=== PATIENT | female | born 1955 | race Caucasian/White ===

== ENCOUNTER 2017-06-08 09:21 | Inpatient (IN) | payer MEDICARE, MEDICAID, SELFPAY ==
[2017-06-08] VITALS (11 sets, daily range): BP systolic 95–138; BP diastolic 49–78; PULSE 60–83; RESP 16–18; TEMP 36.2–37; O2SAT 97–100; BMI 29.3
--- NOTE | 2017-06-08 08:18 | EKG12_ITS ---
Test Reason : PRE-OP Blood Pressure : / mmHG Vent. Rate : 080 BPM Atrial Rate : 080 BPM P-R Int : 154 ms QRS Dur : 076 ms QT Int : 398 ms P-R-T Axes : 066 052 046 degrees QTc Int : 459 ms Normal sinus rhythm Normal ECG Confirmed by AFTAB SIMPSON, OCTAVIANO ([id number]), avid editor MICA ST ([id number] on 06/11/2017 2:02:37 PM Referred By: Gala Aguilar Confirmed By:OCTAVIANO UGALDE MD
[2017-06-08 08:49] LABS: Anion Gap 6 (5-15); BUN 21 mg/dL (7-18); Calcium,Total 8.8 mg/dL (8.5-10.1); Chloride 106 mmol/L (98-107); Creatinine, Serum 0.66 mg/dL (0.55-1.02); EST Glomerular Filtration Rate 97 mL/min (>60); Est Glom Filt Rate - Afr Amer 117 mL/min (>60); Estimated Creatinine Clearance 65.84 ml/min; Glucose 105 mg/dL (74-106); Potassium 3.6 mmol/L (3.5-5.1); Sodium Level 140 mmol/L (136-145)
[2017-06-08 09:01] LABS: Bedside Glucose 118 mg/dL (70-110)
[2017-06-08 09:03] LABS: Hemoglobin A1c 5.4 % (4.2-6.3)
[2017-06-08] MEDS: Clindamycin 900 MG/50 ML BAG 75 MG IV (09:35)
[2017-06-08] MEDS: Bupiv/Epi 0.5% Mpf 30 ML Vial (11:42)
--- NOTE | 2017-06-08 11:43 | PCM.IMDPSTOP ---
Immediate Post-Op Note Date of Procedure: 06/08/17 Primary Surgeon/Physician: Gala Aguilar multisensor intelligence officer: Adelita Morel Pre-Operative Diagnosis: incisional ventral hernia with herniation of colon Post-Operative Diagnosis: multiple incisional ventral hernias (uzbek cheese-like) with herniation of bowel Surgery/Procedure Performed:: laparoscopic ventral hernia repair with mesh Description of Surgical Findings:: multiple incisional ventral hernias with incarceration of bowel and fatty tissues in and around the umbilical area, dense adhesion of small bowel and colon to the hernia sites requiring time to take down these adhesions to clear the abdominal wall fascia Estimated Blood Loss: 30 ml Specimen's removed: none Drains: none Type of Anesthesia:: General ASA Class: ASA2 Mod Systematic Disease - Admit VTE Documentation VTE Present on Admission: Yes VTE Mechan Device Prophylaxis: SCD's
--- NOTE | 2017-06-08 11:47 | OP.PN_ITS ---
Immediate Post-Op Note Date of Procedure: 06/08/17 Primary Surgeon/Physician: Gala Aguilar candy waffle assembler: Adelita Morel Pre-Operative Diagnosis: incisional ventral hernia with herniation of colon Post-Operative Diagnosis: multiple incisional ventral hernias (macanese cheese-like ) with herniation of bowel Surgery/Procedure Performed:: laparoscopic ventral hernia repair with mesh Description of Surgical Findings:: multiple incisional ventral hernias with incarceration of bowel and fatty tissues in and around the umbilical area, dense adhesion of small bowel and colon to the hernia sites requiring time to take down these adhesions to clear the abdominal wall fascia Estimated Blood Loss: 30 ml Specimen's removed: none Drains: none Type of Anesthesia:: General ASA Class: ASA2 Mod Systematic Disease - Admit VTE Documentation VTE Present on Admission: Yes VTE Mechan Device Prophylaxis: SCD's
--- NOTE | 2017-06-08 11:49 | OP.PCM_ITS ---
Report of Operation Date of Procedure: 06/08/17 Pre-Operative Diagnosis: incisional ventral hernia with herniation of colon Post-Operative Diagnosis: multiple incisional ventral hernias with herniation of bowel Surgery/Procedure Performed:: laparoscopic ventral hernia repair with mesh Description of Surgical Findings:: multiple incisional ventral hernias (citizen [place] cheese - like) with incarceration of bowel and fatty tissues in and around the umbilical area, dense adhesion of small bowel and colon to the hernia sites requiring time to take down these adhesions to clear the abdominal wall fascia and expose all the fascia defects - > 3 taxicab driver: Adelita Morel Type of Anesthesia:: General Anesthesiologist: Tiara Abreu Specimen's removed: none Drains: none Estimated Blood Loss (mL): 30 ml Fluids Replaced: 1200 ml RL Description of Procedure: After informed consent was given, the patient was brought to the Operating Room and placed in the supine position. Appropriate time out protocol was followed. The patient was then placed under general endotracheal anesthesia. The abdomen was then prepped with a sterile surgical skin preparation and sterile surgical drapes were placed. The left upper abdominal wall was grasped with penetrating clamps and the skin and subcutaneous tissues were infiltrated with 0.5% marcaine with epinephrine. A skin incision was then made with a 15 blade scalpel. The anterior abdominal wall was elevated and the intraabdominal cavity was entered. A CO2 pneumoperitoneum was then created. A 5mm trocar was placed using the camera inserted into the trocar as it penetrated the fascia and then a 5mm laparoscope was then inserted into the trocar and careful attention was directed to the intraabdominal contents. There was no evidence of injury to any intraabdominal contents from the insertion of the trocar or camera. There were a large amount of omental adhesions and bowel adhesions to the anterior abdominal wall. This was primarily in the periumbilical site but also extended to the right upper quadrant and bilateral lower quadrant. Under direct visualization, two 5mm trocars were placed - one in the lateral left side (inferior to the initial trocar) and another in the left lower quadrant). The skin and subcutaneous tissues of these trocars were infiltrated with local anesthetic. Later in the course of the surgery, to facilitate use of better visualization with a 10 mm camera and also to place the mesh in the intraabdominal cavity, the left lower quadrant trocar was changed to a 12 mm trocar. Dissection then began to take down the adhesions to clear the anterior abdominal wall. This was done by use of blunt dissection and transection of the tissues with the Harmonic scalpel. There was transverse colon that was noted to be incarcerated in the periumbilical area hernia site. Numerous smaller fascial defects were noted with fatty incarceration with omentum. Also small bowel was noted to be adherent at one of the fascial defect sites. These adhesions were dense in nature and because of this and the presence of bowel, dissection of these adhesions and them from the anterior wall took some time. Once this was done, the fascial defects were noted. There were many small fascial defects surrounding the larger 3-4 cm fascial defect in the perumbilical area. These fascial defects were marked out on the patient's skin , to determine the size of mesh required to cover all the defects. To cover all the fascial defects, a Ventrolight 15cm round (large) mesh was chosen. It was prepared according to agronomy advisor's guidelines. It was then rolled up and placed into the intraabdominal cavity via the 12 mm trocar. A site at the central location of the fascial defects had been chosen prior to placement of the mesh and a small skin incision was made at this site - it was just right superior to the umbilicus. The central balloon port of the mesh was then brought out via this skin incision. The balloon of the mesh was then inflated. The mesh was then positioned and flanged up against the anterior abdominal wall. A SecureStrap tacking devices was then used to secure the mesh on the anterior abdominal wall. The balloon of the mesh was then removed via the 12 mm trocar. Hemostasis was carefully checked, no active bleeding was noted. The bowel was carefully examined, no injury or bile leakage was noted. The CO2 was released and all trocars removed intact. The fascia at the left lower quadrant site was then reapproximated transversely with [id number] 0 vicryl suture. All skin incisions were closed with 4-0 monocryl in a subdermal fashion. Cavilol and Steristrips were used to reinforce the skin closure. Sterile dressings were applied to all wounds. The patient was extubated and brought to the Recovery Room in stable condition. Grafts/Implants Used: Bard Ventralight ST mesh with ECHO postioning system LOT# [id number] - Complications none noted - Admit VTE Documentation VTE Present on Admission: Yes VTE Mechan Device Prophylaxis: SCD's
[2017-06-08 12:45] LABS: Bedside Glucose 142 mg/dL (70-110)
[2017-06-08] MEDS: Morphine 2 MG/ML Syringe IV ×2 (13:38→17:24)
[2017-06-08] MEDS: 0.9% NaCl Peripheral Flush Adult/Peds IV ×2 (13:39→17:24)
--- NOTE | 2017-06-08 16:47 | CHAPLAIN ---
Type of Pastoral Visit _x__ Initial Visit ___ Follow-up Visit ___ On-call Visit ___ General Patient Visit ___ Spiritual Assessment ___ Family Conference ___ Bereavement ___ Rapid Response ___ Code Blue ___ Other (describe below) Pastoral Care Referral From _x__ Patient ___ Family ___ Nurse ___ Physician ___ Maintenance Supervisor Electrical ___ Foreign Diplomat ___ Other (describe below) Sacrament/Intervention ___ Active listening ___ Anointing ___ Church ___ Bereavement ___ Communion ___ Clarissa exploration ___ ___ Life review ___ Prayer ___ Reconciliation ___ Sacrament of Sick _x__ Supportive presence ___ Wedding ___ Other (describe below) Pastoral Comments
[2017-06-08] MEDS: Lactated Ringers 1,000 ML 75 ML IV (18:59)
[2017-06-09] MEDS: Morphine 2 MG/ML Syringe IV ×2 (01:47→21:26)
[2017-06-09 02:30] VITALS: BP 136/72; PULSE 96; RESP 18; TEMP 37.2; O2SAT 96
--- NOTE | 2017-06-09 07:11 | PCM.PN.SRG ---
Subjective: patient feels distended with abdominal pain, has not ambulated (states that she can't with IV and SCDs in place) - Physical Exam General: Alert, Oriented x3, - - difficult to understands - doesn't enunciate clearly Oral: Moist Mucosa Abdomen: Soft - distended, slightly tympanitic, hypoactive bowel sounds, dresssing intact - not saturated, - - rectal - air in vault - no stool Vital Signs Temp Pulse Resp BP Pulse Ox 98.9 F 96 18 136/72 H 96 06/09/17 02:30 06/09/17 02:30 06/09/17 02:30 06/09/17 02:30 06/09/17 02:30 Oxygen Delivery Method Room Air Weight: 70.5 kg Body Mass Index (BMI) 29.3 Finger Stick Blood Glucose 142 Intake and Output for Last 24 Hours 06/07/17 06/08/17 06/09/17 23:59 23:59 23:59 Intake Total 2275 / 2275 1600 / 1600 Output Total 350 / 350 850 / 850 Balance 1925 / 1925 750 / 750 Laboratory Tests Past 24 Hrs 06/08/17 06/08/17 08:28 08:28 Sodium 140 Potassium 3.6 Chloride 106 Carbon Dioxide 28.0 Anion Gap 6 BUN 21 H Creatinine 0.66 Estim Creat Clear Calc 65.84 Est GFR (MDRD) Af Amer 117 Est GFR (MDRD) Non-Af 97 BUN/Creatinine Ratio 32.0 H Glucose 105 Hemoglobin A1c 5.4 Calcium 8.8 POC Glucose 06/08/17 06/08/17 12:38 08:41 POC Glucose 142 H 118 H Medical Necessity - Tobacco Use Smoking Status: Never smoker Assessment/Plan Impression: POD#1 s/p laparoscopic ventral hernia repair with mesh and extensive adhesiolysis postoperative ileus Plan: Patient has not passed flatus and has abdominal distention, suspect postop ileus Ambulation is strongly encouraged- patient has not ambulated yet, she points to her IV and her SCDs as to the reasons why Digital examination done to stimulate peristaltic reflex
[2017-06-09] MEDS: Lactated Ringers 1,000 ML 75 ML IV ×2 (07:49→20:11)
[2017-06-09 10:30] VITALS: BP 121/67; PULSE 94; RESP 16; TEMP 36.7; O2SAT 95
[2017-06-09 13:49] VITALS: BP 126/69; PULSE 87; RESP 16; TEMP 36.8; O2SAT 94
[2017-06-09 20:05] VITALS: BP 106/68; PULSE 93; RESP 16; TEMP 37.2; O2SAT 97
[2017-06-09] MEDS: 0.9% NaCl Peripheral Flush Adult/Peds IV (21:26)
[2017-06-10 02:05] VITALS: BP 121/68; PULSE 87; RESP 16; TEMP 37; O2SAT 98
[2017-06-10 08:02] VITALS: BP 126/72; PULSE 95; RESP 18; TEMP 37; O2SAT 98
[2017-06-10] MEDS: Lactated Ringers 1,000 ML 75 ML IV (09:14)
--- NOTE | 2017-06-10 10:30 | CASEMGMT ---
RN BROOKE Face to Face with patient for initial transition planning/care coordination assessment. RN CM introduced self and role at [facility]. Patient sitting in chair, alert and oriented. Patient willing to participate in assessment and is able to answer all questions appropriately. Care providers, pharmacy, and demographics verified. See link attached. Pt wishes to discharge home, denies need for home health at this time. Pt states she has no further needs or concerns at this time. CM to follow for discharge planning needs that may arise. Disposition Plan: Patient to discharge home with follow-up plans in place.
--- NOTE | 2017-06-10 11:05 | PCM.PN.SRG ---
Subjective: patient had post op ileus - presently resolved, passing flatus, less distended minimal abdominal pain - Physical Exam General: Alert, Oriented x3 Neck: Supple Abdomen: Bowel Sounds Present, Soft, - - dressings intact Vital Signs Temp Pulse Resp BP Pulse Ox 98.6 F 95 18 126/72 H 98 06/10/17 08:02 06/10/17 08:02 06/10/17 08:02 06/10/17 08:02 06/10/17 08:02 Oxygen Delivery Method Room Air Weight: 70.5 kg Body Mass Index (BMI) 29.3 Finger Stick Blood Glucose 142 Intake and Output for Last 24 Hours 06/08/17 06/09/17 06/10/17 23:59 23:59 23:59 Intake Total 2275 / 2275 2362 / 2362 1046 / 1046 Output Total 350 / 350 850 / 850 450 / 450 Balance 1925 / 1925 1512 / 1512 596 / 596 Medical Necessity - Tobacco Use Smoking Status: Never smoker Assessment/Plan Impression: POD#2 s/p laparoscopic ventral hernia repair with mesh and extensive adhesiolysis postoperative ileus - resolved Plan: discharge to home
--- NOTE | 2017-06-10 11:08 | PCM.DC.HER ---
Discharge Diet: No Restrictions Discharge Activity: Return to Normal Activity, May not drive while taking narcotic pain medications. Lifting Restrictions: no lifting greater than 50 pounds for one month Call your doctor if your incision/area has: Continuous Slow Oozing, Foul Smelling Discharge Call your doctor if you observe: Fever of 101 or Higher Additional Dressing/Incision Instructions:: Leave dressings intact. may get wet in shower. Do not soak - no tub baths/swimming Allergies/Adverse Reactions: Allergies cefdinir [From Omnicef] Allergy (Severe, Verified 04/22/17 09:46) Unknown Penicillins Allergy (Severe, Verified 06/04/17 09:36) STOP BREATHING codeine Allergy (Verified 04/22/17 09:46) Other hydrocodone bitartrate [From Vicodin] Allergy (Verified 04/22/17 09:46) Other latex Allergy (Verified 04/22/17 09:46) Rash aspirin Adverse Reaction (Verified 04/22/17 09:46) Other Medications to take at Discharge Simvastatin [Zocor] 20 mg PO QHS 12/23/12 Omeprazole [Prilosec] 20 mg PO DAILY 01/01/15 Ranitidine [Zantac] 150 mg PO DAILY 01/01/15 Fluticasone/Salmeterol [Advair Hfa 115-21 Mcg Inhaler] 2 puff INHALATION BID PRN 05/15/16 blood sugar diagnostic strips See Dose Instructions .ROUTE .MEDSUPPLY #20 ea 04/08/17 Metformin HCl 500 mg PO DAILY 06/04/17 traMADol [Ultram] 50 mg PO Q4H PRN PRN #20 tab 06/10/17 The following prescriptions were given: traMADol [Ultram] 50 mg PO Q4H PRN PRN #20 tab PRN Reason: Mod-Severe Pain (-11/25) Please Follow Up With: Gala Aguilar MD - call When: please call to make an appointment next week, thank you
--- NOTE | 2017-06-10 11:10 | PCM.DC.BLA ---
Discharge Summary Date of Admission: 06/08/17 Date of Discharge: 06/10/17 Summary: 62 y/o WF with known chronic constipation presents for admission after laparoscopic ventral hernia repair with mesh with extensive adhesiolysis. developed postoperative ileus. This resolved without two days. Tolerating diet and passing flatus by time of discharge with no signs of infection. To be followed as outpatient.
[2017-06-10 13:54] VITALS: BP 139/83; PULSE 84; RESP 18; TEMP 37.3; O2SAT 98
== END 2017-06-10 14:15 | disposition home or self-care (01) | DRG 336 ==
LOC: SDC 09:55 → MS3 09:55
PROVIDERS: Anesthesiology; Admitting Provider Surgery; Family Provider Internal Medicine; PCP Internal Medicine; Visit Provider Surgery
PROC: 0WQF4ZZ Repair Abdominal Wall, Percutaneous Endoscopic Approach (ICD-10-PCS; principal; 2017-06-08 09:15)
DX: K43.2 Incisional hernia without obstruction or gangrene (principal); K56.7 Ileus, unspecified; K59.00 Constipation, unspecified; J45.909 Unspecified asthma, uncomplicated; M79.7 Fibromyalgia; I10 Essential (primary) hypertension; E78.2 Mixed hyperlipidemia; K66.0 Peritoneal adhesions (postprocedural) (postinfection)
CPT/HCPCS: 80048; 82962; 83036; 93005; 97802; J7120; A4216

== ENCOUNTER 2017-06-30 11:14 | Emergency (ER) | payer MEDICARE, MEDICAID, SELFPAY ==
[2017-06-30 11:16] VITALS: BP 113/71; PULSE 77; RESP 14; TEMP 36.4; O2SAT 97; BMI 29.2
--- NOTE | 2017-06-30 12:03 | ED.DCSUM_ITS ---
- ER Visit Summary Date of Service: 06/30/17 Chief Complaint: Wound check History of Present Illness: The patient is a 62 F who had a hernia repair on June [address] Aguilar. Patient states that one incision is slightly open today and she went to have it checked. She is not having pain. She has had no bleeding or drainage from the wound. Physical Examination: Vital signs are unremarkable. Patient is in no acute distress and is nontoxic appearing. Heart is regular rate and rhythm. Lung sounds are clear. Abdomen is soft with no focal tenderness. She has active bowel sounds throughout. She has healing incisions noted on the abdomen. The left mid abdomen wound has a 1 mm opening in the scab. The deep layers are well-healed. There is no sign of infection. Test Results: [] Emergency Department Course and Treatment: Patient reassured that there is no sign of infection and wounds are healing well. Treatment Plan: Follow-up with Dr. Aguilar as needed Disposition: Discharge Impression: Postop wound check without infection This note was generated with SmashChart dictation software. It may contain incorrect words, spelling, and punctuation that were not noted in review of the chart prior to signing ED Disposition - Plan for ED Patient: Chief Complaint: Wound Check Referrals: Courtney Valenzuela MD [Primary Care Provider] -
--- NOTE | 2017-06-30 12:03 | ED.DEP ---
ED Disposition - Plan for ED Patient: Disposition: Home or Assisted Living Chief Complaint: Wound Check Instructions: ED Wound Check Post Op No Infec Referrals: Courtney Valenzuela MD [Primary Care Provider] - Gala Aguilar MD [STAFF PHYSICIAN] - As Needed
== END 2017-06-30 13:13 | disposition home or self-care (01) ==
PROVIDERS: Emergency Provider Emergency Medicine; Family Provider Internal Medicine; PCP Internal Medicine
DX: Z48.00 Encounter for change or removal of nonsurgical wound dressing (principal); E78.00 Pure hypercholesterolemia, unspecified; J45.909 Unspecified asthma, uncomplicated; K21.9 Gastro-esophageal reflux disease without esophagitis
CPT/HCPCS: 99281

== ENCOUNTER → 2018-02-22 09:11 | Outpatient (CLI) | payer MEDICARE, SELFPAY ==
[2017-10-21 12:20] VITALS: BMI 30.1
[2018-02-22 10:11] LABS: Microalbumin,Random Urine 7.5 mg/L (NO RANGE EST.)
[2018-02-22 10:41] LABS: ALB/GLOB Ratio 1.1 RATIO (0.9-2.4); AST(SGOT) 26 U/L (15-37); Alanine Aminotransfer ALT/SGPT 32 U/L (13-56); Albumin, Serum 3.7 g/dL (3.2-5.0); Alkaline Phosphatase 97 U/L (45-117); Anion Gap 7 (5-15); BUN 23 mg/dL (7-18); Calcium,Total 8.9 mg/dL (8.5-10.1); Chloride 110 mmol/L (98-107); Cholesterol 179 mg/dL (200); Creatinine, Serum 0.61 mg/dL (0.55-1.02); EST Glomerular Filtration Rate 106 mL/min (>60); Est Glom Filt Rate - Afr Amer 128 mL/min (>60); Globulin 3.5 g/dL (2.2-4.2); Glucose 96 mg/dL (74-106); High Density Lipoprotein 85 mg/dL; Potassium 4.5 mmol/L (3.5-5.1); Protein, Total 7.2 g/dL (6.4-8.2); Sodium Level 145 mmol/L (136-145); Triglycerides 67 mg/dL; Very Low Density Lipoprotein 13 mg/dL (5-40)
[2018-02-22 10:43] LABS: Hemoglobin A1c 5.5 % (4.2-6.3)
== END ==
PROVIDERS: Family Provider Internal Medicine; PCP Internal Medicine; Referring Provider Nurse Practitioner; Visit Provider Nurse Practitioner
DX: R73.03 Prediabetes (principal); E78.5 Hyperlipidemia, unspecified
CPT/HCPCS: 36415; 80053; 80061; 82043; 82570; 83036

== ENCOUNTER 2019-08-26 23:34 | Observation (INO) | payer MEDICARE, MEDICAID, SELFPAY ==
[2018-02-24 10:15] VITALS: BMI 30.8
[2019-08-26 23:36] VITALS: BP 131/59; PULSE 83; RESP 15; TEMP 36.7; O2SAT 99; BMI 30.7
--- NOTE | 2019-08-26 23:37 | EKG12_ITS ---
Test Reason : CP Blood Pressure : / mmHG Vent. Rate : 090 BPM Atrial Rate : 090 BPM P-R Int : 180 ms QRS Dur : 076 ms QT Int : 392 ms P-R-T Axes : 075 076 063 degrees QTc Int : 479 ms Normal sinus rhythm Nonspecific ST abnormality Abnormal ECG Confirmed by BEATRIZ SIMPSON, GREG ([id number]), digital editor SUKHWINDER MIR ([id number]) on 08/29/2019 1:03:39 PM Referred By: AKASH Confirmed By:GREG HENDERSON MD
--- NOTE | 2019-08-26 23:38 | ED.VIS.GEN ---
History of Present Illness Chief Complaint: Chest Pain Onset: Today Narrative: 64-year-old female with past medical history of GERD, asthma, hyperlipidemia, diabetes presents with concern for chest pain. States it began approximately 45 minutes ago. Began while she was walking around at home. Describes it as retrosternal nonradiating. Sharp in nature. Admits to some mild shortness of breath. Admits to nausea without vomiting. Denies any diaphoresis. Patient states that she also had 2 episodes of diarrhea today. Denies any melena or hematochezia. Denies any history of DVT or pulmonary embolism. Denies any recent long trips, surgeries, hospitalizations. Patient is not a current smoker. Past Medical History - Allergies and Home Meds Allergies/Adverse Reactions: Allergies cefdinir [From Omnicef] Allergy (Severe, Verified 08/26/19 23:36) Unknown Penicillins Allergy (Severe, Verified 08/26/19 23:36) STOP BREATHING codeine Allergy (Verified 08/26/19 23:36) Other hydrocodone bitartrate [From Vicodin] Allergy (Verified 08/26/19 23:36) Other latex Allergy (Verified 08/26/19 23:36) Rash aspirin Adverse Reaction (Verified 08/26/19 23:36) Other tramadol [From Ultram] Adverse Reaction (Verified 08/26/19 23:36) Rash Primary Care Physician: Courtney Valenzuela MD [Primary Care Provider] - Prior records reviewed: Yes Past Medical History: - - Pretension, diabetes, asthma, GERD Lives: Alone Smoking Status: Never smoker Alcohol: None Drugs: None Review of Systems General: Denies: Chills, Fever, Sweats Eyes: Denies: Visual changes - bilaterally, Diplopia ENT: Denies: Rhinorrhea, Sore throat Cardiovascular: Reports: Chest pain. Denies: Palpitations Respiratory: Reports: Dyspnea. Denies: Cough, Dyspnea on exertion Gastrointestinal: Reports: Diarrhea. Denies: Abdominal pain, Nausea, Vomiting, Melena, Hematochezia Genitourinary: Denies: Dysuria, Hematuria, Frequency Musculoskeletal: Denies: Back pain, Extremity Pain Skin: Denies: Rash, Wounds Neurological: Denies: Headache, Weakness, Numbness Physical Exam Inital Vital Signs reviewed: Yes General: Well nourished, Well developed, No Acute Distress Head: Normocephalic, Atraumatic Eyes: Perrl, EOMI ENT: Moist mucous membranes, No rhinorrhea Neck: Supple, Nontender Cardiovascular: Regular rate, Regular rhythm, No murmurs Respiratory: No distress, CTA bilaterally, Chest nontender Abdomen: Soft, Nontender, Nondistended, Normal bowel sounds Back: Nontender, Normal Inspection Extremities: Nontender, No edema Skin: Normal color, No rash Neurological: Alert, Oriented x3, Cranial nerves II-XII grossly intact, Normal Strength, Normal Sensation Psychological: Normal affect, Normal Mood Diagnostic/Tx/Re-eval Chest X-Ray - ED: 1 View, Read by ED Physician, No Acute Disease Clinical Impression(s) from Imaging Studies Chest X-Ray 08/26/19 23:52 IMPRESSION: Hyperexpansion of lungs, which may represent COPD. No evidence for acute cardiopulmonary pathology. Electronically Signed: Darrell Robertson MD at 0:51 EDT , Service support , Chest CTA 08/27/19 00:43 IMPRESSION: Normal CTA chest examination, without a demonstrated pulmonary embolism, aortic aneurysm, or aortic dissection. . No evidence for acute cardiopulmonary pathology. Electronically Signed: Darrell Robertson MD at 2:13 EDT , Service support , Laboratory Data 08/26/19 08/26/19 08/26/19 23:47 23:47 23:47 WBC 5.8 RBC 4.37 Hgb 12.5 Hct 40.0 MCV 91.5 MCH 28.6 MCHC 31.3 L RDW Std Deviation 48.3 H RDW Coeff of Emily 14.3 Plt Count 336 MPV 8.6 Immature Gran % (Auto) 1.600 H Neut % (Auto) 59.3 Lymph % (Auto) 28.0 [place] % (Auto) 7.3 Eos % (Auto) 3.5 Baso % (Auto) 0.3 Absolute Neuts (auto) 3.4 Absolute Lymphs (auto) 1.61 Nucleated RBC % 0 D-Dimer Quant (PE/DVT) 0.64 H* Sodium 143 Potassium 3.5 Chloride 110 H Carbon Dioxide 27.0 Anion Gap 6 BUN 19 H Creatinine 0.73 Estim Creat Clear Calc 57.98 Est GFR (MDRD) Af Amer 103 Est GFR (MDRD) Non-Af 85 BUN/Creatinine Ratio 26.1 H Glucose 107 H Calcium 8.8 Troponin I < 0.015 - Rhythm Strip Rhythm Strip: Sinus Rhythm Rate: 90 Ectopy: None - EKG Initial EKG Interpretation: Sinus Rhythm - Normal sinus rhythm at 90 bpm. KS interval 180 ms. QTC of [address] changes. No evidence of ST elevation or depression at this time. - Medical Decision Making Patient appears well nontoxic. Vital signs within normal limits. EKG shows nonspecific ST changes without acute ischemia. Troponin negative. Chest x-ray normal. D-dimer elevated so CTA was done which shows no evidence of aortic aneurysm or pulmonary embolus. Patient allergic to aspirin. Was given 3 doses of nitroglycerin which did help her pain somewhat. Patient will be admitted in the hospital for further serial troponins as well as stress testing. Patient stable at time of admission. ED Disposition - Plan for ED Patient: Disposition: Acute Care Hospital [facility] Diagnosis: Chest pain, Dyspnea Referrals: Courtney Valenzuela MD [Primary Care Provider] -
[2019-08-26 23:52] LABS: Absolute Lymphocyte Count 1.61 X10^3/uL (0.83-4.51); Absolute Neutrophil Count 3.4 X10^3/uL (2.0-7.7); Basophil# 0.02 X10^3/uL; Basophil% 0.3 % (0-1); Eosinophils% 3.5 % (0-5); Hemoglobin 12.5 g/dL (12.0-15.0); Lymphocyte # 1.61 X10^3/ul (4.0); Mean Corp Hgb Conc 31.3 g/dL (32-36); Mean Corpuscular Hgb 28.6 pg (27.0-32.0); Mean Corpuscular Volume 91.5 fL (81-99); Mean Platelet Vol. 8.6 fl (6.2-12.0); Monocyte# 0.42 X10^3/uL; Monocyte% 7.3 % (0-10); NRBC Flagged by Analyzer 0 % (0-5); Neutrophil # 3.42 X10^3/uL (2.7-7.7); Neutrophil % 59.3 % (47-70); Platelet Count 336 K/mm3 (150-450); RBC Distribution Width CV 14.3 % (11.6-14.6); RBC Distribution Width SD 48.3 fl (35.1-43.9); Red Blood Count 4.37 M/mm3 (4.2-5.4); White Blood Count 5.8 K/mm3 (4.4-11.0)
--- NOTE | 2019-08-26 23:52 | RAD_ITS ---
STUDY: X-RAY CHEST REASON FOR EXAM: Female, 64 years old. CHEST PAIN TECHNIQUE: Single AP portable view of the chest. COMPARISON: 06/14/2014. FINDINGS: There are prominent epicardial fat pads bilaterally, similar to previous study. Lungs are hyperexpanded. There are no demonstrated pulmonary infiltrates. There is no demonstrated pleural abnormality. Normal size heart. Normal mediastinum and jared. Normal visualized pulmonary arteries. Normal visualized aortic arch and descending thoracic aorta. There are multilevel degenerative changes of the visualized thoracic spine. Normal visualized ribs, clavicles, and shoulders. There is no demonstrated abnormality of the visualized soft tissue structures of the upper abdomen. RAD/Chest 1 View (Portable) IMPRESSION: Hyperexpansion of lungs, which may represent COPD. No evidence for acute cardiopulmonary pathology. Electronically Signed: Darrell Robertson MD at 0:51 EDT , Service support ,
[2019-08-27] VITALS (12 sets, daily range): BP systolic 92–137; BP diastolic 62–85; PULSE 67–86; RESP 16–21; TEMP 36.5–37.1; O2SAT 94–99; BMI 30.1; BMI 30.2
[2019-08-27] MEDS: Nitroglycerin SL (ED/IMG/CATH) 0.4 MG TABLET SUBLINGUAL ×2 (00:07→00:13)
[2019-08-27 00:22] LABS: Anion Gap 6 (5-15); BUN 19 mg/dL (7-18); BUN/Creat Ratio 26.1 RATIO (10-20); Calcium,Total 8.8 mg/dL (8.5-10.1); Chloride 110 mmol/L (98-107); Creatinine, Serum 0.73 mg/dL (0.55-1.02); EST Glomerular Filtration Rate 85 mL/min (>60); Est Glom Filt Rate - Afr Amer 103 mL/min (>60); Estimated Creatinine Clearance 57.98 ml/min; Glucose 107 mg/dL (74-106); Potassium 3.5 mmol/L (3.5-5.1); Sodium Level 143 mmol/L (136-145)
[2019-08-27 00:35] LABS: D-Dimer Quantitative (DVT/PE) 0.64 FEU/ug/m (0.27-0.49)
--- NOTE | 2019-08-27 00:43 | CT_ITS ---
STUDY: CTA CHEST REASON FOR EXAM: Female, 64 years old. RETROSTERNAL CP, DIZZINESS, NAUSEA, DIARRHEA, D-DIMER RADIATION DOSAGE (If Supplied By Facility): CTDIvol = ( 12.385 ) mGy, DLP = ( 198.62 ) mGycm TECHNIQUE: The examination was performed with the intravenous administration of IV 100mL [id number]-370. Post-processing of the angiographic images was performed, with multiplanar reformation, but without w3D reconstruction. Individualized dose optimization techniques were used for this CT. COMPARISON: Chest x-ray 08/26/2019. FINDINGS: Normal enhancement of the main pulmonary artery and right and left pulmonary arteries. Normal enhancement of the bilateral peripheral pulmonary arteries. There is no demonstrated pulmonary embolism. Normal thoracic aorta and visualized great vessels. There is no demonstrated aortic dissection. Normal heart and pericardium. There are visualized mediastinal lymph nodes, which are within normal size limits, and with normal morphology. Normal hilar regions. Normal visualized trachea and bronchi. The lungs are well expanded. Normal pulmonary parenchyma. There is a calcified pulmonary granuloma in the right upper lobe. Normal pleura. Normal chest wall structures. Normal osseous structures. Normal visualized upper abdomen. CT/CTA Chest W/WO Contrast IMPRESSION: Normal CTA chest examination, without a demonstrated pulmonary embolism, aortic aneurysm, or aortic dissection. . No evidence for acute cardiopulmonary pathology. Electronically Signed: Darrell Robertson MD at 2:13 EDT , Service support ,
--- NOTE | 2019-08-27 02:32 | PCM.HP.STD ---
Problem List (1) Chest pain Status: Acute Qualifiers: Chest pain type: unspecified Qualified Code(s): R07.9 - Chest pain, unspecified (2) Diabetes mellitus Status: Chronic Qualifiers: Diabetes mellitus type: type 2 Diabetes mellitus nursing home insulin use: without long chain beamer use Diabetes mellitus complication status: without complication Qualified Code(s): E11.9 - Type 2 diabetes mellitus without complications (3) Hyperlipidemia Status: Chronic Qualifiers: Hyperlipidemia type: unspecified Qualified Code(s): E78.5 - Hyperlipidemia, unspecified History of Present Illness Date of Admission: 08/27/19 Chief Complaint: Chest pain - 1 day. Diarrhea - 2 days The patient is a 64 year old F with past medical history of hypertension, hyperlipidemia, type II DM, who comes in with complaints of chest pain started on the day of admission. Patient has had diarrhea for 2 days. She had 1 episode the day before admission and 2 episodes on the day of admission. She subsequently got chest pain that was substernal, worse with ambulation and movement of her body, radiates to her back. This was associated with some diaphoresis but no dizziness or palpitations. Denied any fever or chills but admits to some nausea but no vomiting. She denies lifting heavy objects. She denied any history of heart disease, no bilateral leg swelling, no orthopnea. Vital signs include temperature of 98.1F, heart rate 83, blood pressure 131/59, respiratory rate 15, SPO2 99% on room air. WBC count is 5.8, hemoglobin 12.5, platelet count 326, d-dimer 0.64, sodium 145 potassium 2.5, chloride 110, bicarb 27, BUN 19, creatinine 0.873, troponin x1 is negative. Chest x-ray shows no acute cardiopulmonary process. CT of the chest was negative for acute PE. Past Medical History Past Medical History (Chronic Problems): Chronic Problems (Last Reviewed 02/24/18 @ 10:13 by Melva Taylor) Diabetes mellitus (Chronic) Hyperlipidemia (Chronic) Pre-diabetes (Chronic) Patient continues on metformin 500mg daily. Tolerating well. Labs reviewed and in range. no change in condition. Enc to monitor diet which was reviewed. Enc daily exercise which she is doing. Has occ BG of 16-180. Enc to eview her diet on day such as this and toe valuate was occurred. Medical History: Medical History (Last Reviewed 02/24/18 @ 10:13 by Melva Taylor) Arthritis M19.90 Asthma J45.909 Chronic bronchitis J42 GERD (gastroesophageal reflux disease) K21.9 Gallstones K80.20 High cholesterol E78.00 Pre-diabetes R73.03 Seasonal allergies J30.2 Allergies cefdinir [From Omnicef] Allergy (Severe, Verified 08/26/19 23:36) Unknown Penicillins Allergy (Severe, Verified 08/26/19 23:36) STOP BREATHING codeine Allergy (Verified 08/26/19 23:36) Other hydrocodone bitartrate [From Vicodin] Allergy (Verified 08/26/19 23:36) Other latex Allergy (Verified 08/26/19 23:36) Rash aspirin Adverse Reaction (Verified 08/26/19 23:36) Other tramadol [From Ultram] Adverse Reaction (Verified 08/26/19 23:36) Rash Home Medications: Ambulatory Orders Medication Instructions Recorded Simvastatin [Zocor] 20 mg PO QHS 12/23/12 Omeprazole [Prilosec] 20 mg PO BID 01/01/15 Calcium Carbonate/Vitamin D3 1 tab PO DAILY 06/30/17 [Calcium 600 with Vit D Chew Tb] Fluticasone/Salmeterol [Advair Hfa 2 puff INHALATION BID 06/30/17 115-21 Mcg Inhaler] metformin 500 mg tablet 500 mg PO DAILY #30 tab 10/21/17 sodium chloride 0.65 % nasal spray 1 spray INTRANASAL Q1-4H PRN 10/21/17 aerosol Albuterol Sulfate [Proventil Hfa] 2 puff IH PRN PRN 08/26/19 Surgical History: Surgical History (Last Reviewed 02/24/18 @ 10:13 by Melva Taylor) H/O hernia repair Z98.890, Z87.19 Hx of cholecystectomy Z98.890, Z90.49 Surgical History: cholecystectomy, herniorrhaphy - with mesh Psychiatric History: No pertinent psych 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 Lives: Alone Smoking Status: Never smoker Alcohol: None Drugs: None - *Family History Paternal Family History: Family History (Last Reviewed 02/24/18 @ 10:13 by Melva Taylor) Mother Cancer Father Heart disease Hypertension High cholesterol Kidney disease Cancer CVA (cerebral vascular accident) History Items: Cancer, High Cholesterol, Heart Disease, Hypertension, Renal Disease, Stroke Maternal Family History: Family History (Last Reviewed 02/24/18 @ 10:13 by Melva Taylor) Mother Cancer Father Heart disease Hypertension High cholesterol Kidney disease Cancer CVA (cerebral vascular accident) History Items: Cancer Review of Systems Constitutional: Denies: Anorexia, Chills, Fever, Malaise, Weakness, Weight Change Eyes: Denies: Blurred vision, Cataracts, Conjunctivae Inflammation, Pain, Redness, Vision Change HEENT: Denies: Difficulty Hearing, Difficulty Swallowing, Head Aches, Hearing Changes, Sinus Congestion, Sinus Drainage Cardiovascular: Reports: Chest Pain, Chest Pressure. Denies: Light Headedness, Orthopnea, Palpitations, Paroxysmal Noc. Dyspnea Respiratory: Denies: Cough, Shortness of Breath, Shortness of breath at rest, Shortness of breath upon exertion, Sputum production, Wheezing Gastrointestinal: Denies: Abdominal Pain, Constipation, Hematemesis, Hematochezia, Nausea, Vomiting Genitourinary: Denies: Dysuria Musculoskeletal: Denies: Joint Pain, Joint stiffness, Joint swelling, Joint Tenderness Skin: Denies: Dryness, Pruritis, Rash, Wounds Neurological: Denies: Numbness, Tingling, Focal weakness Psychiatric: Denies: Anxiety, Depression, Homicidal Ideations, Suicidal Ideations Hematologic/ Lymphatic: Denies: Easy Bruising, Easy Bleeding VTE Information - Inpt Only VTE Present on Admission: No VTE Pharm Prophylaxis ordered?: Yes Patient Problems: Active and Suspected Problems (Last Reviewed 02/24/18 @ 10:13 by Melva Taylor) Chest pain (Acute) Dyspnea (Acute) - Physical Exam Vitals/I&O's: Vital Signs Temp Pulse Resp BP Pulse Ox 98.1 F 74 20 H 110/65 99 08/26/19 23:36 08/27/19 02:22 08/27/19 02:22 08/27/19 02:22 08/27/19 02:22 Oxygen Delivery Method Room Air Weight: 73.6 kg Body Mass Index (BMI) 30.7 Finger Stick Blood Glucose 142 General: Alert, Oriented x3, Cooperative, No apparent distress HEENT: Atraumatic, PERRLA, EOMI, Normocephalic Oral: Moist Mucosa Neck: Supple Lungs: Clear to auscultation, Normal air movement Cardiovascular: Regular rate, Regular Rhythm, Normal S1, Normal S2, No murmurs, - - reproducible anterior chest wall pain Abdomen: Bowel Sounds Present, Soft, Non Tender Extremities: No edema, Capillary Refill Less than 3 Seconds Skin: No rashes, No breakdown Musculoskeletal: No Tenderness to Palpation of Joints or Extremities Neurological: Cranial nerves II-XII grossly intact Psych/Mental Status: Normal Affect, Appropriate Laboratory Results 08/26/19 23:47: WBC 5.8, RBC 4.37, Hgb 12.5, Hct 40.0, MCV 91.5, MCH 28.6, MCHC 31.3 L, RDW Std Deviation 48.3 H, RDW Coeff of Emily 14.3, Plt Count 336, MPV 8.6, Immature Gran % (Auto) 1.600 H, Neut % (Auto) 59.3, Lymph % (Auto) 28.0, [place] % (Auto) 7.3, Eos % (Auto) 3.5, Baso % (Auto) 0.3, Absolute Neuts (auto) 3.4, Absolute Lymphs (auto) 1.61, Nucleated RBC % 0 08/26/19 23:47: D-Dimer Quant (PE/DVT) 0.64 H* 08/26/19 23:47: Sodium 143, Potassium 3.5, Chloride 110 H, Carbon Dioxide 27.0, Anion Gap 6, BUN 19 H, Creatinine 0.73, Estim Creat Clear Calc 57.98, Est GFR (MDRD) Af Amer 103, Est GFR (MDRD) Non-Af 85, BUN/Creatinine Ratio 26.1 H, Glucose 107 H, Calcium 8.8, Troponin I < 0.015 Current Medications Nitroglycerin (Nitrostat) 0.4 mg SUBLINGUAL Q5M PRN PRN Reason: Chest pain Last Admin: 08/27/19 00:13 Dose: 0.4 mg Documented by: Assessment/Plan All Active Problems (Last Reviewed 02/24/18 @ 10:13 by Melva Taylor) Chest pain (Acute) Dyspnea (Acute) Back pain, acute (Acute) 64 year old F with past medical history of hypertension, hyperlipidemia, type II DM, COPD who comes in with complaints of chest pain started on the day of admission. 1. Chest pain, atypical, chest wall is reproducible but from history, patient however states that chest pain is worse with ambulation. She has risk factors for cardiovascular disease EKG shows normal sinus rhythm, no acute ST-T changes. Troponins x1 is negative. Trend troponins, nuclear stress test in a.m. 2. Acute diarrhea, likely viral, If diarrhea persists will recommend testing for enteric pathogens 3. Hypertension, controlled, not on medications, continue to monitor 4. Type II DM, on metformin, would add insulin sliding scale with blood glucose checks 5. Hyperlipidemia, continue on statins 6. COPD, not in acute exacerbation, continue budesonide, breathing treatments PRN 7. DVT prophylaxis - Lovenox SC OBSV E&M: [id number] Initial observation care L3
--- NOTE | 2019-08-27 03:34 | EKG12_ITS ---
Test Reason : CP ADMISSION Blood Pressure : / mmHG Vent. Rate : 070 BPM Atrial Rate : 070 BPM P-R Int : 178 ms QRS Dur : 082 ms QT Int : 432 ms P-R-T Axes : 073 059 058 degrees QTc Int : 466 ms Normal sinus rhythm Normal ECG When compared with ECG of 08-JUN-2017 08:36, No significant change was found Confirmed by BEATRIZ SIMPSON, GREG ([id number]), senior technical editor [address]ICA ST ([id number] on 09/01/2019 9:45:39 AM Referred By: MYLES Confirmed By:GREG HENDERSON MD
[2019-08-27 04:44] LABS: AST(SGOT) 25 U/L (15-37); Alanine Aminotransfer ALT/SGPT 24 U/L (13-56); Albumin, Serum 3.7 g/dL (3.2-5.0); Alkaline Phosphatase 97 U/L (45-117); Bilirubin, Direct 0.32 mg/dL (0.00-0.30); Globulin 3.9 g/dL (2.2-4.2); Protein, Total 7.6 g/dL (6.4-8.2); Thyroid Stim Hormone (TSH) 4.31 uIU/mL (0.358-3.74)
[2019-08-27 06:41] LABS: Bedside Glucose 96 mg/dL (70-110)
[2019-08-27] MEDS: Albuterol 2.5 MG/3 ML VIAL.NEB. INHALATION (07:03)
[2019-08-27] MEDS: Budesonide Respules 0.5 MG/2 ML AMPUL.NEB. INHALATION (07:03)
[2019-08-27 07:11] LABS: Absolute Lymphocyte Count 1.59 X10^3/uL (0.83-4.51); Absolute Neutrophil Count 3.2 X10^3/uL (2.0-7.7); Basophil# 0.02 X10^3/uL; Basophil% 0.4 % (0-1); Eosinophil# 0.14 X10^3/uL; Eosinophils% 2.6 % (0-5); Hematocrit 38.8 % (37-47); Hemoglobin 12.3 g/dL (12.0-15.0); Lymphocyte # 1.59 X10^3/ul (4.0); Lymphocyte % 29.8 % (19-41); Mean Corp Hgb Conc 31.7 g/dL (32-36); Mean Corpuscular Hgb 29.2 pg (27.0-32.0); Mean Corpuscular Volume 92.2 fL (81-99); Mean Platelet Vol. 8.8 fl (6.2-12.0); Monocyte# 0.42 X10^3/uL; Monocyte% 7.9 % (0-10); NRBC Flagged by Analyzer 0 % (0-5); Neutrophil # 3.15 X10^3/uL (2.7-7.7); Neutrophil % 58.9 % (47-70); Platelet Count 312 K/mm3 (150-450); RBC Distribution Width CV 14.3 % (11.6-14.6); RBC Distribution Width SD 48.3 fl (35.1-43.9); Red Blood Count 4.21 M/mm3 (4.2-5.4); White Blood Count 5.3 K/mm3 (4.4-11.0)
[2019-08-27] MEDS: Acetaminophen 325 MG Tablet 650 MG PO (07:47)
[2019-08-27 08:43] LABS: AST(SGOT) 36 U/L (15-37); Alanine Aminotransfer ALT/SGPT 32 U/L (13-56); Albumin, Serum 3.5 g/dL (3.2-5.0); Alkaline Phosphatase 105 U/L (45-117); Anion Gap 8 (5-15); BUN 17 mg/dL (7-18); Calcium,Total 8.7 mg/dL (8.5-10.1); Chloride 108 mmol/L (98-107); Creatinine, Serum 0.63 mg/dL (0.55-1.02); EST Glomerular Filtration Rate 101 mL/min (>60); Est Glom Filt Rate - Afr Amer 122 mL/min (>60); Estimated Creatinine Clearance 67.18 ml/min; Globulin 3.6 g/dL (2.2-4.2); Glucose 95 mg/dL (74-106); Potassium 3.5 mmol/L (3.5-5.1); Protein, Total 7.1 g/dL (6.4-8.2); Sodium Level 142 mmol/L (136-145)
[2019-08-27 09:13] LABS: Cholesterol 162 mg/dL (200); High Density Lipoprotein 77 mg/dL; Triglycerides 52 mg/dL; Very Low Density Lipoprotein 10 mg/dL (5-40)
[2019-08-27 09:16] LABS: Hemoglobin A1c 5.6 % (3.8-5.6)
[2019-08-27] MEDS: metFORMIN HCl 500 MG Tablet PO (10:49)
[2019-08-27] MEDS: Pantoprazole Sodium 20 MG Tablet PO (10:49)
[2019-08-27] MEDS: Calcium Carb/Vitamin D 1 TABLET Tablet PO (10:49)
--- NOTE | 2019-08-27 10:49 | STRESSREP ---
Stress Test Report Exercise myocardial perfusion stress test. 64-year-old lady with a history of chest pain. Stress protocol: Resting EKG demonstrates normal sinus rhythm with a rate of 70 bpm normal intervals are noted resting blood pressure is 112/62 mmHg. The patient exercised according to regular Georges protocol for total duration of 4 minutes and 10 seconds. The maximum heart rate attained was 153 bpm which was 98% of maximum predicted heart rate the maximum workload was 6 metabolic equivalents. At rest there were no ST or T wave changes noted to suggest ischemia at peak exercise upsloping ST changes only were noted with no meet the criteria for ischemia. The patient did experience bilateral shoulder pain and some chest discomfort. Myocardial perfusion protocol. 12.0 mCi of technetium 99m sestamibi was injected at rest. Patient exercised according to regular Georges protocol for 4 minutes and 10 seconds at peak exercise 35.7 mCi of technetium 99m sestamibi was injected stress images were obtained stress and rest images were reconstructed and compared in the short axis vertical long horizontal long axis. Gated images were also obtained per Perfusion SPECT analysis: Review of the stress images demonstrate normal uptake of tracer noted in all areas of the myocardium the resting images similar demonstrate normal uptake of tracer noted in all areas of the myocardium. No reversibility is noted to suggest ischemia no previous infarct is noted. Gated SPECT analysis: The gated ejection fraction is 83%. Conclusion: Normal exercise myocardial perfusion stress test at a moderate workload. Preserved ejection fraction.
--- NOTE | 2019-08-27 11:38 | DCINST_ITS ---
- Discharge Diagnoses Current Active Problems: Current Active and Chronic Problems (Last Reviewed 02/24/18 @ 10:13 by Melva Taylor) Chest pain (Acute) Dyspnea (Acute) You will use the following diet at home:: Calorie/Carbohydrate Controlled (specify 1200, 1400, etc), Cardiac Your food should be the consistency of: Regular Your liquids should be the consistency of: Regular/Thin Discharge Activity: Return to Normal Activity, No Restrictions May resume sexual activity in: No Restrictions Call your doctor if you observe: Fever of 101 or Higher, Shortness of breath, Dizziness, Fainting spells, Swelling in the ankles, Chest pain Allergies/Adverse Reactions: Allergies cefdinir [From Omnicef] Allergy (Severe, Verified 08/26/19 23:36) Unknown Penicillins Allergy (Severe, Verified 08/26/19 23:36) STOP BREATHING codeine Allergy (Verified 08/26/19 23:36) Other hydrocodone bitartrate [From Vicodin] Allergy (Verified 08/26/19 23:36) Other latex Allergy (Verified 08/26/19 23:36) Rash aspirin Adverse Reaction (Verified 08/26/19 23:36) Other tramadol [From Ultram] Adverse Reaction (Verified 08/26/19 23:36) Rash Medications to take at Discharge Simvastatin [Zocor] 20 mg PO QHS 12/23/12 Omeprazole [Prilosec] 20 mg PO BID 01/01/15 Calcium Carbonate/Vitamin D3 [Calcium 600 with Vit D Chew Tb] 1 tab PO DAILY 06/30/17 Fluticasone/Salmeterol [Advair Hfa 115-21 Mcg Inhaler] 2 puff INHALATION BID 06/30/17 metformin 500 mg tablet 500 mg PO DAILY #30 tab 10/21/17 sodium chloride 0.65 % nasal spray aerosol 1 spray INTRANASAL Q1-4H PRN 10/21/17 Albuterol Sulfate [Proventil Hfa] 2 puff IH PRN PRN 08/26/19 Primary Care Physician: Courtney Valenzuela MD [Primary Care Provider] - Please follow up with your Primary Care Physician in: 1-2 weeks for hospital f/u Test Results: Test results from this visit will be discussed in further detail at your follow- up appointment, if applicable.
--- NOTE | 2019-08-27 11:40 | DS.PCM_ITS ---
Discharge Date and Diagnosis - Problem List Patient Problems: Active and Suspected Problems (Last Reviewed 02/24/18 @ 10:13 by Melva Taylor) Chest pain (Acute) Dyspnea (Acute) Date of Admission: 08/27/19 Date of Discharge: 08/27/19 - Primary Discharge Diagnosis Acute Problems: Active Problems (Last Reviewed 02/24/18 @ 10:13 by Melva Taylor) Chest pain (Acute) Dyspnea (Acute) - Secondary Discharge Diagnosis Chronic Problems: Chronic Problems (Last Reviewed 02/24/18 @ 10:13 by Melva Taylor) Diabetes mellitus (Chronic) Hyperlipidemia (Chronic) Pre-diabetes (Chronic) Patient continues on metformin 500mg daily. Tolerating well. Labs reviewed and in range. no change in condition. Enc to monitor diet which was reviewed. Enc daily exercise which she is doing. Has occ BG of 16-180. Enc to eview her diet on day such as this and toe valuate was occurred. Hospital Course and Treatment Imaging Results: Stress Test Report Exercise myocardial perfusion stress test. 64-year-old lady with a history of chest pain. Stress protocol: Resting EKG demonstrates normal sinus rhythm with a rate of 70 bpm normal intervals are noted resting blood pressure is 112/62 mmHg. The patient exercised according to regular Georges protocol for total duration of 4 minutes and 10 seconds. The maximum heart rate attained was 153 bpm which was 98% of maximum predicted heart rate the maximum workload was 6 metabolic equivalents. At rest there were no ST or T wave changes noted to suggest ischemia at peak exercise upsloping ST changes only were noted with no meet the criteria for ischemia. The patient did experience bilateral shoulder pain and some chest discomfort. Myocardial perfusion protocol. 12.0 mCi of technetium 99m sestamibi was injected at rest. Patient exercised according to regular Georges protocol for 4 minutes and 10 seconds at peak exercise 35.7 mCi of technetium 99m sestamibi was injected stress images were obtained stress and rest images were reconstructed and compared in the short axis vertical long horizontal long axis. Gated images were also obtained per Perfusion SPECT analysis: Review of the stress images demonstrate normal uptake of tracer noted in all areas of the myocardium the resting images similar demonstrate normal uptake of tracer noted in all areas of the myocardium. No reversibility is noted to suggest ischemia no previous infarct is noted. Gated SPECT analysis: The gated ejection fraction is 83%. Conclusion: Normal exercise myocardial perfusion stress test at a moderate workload. Preserved ejection fraction. 08/27/19 1058 <Electronically signed by Gordon Ceja D> Date _ Gordon Rodriguez MD STUDY: CTA CHEST REASON FOR EXAM: Female, 64 years old. RETROSTERNAL CP, DIZZINESS, NAUSEA, DIARRHEA, D-DIMER RADIATION DOSAGE (If Supplied By Facility): CTDIvol = ( 12.385 ) mGy, DLP = ( 198.62 ) mGycm TECHNIQUE: The examination was performed with the intravenous administration of IV 100mL [id number]-370. Post-processing of the angiographic images was performed, with multiplanar reformation, but without w3D reconstruction. Individualized dose optimization techniques were used for this CT. COMPARISON: Chest x-ray 08/26/2019. FINDINGS: Normal enhancement of the main pulmonary artery and right and left pulmonary arteries. Normal enhancement of the bilateral peripheral pulmonary arteries. There is no demonstrated pulmonary embolism. Normal thoracic aorta and visualized great vessels. There is no demonstrated aortic dissection. Normal heart and pericardium. There are visualized mediastinal lymph nodes, which are within normal size limits, and with normal morphology. Normal hilar regions. Normal visualized trachea and bronchi. The lungs are well expanded. Normal pulmonary parenchyma. There is a calcified pulmonary granuloma in the right upper lobe. Normal pleura. Normal chest wall structures. Normal osseous structures. Normal visualized upper abdomen. CT/CTA Chest W/WO Contrast IMPRESSION: Normal CTA chest examination, without a demonstrated pulmonary embolism, aortic aneurysm, or aortic dissection. . No evidence for acute cardiopulmonary pathology. Electronically Signed: Darrell Robertson MD at 2:13 EDT , Service support , Operations: None Procedures: Stress test Summary of Care Provided: The patient is a 64 year old F with PMH of HTN, HPL, and DM-2 who presented to the ED on 08/26 complaints of chest pain started on the day of admission. Gordo carrillo had diarrhea for 2 days prior to presentation. She subsequently got chest pain that was substernal, worse with ambulation and movement of her body, radiates to her back. This was associated with some diaphoresis but no dizziness or palpitations. She denied any fever or chills but admitted to some nausea but no vomiting. She denied lifting heavy objects. She denied any history of heart disease, bilateral leg swelling or orthopnea. Her vital signs included a temperature of 98.1 F, a heart rate 83, a blood pressure 131/59, a respiratory rate 15, and a SPO2 99% on room air. WBC count is 5.8, hemoglobin 12.5, platelet count 326, d-dimer 0.64, sodium 145 potassium 2.5, chloride 110, bicarb 27, BUN 19 and her creatinine was 0.873. A Chest x-ray shows no acute cardiopulmonary process. Her d-dimer was mildly elevated at 0.65 and a CTA chest was done and was negative for any acute processes including PE. She was admitted to PCU and her troponin were cycled. All were negative. A stress test was done and was negative for any inducible ischemia. Upon exam, she had pain that was similar to her pain on admission with palpation to her inferior costochondral junction. She was d/c home in stable condition with no medication changes and instructed to f/u with her PCP in 1 week for hospital f/u. Patient Problems: Active and Suspected Problems (Last Reviewed 01/09/19 @ 10:13 by Melva Taylor) Chest pain (Acute) Dyspnea (Acute) Subjective: Pt states that she is still having some pain. Reproduced with palpation of the costochondral junction. - Physical Exam Vitals/I&O's: Vital Signs Temp Pulse Resp BP Pulse Ox 97.7 F L 70 16 92/64 99 08/27/19 10:56 08/27/19 10:56 08/27/19 10:56 08/27/19 10:56 08/27/19 10:56 Oxygen Delivery Method Room Air Weight: 72.5 kg Body Mass Index (BMI) 30.1 Finger Stick Blood Glucose 142 Intake and Output for Last 24 Hours 08/25/19 08/26/19 08/27/19 23:59 23:59 23:59 Intake Total 0 / 0 Balance 0 / 0 General: Alert, Oriented x3, Cooperative, No apparent distress, Well developed, Well nourished Lungs: Clear to auscultation, Normal air movement, No rhonchi, No wheeze, No rales, - - pain with palpation to the inferior B costochondral junction Cardiovascular: Regular rate, Regular Rhythm, Normal S1, Normal S2, No murmurs, No Ectopic Activity, No rub noted, No Gallop Abdomen: Bowel Sounds Present, Soft, Non Tender, Non-Distended, No Hepato- splenomegaly, No hernias noted Extremities: No clubbing, No cyanosis, No edema, Capillary Refill Less than 3 Seconds, Peripheral Pulses Normal Skin: No rashes, No breakdown Musculoskeletal: Tenderness Lymphatic: No Cervical, Supraclavicular, or Inguinal Adenopathy Neurological: Cranial nerves II-XII grossly intact, Neuro grossly intact Psych/Mental Status: Normal Affect, Appropriate, Alert and oriented to time, place, person, mood and affect Laboratory Results 08/26/19 23:47: WBC 5.8, RBC 4.37, Hgb 12.5, Hct 40.0, MCV 91.5, MCH 28.6, MCHC 31.3 L, RDW Std Deviation 48.3 H, RDW Coeff of Emily 14.3, Plt Count 336, MPV 8.6, Immature Gran % (Auto) 1.600 H, Neut % (Auto) 59.3, Lymph % (Auto) 28.0, Louisa % (Auto) 7.3, Eos % (Auto) 3.5, Baso % (Auto) 0.3, Absolute Neuts (auto) 3.4, Absolute Lymphs (auto) 1.61, Nucleated RBC % 0 08/26/19 23:47: D-Dimer Quant (PE/DVT) 0.64 H* 08/26/19 23:47: Sodium 143, Potassium 3.5, Chloride 110 H, Carbon Dioxide 27.0, Anion Gap 6, BUN 19 H, Creatinine 0.73, Estim Creat Clear Calc 57.98, Est GFR (MDRD) Af Amer 103, Est GFR (MDRD) Non-Af 85, BUN/Creatinine Ratio 26.1 H, Glucose 107 H, Calcium 8.8, Total Bilirubin 1.30 H, Direct Bilirubin 0.32 H, AST 25, ALT 24, Alkaline Phosphatase 97, Troponin I < 0.015, Total Protein 7.6, Albumin 3.7, Globulin 3.9, TSH 4.31 H 08/27/19 03:24: Troponin I < 0.015 08/27/19 06:25: POC Glucose 96 08/27/19 06:35: WBC 5.3, RBC 4.21, Hgb 12.3, Hct 38.8, MCV 92.2, MCH 29.2, MCHC 31.7 L, RDW Std Deviation 48.3 H, RDW Coeff of Emily 14.3, Plt Count 312, MPV 8.8, Immature Gran % (Auto) 0.400, Neut % (Auto) 58.9, Lymph % (Auto) 29.8, Louisa % (Auto) 7.9, Eos % (Auto) 2.6, Baso % (Auto) 0.4, Absolute Neuts (auto) 3.2, Absolute Lymphs (auto) 1.59, Nucleated RBC % 0 08/27/19 06:35: Sodium 142, Potassium 3.5, Chloride 108 H, Carbon Dioxide 26.0, Anion Gap 8, BUN 17, Creatinine 0.63, Estim Creat Clear Calc 67.18, Est GFR (MDRD) Af Amer 122, Est GFR (MDRD) Non-Af 101, BUN/Creatinine Ratio 27.0 H, Glucose 95, Calcium 8.7, Total Bilirubin 1.20 H, AST 36, ALT 32, Alkaline Phosphatase 105, Total Protein 7.1, Albumin 3.5, Globulin 3.6, Albumin/Globulin Ratio 1.0 08/27/19 06:35: Troponin I < 0.015, Triglycerides 52, Cholesterol 162, LDL Cholesterol 75, VLDL Cholesterol 10, HDL Cholesterol 77 08/27/19 06:35: Hemoglobin A1c 5.6 Current Medications Acetaminophen (Tylenol) 650 mg PO Q6H PRN PRN PRN Reason: Pain Score 1-10/Temp > 100.7 F Last Admin: 08/27/19 07:47 Dose: 650 mg Documented by: Al Hydroxide/Mg Hydroxide (Mylanta Ii) 30 ml PO Q6H PRN PRN PRN Reason: Gastric Burning Albuterol Sulfate (Ventolin Aerosols) 2.5 mg INHALATION Q4H PRN PRN PRN Reason: SOB &/OR WHEEZING Albuterol Sulfate (Ventolin Aerosols) 2.5 mg INHALATION Q6HWA.RT [facility] Last Admin: 08/27/19 07:03 Dose: 2.5 mg Documented by: Atorvastatin Calcium (Lipitor) 10 mg PO QHS ANGELIKA Budesonide (Pulmicort Aerosol) 0.5 mg INHALATION Q12H.RT [facility] Last Admin: 08/27/19 07:03 Dose: 0.5 mg Documented by: Calcium/Vitamin D (Os-Luis 500mg + D) 1 tablet PO DAILY [facility] Last Admin: 08/27/19 10:49 Dose: 1 tablet Documented by: Dextrose (D50w Syringe) 0 gm IV X1 PRN; Protocol PRN Reason: Hypoglycemia Enoxaparin Sodium (Lovenox) 40 mg SC DAILY [facility] Last Admin: 08/27/19 10:41 Dose: Not Given Documented by: Glucagon () 1 mg IM .X1 PRN PRN Reason: Hypoglycemia Insulin Human Lispro (Humalog Kwikpen (Bkc)) 0 unit SC ACHS [facility]; Protocol Last Admin: 08/27/19 10:49 Dose: Not Given Documented by: [facility] Last Admin: 08/27/19 10:49 Dose: 500 mg Documented by: Ondansetron HCl (Zofran) 4 mg IV Q8H PRN PRN PRN Reason: NAUSEA/VOMITING Pantoprazole Sodium (Protonix) 20 mg PO BID [facility] Last Admin: 08/27/19 10:49 Dose: 20 mg Documented by: Sodium Chloride ([place] Nasal [place]) 1 spray NASAL Q1H PRN PRN PRN Reason: ALLERGIES Sodium Chloride () 10 - 40 ml IV UD PRN PRN Reason: SALINE FLUSH Discharge Activity: Return to Normal Activity, No Restrictions May resume sexual activity in: No Restrictions Call your doctor if you observe: Fever of 101 or Higher, Shortness of breath, Dizziness, Fainting spells, Swelling in the ankles, Chest pain Home Medications: Medications to take at Discharge Simvastatin [Zocor] 20 mg PO QHS 12/23/12 Omeprazole [Prilosec] 20 mg PO BID 01/01/15 Calcium Carbonate/Vitamin D3 [Calcium 600 with Vit D Chew Tb] 1 tab PO DAILY 06/30/17 Fluticasone/Salmeterol [Advair Hfa 115-21 Mcg Inhaler] 2 puff INHALATION BID 06/30/17 metformin 500 mg tablet 500 mg PO DAILY #30 tab 10/21/17 sodium chloride 0.65 % nasal spray aerosol 1 spray INTRANASAL Q1-4H PRN 10/21/17 Albuterol Sulfate [Proventil Hfa] 2 puff IH PRN PRN 08/26/19 Primary Care Physician: Courtney Valenzuela MD [Primary Care Provider] - Please follow up with your Primary Care Physician in: 1-2 weeks for hospital f/u Medical Necessity - Tobacco Use Smoking Status: Never smoker Meaningful Use Info Meaningful Use Diagnoses (Choose all that apply): None applicable Inpatient E&M: [id number] [facility]
[2019-08-27 11:46] LABS: Bedside Glucose 91 mg/dL (70-110)
== END 2019-08-27 11:39 | disposition home or self-care (01) ==
LOC: ED 08-27 02:34 → PCU 08-27 02:45
PROVIDERS: Admitting Provider Internal Medicine; Emergency Provider Emergency Medicine; PCP Internal Medicine; Visit Provider Internal Medicine
DX: R07.89 Other chest pain (principal); K21.9 Gastro-esophageal reflux disease without esophagitis; E78.5 Hyperlipidemia, unspecified; E11.9 Type 2 diabetes mellitus without complications; R19.7 Diarrhea, unspecified; Z79.899 Other long term (current) drug therapy; R06.09 Other forms of dyspnea; J44.9 Chronic obstructive pulmonary disease, unspecified; Z79.84 Long term (current) use of oral hypoglycemic drugs
CPT/HCPCS: 36415; 71045; 71275; 78452; 80048; 80053; 80061; 80076; 82962; 83036; 84443; 84484; 85025; 85379; 93005; 93017; 94640; 99218; 99285; A9500; J7030; Q9967; A4216; G0378

== ENCOUNTER 2019-11-01 19:36 | Emergency (ER) | payer MEDICARE, MEDICAID, SELFPAY ==
[2019-08-27 02:58] VITALS: BMI 30.1
[2019-11-01 19:36] VITALS: BP 139/75; PULSE 83; RESP 18; TEMP 36.3; O2SAT 100; BMI 28.3
--- NOTE | 2019-11-01 19:53 | ED.VIS.GEN ---
History of Present Illness Chief Complaint: Laceration Informant: Patient Onset: Today Context: Sudden Onset Timing: Continuous Current Severity: Mild Maximum Severity: Mild Narrative: The patient is a [id number] female who presents to the emergency department with laceration to her left index finger. Patient was cutting with a steak knife. The blade slipped and incised her finger. She states that she had immediate pain and bleeding. She denies any numbness or tingling in the finger. She is still able to flex and extend. Tetanus was within the past 5 years. Prior similar symptoms: No Recent Illness/Hospitalization: No Past Medical History - Allergies and Home Meds Allergies/Adverse Reactions: Allergies cefdinir [From Omnicef] Allergy (Severe, Verified 08/26/19 23:36) Unknown Penicillins Allergy (Severe, Verified 08/26/19 23:36) STOP BREATHING codeine Allergy (Verified 08/26/19 23:36) Other hydrocodone bitartrate [From Vicodin] Allergy (Verified 08/26/19 23:36) Other latex Allergy (Verified 08/26/19 23:36) Rash aspirin Adverse Reaction (Verified 08/26/19 23:36) Other tramadol [From Ultram] Adverse Reaction (Verified 08/26/19 23:36) Rash Primary Care Physician: Courtney Valenzuela MD [Primary Care Provider] - 7 Days for suture removal Prior records reviewed: Yes Past Medical History: - - Hypertension, hyperlipidemia Surgical History: cholecystectomy, herniorrhaphy - with mesh Smoking Status: Never smoker - Family History Paternal Family History: Family History (Last Reviewed 02/24/18 @ 10:13 by Melva Taylor) Mother Cancer Father Heart disease Hypertension High cholesterol Kidney disease Cancer CVA (cerebral vascular accident) Family History: Reports: Cancer, High Cholesterol, Heart Disease, Hypertension, Renal Disease, Stroke Maternal Family History: Family History (Last Reviewed 02/24/18 @ 10:13 by Melva Taylor) Mother Cancer Father Heart disease Hypertension High cholesterol Kidney disease Cancer CVA (cerebral vascular accident) Family History: Reports: Cancer Review of Systems General: Denies: Chills, Fever, Sweats Eyes: Denies: Visual changes - bilaterally, Diplopia ENT: Denies: Rhinorrhea, Sore throat Cardiovascular: Denies: Chest pain, Palpitations Respiratory: Denies: Dyspnea, Cough, Dyspnea on exertion Gastrointestinal: Denies: Abdominal pain, Nausea, Vomiting, Diarrhea, Melena, Hematochezia Genitourinary: Denies: Dysuria, Hematuria, Frequency Musculoskeletal: Denies: Back pain, Extremity Pain Skin: Denies: Rash, Wounds Neurological: Denies: Headache, Weakness, Numbness Physical Exam Vital Signs/Narrative: Vital Signs Temp Pulse Resp BP Pulse Ox 11/01/19 19:36 97.4 F L 83 18 139/75 H 100 Inital Vital Signs reviewed: Yes General: Well nourished, Well developed, No Acute Distress Head: Normocephalic, Atraumatic Eyes: Perrl, EOMI ENT: Moist mucous membranes, No rhinorrhea Neck: Supple, Nontender Cardiovascular: Regular rate, Regular rhythm, No murmurs Respiratory: No distress, CTA bilaterally, Chest nontender Abdomen: Soft, Nontender, Nondistended, Normal bowel sounds Back: Nontender, Normal Inspection Extremities: No edema, Tenderness - Patient has a 1 cm laceration at the lateral border of the DIP joint. Flexion extension are preserved. Two-point discrimination preserved. Cap refill less than 2 seconds. Skin: Normal color, No rash Neurological: Alert, Oriented x3, Cranial nerves II-XII grossly intact, Normal Strength, Normal Sensation Psychological: Normal affect, Normal Mood Diagnostic/Tx/Re-eval - Medical Decision Making The patient's tetanus is already up-to-date. She has a 1 cm laceration of the left index finger. It does not appear to be full-thickness but there was still bleeding. I did discuss options with the patient. She was amenable to suture closure. The wound was anesthetized with 2 cc of 1% lidocaine without epinephrine. It was copiously irrigated and cleansed. The wound was closed with 2 simple 5-0 interrupted suture with good hemostasis. The patient was counseled on local wound care and having sutures removed within 7 days. She is comfortable with this plan of care. Impression 1. 1 cm left index finger laceration with repair ED Disposition - Plan for ED Patient: Disposition: Home or Assisted Living Instructions: ED Laceration Ext Sutr Stap Tape Referrals: Courtney Valenzuela MD [Primary Care Provider] - 7 Days for suture removal
== END 2019-11-01 20:38 | disposition home or self-care (01) ==
LOC: ED 20:35
PROVIDERS: Emergency Provider Emergency Medicine; PCP Internal Medicine
DX: S61.211A Laceration without foreign body of left index finger without damage to nail, initial encounter (principal); E78.5 Hyperlipidemia, unspecified; I10 Essential (primary) hypertension; W26.0XXA Contact with knife, initial encounter; Y93.89 Activity, other specified; Y92.89 Other specified places as the place of occurrence of the external cause; Y99.8 Other external cause status
CPT/HCPCS: 12001; 99283

== ENCOUNTER 2021-08-22 19:51 | Emergency (ER) | payer MEDICARE, MEDICAID, SELFPAY ==
[2021-08-22 19:52] VITALS: BP 169/77; PULSE 81; RESP 24; TEMP 36.3; O2SAT 96; BMI 34.0
--- NOTE | 2021-08-22 20:06 | EKG12_ITS ---
Test Reason : CP Blood Pressure : / mmHG Vent. Rate : 079 BPM Atrial Rate : 079 BPM P-R Int : 176 ms QRS Dur : 080 ms QT Int : 400 ms P-R-T Axes : 065 045 050 degrees QTc Int : 458 ms Normal sinus rhythm with sinus arrhythmia Nonspecific ST abnormality Abnormal ECG Confirmed by AFTAB SIMPSON, OCTAVIANO ([id number]), social media editor SUKHWINDER MIR ([id number]) on 08/24/2021 9:26:27 AM Referred By: Confirmed By:OCTAVIANO UGALDE MD
--- NOTE | 2021-08-22 20:14 | EDS_ITS ---
HPI History of Present Illness Chief Complaint: Chest Pain Detail of Chief Complaint: Midsternal chest pain Informant: patient Onset/Context/Timing Onset: Hours (1 hour prior to presentation) Activity at onset: sudden and rest Timing: Continuous Quality: Positive for Sharp Location: Substernal Current Severity: Mild Maximum Severity: Moderate Worsened By: Nothing Relieved By: Nothing Associated Symptoms: Negative for Nausea, Vomiting, Diaphoresis, Dyspnea, Cough, Fever, Lightheadedness, Acid Reflux or Palpitations Narrative Narrative: Patient is a six 6-year-old woman with history of type 2 diabetes, hyperlipidemia who presents with chest pain that started at rest 1 hour prior to presentation. Described as sharp. There is no radiation or associated symptoms. She denies history of hiatal hernia, but she does endorse history of GERD and is on omeprazole. States he is compliant with her medication. She denies prior symptoms. She denies history of coronary disease, has not had a stress or cardiac cath in the past. She denies history of VTE. She denies leg pain, swelling discoloration. She has no risk factors for PE or DVT. She has had chronic diarrhea that is intermittent. She denies black or maroon- colored stool/diarrhea. She denies mucus in the diarrhea. She denies history of inflammatory bowel disorder. While I was performing my physical exam she complained of anterior left neck pain. Upon further questioning was determined this occurred a week ago. It was not related to activity or exertion. There were no other symptoms at that time. Prior Similar Symptoms: No CVD Risk Factors: Positive for Diabetes and Hypercholesterolemia; Negative for Hypertension, Family History 1' </=55 or Smoking PE Risk Factors: Negative for Recent Travel/Surgery, Recent Immobilization, Prior DVT or PE, Cancer or OCP + Smoking + >/=35 TAD Risk Factors: Negative for Marfan's Syndrome, Hypertension or Family History [facility] Medical History (Updated 08/22/21 @ 23:[address] Ran Bauer MD) Arthritis Asthma Chronic bronchitis Gallstones GERD (gastroesophageal reflux disease) High cholesterol Pre-diabetes Seasonal allergies Home Medications simvastatin 20 mg tablet 20 mg PO QHS 12/23/12 [History Last Taken 03/04/16] omeprazole 20 mg capsule,delayed release 20 mg PO BID 01/01/15 [History Last Taken 06/08/17 06:00] calcium carbonate 600 mg-vitamin D3 10 mcg (400 unit) chewable tablet 1 tab PO DAILY 06/30/17 [History Last Taken Unknown] fluticasone propionate 115 mcg-salmeterol 21 mcg/actuation HFA inhaler 2 puff inhalation BID 06/30/17 [History Last Taken Unknown] metformin 500 mg tablet 500 mg PO DAILY #30 tabs 10/21/17 [Rx Last Taken Unknown] sodium chloride 0.65 % nasal spray aerosol (Saline Nasal) 1 spray intranasal Q1- 4H PRN Allergies 10/21/17 [History Last Taken Unknown] albuterol sulfate 90 mcg/actuation aerosol inhaler 2 puff IH PRN PRN Sob &/Or Wheezing 08/26/19 [History Last Taken Unknown] Allergy/AdvReac Type Severity Reaction Status Date / Time cefdinir [From Omnicef] Allergy Severe Unknown Verified 08/22/21 19:55 Penicillins Allergy Severe STOP Verified 08/22/21 19:55 BREATHING codeine Allergy Other Verified 08/22/21 19:55 hydrocodone bitartrate Allergy Other Verified 08/22/21 19:55 [From Vicodin] latex Allergy Rash Verified 08/22/21 19:55 aspirin AdvReac Other Verified 08/22/21 19:55 tramadol [From Ultram] AdvReac Rash Verified 08/22/21 19:55 Family History Mother Cancer Father Heart disease Hypertension High cholesterol Kidney disease Cancer CVA (cerebral vascular accident) Surgical History (Updated 08/22/21 @ 20:[address] Ran Bauer MD) H/O hernia repair Hx of cholecystectomy Social History (Updated 08/22/21 @ 20:[address] Ran Bauer MD) household members: none Smoking Status: Never smoker second hand exposure: No alcohol intake: never substance use type: does not use ROS ROS ED Constitutional Constitutional ED: Denies chills, fever(s), subjective, sweats or weight loss Eyes Eyes: Reports none ENT ENT ED: Denies ear pain, rhinorrhea or sore throat Cardiovascular Cardiovascular: Reports as per HPI; Denies orthopnea or paroxysmal nocturnal dyspnea Respiratory/Chest Respiratory/Chest: Denies cough, dyspnea, dyspnea on exertion, orthopnea or paroxysmal nocturnal dyspnea Gastrointestinal Gastrointestinal: Reports diarrhea; Denies abdominal pain, constipation, melena, nausea or vomiting Genitourinary Genitourinary ED: Denies dysuria, hematuria or urinary frequency Musculoskeletal Musculoskeletal: Reports neck pain; Denies arthralgias, back pain or myalgias Integumentary Denies abscess, Abrasions or rash Neurologic Neurologic: Denies headache(s), paresthesias or weakness Psychiatric Psychiatric: Denies anxiety or depression Hematologic/Lymphatic Hematologic/Lymphatic: Denies easy bleeding, easy bruising or lymphadenopathy EXAM Physical Exam Const Vital Signs: 08/22/21 19:52 08/22/21 19:55 Temperature 97.4 F L Temperature Source Oral Pulse Rate 81 Respiratory Rate 24 H Respiratory Effort Normal Non-Labored Blood Pressure 169/77 H Blood Pressure Mean 107 Pulse Ox 96 Oxygen Delivery Method Room Air Positive well nourished, well developed and obese; Negative for cachectic, contractures or unkempt General Appearance ED: well developed and NAD; Negative for unkempt, cachectic, contractures or pallor Nutritional Appearance: obese; Negative for cachectic HEENT Reports TM's clear and moist mucous membranes HEENT Narrative: Ears normal. Nares patent. Uvula midline. There is no erythema or exudate. There is no angioedema. normocephalic and atraumatic Tympanic Membrane ED: Yes TM's clear Eyes PERRL and EOMs intact bilaterally General Eye ED: Negative for pale conjunctiva or scleral icterus Neck no lymphadenopathy, supple and no JVD Chest Wall inspection of chest normal and palpation of chest normal Resp normal respiratory effort and clear to auscultation bilaterally Cardio regular rate, regular rhythm, S1 normal heart sound, S2 normal heart sound and no murmurs GI normal to inspection, nondistended, normoactive bowel sounds, soft to palpation, non-tender, non-distended and no masses; Negative for hepatosplenomegaly Back/Spine no CVA tenderness Cervical Spine: Negative for cervical spine tenderness Extremity Negative for normal to inspection Extremity Narrative: Minimal pitting edema of the lower extremities General Extremety ED: Yes edema; Negative for pulses abnormal or tenderness General Extremity: edema; Negative for pulses abnormal Neuro oriented x3, CN's II-XII intact bilaterally and no sensory deficits noted Sensorium / Orientation: awake and alert Motor Exam: strength 5/5 throughout Psych mental status grossly normal Appearance: Negative for unkempt Skin no rashes or lesions noted and no wounds General Skin Exam: Negative for jaundice or pallor Heart Score History: Slightly/Non-Suspicious ECG: Normal Age: >/= 65 years Risk Factors: 1 or 2 Risk Factors Score: 3 MDM MDM MDM Narrative Medical decision making narrative: Patient presents with chest pain need to evaluate for cardiac versus noncardiac etiology. EKG, chest x-ray and appropriate blood work was ordered. Lab Data Labs: Laboratory Results - last 24 hr 08/22/21 08/22/21 20:24 22:27 Troponin I High Sens 5 6 EKG Initial EKG: Attestation: I personally reviewed and interpreted this EKG as follows: Interpretation: Sinus Rhythm (Rate is 79. NH interval is 176 ms. QS duration 80 ms. QT duration 400 ms. Tribune is normal. Computer is reading nonspecific ST abnormality. In my opinion the EKG is normal.) Treatment and Re-Evaluation Narrative: Patient was informed of her test results. She then raise concern for appendicitis. I informed her with diarrhea for 1 to 2 months the concern is not appendicitis. There are other causes and she will need a colonoscopy. She was referred to Dr. Lopez. Discharge Plan Triage Chief Complaint: Chest Pain ED Provider: Ran Bauer Dx/Rx/DC Orders Clinical Impression: Chest pain, Hyperlipidemia, Diabetes mellitus, Chronic diarrhea Instructions: ED Chest Pain, Noncardiac, ED Diarrhea, Unknown Cause Prescriptions: No Action sodium chloride [Saline Nasal] 0.65 % aerosol,spray 1 spray INTRANASAL Q1-4H PRN (Reason: Allergies) metformin 500 mg tablet 500 mg PO DAILY Qty: 30 11RF Rx Instructions: taken in morning simvastatin 20 MG tablet 20 mg PO QHS omeprazole 20 MG capsule 20 mg PO BID fluticasone propion-salmeterol 1 PUFF inhaler 2 puff INHALATION BID calcium carbonate-vitamin D3 1 EACH tablet,chewable 1 tab PO DAILY Rx Instructions: taken in afternoon albuterol sulfate 1 PUFF inhaler 2 puff IH PRN PRN (Reason: Sob &/Or Wheezing) Primary Care Provider: Courtney Valenzuela Referrals: Courtney Valenzuela MD [Primary Care Provider] - As Needed Reji Lopez DO [STAFF PHYSICIAN] - 1-2 Weeks Activity Restrictions/Additional Instructions: Call Dr. Lopez's office in the morning for follow-up Disposition Disposition: Home, Self Care
[2021-08-22 20:49] LABS: Troponin-I HS (w/2H Reflex) 5 pg/mL (3.0-54.0)
[2021-08-22 22:24] LABS: Reflex Troponin-HS? (from REC) Y
[2021-08-22 22:54] LABS: Troponin-I HS 6 pg/mL (3.0-54.0)
[2021-08-22 23:40] VITALS: BP 131/69; PULSE 73; RESP 23; O2SAT 100
== END 2021-08-23 00:06 | disposition home or self-care (01) ==
PROVIDERS: Emergency Provider Emergency Medicine; PCP Internal Medicine; Visit Provider Emergency Medicine
DX: R07.9 Chest pain, unspecified (principal); E11.9 Type 2 diabetes mellitus without complications; E78.5 Hyperlipidemia, unspecified; R19.7 Diarrhea, unspecified; E66.9 Obesity, unspecified
CPT/HCPCS: 84484; 93005; 99285

== ENCOUNTER 2021-12-30 08:41 | Day surgery (SDC) | payer MEDICARE, MEDICAID, SELFPAY ==
[2021-12-30] VITALS (7 sets, daily range): BP systolic 99–143; BP diastolic 59–81; PULSE 72–83; RESP 16–18; TEMP 36.4–36.7; O2SAT 96–100; BMI 31.2
--- NOTE | 2021-12-30 09:01 | PCM.HP.STD ---
HPI - General General Date of Admission: 12/30/21 Date of Service: 12/30/21 Chief Complaint: Screening colonoscopy HPI Narrative CORNELL MORRISON, is a 66 F who presents today for screening colonoscopy. She denies any abdominal pain. She denies any chest pain or shortness of breath. She does not have any problems with her bowel such as constipation or diarrhea. She has no family history of malignancy. She denies any weakness, dysphagia, bloating or lower GI bleeding. All other 16 review of systems are negative except as pertinent positive mentioned HPI. [facility]LY [facility], [facility] Medical History (Updated 12/26/21 @ 09:37 by Shazia Woo) Arthritis Asthma Chronic bronchitis Fatty liver Gallstones GERD (gastroesophageal reflux disease) High cholesterol History of edema History of IBS History of stress test Leg cramps Low iron Non-smoker Post-menopausal Pre-diabetes Restless legs Scoliosis Seasonal allergies Wears dentures Wears glasses Home Medications simvastatin 20 mg tablet 20 mg PO QHS 12/23/12 [History Last Taken 03/04/16] calcium carbonate 600 mg-vitamin D3 10 mcg (400 unit) chewable tablet 1 tab PO DAILY 06/30/17 [History Last Taken Unknown] fluticasone propionate 115 mcg-salmeterol 21 mcg/actuation HFA inhaler 2 puff inhalation BID 06/30/17 [History Last Taken Unknown] sodium chloride 0.65 % nasal spray aerosol (Saline Nasal) 1 spray intranasal Q1-4H PRN Allergies 10/21/17 [History Last Taken Unknown] albuterol sulfate 90 mcg/actuation aerosol inhaler 2 puff IH PRN PRN Sob &/Or Wheezing 08/26/19 [History Last Taken Unknown] ferrous sulfate 325 mg (65 mg iron) tablet 325 mg PO DAILY 10/22/21 [History Last Taken Unknown] alendronate 35 mg tablet 35 mg PO DAILY 12/26/21 [History Last Taken Unknown] pantoprazole 40 mg tablet,delayed release 40 mg PO DAILY 12/26/21 [History Last Taken Unknown] Allergy/AdvReac Type Severity Reaction Status Date / Time cefdinir [From Omnicef] Allergy Severe Unknown Verified 12/26/21 09:24 Penicillins Allergy Severe STOP Verified 12/26/21 09:24 BREATHING codeine Allergy Other Verified 12/26/21 09:24 hydrocodone bitartrate Allergy Other Verified 12/26/21 09:24 [From Vicodin] latex Allergy Rash Verified 12/26/21 09:24 aspirin AdvReac Other Verified 12/26/21 09:24 tramadol [From Ultram] AdvReac Rash Verified 12/26/21 09:24 Family History (Updated 10/22/21 @ 15:48 by Birdie Brewster) Mother Cancer Father Heart disease Hypertension High cholesterol Kidney disease CVA (cerebral vascular accident) Colon cancer Surgical History H/O hernia repair History of colonoscopy Hx of cholecystectomy Social History household members: none Smoking Status: Never smoker second hand exposure: No alcohol intake: never substance use type: does not use ROS Review of Systems ROS Unobtainable: other Constitutional Constitutional: Denies fatigue, fever(s), poor appetite, weight gain or weight loss ENT HEENT: Denies mouth lesions Cardiovascular Cardiovascular: Denies abdominal bloating, abdominal edema or abdominal pain Respiratory/Chest Respiratory/Chest: Denies change in mental status, change in phlegm color, chest congestion or chest tightness Gastrointestinal Gastrointestinal: Denies belching, bloating, change in bowel habits, change in stool character, chewing difficulty, coffee ground emesis, constipation, cramping, diarrhea, dyspepsia, dysphagia, early satiety, excessive flatus, fecal incontinence, heartburn, hematemesis, hematochezia, hemorrhoids, loose stools, melena, nausea, odynophagia, rectal bleeding, tenesmus, vomiting or weight changes Genitourinary Genitourinary: Denies abdominal discomfort, burning urination or itching Musculoskeletal Musculoskeletal: Reports as per HPI; Denies muscle weakness or myalgias Integumentary Integumentary: Denies jaundice Neurologic Neurologic: Denies lack of coordination or weakness Psychiatric Psychiatric: Denies confusion, depression, memory loss, mood swings, paranoia or suicidal ideation Endocrine Endocrinology: Denies systems reviewed and no addt'l complaints, except as documented Hematologic/Lymphatic Hematologic/Lymphatic: Denies anemia, easy bleeding, easy bruising or lymphadenopathy Allergic/Immunologic Allergic/Immunologic: Denies systems reviewed and no addt'l complaints, except as documented Physical Exam Const alert General Appearance: cooperative Orientation / Consciousness: oriented to person HEENT hearing grossly normal bilaterally Head and Scalp: normal to inspection Face and Sinus: face symmetric Nose: external nose normal Mouth: oral and palatal mucosa normal Eyes conjunctivae normal General Eye: normal appearance of both eyes Neck full ROM General: normal visual inspection Lymph Lymphatic: no lymphadenopathy noted Chest inspection of chest normal and palpation of chest normal Chest: symmetrical chest wall rise Resp normal respiratory effort Effort and Inspection: able to speak in complete sentences Cardio regular rate GI non-distended Percussion: normal to percussion Rectal Exam: deferred Neuro Speech: speech normal Gait (Neuro): normal gait Assessment & Plan Assessment/Plan (1) Encounter for screening for malignant neoplasm of colon: PLAN: She will undergo a screening colonoscopy. She was explained alternatives, risk, benefits include not withstanding bleeding, infection, sepsis, perforation, need for emergent . She will have an ASA of 1.
[2021-12-30] MEDS: Lactated Ringers 1,000 ML 15 ML IV (09:22)
--- NOTE | 2021-12-30 10:15 | OP.COLON_ITS ---
Patient Name: Sally Moeller Procedure Date: 12/30/2021 9:49 AM Date of : 1955 Age: 66 Procedure: Colonoscopy Indications: Screening for colorectal malignant neoplasm Providers: Reji Lopez DO Medicines: Monitored Anesthesia Care Patient Profile: This is a 66 year old female. Refer to note in patient chart for documentation of history and physical. Last Colonoscopy: date unknown. Unable to locate last colonoscopy report. Complications: No immediate complications. Procedure: Pre-Anesthesia Assessment: - Prior to the procedure, a History and Physical was performed, and patient medications and allergies were reviewed. The risks and benefits of the procedure and the sedation options and risks were discussed with the patient. All questions were answered and informed consent was obtained. Patient identification and proposed procedure were verified by the physician in the pre-procedure area. Mental Status Examination: alert and oriented. Airway Examination: normal oropharyngeal airway and neck mobility. Respiratory Examination: clear to auscultation. CV Examination: normal. Prophylactic Antibiotics: The patient does not require prophylactic antibiotics. Prior Anticoagulants: The patient has taken no previous anticoagulant or antiplatelet agents. After reviewing the risks and benefits, the patient was deemed in satisfactory condition to undergo the procedure. The anesthesia plan was to use monitored anesthesia care (MAC). Immediately prior to administration of medications, the patient was re-assessed for adequacy to receive sedatives. The heart rate, respiratory rate, oxygen saturations, blood pressure, adequacy of pulmonary ventilation, and response to care were monitored throughout the procedure. The physical status of the patient was re-assessed after the procedure. After I obtained informed consent, the scope was passed under direct vision. Throughout the procedure, the patient's blood pressure, pulse, and oxygen saturations were monitored continuously. The Colonoscope was introduced through the anus and advanced to the cecum, identified by appendiceal orifice and ileocecal valve. The colonoscopy was performed without difficulty. The patient tolerated the procedure well. The quality of the bowel preparation was poor. Scope In: 10:01:32 AM Scope Withdrawal Time 0 hours 5 minutes 24 seconds Scope Out: 10:10:20 AM Total Procedure Duration Time 0 hours 8 minutes 48 seconds Findings: The perianal and digital rectal examinations were normal. A few small-mouthed diverticula were found in the recto-sigmoid colon and sigmoid colon. Extensive amounts of stool was found in the transverse colon, at the hepatic flexure, in the ascending colon and in the cecum, precluding visualization. Impression: - Preparation of the colon was poor. - Diverticulosis in the recto-sigmoid colon and in the sigmoid colon. - Stool in the transverse colon, at the hepatic flexure, in the ascending colon and in the cecum. - No specimens collected. Recommendation: - Discharge patient to home. - Resume previous diet. - Continue present medications. - Repeat colonoscopy in 1 year for surveillance. Procedure Code(s): --- Professional --- G0121, Colorectal cancer screening; colonoscopy on individual not meeting criteria for high risk CPT copyright 2017 [employer]. All rights reserved. The codes documented in this report are preliminary and upon case resource manager review may be revised to meet current compliance requirements. Reji Lopez DO 12/30/2021 10:14:57 AM This report has been signed electronically. Number of Addenda: 0 Note Initiated On: 12/30/2021 9:49 AM
--- NOTE | 2021-12-30 10:16 | OP.CCLET_ITS ---
12/30/2021 Courtney Valenzuela [address] [id number] Re : Colonoscopy procedure for Sally Moeller Dear Dr. Valenzuela This procedure was performed on Thursday, December 30, 2021. My impressions and recommendations are as follows: Impressions : - Preparation of the colon was poor. - Diverticulosis in the recto-sigmoid colon and in the sigmoid colon. - Stool in the transverse colon, at the hepatic flexure, in the ascending colon and in the cecum. - No specimens collected. Recommendations : - Discharge patient to home. - Resume previous diet. - Continue present medications. - Repeat colonoscopy in 1 year for surveillance. My findings are described in the full procedure note, which is enclosed. If I can be of further assistance, please feel free to contact me at . Sincerely, Reji Lopez, 12/30/2021 10:14:57 AM This report has been signed electronically.
== END 2021-12-30 11:05 | disposition home or self-care (01) ==
LOC: EN 08:43 → AC 08:44
PROVIDERS: PCP Internal Medicine; Referring Provider Internal Medicine; Visit Provider Internal Medicine Gastroenterology
PROC: 0DJD8ZZ Inspection of Lower Intestinal Tract, Via Natural or Artificial Opening Endoscopic (ICD-10-PCS; CPT 45378; principal; 2021-12-30 09:55)
DX: Z12.11 Encounter for screening for malignant neoplasm of colon (principal); K57.30 Diverticulosis of large intestine without perforation or abscess without bleeding; E78.00 Pure hypercholesterolemia, unspecified; J45.909 Unspecified asthma, uncomplicated; K76.0 Fatty (change of) liver, not elsewhere classified; Z80.0 Family history of malignant neoplasm of digestive organs; Z79.899 Other long term (current) drug therapy
CPT/HCPCS: G0121; J7120; J2405

== ENCOUNTER 2022-07-16 18:36 | Emergency (ER) | payer MEDICARE, MEDICAID, SELFPAY ==
[2022-07-16 18:37] VITALS: BP 143/91; PULSE 87; RESP 16; TEMP 36.8; O2SAT 97; BMI 32.6
--- NOTE | 2022-07-16 19:00 | RAD_ITS ---
STUDY: X-RAY - RIGHT HAND, ATTENTION FINGER REASON FOR EXAM: Female, 67 years old. pain TECHNIQUE: 3 view(s) of the finger were obtained. COMPARISON: None. FINDINGS: Normal metacarpal head. Normal metacarpophalangeal joint. Normal proximal phalanx. Normal middle phalanx. Normal distal phalanx. Normal proximal interphalangeal joint. Normal distal interphalangeal joint. There is no demonstrated fracture. RAD/Finger(s) Min 2 Views IMPRESSION: Normal x-ray examination of the finger. Electronically Signed: Gasper Chaudhary MD at 19:21 EDT ,
--- NOTE | 2022-07-16 20:27 | EX.ED.UPPERE ---
HPI History of Present Illness Chief Complaint: Upper Extremity Injury [facility] Medical History (Updated 07/16/22 @ 20:[address] Antelmo Chakraborty MD) Arthritis Asthma Chronic bronchitis Fatty liver Gallstones GERD (gastroesophageal reflux disease) High cholesterol History of edema History of IBS History of stress test Leg cramps Low iron Non-smoker Post-menopausal Pre-diabetes Restless legs Scoliosis Seasonal allergies Wears dentures Wears glasses Home Medications simvastatin 20 mg tablet 20 mg PO QHS 12/23/12 [History Last Taken 03/04/16] calcium carbonate 600 mg-vitamin D3 10 mcg (400 unit) chewable tablet 1 tab PO DAILY 06/30/17 [History Last Taken Unknown] fluticasone propionate 115 mcg-salmeterol 21 mcg/actuation HFA inhaler 2 puff inhalation BID 06/30/17 [History Last Taken Unknown] sodium chloride 0.65 % nasal spray aerosol (Saline Nasal) 1 spray intranasal Q1-4H PRN Allergies 10/21/17 [History Last Taken Unknown] albuterol sulfate 90 mcg/actuation aerosol inhaler 2 puff IH PRN PRN Sob &/Or Wheezing 08/26/19 [History Last Taken 12/30/21] ferrous sulfate 325 mg (65 mg iron) tablet 325 mg PO DAILY 10/22/21 [History Last Taken Unknown] alendronate 35 mg tablet 35 mg PO DAILY 12/26/21 [History Last Taken 12/30/21] pantoprazole 40 mg tablet,delayed release 40 mg PO DAILY 12/26/21 [History Last Taken 12/30/21] Allergy/AdvReac Type Severity Reaction Status Date / Time cefdinir [From Omnicef] Allergy Severe Unknown Verified 07/16/22 18:38 Penicillins Allergy Severe STOP Verified 07/16/22 18:38 BREATHING codeine Allergy Other Verified 07/16/22 18:38 hydrocodone bitartrate Allergy Other Verified 07/16/22 18:38 [From Vicodin] latex Allergy Rash Verified 07/16/22 18:38 aspirin AdvReac Other Verified 07/16/22 18:38 tramadol [From Ultram] AdvReac Rash Verified 07/16/22 18:38 Family History (Updated 10/22/21 @ 15:48 by Birdie Brewster) Mother Cancer Father Heart disease Hypertension High cholesterol Kidney disease CVA (cerebral vascular accident) Colon cancer Surgical History H/O hernia repair History of colonoscopy Hx of cholecystectomy Social History household members: none Smoking Status: Never smoker second hand exposure: No alcohol intake: never substance use type: does not use EXAM Physical Exam Const Vital Signs: 07/16/22 18:37 Temperature 98.2 F Temperature Source Temporal Pulse Rate 87 Respiratory Rate 16 Blood Pressure 143/91 H Blood Pressure Mean 108 Pulse Ox 97 Oxygen Delivery Method Room Air MDM MDM MDM Narrative Medical decision making narrative: Finger x-ray read by me as normal Patient has a normal x-ray of the finger. She does not need an x-ray of the hand since the pain is in the finger. She likely has a sprain. She appears well no further work-up is needed I will discharge her in stable condition Discharge Plan Triage Chief Complaint: Upper Extremity Injury ED Provider: Antelmo Chakraborty Dx/Rx/DC Orders Clinical Impression: Finger sprain, Contusion of finger Instructions: ED Finger Sprain Prescriptions: No Action sodium chloride [Saline Nasal] 0.65 % aerosol,spray 1 spray INTRANASAL Q1-4H PRN (Reason: Allergies) ferrous sulfate 325 mg (65 mg iron) tablet 325 mg PO DAILY simvastatin 20 MG tablet 20 mg PO QHS fluticasone propion-salmeterol 1 PUFF inhaler 2 puff INHALATION BID calcium carbonate-vitamin D3 1 EACH tablet,chewable 1 tab PO DAILY Rx Instructions: taken in afternoon albuterol sulfate 1 PUFF inhaler 2 puff IH PRN PRN (Reason: Sob &/Or Wheezing) alendronate 35 mg tablet 35 mg PO DAILY pantoprazole 40 mg tablet,delayed release (DR/EC) 40 mg PO DAILY Primary Care Provider: Courtney Valenzuela Referrals: Courtney Valenzuela MD [Primary Care Provider] - 3-5 Days Disposition Disposition: Home, Self Care
[2022-07-16 20:38] VITALS: RESP 18
== END 2022-07-16 20:39 | disposition home or self-care (01) ==
PROVIDERS: Emergency Provider Emergency Medicine; PCP Internal Medicine; Visit Provider Emergency Medicine
DX: S63.619A Unspecified sprain of unspecified finger, initial encounter (principal); E78.00 Pure hypercholesterolemia, unspecified; J45.909 Unspecified asthma, uncomplicated; X58.XXXA Exposure to other specified factors, initial encounter
CPT/HCPCS: 73140; 99282

== ENCOUNTER 2022-08-01 16:44 | Emergency (ER) | payer MEDICARE, MEDICAID, SELFPAY ==
[2022-08-01 16:45] VITALS: BP 137/8; PULSE 95; RESP 19; TEMP 36.7; O2SAT 100; BMI 32.8
--- NOTE | 2022-08-01 17:13 | EKG12_ITS ---
Test Reason : CP Blood Pressure : / mmHG Vent. Rate : 095 BPM Atrial Rate : 095 BPM P-R Int : 178 ms QRS Dur : 072 ms QT Int : 370 ms P-R-T Axes : 060 057 052 degrees QTc Int : 464 ms Normal sinus rhythm Normal ECG Confirmed by RODRIGO SIMPSON, SUMAN ([id number]), editor sound SUKHWINDER MIR ([id number]) on 08/04/2022 10:54:40 A M Referred By: Confirmed By:NANETTE WALLACE MD
--- NOTE | 2022-08-01 17:16 | ED.VIS.CHEST ---
HPI History of Present Illness Chief Complaint: Chest Pain Informant: patient Narrative Narrative: Patient complains of pain above her left shoulder and slightly in the left upper chest. Patient's been having the above symptoms for about 3 weeks or so. She states it is worse if she moves her shoulder or neck. She does not know anything she did cause this. She has not seen anyone for this. She does not have coughing, dyspnea, nausea, vomiting, diaphoresis or any exertional symptoms. Does not hurt to breathe. No hemoptysis. No history of DVT or PE. She does have a history of borderline diabetes and some high cholesterol. Denies any prior heart disease. [facility] Medical History Arthritis Asthma Chronic bronchitis Fatty liver Gallstones GERD (gastroesophageal reflux disease) High cholesterol History of edema History of IBS History of stress test Leg cramps Low iron Non-smoker Post-menopausal Pre-diabetes Restless legs Scoliosis Seasonal allergies Wears dentures Wears glasses Home Medications simvastatin 20 mg tablet 20 mg PO QHS 12/23/12 [History Last Taken 03/04/16] calcium carbonate 600 mg-vitamin D3 10 mcg (400 unit) chewable tablet 1 tab PO DAILY 06/30/17 [History Last Taken Unknown] fluticasone propionate 115 mcg-salmeterol 21 mcg/actuation HFA inhaler 2 puff inhalation BID 06/30/17 [History Last Taken Unknown] sodium chloride 0.65 % nasal spray aerosol (Saline Nasal) 1 spray intranasal Q1-4H PRN Allergies 10/21/17 [History Last Taken Unknown] albuterol sulfate 90 mcg/actuation aerosol inhaler 2 puff IH PRN PRN Sob &/Or Wheezing 08/26/19 [History Last Taken 12/30/21] ferrous sulfate 325 mg (65 mg iron) tablet 325 mg PO DAILY 10/22/21 [History Last Taken Unknown] alendronate 35 mg tablet 35 mg PO DAILY 12/26/21 [History Last Taken 12/30/21] pantoprazole 40 mg tablet,delayed release 40 mg PO DAILY 12/26/21 [History Last Taken 12/30/21] Allergy/AdvReac Type Severity Reaction Status Date / Time cefdinir [From Omnicef] Allergy Severe Unknown Verified 08/01/22 16:54 Penicillins Allergy Severe STOP Verified 08/01/22 16:54 BREATHING codeine Allergy Other Verified 08/01/22 16:54 hydrocodone bitartrate Allergy Other Verified 08/01/22 16:54 [From Vicodin] latex Allergy Rash Verified 08/01/22 16:54 aspirin AdvReac Other Verified 08/01/22 16:54 tramadol [From Ultram] AdvReac Rash Verified 08/01/22 16:54 Family History Mother Cancer Father Heart disease Hypertension High cholesterol Kidney disease CVA (cerebral vascular accident) Colon cancer Surgical History H/O hernia repair History of colonoscopy Hx of cholecystectomy Social History household members: none Smoking Status: Never smoker second hand exposure: No alcohol intake: never substance use type: does not use ROS ROS ED ROS Narrative A complete review of systems was performed and is negative except as documented in the history of present illness. Some specific details below. Constitutional: No recent fevers or chills. No malaise. No exertional component. EYE: No discharge, visual complaints, or pain. ENT: No difficulty swallowing. No swelling. No pain. No reflux symptoms. CV: See history of present illness. Respiratory: See history of present illness. No pulmonary symptoms at all. GI: No abdominal pain. No nausea vomiting diarrhea. No blood in stool. : No frequency dysuria or hematuria. Musculoskeletal: No recent trauma. No pains. No swelling. Skin: No rash. Nondiaphoretic. Neuro: No weakness or numbness. No radicular symptoms. Endocrine: No polyuria or polydipsia. EXAM Physical Exam Narrative Exam Narrative: CONSTITUTIONAL: Patient is nontoxic in appearance. The patient looks comfortable. Work of breathing looks normal. HEENT: No notable trauma. Mucous membranes moist. No sinus tenderness. No indication of pain with swallowing. EYES: No conjunctival injection. No proptosis. NECK:No JVD. No stridor. Mild left trapezius tenderness. CARDIOVASCULAR: Regular rate. Regular rhythm. No notable murmur. No JVD. RESPIRATORY: No respiratory distress. Breathing is unlabored. No wheezes. No rhonchi. No rales. No pain with a deep breath. She does have some mild tenderness in the left upper lateral chest wall. She also has some tenderness in the supraspinatus area and a little bit in the trapezius. GASTROINTESTINAL: Not distended. Bowel sounds are normal. No tenderness. No guarding. No rebound. No palpable mass. No bruit is heard. GENITOURINARY: No tenderness over the bladder. No CVA tenderness. MUSCULOSKELETAL: Atraumatic. Her legs are not thin but they really have no pitting or peripheral edema. No cord. No tenderness along the deep venous system. No asymmetry. No distended veins. NEUROLOGICAL: Patient is alert and appropriate. No focal deficit noted. SKIN: No noted rashes. No diaphoresis. PSYCHIATRIC: Patient is calm. Mood is appropriate. Const Vital Signs: 08/01/22 16:45 08/01/22 16:54 08/01/22 17:28 Temperature 98.1 F Temperature Source Temporal Pulse Rate 95 Respiratory Rate 19 H Respiratory Effort Normal Non-Labored Blood Pressure 137/8 H Blood Pressure Mean 51 Pulse Ox 100 99 Oxygen Delivery Method Room Air Room Air MDM MDM MDM Narrative Medical decision making narrative: Patient CBC is normal. Patient's electrolytes are normal. Minimal elevation of glucose which is not a cause of her symptoms. Patient's troponin is negative despite weeks of symptoms. My independent interpretation of single view chest x-ray shows no acute process. Final reading is no role for chest. Her exam and history is more consistent with musculoskeletal pain. No risk factor for DVT or PE. She is not tachypneic tachycardic or hypoxic. She has no pleuritic pain or hemoptysis. She is not short of breath. I do not think she needs CT scan of the chest. I think she is appropriate for discharge with [id number] medicines she can also try some muscle liniments that may calm this down. Lab Data Attestation: I reviewed the patient's lab results. Labs: Laboratory Results - last 24 hr 08/01/22 08/01/22 17:17 17:17 WBC 5.0 RBC 4.25 Hgb 13.0 Hct 40.0 MCV 94.1 MCH 30.6 MCHC 32.5 RDW Std Deviation 44.9 H RDW Coeff of Emily 13.2 Plt Count 282 MPV 8.6 Immature Gran % (Auto) 0.400 Neut % (Auto) 58.2 Lymph % (Auto) 29.8 [place] % (Auto) 6.6 Eos % (Auto) 4.4 Baso % (Auto) 0.6 Absolute Neuts (auto) 2.9 Absolute Lymphs (auto) 1.49 Nucleated RBC % 0 Sodium 142 Potassium 3.6 Chloride 107 Carbon Dioxide 28.0 Anion Gap 7 BUN 10 Creatinine 0.72 Estim Creat Clear Calc 40.63 Est GFR (MDRD) Af Amer 104 Est GFR (MDRD) Non-Af 86 BUN/Creatinine Ratio 13.9 Glucose 117 H Calcium 9.2 Troponin I High Sens 9 Radiography Diagnostic Testing: Clinical Impression(s) from Imaging Studies Chest X-Ray 08/01/22 17:30 IMPRESSION: Normal x-ray examination of the chest. Electronically Signed: Gapser Chaudhary MD at 17:45 EDT Reading Location ID and State: [id number] , Service support , Discharge Plan Triage Chief Complaint: Chest Pain ED Provider: Ulices Menon Dx/Rx/DC Orders Clinical Impression: Strain of left trapezius muscle, Left-sided chest wall pain Instructions: ED Chest Pain, Uncertain Cause, ED Strain Chest Wall Prescriptions: No Action sodium chloride [Saline Nasal] 0.65 % aerosol,spray 1 spray INTRANASAL Q1-4H PRN (Reason: Allergies) ferrous sulfate 325 mg (65 mg iron) tablet 325 mg PO DAILY simvastatin 20 MG tablet 20 mg PO QHS fluticasone propion-salmeterol 1 PUFF inhaler 2 puff INHALATION BID calcium carbonate-vitamin D3 1 EACH tablet,chewable 1 tab PO DAILY Rx Instructions: taken in afternoon albuterol sulfate 1 PUFF inhaler 2 puff IH PRN PRN (Reason: Sob &/Or Wheezing) alendronate 35 mg tablet 35 mg PO DAILY pantoprazole 40 mg tablet,delayed release (DR/EC) 40 mg PO DAILY Primary Care Provider: Courtney Valenzuela Referrals: Courtney Valenzuela MD [Primary Care Provider] - 3-5 Days if not improving Disposition Disposition: Home, Self Care
[2022-08-01 17:24] LABS: Absolute Lymphocyte Count 1.49 X10^3/uL (0.83-4.51); Absolute Neutrophil Count 2.9 X10^3/uL (2.0-7.7); Basophil# 0.03 X10^3/uL; Basophil% 0.6 % (0-1); Eosinophil# 0.22 X10^3/uL; Eosinophils% 4.4 % (0-5); Lymphocyte # 1.49 X10^3/ul (0.83-4.51); Lymphocyte % 29.8 % (19-41); Mean Corp Hgb Conc 32.5 g/dL (32-36); Mean Corpuscular Hgb 30.6 pg (27.0-32.0); Mean Corpuscular Volume 94.1 fL (81-99); Mean Platelet Vol. 8.6 fl (6.2-12.0); Monocyte# 0.33 X10^3/uL; Monocyte% 6.6 % (0-10); NRBC Flagged by Analyzer 0 % (0-5); Neutrophil # 2.91 X10^3/uL (2.7-7.7); Neutrophil % 58.2 % (47-70); Platelet Count 282 K/mm3 (150-450); RBC Distribution Width CV 13.2 % (11.6-14.6); RBC Distribution Width SD 44.9 fl (35.1-43.9); Red Blood Count 4.25 M/mm3 (4.2-5.4)
[2022-08-01 17:28] VITALS: O2SAT 99
--- NOTE | 2022-08-01 17:30 | RAD_ITS ---
STUDY: X-RAY CHEST REASON FOR EXAM: Female, 67 years old. chest pain TECHNIQUE: Single AP portable view of the chest. COMPARISON: 08/26/2019. FINDINGS: The lungs are clear and expanded. There is no demonstrated pleural abnormality. Normal size heart. Normal mediastinum and jared. Normal visualized pulmonary arteries. Normal visualized aortic arch and descending thoracic aorta. Normal visualized thoracic spine. Normal visualized ribs, clavicles, and shoulders. There is no demonstrated abnormality of the visualized soft tissue structures of the upper abdomen. RAD/Chest 1 View (Portable) IMPRESSION: Normal x-ray examination of the chest. Electronically Signed: Gasper Chaudhary MD at 17:45 EDT ,
[2022-08-01 18:03] LABS: Anion Gap 7 (5-15); BUN 10 mg/dL (7-18); BUN/Creat Ratio 13.9 RATIO (10-20); Calcium,Total 9.2 mg/dL (8.5-10.1); Chloride 107 mmol/L (98-107); Creatinine, Serum 0.72 mg/dL (0.55-1.02); EST Glomerular Filtration Rate 86 mL/min (>60); Est Glom Filt Rate - Afr Amer 104 mL/min (>60); Estimated Creatinine Clearance 40.63 ml/min; Glucose 117 mg/dL (74-106); Potassium 3.6 mmol/L (3.5-5.1); Sodium Level 142 mmol/L (136-145); Troponin-I HS 9 pg/mL (3.0-54.0)
[2022-08-01 18:34] VITALS: BP 124/71; PULSE 81; RESP 21
== END 2022-08-01 18:37 | disposition home or self-care (01) ==
PROVIDERS: Emergency Provider Emergency Medicine; PCP Internal Medicine; Visit Provider Emergency Medicine
DX: S29.011A Strain of muscle and tendon of front wall of thorax, initial encounter (principal); E78.00 Pure hypercholesterolemia, unspecified; X58.XXXA Exposure to other specified factors, initial encounter
CPT/HCPCS: 71045; 80048; 84484; 85025; 93005; 99284; A4216

== ENCOUNTER 2022-09-04 13:18 | Emergency (ER) | payer MEDICARE, MEDICAID, SELFPAY ==
[2022-09-04 13:19] VITALS: BP 113/44; PULSE 87; RESP 16; TEMP 36.3; O2SAT 98; BMI 31.9
--- NOTE | 2022-09-04 13:32 | EX.ED.DYSGE1 ---
HPI History of Present Illness Chief Complaint: Bite Detail of Chief Complaint: Red dot right shoulder region Informant: patient Onset/Context/Timing Onset: Yesterday Context: Sudden Onset Timing: Continuous Quality: Area of erythema anterior proximal right shoulder Location: See under quality Current Severity: Mild Maximum Severity: Mild Worsened by: Nothing Relieved by: Nothing Associated Symptoms Associated Symptoms: None Narrative Narrative: Patient is a 67-year-old woman with history of, diabetes who presents because she believes she may have been bit by something. He states there is been bees around the house. She noted the red dot yesterday. She does not remember being stung by a bee or bit by an insect. She denies fever or chills. She denies drainage. She denies change in the area of redness since yesterday. She denies symptoms of hyperglycemia. Prior similar symptoms: No Recent Illness/Hospitalization: No PFSH PFSH Medical History Arthritis Asthma Chronic bronchitis Fatty liver Gallstones GERD (gastroesophageal reflux disease) High cholesterol History of edema History of IBS History of stress test Leg cramps Low iron Non-smoker Post-menopausal Pre-diabetes Restless legs Scoliosis Seasonal allergies Wears dentures Wears glasses Home Medications simvastatin 20 mg tablet 20 mg PO QHS 12/23/12 [History Last Taken 03/04/16] calcium carbonate 600 mg-vitamin D3 10 mcg (400 unit) chewable tablet 1 tab PO DAILY 06/30/17 [History Last Taken Unknown] fluticasone propionate 115 mcg-salmeterol 21 mcg/actuation HFA inhaler 2 puff inhalation BID 06/30/17 [History Last Taken Unknown] sodium chloride 0.65 % nasal spray aerosol (Saline Nasal) 1 spray intranasal Q1-4H PRN Allergies 10/21/17 [History Last Taken Unknown] albuterol sulfate 90 mcg/actuation aerosol inhaler 2 puff IH PRN PRN Sob &/Or Wheezing 08/26/19 [History Last Taken 12/30/21] ferrous sulfate 325 mg (65 mg iron) tablet 325 mg PO DAILY 10/22/21 [History Last Taken Unknown] alendronate 35 mg tablet 35 mg PO DAILY 12/26/21 [History Last Taken 12/30/21] pantoprazole 40 mg tablet,delayed release 40 mg PO DAILY 12/26/21 [History Last Taken 12/30/21] Allergy/AdvReac Type Severity Reaction Status Date / Time cefdinir [From Omnicef] Allergy Severe Unknown Verified 09/04/22 13:19 Penicillins Allergy Severe STOP Verified 09/04/22 13:19 BREATHING codeine Allergy Other Verified 09/04/22 13:19 hydrocodone bitartrate Allergy Other Verified 09/04/22 13:19 [From Vicodin] latex Allergy Rash Verified 09/04/22 13:19 aspirin AdvReac Other Verified 09/04/22 13:19 tramadol [From Ultram] AdvReac Rash Verified 09/04/22 13:19 Family History Mother Cancer Father Heart disease Hypertension High cholesterol Kidney disease CVA (cerebral vascular accident) Colon cancer Surgical History H/O hernia repair History of colonoscopy Hx of cholecystectomy Social History household members: none Smoking Status: Never smoker second hand exposure: No alcohol intake: never substance use type: does not use ROS ROS ED Constitutional Constitutional ED: Denies chills, fever(s), subjective, sweats or weight loss Cardiovascular Cardiovascular: Denies chest pain or palpitations Respiratory/Chest Respiratory/Chest: Denies dyspnea Gastrointestinal Gastrointestinal: Denies nausea or vomiting Integumentary Reports rash Hematologic/Lymphatic Hematologic/Lymphatic: Reports systems reviewed and no addt'l complaints, except as documented EXAM Physical Exam Const Vital Signs: 09/04/22 13:19 Temperature 97.3 F L Temperature Source Temporal Pulse Rate 87 Respiratory Rate 16 Blood Pressure 113/44 L Blood Pressure Mean 67 Pulse Ox 98 Oxygen Delivery Method Room Air Positive well nourished, well developed and obese General Appearance ED: well developed and NAD Nutritional Appearance: obese HEENT Reports moist mucous membranes HEENT Narrative: Head is atraumatic normocephalic. Patient's speech is slurred, which is her norm. Eyes PERRL and EOMs intact bilaterally General Eye ED: Negative for pale conjunctiva or scleral icterus Neck no lymphadenopathy, supple and no JVD Chest Wall inspection of chest normal and palpation of chest normal Resp normal respiratory effort and clear to auscultation bilaterally Cardio regular rate, regular rhythm, S1 normal heart sound, S2 normal heart sound and no murmurs Extremity Extremity Narrative: There is an area of erythema that is 1 to 2 mm in diameter anterior proximal right shoulder region. There is a fine pinkish color noted that extends beyond the central area of redness by 3 to 4 mm. There are no other lesions noted on the extremity or torso. There is no axillary or epitrochlear lymphadenopathy. There is no warmth, induration, lymphangitis. There is no fluctuance. The central area of erythema is not raised. General Extremety ED: Negative for edema or tenderness General Extremity: Negative for edema Neuro oriented x3 and CN's II-XII intact bilaterally Psych mental status grossly normal Skin Skin Narrative: Described under the extremity portion of the medical record MDM MDM MDM Narrative Medical decision making narrative: Patient was informed that I cannot tell her with any degree of certainty whether this is or is not a bee sting or insect sting since she has no recall of being bit or stung by anything. I informed her if she develops a fever, red streak or the area becomes significantly larger to follow-up with her doctor or return to the emergency department. Discharge Plan Triage Chief Complaint: Bite ED Provider: Ran Bauer Dx/Rx/DC Orders Clinical Impression: Rash and nonspecific skin eruption Instructions: ED Erythema Prescriptions: No Action sodium chloride [Saline Nasal] 0.65 % aerosol,spray 1 spray INTRANASAL Q1-4H PRN (Reason: Allergies) ferrous sulfate 325 mg (65 mg iron) tablet 325 mg PO DAILY simvastatin 20 MG tablet 20 mg PO QHS fluticasone propion-salmeterol 1 PUFF inhaler 2 puff INHALATION BID calcium carbonate-vitamin D3 1 EACH tablet,chewable 1 tab PO DAILY Rx Instructions: taken in afternoon albuterol sulfate 1 PUFF inhaler 2 puff IH PRN PRN (Reason: Sob &/Or Wheezing) alendronate 35 mg tablet 35 mg PO DAILY pantoprazole 40 mg tablet,delayed release (DR/EC) 40 mg PO DAILY Primary Care Provider: DIANE COELHO Referrals: Courtney Valenzuela MD [Med Staff - [facility] [employer]ist] - 3-5 Days if not improving
[2022-09-04 13:57] VITALS: RESP 18
== END 2022-09-04 13:57 | disposition home or self-care (01) ==
PROVIDERS: Emergency Provider Emergency Medicine; PCP Nurse Practitioner; Visit Provider Emergency Medicine
DX: R21 Rash and other nonspecific skin eruption (principal); E11.9 Type 2 diabetes mellitus without complications; E78.00 Pure hypercholesterolemia, unspecified; J45.909 Unspecified asthma, uncomplicated; E66.9 Obesity, unspecified
CPT/HCPCS: 99282

== ENCOUNTER 2022-09-17 21:19 | Emergency (ER) | payer MEDICARE, MEDICAID, SELFPAY ==
[2022-09-17 21:34] VITALS: BP 125/64; PULSE 66; RESP 15; TEMP 36.3; O2SAT 100
--- NOTE | 2022-09-17 21:48 | RAD_ITS ---
INDICATION: INJURY EXAMINATION/TECHNIQUE: X-RAY - LEFT XR Knee 3 Views 3 VIEWS COMPARISON: Prior comparison exam dated September 10, 2016, left knee x-rays. FINDINGS: SOFT TISSUES: No soft tissue swelling or gas. No radiopaque foreign body. No joint effusion. BONES/JOINTS: No acute fracture or malalignment. Minimally decreased joint spaces with no degenerative bony proliferative changes of the medial femoral compartments. There is a tiny spur inferior pole the patella. No sclerotic or destructive changes observed. RAD/Knee 3 Views IMPRESSION: No acute traumatic osseous or soft tissue injury exemplified. Minimal degenerative changes as above. Electronically Signed: Max Villavicencio DO at 23:12 EDT ,
--- NOTE | 2022-09-17 23:54 | EDS_ITS ---
HPI History of Present Illness Chief Complaint: Lower Extremity Injury Informant: patient and EMS Narrative Narrative: Patient states she was walking in her bathroom tonight and her left knee seem to give out, she caught her self on the counter before she fell. No other pain or injury. She states her left knee has given out before, and it has done this off-and-on for years. She states that seem to have happened after she had a patella dislocation. Never followed up with orthopedics but she did have therapy on it. [facility] Medical History Arthritis Asthma Chronic bronchitis Fatty liver Gallstones GERD (gastroesophageal reflux disease) High cholesterol History of edema History of IBS History of stress test Leg cramps Low iron Non-smoker Post-menopausal Pre-diabetes Restless legs Scoliosis Seasonal allergies Wears dentures Wears glasses Home Medications simvastatin 20 mg tablet 20 mg PO QHS 12/23/12 [History Last Taken 03/04/16] calcium carbonate 600 mg-vitamin D3 10 mcg (400 unit) chewable tablet 1 tab PO DAILY 06/30/17 [History Last Taken Unknown] fluticasone propionate 115 mcg-salmeterol 21 mcg/actuation HFA inhaler 2 puff inhalation BID 06/30/17 [History Last Taken Unknown] sodium chloride 0.65 % nasal spray aerosol (Saline Nasal) 1 spray intranasal Q1- 4H PRN Allergies 10/21/17 [History Last Taken Unknown] albuterol sulfate 90 mcg/actuation aerosol inhaler 2 puff IH PRN PRN Sob &/Or Wheezing 08/26/19 [History Last Taken 12/30/21] ferrous sulfate 325 mg (65 mg iron) tablet 325 mg PO DAILY 10/22/21 [History Last Taken Unknown] alendronate 35 mg tablet 35 mg PO DAILY 12/26/21 [History Last Taken 12/30/21] pantoprazole 40 mg tablet,delayed release 40 mg PO DAILY 12/26/21 [History Last Taken 12/30/21] Allergy/AdvReac Type Severity Reaction Status Date / Time cefdinir [From Omnicef] Allergy Severe Unknown Verified 09/17/22 21:38 Penicillins Allergy Severe STOP Verified 09/17/22 21:38 BREATHING codeine Allergy Other Verified 09/17/22 21:38 hydrocodone bitartrate Allergy Other Verified 09/17/22 21:38 [From Vicodin] latex Allergy Rash Verified 09/17/22 21:38 aspirin AdvReac Other Verified 09/17/22 21:38 tramadol [From Ultram] AdvReac Rash Verified 09/17/22 21:38 Family History Mother Cancer Father Heart disease Hypertension High cholesterol Kidney disease CVA (cerebral vascular accident) Colon cancer Surgical History H/O hernia repair History of colonoscopy Hx of cholecystectomy Social History household members: none Smoking Status: Never smoker second hand exposure: No alcohol intake: never substance use type: does not use ROS ROS ED Constitutional Constitutional ED: Denies chills or fever(s) Musculoskeletal Musculoskeletal: Reports extremity pain; Denies neck pain Integumentary Denies Abrasions, rash or wounds Neurologic Neurologic: Denies paresthesias or weakness EXAM Physical Exam Const Vital Signs: 09/17/22 21:34 Temperature 97.3 F L Temperature Source Temporal Pulse Rate 66 Respiratory Rate 15 Blood Pressure 125/64 H Blood Pressure Mean 84 Pulse Ox 100 Oxygen Delivery Method Room Air Positive well nourished and well developed General Appearance ED: well developed and NAD Neck full ROM and supple Back/Spine normal ROM and normal to inspection Extremity Extremity Narrative: Full range of motion of the left knee, limited only at the extremes of flexion. Extensor mechanism intact. All ligaments stable with short endpoints and no significant discomfort with stressing. There is a mild effusion. She has some tenderness anteriorly. No deformities. Neurovascular intact distally. Neuro oriented x3, no focal motor deficits and no sensory deficits noted Sensorium / Orientation: alert Psych mental status grossly normal and thought process normal Skin no wounds Rashes: no rashes MDM MDM MDM Narrative Medical decision making narrative: 4 view x-ray series of the left knee on my interpretation is negative for any acute fracture or dislocation. She does appear to have medial compartment arthritis. Reviewed the radiology interpretation. I offered patient an [place] wrap but she already has a soft knee brace, she declines. I offered analgesics and an ice pack she declines all of that. I asked her if she wanted some crutches she states she has them at home. At this time she is okay going home and following up I recommend seeing orthopedics as an outpatient due to having chronic issues. Radiography Diagnostic Testing: Clinical Impression(s) from Imaging Studies Knee X-Ray 09/17/22 21:48 IMPRESSION: No acute traumatic osseous or soft tissue injury exemplified. Minimal degenerative changes as above. Electronically Signed: Max Villavicencio DO at 23:12 EDT , Discharge Plan Triage Chief Complaint: Lower Extremity Injury ED Provider: Wong Parra Dx/Rx/DC Orders Clinical Impression: Left knee sprain Instructions: ED Knee Sprain Prescriptions: No Action sodium chloride [Saline Nasal] 0.65 % aerosol,spray 1 spray INTRANASAL Q1-4H PRN (Reason: Allergies) ferrous sulfate 325 mg (65 mg iron) tablet 325 mg PO DAILY simvastatin 20 MG tablet 20 mg PO QHS fluticasone propion-salmeterol 1 PUFF inhaler 2 puff INHALATION BID calcium carbonate-vitamin D3 1 EACH tablet,chewable 1 tab PO DAILY Rx Instructions: taken in afternoon albuterol sulfate 1 PUFF inhaler 2 puff IH PRN PRN (Reason: Sob &/Or Wheezing) alendronate 35 mg tablet 35 mg PO DAILY pantoprazole 40 mg tablet,delayed release (DR/EC) 40 mg PO DAILY Primary Care Provider: DIANE COELHO Referrals: Max Self DO [Med Staff - Active Staff] - (call for appt) DIANE COELHO NP-C [Primary Care Provider] - Disposition Disposition: Home, Self Care
--- NOTE | 2022-09-18 00:22 | ED.RN ---
contacted taxi service to xport pt home. they will arrive within 8-10m to assist her.
== END 2022-09-18 00:23 | disposition home or self-care (01) ==
LOC: ED 09-18 00:06
PROVIDERS: Emergency Provider Emergency Medicine; PCP Nurse Practitioner; Visit Provider Emergency Medicine
DX: S83.92XA Sprain of unspecified site of left knee, initial encounter (principal); E78.00 Pure hypercholesterolemia, unspecified; J45.909 Unspecified asthma, uncomplicated; Z90.49 Acquired absence of other specified parts of digestive tract; X58.XXXA Exposure to other specified factors, initial encounter
CPT/HCPCS: 73562; 99284

== ENCOUNTER 2023-02-19 16:52 | Emergency (ER) | payer MEDICARE, MEDICAID, SELFPAY ==
[2023-02-19 16:55] VITALS: BP 143/63; PULSE 95; RESP 18; TEMP 35.9; O2SAT 98
--- NOTE | 2023-02-19 19:04 | RAD_ITS ---
STUDY: X-RAY - PELVIS AND RIGHT HIP REASON FOR EXAM: Female, 67 years old. pain TECHNIQUE: 3 views of the pelvis and hip. COMPARISON: None. FINDINGS: There is a non-specific bowel gas pattern. Normal visualized soft tissue structures. There is severe muscular atrophy. There is narrowing with cortical sclerosis and osteophyte formation of the sacroiliac joint consistent with degenerative osteoarthritic changes. Normal bilateral superior and inferior pubic rami. There are mild degenerative changes of the pubic symphysis with articular narrowing and sclerosis. Normal bilateral ischial tuberosities. Normal visualized femoral head. Normal acetabulum. There is mild articular joint space narrowing of the hip. RAD/HIP, UNI W/ Pelvis 2-3 Views IMPRESSION: Possible diffuse osteopenia with mild, multilevel degenerative disease. No acute fracture or subluxation of the right hip. Electronically Signed: Myra Bonner MD at 19:41 EST ,
--- NOTE | 2023-02-19 19:04 | RAD_ITS ---
STUDY: X-RAY - RIGHT ANKLE REASON FOR EXAM: Female, 67 years old. pain TECHNIQUE: 3 view(s) of the ankle. COMPARISON: None. FINDINGS: Normal visualized distal tibia and fibula. Normal medial and lateral malleoli. Normal tibiotalar articulation and ankle mortise. Minimal plantar calcaneal spur and mild enthesophyte at the Achilles tendon insertion site. Otherwise normal visualized talus and calcaneus. The visualized subtalar, talonavicular, calcaneocuboid and tarsal articulations are normal. There is no demonstrated fracture. Diffuse soft tissue swelling through the calf and ankle. RAD/Ankle min 3 Views IMPRESSION: Nonspecific soft tissue swelling as described. No acute fracture or subluxation. Minimal plantar calcaneal spur and enthesophyte at the calcaneus as described. Electronically Signed: Myra Bonner MD at 19:40 EST ,
--- NOTE | 2023-02-19 19:10 | ED.VIS.LOWEX ---
HPI History of Present Illness Chief Complaint: Fall Narrative Narrative: 67-year-old female presenting with right hip pain and right foot pain. Patient states she had a mechanical fall going to her doorway. States she lost her footing and fell. She states her grazed her head but did not get knocked out. She has no dizziness, nausea, lightheadedness, confusion. Patient states has been home and walks when she fell. She complains of pain in the right hip and the dorsal aspect of the right foot. She has pain with the right ankle when she moves it. Denies blood thinners. States she did not have any prodromal symptoms prior to falling. [facility] Medical History Arthritis Asthma Chronic bronchitis Fatty liver Gallstones GERD (gastroesophageal reflux disease) High cholesterol History of edema History of IBS History of stress test Leg cramps Low iron Non-smoker Post-menopausal Pre-diabetes Restless legs Scoliosis Seasonal allergies Wears dentures Wears glasses Home Medications simvastatin 20 mg tablet 20 mg PO QHS 12/23/12 [History Last Taken 03/04/16] calcium carbonate 600 mg-vitamin D3 10 mcg (400 unit) chewable tablet 1 tab PO DAILY 06/30/17 [History Last Taken Unknown] fluticasone propionate 115 mcg-salmeterol 21 mcg/actuation HFA inhaler 2 puff inhalation BID 06/30/17 [History Last Taken Unknown] sodium chloride 0.65 % nasal spray aerosol (Saline Nasal) 1 spray intranasal Q1-4H PRN Allergies 10/21/17 [History Last Taken Unknown] albuterol sulfate 90 mcg/actuation aerosol inhaler 2 puff IH PRN PRN Sob &/Or Wheezing 08/26/19 [History Last Taken 12/30/21] ferrous sulfate 325 mg (65 mg iron) tablet 325 mg PO DAILY 10/22/21 [History Last Taken Unknown] alendronate 35 mg tablet 35 mg PO DAILY 12/26/21 [History Last Taken 12/30/21] pantoprazole 40 mg tablet,delayed release 40 mg PO DAILY 12/26/21 [History Last Taken 12/30/21] Allergy/AdvReac Type Severity Reaction Status Date / Time cefdinir [From Omnicef] Allergy Severe Unknown Verified 02/19/23 16:55 Penicillins Allergy Severe STOP Verified 02/19/23 16:55 BREATHING codeine Allergy Other Verified 02/19/23 16:55 hydrocodone bitartrate Allergy Other Verified 02/19/23 16:55 [From Vicodin] latex Allergy Rash Verified 02/19/23 16:55 aspirin AdvReac Other Verified 02/19/23 16:55 tramadol [From Ultram] AdvReac Rash Verified 02/19/23 16:55 Family History Mother Cancer Father Heart disease Hypertension High cholesterol Kidney disease CVA (cerebral vascular accident) Colon cancer Surgical History H/O hernia repair History of colonoscopy Hx of cholecystectomy Social History household members: none Smoking Status: Never smoker second hand exposure: No alcohol intake: never substance use type: does not use ROS ROS ED Constitutional Constitutional ED: Denies chills, fever(s) or sweats Eyes Eyes: Denies blurry vision or change in vision ENT ENT ED: Denies ear pain or sore throat Cardiovascular Cardiovascular: Denies chest pain, palpitations or racing heartbeat Respiratory/Chest Respiratory/Chest: Denies cough, dyspnea or sputum Gastrointestinal Gastrointestinal: Denies abdominal pain, constipation, diarrhea, nausea or vomiting Genitourinary Genitourinary ED: Denies dysuria, hematuria or urinary frequency Musculoskeletal Musculoskeletal: Reports other Details: Right hip pain, right ankle pain, right foot pain ; Denies arthralgias, myalgias or neck pain Integumentary Denies abscess, Abrasions or rash Neurologic Neurologic: Denies headache(s), paresthesias or weakness Psychiatric Psychiatric: Denies anxiety, depression, suicidal ideation or suicidal thoughts Endocrine Endocrinology: Denies polydipsia or polyuria EXAM Physical Exam Const Vital Signs: 02/19/23 16:55 02/19/23 18:02 Temperature 96.7 F L Temperature Source Temporal Pulse Rate 95 Respiratory Rate 18 Respiratory Effort Normal Respiratory Depth Normal Respiratory Pattern Normal Blood Pressure 143/63 H Blood Pressure Mean 89 Pulse Ox 98 Oxygen Delivery Method Room Air Room Air Positive well nourished General Appearance ED: NAD HEENT Reports moist mucous membranes normocephalic and atraumatic Chest Wall inspection of chest normal Resp normal respiratory effort and no retractions Auscultation: Negative for rales, rhonchi or wheezes Cardio regular rate and regular rhythm GI non-tender Back/Spine Cervical Spine: Negative for cervical spine tenderness Thoracic Spine / Upper Back: Negative for thoracic spinal tenderness Lumbar Spine / Lower Back: Negative for lumbar spinal tenderness Extremity Extremity Narrative: To palpation over the right greater trochanter. No obvious deformity. Logroll negative. Patient able to the right hip up off the bed. Patient complains of tenderness to palpation of the right ankle on the lateral aspect as well as the dorsum of the right foot. No obvious deformities. Neurovascular intact throughout. No bruising, edema. Neuro oriented x3 Sensorium / Orientation: alert Motor Exam: strength 5/5 throughout Psych mental status grossly normal MDM MDM MDM Narrative Medical decision making narrative: Request Tylenol for pain. Differential includes foot contusion, ankle contusion, hip contusion, fracture of either. Will obtain x-rays of the right hip, right ankle, right foot. X-rays of the right ankle, right foot, right hip all of my interpretation show no acute fracture subluxation. Patient was able to ambulate with a walker. She will be given a walker for home. She felt comfortable and had a stable gait. Tylenol and ibuprofen for pain. Return precautions discussed. Impression: 1. Mechanical fall 2. Right hip contusion 3. Lower extremity diffuse Lab Data Attestation: I reviewed the patient's lab results. Radiography Diagnostic Testing: Clinical Impression(s) from Imaging Studies Ankle X-Ray 02/19/23 19:04 IMPRESSION: Nonspecific soft tissue swelling as described. No acute fracture or subluxation. Minimal plantar calcaneal spur and enthesophyte at the calcaneus as described. Electronically Signed: Myra Bonner MD at 19:40 EST , Hip/Pelvis X-Ray 02/19/23 19:04 IMPRESSION: Possible diffuse osteopenia with mild, multilevel degenerative disease. No acute fracture or subluxation of the right hip. Electronically Signed: Myra Bonner MD at 19:41 EST , Foot X-Ray 02/19/23 19:15 IMPRESSION: Minor degenerative disease with no acute fracture or subluxation. Electronically Signed: Myra Bonner MD at 19:39 EST , Discharge Plan Triage Chief Complaint: Fall ED Provider: Anshu Tobar Dx/Rx/DC Orders Instructions: ED Contusion, Lower Extremity, ED Hip Contusion, ED Fall Prevention Prescriptions: No Action sodium chloride [Saline Nasal] 0.65 % aerosol,spray 1 spray INTRANASAL Q1-4H PRN (Reason: Allergies) ferrous sulfate 325 mg (65 mg iron) tablet 325 mg PO DAILY simvastatin 20 MG tablet 20 mg PO QHS fluticasone propion-salmeterol 1 PUFF inhaler 2 puff INHALATION BID calcium carbonate-vitamin D3 1 EACH tablet,chewable 1 tab PO DAILY Rx Instructions: taken in afternoon albuterol sulfate 1 PUFF inhaler 2 puff IH PRN PRN (Reason: Sob &/Or Wheezing) alendronate 35 mg tablet 35 mg PO DAILY pantoprazole 40 mg tablet,delayed release (DR/EC) 40 mg PO DAILY Primary Care Provider: DIANE COELHO Referrals: DIANE COELHO, INSTRUMENT LENS GENERATOR-C [Primary Care Provider] - Disposition Disposition: Home, Self Care
--- NOTE | 2023-02-19 19:15 | RAD_ITS ---
STUDY: X-RAY - RIGHT FOOT CLINICAL: Female, 67 years old. pain TECHNIQUE: 3 view(s) of the foot. COMPARISON: None. FINDINGS: Minimal plantar calcaneal spur with mild enthesophytosis at the Achilles tendon insertion site. Otherwise normal talus, calcaneus, and tarsal bones. Normal visualized subtalar, talonavicular, calcaneocuboid and tarsal articulation. Mild degenerative disease of the tarsometatarsal articulations. Normal metatarsi. Normal metatarsophalangeal joint of the great toe. Normal tibial and fibular sesamoid bones. Normal interphalangeal joint of the great toe. Normal phalanges of the great toe. Normal second through fifth metatarsophalangeal joints. Normal interphalangeal joints and phalanges of the lesser toes. Mild soft tissue swelling at the ankle. There is no demonstrated fracture. RAD/Foot min 3 Views IMPRESSION: Minor degenerative disease with no acute fracture or subluxation. Electronically Signed: Myra Bonner MD at 19:39 EST ,
[2023-02-19] MEDS: Acetaminophen 500 MG Tablet 1000 MG PO (19:27)
== END 2023-02-19 20:45 | disposition home or self-care (01) ==
PROVIDERS: Emergency Provider Student in an Organized Health Care Education/Training Program; PCP Nurse Practitioner; Visit Provider Student in an Organized Health Care Education/Training Program
DX: S70.01XA Contusion of right hip, initial encounter (principal); J45.909 Unspecified asthma, uncomplicated; E78.00 Pure hypercholesterolemia, unspecified; W19.XXXA Unspecified fall, initial encounter
CPT/HCPCS: 73502; 73610; 73630; 99282

== ENCOUNTER 2023-10-30 09:36 | Emergency (ER) | payer MEDICARE, MEDICAID, SELFPAY ==
[2023-10-30 09:36] VITALS: BP 130/77; PULSE 88; RESP 16; TEMP 36.6; O2SAT 97; BMI 34.2
--- NOTE | 2023-10-30 09:52 | CT_ITS ---
STUDY: CT ABDOMEN AND PELVIS WITH CONTRAST REASON FOR EXAM: Female, 68 years old. Right lower quadrant abdominal pain RADIATION DOSAGE (If Supplied By Facility): CTDIvol = ( 15.83 ) mGy, DLP = ( 892.04 ) mGycm TECHNIQUE: Transaxial images were obtained from the dome of the diaphragm to the symphysis pubis without oral contrast. ml of 100mL Isovue-300 contrast was administered. Sagittal and coronal images were reconstructed. Individualized dose optimization techniques were used for this CT. COMPARISON: CT of abdomen and pelvis dated July 31, 2015 FINDINGS: There are chronic interstitial fibrotic changes of the lung bases. The visualized portions of the heart are within normal limits. Normal liver. Tiny cyst near the falciform ligament in the right lobe of the liver redemonstrated and does not require any follow-up. There are surgical clips in the gallbladder fossa consistent with a prior cholecystectomy. Normal spleen. Normal pancreas. Normal bilateral adrenal glands. Normal right kidney. Normal left kidney. No renal masses or hydronephrosis or hydroureter is present. No right lower quadrant lymphadenopathy or inflammation or fluid collections. Stool filled right and transverse colon. Normal visualized stomach. Normal small intestine. There are multiple colonic diverticula consistent with diverticulosis. The appendix is visualized and appears normal -see image 64/112 series 601. No free air or free fluid or bowel dilatation is present. No small bowel obstruction. Shallow incisional hernia at the umbilicus without bowel incarceration.. There is diffuse atherosclerotic calcification of the abdominal aorta, without a demonstrated aneurysm. Normal inferior vena cava. Normal retroperitoneum. Normal urinary bladder. There is absence of the uterus consistent with a prior hysterectomy. There are diffuse degenerative changes of the visualized lumbar spine. CT/Abdomen/Pelvis W IV Cont ONLY IMPRESSION: 1. There are multiple colonic diverticula consistent with diverticulosis. The appendix is visualized and appears normal -see image 64/112 series 601. No free air or free fluid or bowel dilatation is present. No small bowel obstruction. Shallow incisional hernia at the umbilicus without bowel incarceration. 2. No right lower quadrant lymphadenopathy or inflammation or fluid collections. Stool filled right and transverse colon. Electronically Signed: Dominguez Canales MD at 11:33 EDT ,
--- NOTE | 2023-10-30 10:01 | EX.ED.DYSGE1 ---
HPI History of Present Illness Chief Complaint: Wound Narrative Narrative: Patient is a 68-year-old female with past medical history of IBS, prediabetic, GERD, hypercholesteremia, asthma who presented to the emergency department with a chief complaint of a red max on her inner thigh. Patient notes that this has been there for a a while now and states that she has not follow-up with her primary care physician on this she states that things were not improving prompting her here today for further evaluation management patient denies any injuries. [facility] Medical History Wears glasses Wears dentures Post-menopausal Low iron Fatty liver Restless legs Scoliosis History of IBS Non-smoker Leg cramps History of edema History of stress test Pre-diabetes GERD (gastroesophageal reflux disease) High cholesterol Gallstones Chronic bronchitis Asthma Arthritis Seasonal allergies Home Medications ?Medication ?Instructions ?Recorded ?Last Taken ?Type simvastatin 20 mg tablet 20 mg PO QHS 12/23/12 03/04/16 History calcium carbonate 600 mg-vitamin 1 tab PO DAILY 06/30/17 Unknown History D3 10 mcg (400 unit) chewable tablet fluticasone propionate 115 2 puff inhalation BID 06/30/17 Unknown History mcg-salmeterol 21 mcg/actuation HFA inhaler sodium chloride 0.65 % nasal spray 1 spray intranasal Q1-4H PRN 10/21/17 Unknown History aerosol (Saline Nasal) Allergies albuterol sulfate 90 mcg/actuation 2 puff IH PRN PRN Sob &/Or Wheezing 08/26/19 12/30/21 History aerosol inhaler ferrous sulfate 325 mg (65 mg 325 mg PO DAILY 10/22/21 Unknown History iron) tablet alendronate 35 mg tablet 35 mg PO DAILY 12/26/21 12/30/21 History pantoprazole 40 mg tablet,delayed 40 mg PO DAILY 12/26/21 12/30/21 History release nystatin 100,000 unit/gram topical 1 applic topical DAILY #30 grams 10/30/23 Unknown Rx ointment Allergy/AdvReac Type Severity Reaction Status Date / Time cefdinir (From Omnicef) Allergy Severe Unknown Verified 10/30/23 09:36 Penicillins Allergy Severe STOP Verified 10/30/23 09:36 BREATHING codeine Allergy Other Verified 10/30/23 09:36 hydrocodone bitartrate (From Allergy Other Verified 10/30/23 09:36 Vicodin) latex Allergy Rash Verified 10/30/23 09:36 aspirin AdvReac Other Verified 10/30/23 09:36 tramadol (From Ultram) AdvReac Rash Verified 10/30/23 09:36 Family History Mother Cancer Father Heart disease Hypertension High cholesterol Kidney disease CVA (cerebral vascular accident) Colon cancer Surgical History History of colonoscopy H/O hernia repair Hx of cholecystectomy Social History household members: none Smoking Status: Never smoker second hand exposure: No alcohol intake: never substance use type: does not use ROS ROS ED ROS Narrative Constitutional: Denies fevers, chills, headaches, lightness, dizziness Cardiovascular: Denies chest pain or palpitations Respiratory: Denies coughing wheezing shortness of breath Abdomen: Denies abdominal pain nausea vomit diarrhea : Denies any pain phonation, hematuria, polyuria Neurological: Denies numbness, weakness, tingling Skin: Complains of red area on the inner thigh on the right side EXAM Physical Exam Narrative Exam Narrative: General: Patient lying in bed rest comfortably did not appear to be in acute distress Head: Atraumatic, normocephalic Eyes: PERRL bilaterally, EOMI by, no conjunctival injection noted Neck: Soft, supple, trachea midline Cardiovascular: Regular rate and rhythm no murmurs gallops rubs noted Respiratory: Clear to auscultation bilaterally no rales rhonchi wheeze noted Abdomen: Soft, nondistended, patient does have tenderness to palpation lower portion of abdomen no rebound or guarding on exam Genitourinary: No rashes or lesions no concern for Lucio's gangrene Extremities: +5/5 strength noted in the bilateral lower extremities no pedal edema noted on exam Neurological: Patient follow commands knew that she was at [facility] year is 2023 Skin: Patient has a blanching small area of redness in her inner thigh which appears to be irritated from it rubbing against her skin. Blanching no petechia no purpura no sloughing of the skin noted Const Vital Signs: 10/30/23 09:36 10/30/23 09:54 10/30/23 13:53 Temperature 97.8 F 98.4 F Temperature Source Temporal Oral Pulse Rate 88 65 Respiratory Rate 16 Respiratory Effort Normal Non-Labored Respiratory Pattern Normal Blood Pressure 130/77 H 128/63 H Blood Pressure Mean 94 84 Pulse Ox 97 98 Oxygen Delivery Method Room Air Room Air MDM MDM MDM Narrative Medical decision making narrative: Patient is a 68-year-old female who presented to the emergency department with chief complaint of rash on her thigh however on exam she had significant tenderness palpation her abdomen therefore she over workup performed here on the differential diagnose includes but not limited to appendicitis, UTI, small bowel obstruction. Once workup is obtained reviewed she will be reevaluated. Patient CBC reviewed showed white blood count of 4.1, hemoglobin 12.8, platelet count normal at 274. Patient sodium was noted 143, potassium normal 3.6, creatinine normal at 0.72. Patient's AST and ALT were 26 and 36 respectively, lipase normal 35, urinalysis showed 25 leukocyte esterase, negative nitrates, 0-5 white cells seen with rare bacteria she does not have any urinary symptoms at this point time. Patient's CT abdomen pelvis with IV contrast showed multiple colonic diverticula consistent diverticulosis. The appendix is visualized and appears normal no free air or fluid or bowel dilation present. No small bowel obstruction. Shallow incisional hernia at the umbilicus without bowel incarceration. No right lower quadrant lymphadenopathy or inflammation or fluid collections noted. Stool-filled right and transverse colon. Results were discussed with the patient and she would like to go home at this point time. Patient was encouraged to follow-up with her primary care physician in the outpatient setting. She will be given a prescription for topical antifungal of her right inner thigh region. Patient was encouraged return with worsening symptoms or any concerns. All question concerns answered she is discharged home in stable condition. Lab Data Labs: Laboratory Results - last 24 hr 10/30/23 10/30/23 10:05 10:12 WBC 4.1 L RBC 4.17 L Hgb 12.8 Hct 39.2 MCV 94.0 MCH 30.7 MCHC 32.7 RDW Std Deviation 44.7 H RDW Coeff of Emily 13.1 Plt Count 274 MPV 8.6 Immature Gran % (Auto) 0.200 Neut % (Auto) 47.6 Lymph % (Auto) 36.9 Sullivan % (Auto) 7.9 Eos % (Auto) 6.9 H Baso % (Auto) 0.5 Absolute Neuts (auto) 1.9 L Absolute Lymphs (auto) 1.50 Nucleated RBC % 0 Sodium 143 Potassium 3.6 Chloride 110 H Carbon Dioxide 27.0 Anion Gap 6 BUN 12 Creatinine 0.72 Estim Creat Clear Calc 64.44 Est GFR (MDRD) Af Amer 103 Est GFR (MDRD) Non-Af 85 BUN/Creatinine Ratio 16.6 Glucose 108 H Calcium 9.4 Total Bilirubin 1.30 H AST 26 ALT 36 Alkaline Phosphatase 137 H Total Protein 6.9 Albumin 3.5 Globulin 3.4 Albumin/Globulin Ratio 1.0 Lipase 35 Urine Color Yellow Urine Clarity Sl. Cloudy Urine pH 7.0 Ur Specific [place] 1.015 Urine Protein Negative Urine Glucose (UA) Normal Urine Ketones Negative Urine Occult Blood 10 H Urine Nitrite Negative Urine Bilirubin Negative Urine Urobilinogen Normal Ur Leukocyte Esterase 25 H Urine RBC 0-5 SEEN Urine WBC 0-5 SEEN Ur Squamous Epith Cells 5-10 SEEN Urine Bacteria RARE Urine Mucus 0 SEEN Radiography Diagnostic Testing: Clinical Impression(s) from Imaging Studies Abdomen/Pelvis CT 10/30/23 09:52 IMPRESSION: 1. There are multiple colonic diverticula consistent with diverticulosis. The appendix is visualized and appears normal -see image 64/112 series 601. No free air or free fluid or bowel dilatation is present. No small bowel obstruction. Shallow incisional hernia at the umbilicus without bowel incarceration. 2. No right lower quadrant lymphadenopathy or inflammation or fluid collections. Stool filled right and transverse colon. Electronically Signed: Dominguez Canales MD at 11:33 EDT Reading Location ID and State: [facility] / [place] , Service support , Discharge Plan Triage Chief Complaint: Wound ED Provider: Ren William Dx/Rx/DC Orders Clinical Impression: Rash Prescriptions: New nystatin 100,000 unit/gram ointment 1 applic topical DAILY Qty: 30 0RF No Action sodium chloride [Saline Nasal] 0.65 % aerosol,spray 1 spray INTRANASAL Q1-4H PRN (Reason: Allergies) ferrous sulfate 325 mg (65 mg iron) tablet 325 mg PO DAILY simvastatin 20 MG tablet 20 mg PO QHS fluticasone propion-salmeterol 1 PUFF inhaler 2 puff INHALATION BID calcium carbonate-vitamin D3 1 EACH tablet,chewable 1 tab PO DAILY Rx Instructions: taken in afternoon albuterol sulfate 1 PUFF inhaler 2 puff IH PRN PRN (Reason: Sob &/Or Wheezing) alendronate 35 mg tablet 35 mg PO DAILY pantoprazole 40 mg tablet,delayed release (DR/EC) 40 mg PO DAILY Primary Care Provider: DIANE COELHO Referrals: DIANE COELHO NP-C [Primary Care Provider] - Activity Restrictions/Additional Instructions: Follow with your primary care physician outpatient setting. Placed a topical antifungal as prescribed on your inner thigh. Return with worsening symptoms or other concerns. Print Language: Georgian Disposition Disposition: Home, Self Care
[2023-10-30 10:20] LABS: Mucous, Urine 0 SEEN /hpf (<or=2+)
[2023-10-30 10:23] LABS: Absolute Neutrophil Count 1.9 X10^3/uL (2.0-7.7); Basophil# 0.02 X10^3/uL; Basophil% 0.5 % (0-1); Eosinophil# 0.28 X10^3/uL; Eosinophils% 6.9 % (0-5); Hematocrit 39.2 % (37-47); Hemoglobin 12.8 g/dL (12.0-15.0); Lymphocyte % 36.9 % (19-41); Mean Corp Hgb Conc 32.7 g/dL (32-36); Mean Corpuscular Hgb 30.7 pg (27.0-32.0); Mean Platelet Vol. 8.6 fl (6.2-12.0); Monocyte# 0.32 X10^3/uL; Monocyte% 7.9 % (0-10); NRBC Flagged by Analyzer 0 % (0-5); Neutrophil # 1.94 X10^3/uL (2.7-7.7); Neutrophil % 47.6 % (47-70); Platelet Count 274 K/mm3 (150-450); RBC Distribution Width CV 13.1 % (11.6-14.6); RBC Distribution Width SD 44.7 fl (35.1-43.9); Red Blood Count 4.17 M/mm3 (4.2-5.4); White Blood Count 4.1 K/mm3 (4.4-11.0)
[2023-10-30 10:29] LABS: Color, Urine Yellow (Yellow); Glucose, Dipstick Normal (Normal); Ketone-Dipstick Negative (Negative); Leukocyte Esterase-Dipstick 25 /ul (Negative); Nitrite-Dipstick Negative (Negative); Occult Blood-Urine 10 /ul (Negative); Protein-Dipstick Negative (Negative); Specific Gravity, Urine 1.015 (1.002-1.030); Urine Bilirubin Dipstick Negative (Negative); Urine Clarity Sl. Cloudy (Clear); Urine Urobilinogen Normal (Normal)
[2023-10-30 10:40] LABS: Bacteria RARE /hpf (None Seen); Red Blood Cells-Urine 0-5 SEEN /hpf (0-5); White Blood Cells 0-5 SEEN /hpf (0-5)
[2023-10-30 10:40] LABS: AST(SGOT) 26 U/L (15-37); Alanine Aminotransfer ALT/SGPT 36 U/L (13-56); Albumin, Serum 3.5 g/dL (3.2-5.0); Alkaline Phosphatase 137 U/L (45-117); Anion Gap 6 (5-15); BUN 12 mg/dL (7-18); BUN/Creat Ratio 16.6 RATIO (10-20); Calcium,Total 9.4 mg/dL (8.5-10.1); Chloride 110 mmol/L (98-107); Creatinine, Serum 0.72 mg/dL (0.55-1.02); EST Glomerular Filtration Rate 85 mL/min (>60); Est Glom Filt Rate - Afr Amer 103 mL/min (>60); Estimated Creatinine Clearance 64.44 ml/min; Globulin 3.4 g/dL (2.2-4.2); Glucose 108 mg/dL (74-106); Lipase 35 U/L (13-75); Potassium 3.6 mmol/L (3.5-5.1); Protein, Total 6.9 g/dL (6.4-8.2); Sodium Level 143 mmol/L (136-145)
[2023-10-30 10:41] LABS: Squamous Epithelial Cells - UA 5-10 SEEN /hpf (5-10)
[2023-10-30] MEDS: 0.9% Normal Saline (1000mL) 1,000 ML 999 ML IV (10:58)
[2023-10-30 13:53] VITALS: BP 128/63; PULSE 65; TEMP 36.9; O2SAT 98
== END 2023-10-30 14:21 | disposition home or self-care (01) ==
PROVIDERS: Emergency Provider Emergency Medicine; PCP Nurse Practitioner; Visit Provider Emergency Medicine
DX: R21 Rash and other nonspecific skin eruption (principal); K43.2 Incisional hernia without obstruction or gangrene; E78.00 Pure hypercholesterolemia, unspecified; K21.9 Gastro-esophageal reflux disease without esophagitis; J45.909 Unspecified asthma, uncomplicated; R60.0 Localized edema; K57.30 Diverticulosis of large intestine without perforation or abscess without bleeding; R73.03 Prediabetes; K58.9 Irritable bowel syndrome, unspecified
CPT/HCPCS: 74177; 80053; 81001; 83690; 85025; 87086; 87088; 96360; 96361; 99285; J7030; Q9967; A4216

== ENCOUNTER 2024-04-26 12:13 | Emergency (ER) | payer MEDICARE, MEDICAID, SELFPAY ==
[2024-04-26 12:14] VITALS: BP 126/77; PULSE 105; RESP 20; TEMP 36; O2SAT 98
[2024-04-26 12:16] VITALS: BMI 28.2
[2024-04-26 13:55] VITALS: BP 120/78; PULSE 110; RESP 20; TEMP 36.6; O2SAT 97
[2024-04-26] MEDS: Acetaminophen 500 MG Tablet 1000 MG PO (13:57)
--- NOTE | 2024-04-26 14:00 | RAD_ITS ---
PROCEDURE: FOOT MIN 3 VIEWS left foot three-view REASON FOR EXAM: PAIN TECHNIQUE: 3 view(s) of each foot COMPARISON: None. FINDINGS: RIGHT FOOT: Demineralization of the bones. Degenerative change seen at the base of the 1st metatarsal. Scattered degenerative changes. No acute fracture. There is Achilles and plantar spurring. LEFT FOOT: Demineralization limits sensitivity. Achilles and plantar spurring. No acute fracture. Apparent healed left 3rd metatarsal shaft fracture RAD/Foot min 3 Views IMPRESSION: Demineralization. No definite acute fracture. Please note stress fractures ca n be radiographically occult. If clinical symptoms do not improve, consider MRI Reading Location: [id number]
--- NOTE | 2024-04-26 14:00 | RAD_ITS ---
PROCEDURE: FOOT MIN 3 VIEWS left foot three-view REASON FOR EXAM: PAIN TECHNIQUE: 3 view(s) of each foot COMPARISON: None. FINDINGS: RIGHT FOOT: Demineralization of the bones. Degenerative change seen at the base of the 1st metatarsal. Scattered degenerative changes. No acute fracture. There is Achilles and plantar spurring. LEFT FOOT: Demineralization limits sensitivity. Achilles and plantar spurring. No acute fracture. Apparent healed left 3rd metatarsal shaft fracture RAD/Foot min 3 Views IMPRESSION: Demineralization. No definite acute fracture. Please note stress fractures ca n be radiographically occult. If clinical symptoms do not improve, consider MRI Reading Location: [id number]
[2024-04-26 14:09] LABS: Bedside Glucose 73 mg/dL (74-106)
[2024-04-26 14:10] LABS: Mucous, Urine 0 SEEN /hpf (<or=2+)
[2024-04-26 14:13] LABS: Color, Urine Yellow (Yellow); Glucose, Dipstick Normal (Normal); Ketone-Dipstick Negative (Negative); Leukocyte Esterase-Dipstick 25 /ul (Negative); Nitrite-Dipstick Negative (Negative); Occult Blood-Urine Negative /ul (Negative); Protein-Dipstick Negative (Negative); Specific Gravity, Urine 1.015 (1.002-1.030); Urine Bilirubin Dipstick Negative (Negative); Urine Clarity Sl. Cloudy (Clear); Urine Urobilinogen Normal (Normal)
[2024-04-26 14:14] VITALS: BP 114/69; PULSE 80; O2SAT 99
--- NOTE | 2024-04-26 14:15 | EX.ED.DYSGE1 ---
HPI History of Present Illness Chief Complaint: Lower Extremity Injury Narrative Narrative: Patient is a 69-year-old female with a past medical history of asthma, hypercholesteremia, GERD, prediabetes, IBS, scoliosis who presented to the emergency with a chief complaint of bilateral foot pain. Patient states that she has had foot pain for significant time however things are getting better therefore she came here for the valuation management. Patient denies any trauma or injuries to her feet. Otherwise she has no complaints at this point time. [facility] Medical History Wears glasses Wears dentures Post-menopausal Low iron Fatty liver Restless legs Scoliosis History of IBS Non-smoker Leg cramps History of edema History of stress test Pre-diabetes GERD (gastroesophageal reflux disease) High cholesterol Gallstones Chronic bronchitis Asthma Arthritis Seasonal allergies Home Medications ?Medication ?Instructions ?Recorded ?Last Taken ?Type simvastatin 20 mg tablet 20 mg PO QHS 12/23/12 03/04/16 History calcium 600 mg (as carbonate)-vit 1 tab PO DAILY 06/30/17 Unknown History D3 10 mcg (400 unit) chewable tablet fluticasone propionate 115 2 puff inhalation BID 06/30/17 Unknown History mcg-salmeterol 21 mcg/actuation HFA inhaler sodium chloride 0.65 % nasal spray 1 spray intranasal Q1-4H PRN 10/21/17 Unknown History aerosol (Saline Nasal) Allergies albuterol sulfate 90 mcg/actuation 2 puff IH PRN PRN Sob &/Or Wheezing 08/26/19 12/30/21 History aerosol inhaler ferrous sulfate 325 mg (65 mg 325 mg PO DAILY 10/22/21 Unknown History iron) tablet alendronate 35 mg tablet 35 mg PO DAILY 12/26/21 12/30/21 History pantoprazole 40 mg tablet,delayed 40 mg PO DAILY 12/26/21 12/30/21 History release nystatin 100,000 unit/gram topical 1 applic topical DAILY #30 grams 10/30/23 Unknown Rx ointment Allergy/AdvReac Type Severity Reaction Status Date / Time cefdinir (From Omnicef) Allergy Severe Unknown Verified 10/30/23 09:36 Penicillins Allergy Severe STOP Verified 10/30/23 09:36 BREATHING codeine Allergy Other Verified 10/30/23 09:36 hydrocodone bitartrate (From Allergy Other Verified 10/30/23 09:36 Vicodin) latex Allergy Rash Verified 10/30/23 09:36 aspirin AdvReac Other Verified 10/30/23 09:36 tramadol (From Ultram) AdvReac Rash Verified 10/30/23 09:36 Family History Mother Cancer Father Heart disease Hypertension High cholesterol Kidney disease CVA (cerebral vascular accident) Colon cancer Surgical History History of colonoscopy H/O hernia repair Hx of cholecystectomy Social History household members: none Smoking Status: Never smoker second hand exposure: No alcohol intake: never substance use type: does not use ROS ROS ED ROS Narrative Constitutional: Denies fevers, chills, headaches, lightness, dizziness Eyes: Denies change in vision double vision blurry vision Cardiovascular: Denies chest pain or palpitation Respiratory: Denies coughing wheezing shortness of breath Abdomen: Denies abdominal pain nausea vomit diarrhea : Denies painful urination, hematuria, polyuria Neurological: Denies numbness, weakness, Musculoskeletal: Denies back Skin: Denies rashes or lesions EXAM Physical Exam Narrative Exam Narrative: General: Patient lying in bed rest comfortably did not appear to be in acute distress Head: Atraumatic, normocephalic Eyes: PERRL bilaterally, EOMI bilaterally, no conjunctival injection noted Neck: Soft, supple, trachea midline Cardiovascular: Regular rate and rhythm no murmurs gallops rubs noted Respiratory: Clear to auscultation bilaterally no rales rhonchi or wheezes noted Abdomen: Soft, nondistended, no distention Musculoskeletal: Patient has mild tenderness palpation over the lateral aspect of her left foot and on the medial aspect of her right foot Extremities: DP pulses +2/4 in the bilateral lower extremities, +5/5 strength noted in the bilateral upper and lower extremities Neurological: Patient follow commands knew that she was at [facility] year is 2024 Skin: Warm, dry, intact no rashes or lesions noted Const Vital Signs: 04/26/24 12:14 04/26/24 13:55 04/26/24 14:14 Temperature 96.8 F L 97.8 F Temperature Source Temporal Oral Pulse Rate 105 H 110 H 80 Respiratory Rate 20 H 20 H Blood Pressure 126/77 H 120/78 114/69 Blood Pressure Mean 93 92 84 Pulse Ox 98 97 99 Oxygen Delivery Method Room Air Room Air Room Air 04/26/24 14:51 Temperature 97.8 F Temperature Source Oral Pulse Rate 72 Respiratory Rate 19 H Blood Pressure 111/67 Blood Pressure Mean 81 Pulse Ox 100 Oxygen Delivery Method Room Air MDM MDM MDM Narrative Medical decision making narrative: Patient is a 69-year-old female who presents to the emergency department chief complaint of bilateral foot pain. On the differential diagnose includes but not limited to fracture, musculoskeletal strain. Once workup is obtained reviewed she will be reevaluated. Patient given Tylenol. [id number] glucose obtained and is normal. Patient urinalysis reviewed and showed no evidence of infection. [id number] glucose was noted be 73. Patient's x-ray of her bilateral feet were reviewed by myself and by radiology which showed no acute fractures or dislocations. On the left foot there appears to be healed left third metatarsal shaft fracture. Did discuss results with the patient and she would like to go home at this point time she is feeling better after Tylenol. Vital signs had normalized. She has been up several times here in the emergency department ambulated without any difficulty. She was advised follow-up with primary care physician and return with worsening symptoms or any other concerns. All question concerns answered she is discharged home in stable condition. Lab Data Labs: Laboratory Results - last 24 hr 04/26/24 04/26/24 13:51 14:00 Urine Color Yellow Urine Clarity Sl. Cloudy Urine pH 8.0 Ur Specific Carlotta 1.015 Urine Protein Negative Urine Glucose (UA) Normal Urine Ketones Negative Urine Occult Blood Negative Urine Nitrite Negative Urine Bilirubin Negative Urine Urobilinogen Normal Ur Leukocyte Esterase 25 H Urine RBC 0 SEEN Urine WBC 0-5 SEEN Ur Squamous Epith Cells 0-5 SEEN Urine Bacteria RARE Urine Mucus 0 SEEN POC Glucose 73 L Radiography Diagnostic Testing: Clinical Impression(s) from Imaging Studies Foot X-Ray 04/26/24 14:00 IMPRESSION: Demineralization. No definite acute fracture. Please note stress fractures can be radiographically occult. If clinical symptoms do not improve, consider MRI Reading Location: [id number] Foot X-Ray 04/26/24 14:00 IMPRESSION: Demineralization. No definite acute fracture. Please note stress fractures can be radiographically occult. If clinical symptoms do not improve, consider MRI Reading Location: [facility] Discharge Plan Triage Chief Complaint: Lower Extremity Injury ED Provider: Ren William Dx/Rx/DC Orders Clinical Impression: Bilateral foot pain Prescriptions: No Action sodium chloride [Saline Nasal] 0.65 % aerosol,spray 1 spray INTRANASAL Q1-4H PRN (Reason: Allergies) ferrous sulfate 325 mg (65 mg iron) tablet 325 mg PO DAILY simvastatin 20 MG tablet 20 mg PO QHS fluticasone propion-salmeterol 1 PUFF inhaler 2 puff INHALATION BID calcium carbonate-vitamin D3 1 EACH tablet,chewable 1 tab PO DAILY Rx Instructions: taken in afternoon albuterol sulfate 1 PUFF inhaler 2 puff IH PRN PRN (Reason: Sob &/Or Wheezing) alendronate 35 mg tablet 35 mg PO DAILY pantoprazole 40 mg tablet,delayed release (DR/EC) 40 mg PO DAILY nystatin 100,000 unit/gram ointment 1 applic topical DAILY Qty: 30 0RF Primary Care Provider: DIANE COELHO Referrals: DIANE COELHO NP-C [Primary Care Provider] - Activity Restrictions/Additional Instructions: Follow-up with your primary care physician outpatient setting. Return with worsening symptoms or concerns. Ensure you are using something for pain such as Tylenol at home. Your x-rays here today of your feet on both sides did not show any broken bones. Print Language: Omani Disposition Disposition: Home, Self Care
[2024-04-26 14:24] LABS: Bacteria RARE /hpf (None Seen); Red Blood Cells-Urine 0 SEEN /hpf (0-5); Squamous Epithelial Cells - UA 0-5 SEEN /hpf (5-10); White Blood Cells 0-5 SEEN /hpf (0-5)
[2024-04-26 14:51] VITALS: BP 111/67; PULSE 72; RESP 19; TEMP 36.6; O2SAT 100
[2024-04-26 15:05] VITALS: BP 111/67; PULSE 72; RESP 19; TEMP 36.6; O2SAT 100
== END 2024-04-26 15:09 | disposition home or self-care (01) ==
PROVIDERS: Emergency Provider Emergency Medicine; PCP Nurse Practitioner; Visit Provider Emergency Medicine
DX: M79.671 Pain in right foot (principal); M79.672 Pain in left foot; E78.00 Pure hypercholesterolemia, unspecified; J45.909 Unspecified asthma, uncomplicated; K21.9 Gastro-esophageal reflux disease without esophagitis
CPT/HCPCS: 73630; 81001; 82962; 99282

== ENCOUNTER 2024-06-20 14:24 | Emergency (ER) | payer MEDICARE, MEDICAID, SELFPAY ==
[2024-06-20 14:25] VITALS: BP 154/72; PULSE 100; RESP 18; TEMP 36.1; O2SAT 96; BMI 29.1
--- NOTE | 2024-06-20 14:43 | RAD_ITS ---
PROCEDURE: HIP, UNI W/ PELVIS 2-3 VIEWS 06/20/2024 REASON FOR EXAM: ATRAUMATIC PAIN TECHNIQUE: AP view of the pelvis was obtained as well as two views of the left hip. COMPARISON: Pelvic study dated 02/19/2023 FINDINGS: AP pelvic view was obtained as well as two views of the left hip. Diffuse osteopenia of the osseous structures is noted. Again noted is cortical sclerosis and osteophyte formation of the sacroiliac joints consistent with degenerative osteoarthritic changes. There are mild degenerative changes of the pubic symphysis There is mild arthritic changes of both hips. There are no fractures or dislocations. A stable 5 mm calcific density is identified in the left pubic bone and is most compatible with a bony island. RAD/HIP, UNI W/ Pelvis 2-3 Views IMPRESSION: Diffuse osteopenia bony pelvis and hips. Very mild arthritic changes involving both hips. Osteoarthritic changes seen involving the SI joints. Degenerative changes of the pubic symphysis. Benign-appearing bony island left pubic bone. Reading Location: [id number]
--- NOTE | 2024-06-20 14:43 | RAD_ITS ---
PROCEDURE: KNEE 4 OR MORE VIEWS, 06/20/2024 REASON FOR EXAM: ATRAUMATIC LEFT KNEE PAIN TECHNIQUE: AP, lateral, AP tunnel, and sunrise views of the LEFT knee were obtained. COMPARISON: 09/17/2022 FINDINGS: Note that sunrise view is limited due to oblique positioning, unable to evaluate the joint space on this view. Lateral view is also limited due to oblique positioning to a lesser degree. Fracture/dislocation: None visible. Joint space(s): Mild medial compartment joint space loss again without bony hypertrophic changes. Soft tissues: Unremarkable. Foreign bodies: None visible. Bone mineralization: Demineralization. Other: None. RAD/Knee 4 or More Views IMPRESSION: 1. Demineralization without visible acute displaced fracture.. 2. Minimal degenerative changes and additional description as above. Reading Location: [id number]
--- NOTE | 2024-06-20 14:44 | ED.VIS.LOWEX ---
HPI History of Present Illness HPI Narrative: 69-year-old female complaining of atraumatic left hip and knee pain for months. Progressively getting worse. Worse to walk on. When she bends down she says sometimes the left hip locks up. She denies any recent injury. She denies any fever or chills. From time to time she does get swelling in her left knee. No redness or fever. She has never had surgery on the left hip or knee. She says years ago she did have a knee injection. Chief Complaint: Lower Extremity Injury Informant: patient Occured/Mechanism Mechanism/Context: No injury Onset/Context/Timing Onset: Month(s) Timing: Continuous Quality of Pain: Dull and Aching Maximum Severity: Moderate Associated Symptoms Associated Symptoms: Negative for Parasthesia, Weakness or Loss of Funtion Narrative Narrative: 69-year-old female atraumatic left hip and knee pain for months. Progressively getting worse. No fall injury or trauma. Occasionally she gets swelling in the left knee but no redness or fever. No prior hip or knee surgery or prior left knee injection. Prior similar symptoms: Yes Recent Illness/Hospitalization: No PFSH PFSH Medical History Wears glasses Wears dentures Post-menopausal Low iron Fatty liver Restless legs Scoliosis History of IBS Non-smoker Leg cramps History of edema History of stress test Pre-diabetes GERD (gastroesophageal reflux disease) High cholesterol Gallstones Chronic bronchitis Asthma Arthritis Seasonal allergies Home Medications ?Medication ?Instructions ?Recorded ?Last Taken ?Type simvastatin 20 mg tablet 20 mg PO QHS 12/23/12 03/04/16 History calcium 600 mg (as carbonate)-vit 1 tab PO DAILY 06/30/17 Unknown History D3 10 mcg (400 unit) chewable tablet fluticasone propionate 115 2 puff inhalation BID 06/30/17 Unknown History mcg-salmeterol 21 mcg/actuation HFA inhaler sodium chloride 0.65 % nasal spray 1 spray intranasal Q1-4H PRN 10/21/17 Unknown History aerosol (Saline Nasal) Allergies albuterol sulfate 90 mcg/actuation 2 puff IH PRN PRN Sob &/Or Wheezing 08/26/19 12/30/21 History aerosol inhaler ferrous sulfate 325 mg (65 mg 325 mg PO DAILY 10/22/21 Unknown History iron) tablet alendronate 35 mg tablet 35 mg PO DAILY 12/26/21 12/30/21 History pantoprazole 40 mg tablet,delayed 40 mg PO DAILY 12/26/21 12/30/21 History release nystatin 100,000 unit/gram topical 1 applic topical DAILY #30 grams 10/30/23 Unknown Rx ointment Allergy/AdvReac Type Severity Reaction Status Date / Time cefdinir (From Omnicef) Allergy Severe Unknown Verified 06/20/24 14:24 Penicillins Allergy Severe STOP Verified 06/20/24 14:24 BREATHING codeine Allergy Other Verified 06/20/24 14:24 hydrocodone bitartrate (From Allergy Other Verified 06/20/24 14:24 Vicodin) latex Allergy Rash Verified 06/20/24 14:24 aspirin AdvReac Other Verified 06/20/24 14:24 tramadol (From Ultram) AdvReac Rash Verified 06/20/24 14:24 Family History Mother Cancer Father Heart disease Hypertension High cholesterol Kidney disease CVA (cerebral vascular accident) Colon cancer Surgical History History of colonoscopy H/O hernia repair Hx of cholecystectomy Social History household members: none Smoking Status: Never smoker second hand exposure: No alcohol intake: never substance use type: does not use ROS ROS ED ROS Narrative Denies recent illness. Constitutional Constitutional ED: Denies chills or fever(s) Eyes Eyes: Denies blurry vision ENT ENT ED: Denies ear pain Cardiovascular Cardiovascular: Denies chest pain Respiratory/Chest Respiratory/Chest: Denies cough or dyspnea Gastrointestinal Gastrointestinal: Denies abdominal pain Musculoskeletal Musculoskeletal: Denies arthralgias Integumentary Denies abscess Neurologic Neurologic: Denies headache(s) Psychiatric Psychiatric: Denies anxiety Endocrine Endocrinology: Denies polydipsia Hematologic/Lymphatic Hematologic/Lymphatic: Denies easy bleeding, easy bruising or lymphadenopathy Allergic/Immunologic Allergic/Immunologic ED: Denies mouth swelling, tongue swelling or urticaria EXAM Physical Exam Narrative Exam Narrative: 69-year-old female sitting upright in a chair. Vital signs are stable afebrile. Currently there is no family with her. H EENT exam pupils round reactive light. Mytrex members. Neck nontender. Lungs clear equal symmetrical bilaterally. Heart regular rhythm no murmur. Abdomen soft nontender normal bowel sounds without peritoneal signs. Moving all 4 extremities. She has flexion extension of the left hip and knee. There is mild swelling of the left knee it is not hot or red. Neither appear to be a septic joint. Normal in color. She has discomfort with flexion extension of both the hip and knee. Calf is nontender. Normal dorsi plantarflexion of the left foot. Normal strength and sensation. Right lower extremity is nontender. 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 She is able to stand and bear weight on her left leg without any significant difficulty. She is awake and alert. Answer questions following commands. Const Vital Signs: 06/20/24 14:25 Temperature 97 F L Temperature Source Temporal Pulse Rate 100 Respiratory Rate 18 Blood Pressure 154/72 H Blood Pressure Mean 99 Pulse Ox 96 Oxygen Delivery Method Room Air Positive well nourished and well developed; Negative for obese, cachectic, contractures or unkempt General Appearance ED: well developed and NAD; Negative for unkempt, cachectic or contractures Nutritional Appearance: Negative for cachectic or obese HEENT Reports moist mucous membranes normocephalic and atraumatic Eyes PERRL General Eye ED: Negative for other Neck full ROM and supple Thyroid: Negative for tender Lymph Lymphatic: Negative for other Chest Wall inspection of chest normal and palpation of chest normal Resp normal respiratory effort, no retractions and clear to auscultation bilaterally Effort and Inspection: Negative for pain with movement Auscultation: Negative for rales, rhonchi, wheezes or diminished lung sounds Cardio regular rate, regular rhythm, S1 normal heart sound, S2 normal heart sound and no murmurs Rate: Negative for bradycardia or tachycardic Rhythm: Negative for abnormal rhythm Bruits: Negative for other GI non-tender, non-distended and no masses Inspection: Negative for abdominal distention Auscultation: normoactive bowel sounds Palpation: soft; Negative for tender, guarding or rebound tenderness present Back/Spine no CVA tenderness General Back: Negative for CVA tenderness Cervical Spine: Negative for cervical spine tenderness Thoracic Spine / Upper Back: Negative for thoracic spinal tenderness Lumbar Spine / Lower Back: Negative for lumbar spinal tenderness Extremity normal to inspection and full ROM Extremity Narrative: Except normal range of motion left hip and knee. Mild discomfort. Mild effusion left knee. No redness. No septic joint. She is able to flex and extend it. There is crepitance. Calf is nontender. Normal dorsi plantarflexion left foot. Normal touch sensation. She is able to bear weight. General Extremety ED: Negative for cyanosis, edema or weight-bearing difficulty General Extremity: Negative for cyanosis, edema or weight-bearing difficulty Neuro oriented x3, CN's II-XII intact bilaterally and moves all extremities Sensorium / Orientation: alert, oriented to person, oriented to place and oriented to time Motor Exam: strength 5/5 throughout Psych mental status grossly normal Appearance: Negative for unkempt Speech: No other Mood & Affect: Negative for anxious Skin no wounds Rashes: no rashes Trauma: Negative for abrasion or laceration MDM MDM MDM Narrative Medical decision making narrative: 69-year-old female months of left hip and knee pain. Worse with walking. No fever or redness. Clinically and historically this seems like degenerative arthritis. X-rays will be obtained. I do not think she needs any blood work. Discussed with the patient her x-ray results. It is consistent my clinical suspicion is being arthritis. She requested a knee joint injection. I prepped her left knee with alcohol swabs. Using a lateral approach, the knee joint injected a total of 10 cc of lidocaine and 40 mg of Kenalog. Patient tolerated procedure well. I then cleaned off the puncture site and placed a Band-Aid. She was getting relief quickly. She will be discharged home follow-up with her orthopedic physician. She was unsure of the name but thought it was through [facility]. Ice. Tylenol. Return if fever or redness. Radiography Diagnostic Testing: Clinical Impression(s) from Imaging Studies Hip/Pelvis X-Ray 06/20/24 14:43 IMPRESSION: Diffuse osteopenia bony pelvis and hips. Very mild arthritic changes involving both hips. Osteoarthritic changes seen involving the SI joints. Degenerative changes of the pubic symphysis. Benign-appearing bony island left pubic bone. Reading Location: [id number] Knee X-Ray 06/20/24 14:43 IMPRESSION: 1. Demineralization without visible acute displaced fracture.. 2. Minimal degenerative changes and additional description as above. Reading Location: [id number] Left hip x-ray, 3 views, interpreted both by myself and radiologist. Shows osteopenia and arthritis but no acute fracture or dislocation. Left knee x-ray 4 views again shows joint space narrowing and osteoarthritis but no acute fracture or dislocation. Interpreted both by myself and radiologist Procedures Other Procedures Procedure(s): Left knee joint injection with lidocaine and Kenalog. Prepped with alcohol swab. Inferomedial approach in the joint. Patient tolerated well. Was cleaned and bandaged. She was warned of any signs of infection to return. Patient tolerated well. Was getting relief. Discharge Plan Triage Chief Complaint: Lower Extremity Injury ED Provider: Garrett Escalante Dx/Rx/DC Orders Clinical Impression: Arthritis of knee Instructions: Osteoarthritis Knee Prescriptions: No Action sodium chloride [Saline Nasal] 0.65 % aerosol,spray 1 spray INTRANASAL Q1-4H PRN (Reason: Allergies) ferrous sulfate 325 mg (65 mg iron) tablet 325 mg PO DAILY simvastatin 20 MG tablet 20 mg PO QHS fluticasone propion-salmeterol 1 PUFF inhaler 2 puff INHALATION BID calcium carbonate-vitamin D3 1 EACH tablet,chewable 1 tab PO DAILY Rx Instructions: taken in afternoon albuterol sulfate 1 PUFF inhaler 2 puff IH PRN PRN (Reason: Sob &/Or Wheezing) alendronate 35 mg tablet 35 mg PO DAILY pantoprazole 40 mg tablet,delayed release (DR/EC) 40 mg PO DAILY nystatin 100,000 unit/gram ointment 1 applic topical DAILY Qty: 30 0RF Primary Care Provider: DIANE COELHO Referrals: Jason Brooke MD [Med Staff - Active Staff] - As soon as possible DIANE COELHO NP-C [Primary Care Provider] - Activity Restrictions/Additional Instructions: You have arthritis in your left hip and your left knee. We injected the left knee with steroids and numbing medication. This should help with the pain and swelling. Also ice your knee 30 minutes at a time 4 times a day. Tylenol for pain. Follow-up with the orthopedic doctor that you are seen in the past for further evaluation to discuss further treatments for your knee or knee or hip replacement. Return if any fever or redness to your knee. Print Language: Mosotho Disposition Disposition: Home, Self Care
[2024-06-20] MEDS: Lidocaine 1% (20 ml mdv) 20 ML Vial 10 ML INFILT (16:05)
[2024-06-20] MEDS: Triamcinolone Acetonide 40 MG/ML Vial INTRAARTIC (16:06)
[2024-06-20 16:48] VITALS: BP 144/65; PULSE 95; RESP 18; TEMP 36.2; O2SAT 96
== END 2024-06-20 16:51 | disposition home or self-care (01) ==
PROVIDERS: Emergency Provider Emergency Medicine; PCP Nurse Practitioner; Visit Provider Emergency Medicine
DX: M17.12 Unilateral primary osteoarthritis, left knee (principal); E78.00 Pure hypercholesterolemia, unspecified; J45.909 Unspecified asthma, uncomplicated; M16.0 Bilateral primary osteoarthritis of hip
CPT/HCPCS: 73502; 73564; 99282

== ENCOUNTER 2024-08-03 07:47 | Emergency (ER) | payer MEDICARE, MEDICAID, SELFPAY ==
[2024-08-03] VITALS (7 sets, daily range): BP systolic 121–147; BP diastolic 64–79; PULSE 64–70; RESP 15–21; TEMP 36.6–36.8; O2SAT 98–100; BMI 29.2
--- NOTE | 2024-08-03 08:25 | EKG12_ITS ---
Test Reason : CP Blood Pressure : */* mmHG Vent. Rate : 67 BPM Atrial Rate : 67 BPM P-R Int : 186 ms QRS Dur : 116 ms QT Int : 442 ms P-R-T Axes : 68 83 29 degrees QTcB Int : 467 ms Normal sinus rhythm Low voltage QRS Right bundle branch block Abnormal ECG Confirmed by RODRIGO SIMPSON, SUMAN ([id number]), newspaper editor managing ESTELA REVELES ([id number]) on 08/05/2024 12:45:51 PM Referred By: ELIZABETH Confirmed By: SUMAN WALLACE MD
--- NOTE | 2024-08-03 08:26 | ED.VIS.CHEST ---
HPI History of Present Illness Chief Complaint: Chest Pain Detail of Chief Complaint: Chest pain Informant: patient Narrative Narrative: Patient presents to the emergency department via EMS from home with complaint of chest pain that started this morning around 6:30 AM. Patient complains of discomfort in the left chest that radiates to the back of her neck and right arm. She denies nausea or vomiting. She describes some mild shortness of breath. Currently rates her pain a 3 out of 10. Patient states she has had similar pain in the past which is not as bad. She has no heart history. Denies recent travel or surgery. Denies recent illness. She denies abdominal pain. [facility] Medical History Wears glasses Wears dentures Post-menopausal Low iron Fatty liver Restless legs Scoliosis History of IBS Non-smoker Leg cramps History of edema History of stress test Pre-diabetes GERD (gastroesophageal reflux disease) High cholesterol Gallstones Chronic bronchitis Asthma Arthritis Seasonal allergies Home Medications ?Medication ?Instructions ?Recorded ?Last Taken ?Type simvastatin 20 mg tablet 20 mg PO QHS 12/23/12 03/04/16 History sodium chloride 0.65 % nasal spray 1 spray intranasal Q1-4H PRN 10/21/17 Unknown History aerosol (Saline Nasal) Allergies albuterol sulfate 90 mcg/actuation 2 puff IH PRN PRN Sob &/Or Wheezing 08/26/19 12/30/21 History aerosol inhaler ferrous sulfate 325 mg (65 mg 650 mg PO DAILY 10/22/21 Unknown History iron) tablet pantoprazole 40 mg tablet,delayed 40 mg PO DAILY 12/26/21 12/30/21 History release loratadine 10 mg tablet 10 mg PO DAILY 08/03/24 Unknown History Allergy/AdvReac Type Severity Reaction Status Date / Time cefdinir (From Omnicef) Allergy Severe Unknown Verified 06/29/24 10:34 Penicillins Allergy Severe STOP Verified 06/29/24 10:34 BREATHING codeine Allergy Other Verified 06/29/24 10:34 hydrocodone bitartrate (From Allergy Other Verified 06/29/24 10:34 Vicodin) latex Allergy Rash Verified 06/29/24 10:34 aspirin AdvReac Other Verified 06/29/24 10:34 tramadol (From Ultram) AdvReac Rash Verified 06/29/24 10:34 Family History Mother Cancer Father Heart disease Hypertension High cholesterol Kidney disease CVA (cerebral vascular accident) Colon cancer Surgical History History of colonoscopy H/O hernia repair Hx of cholecystectomy Social History household members: none Smoking Status: Never smoker second hand exposure: No alcohol intake: never substance use type: does not use ROS ROS ED Review of Systems ROS Unobtainable: other Constitutional Constitutional ED: Reports lethargy; Denies chills, fever(s), sweats or weight loss Eyes Eyes: Denies blurry vision, change in vision or diplopia ENT ENT ED: Denies rhinorrhea or sore throat Cardiovascular Cardiovascular: Reports chest pain; Denies orthopnea or racing heartbeat Respiratory/Chest Respiratory/Chest: Denies cough, dyspnea, dyspnea on exertion, orthopnea or sputum Gastrointestinal Gastrointestinal: Denies abdominal pain, diarrhea, nausea or vomiting Genitourinary Genitourinary ED: Denies dysuria, hematuria or urinary frequency Musculoskeletal Musculoskeletal: Denies arthralgias, back pain, myalgias or neck pain Integumentary Denies abscess, Abrasions or rash Neurologic Neurologic: Denies headache(s) or weakness Psychiatric Psychiatric: Denies anxiety, depression or suicidal thoughts Endocrine Endocrinology: Denies polydipsia, polyphagia or polyuria Hematologic/Lymphatic Hematologic/Lymphatic: Denies easy bleeding, easy bruising or lymphadenopathy Allergic/Immunologic Allergic/Immunologic ED: Denies mouth swelling, tongue swelling or urticaria EXAM Physical Exam Const Vital Signs: 08/03/24 07:48 08/03/24 08:25 08/03/24 08:48 Temperature 98.3 F Temperature Source Oral Pulse Rate 69 70 Respiratory Rate 21 H 19 H Blood Pressure 147/68 H 121/79 H Blood Pressure Mean 94 93 Pulse Ox 100 100 Oxygen Delivery Method Room Air Room Air 08/03/24 09:00 08/03/24 10:00 08/03/24 11:12 Temperature Temperature Source Pulse Rate 66 68 64 Respiratory Rate 20 H 20 H 21 H Blood Pressure 131/66 H 132/64 H Blood Pressure Mean 87 86 Pulse Ox 98 100 Oxygen Delivery Method Room Air Positive well nourished and well developed General Appearance ED: well developed and NAD HEENT Reports TM's clear and moist mucous membranes normocephalic and atraumatic; Negative for trauma or tenderness Tympanic Membrane ED: Yes TM's clear Eyes PERRL and EOMs intact bilaterally General Eye ED: Negative for pale conjunctiva or scleral icterus Neck no lymphadenopathy, supple and no JVD General: Negative for tenderness Chest Wall inspection of chest normal and palpation of chest normal Chest: Negative for tenderness Resp normal respiratory effort and clear to auscultation bilaterally Effort and Inspection: Negative for respiratory distress or pain with movement Auscultation: Negative for rhonchi, wheezes or diminished lung sounds Cardio regular rate, regular rhythm, S1 normal heart sound, S2 normal heart sound and no murmurs Peripheral Pulses: pulses 2+ throughout GI normal to inspection, nondistended, normoactive bowel sounds, soft to palpation, non-tender, non-distended and no masses Back/Spine no CVA tenderness and no thoracic nor lumbar tenderness Extremity normal to inspection General Extremety ED: Negative for edema General Extremity: Negative for edema Neuro oriented x3, CN's II-XII intact bilaterally, no sensory deficits noted and gait normal Sensorium / Orientation: awake, alert, oriented to person, oriented to place and oriented to time Motor Exam: strength 5/5 throughout and strength abnormal Psych mental status grossly normal Skin no rashes or lesions noted and no wounds Heart Score History: Slightly/Non-Suspicious ECG: Nonspecific Repolarization Age: >/= 65 years Risk Factors: 1 or 2 Risk Factors Troponin: </= Normal Limit Score: 4 MDM MDM MDM Narrative Medical decision making narrative: Patient presents with chest pain that started this morning ongoing for approximately 2 hours prior to my evaluation of her in the ER. Clinically looks well. EKG obtained showed sinus rhythm with rate of 67 bpm with right bundle branch block. CBC with a white count 3.0 with hemoglobin 14 and platelet count of 295. Chemistries unremarkable. Troponin was normal at 7. 2-hour delta troponin also normal at less than 6. D-dimer obtained and was negative at 0.46. Chest x-ray unremarkable. On initial arrival in the emergency department she was given Plavix as she because she states she cannot tolerate aspirin. She was given 1 sublingual nitro and had no significant change in her pain. Currently states that the discomfort is just mild and rates it a 3 out of 10. Heart score is 4. I have low suspicion for acute coronary syndrome. Will discharge to home and advised to follow-up with primary care physician within next 3 to 5 days. Advised return if worsening pain, increasing shortness of breath, or condition worsen anyway Lab Data Attestation: I reviewed the patient's lab results. Labs: Laboratory Results - last 24 hr 08/03/24 08/03/24 08/03/24 08:45 09:47 11:05 WBC 3.9 L RBC 4.46 Hgb 14.1 Hct 41.9 MCV 93.9 MCH 31.6 MCHC 33.7 RDW Std Deviation 44.6 H RDW Coeff of Emily 13.0 Plt Count 295 MPV 9.0 Immature Gran % (Auto) 0.300 Neut % (Auto) 55.8 Lymph % (Auto) 29.4 [place] % (Auto) 7.5 Eos % (Auto) 6.5 H Baso % (Auto) 0.5 Absolute Neuts (auto) 2.2 Absolute Lymphs (auto) 1.13 Nucleated RBC % 0 D-Dimer Quant (PE/DVT) Cancelled 0.46 Sodium Cancelled 140 Potassium Cancelled 3.9 Chloride Cancelled 106 Carbon Dioxide Cancelled 25.1 Anion Gap Cancelled 9 BUN Cancelled 12 Creatinine Cancelled 0.66 L Estim Creat Clear Calc Cancelled 58.59 Est GFR (MDRD) Non-Af Cancelled 94 BUN/Creatinine Ratio Cancelled 18.2 Glucose Cancelled 102 H Calcium Cancelled 8.9 Troponin T High Sens Cancelled 7 Troponin T Hi Sens 2 Hr < 6 Radiography Diagnostic Testing: Clinical Impression(s) from Imaging Studies Chest X-Ray 08/03/24 09:00 IMPRESSION: No acute process. Reading [facility] 1 view chest x-ray obtained interpreted by myself as no evidence of infiltrate or pneumothorax or acute disease process. Radiology in agreement. EKG Initial EKG: Attestation: I personally reviewed and interpreted this EKG as follows: Comments: Sinus rhythm with ventricular rate of 67 bpm with right bundle branch block Prior EKG tracings: available for review Prior: Changed (Patient had right bundle morphology in 2022 at time of old EKG however more pronounced with current EKG.) Discharge Plan Triage Chief Complaint: Chest Pain ED Provider: Wilder Ring Dx/Rx/DC Orders Clinical Impression: Chest pain Instructions: ED Chest Pain, Uncertain Cause Prescriptions: No Action sodium chloride [Saline Nasal] 0.65 % aerosol,spray 1 spray INTRANASAL Q1-4H PRN (Reason: Allergies) ferrous sulfate 325 mg (65 mg iron) tablet 650 mg PO DAILY simvastatin 20 MG tablet 20 mg PO QHS albuterol sulfate 1 PUFF inhaler 2 puff IH PRN PRN (Reason: Sob &/Or Wheezing) pantoprazole 40 mg tablet,delayed release (DR/EC) 40 mg PO DAILY loratadine 10 mg tablet 10 mg PO DAILY Primary Care Provider: DIANE COELHO Referrals: DIANE COELHO, [employer] [Primary Care Provider] - 3-5 Days Print Language: Mohawk Disposition Disposition: Home, Self Care
--- NOTE | 2024-08-03 09:00 | RAD_ITS ---
PROCEDURE: CHEST 1 VIEW (PORTABLE) 08/03/2024 REASON FOR EXAM: CHEST PAIN TECHNIQUE: Frontal view of the chest. COMPARISON: August 01, 2022 FINDINGS: Hardware: EKG lead wires Heart: Mildly enlarged, but stable Lungs: Clear no pleural effusions. Bones: No aggressive bony lesions. Other: RAD/Chest 1 View (Portable) IMPRESSION: No acute process. Reading Location: [facility]
[2024-08-03 09:05] LABS: Absolute Lymphocyte Count 1.13 X10^3/uL (0.83-4.51); Absolute Neutrophil Count 2.2 X10^3/uL (2.0-7.7); Basophil# 0.02 X10^3/uL; Basophil% 0.5 % (0-1); Eosinophil# 0.25 X10^3/uL; Eosinophils% 6.5 % (0-5); Hematocrit 41.9 % (37-47); Hemoglobin 14.1 g/dL (12.0-15.0); Lymphocyte # 1.13 X10^3/ul (0.83-4.51); Lymphocyte % 29.4 % (19-41); Mean Corp Hgb Conc 33.7 g/dL (32-36); Mean Corpuscular Hgb 31.6 pg (27.0-32.0); Mean Corpuscular Volume 93.9 fL (81-99); Monocyte# 0.29 X10^3/uL; Monocyte% 7.5 % (0-10); NRBC Flagged by Analyzer 0 % (0-5); Neutrophil # 2.15 X10^3/uL (2.7-7.7); Neutrophil % 55.8 % (47-70); Platelet Count 295 K/mm3 (150-450); RBC Distribution Width SD 44.6 fl (35.1-43.9); Red Blood Count 4.46 M/mm3 (4.2-5.4); White Blood Count 3.9 K/mm3 (4.4-11.0)
[2024-08-03 10:08] LABS: D-Dimer Quantitative (DVT/PE) 0.46 FEU/ug/m (0.27-0.49)
[2024-08-03 10:42] LABS: Anion Gap 9 (5-15); BUN 12 mg/dL (4-19); BUN/Creat Ratio 18.2 RATIO (10-20); Calcium,Total 8.9 mg/dL (7.6-11.0); Carbon Dioxide 25.1 mmol/L (21.0-32.0); Chloride 106 mmol/L (98-108); Creatinine, Serum 0.66 mg/dL (0.70-1.20); EST Glomerular Filtration Rate 94 (>60); Estimated Creatinine Clearance 58.59 ml/min (50-250); Glucose 102 mg/dL (70-99); Potassium 3.9 mmol/L (3.3-5.1); Sodium Level 140 mmol/L (133-145); Troponin T High Sensitivity 7 ng/L (<=14)
[2024-08-03 11:49] LABS: Troponin T High Sens 2 HR < 6 ng/L (<=14)
== END 2024-08-03 12:38 | disposition home or self-care (01) ==
PROVIDERS: Emergency Provider Emergency Medicine; PCP Nurse Practitioner; Visit Provider Emergency Medicine
DX: R07.9 Chest pain, unspecified (principal); I45.10 Unspecified right bundle-branch block; E78.00 Pure hypercholesterolemia, unspecified; K21.9 Gastro-esophageal reflux disease without esophagitis; J45.909 Unspecified asthma, uncomplicated; Z79.899 Other long term (current) drug therapy
CPT/HCPCS: 36415; 71045; 80048; 84484; 85025; 85379; 93005; 99285; A4216

== ENCOUNTER 2024-08-26 19:46 | Emergency (ER) | payer MEDICARE, MEDICAID, SELFPAY ==
[2024-08-26 19:47] VITALS: BP 133/66; PULSE 78; RESP 16; TEMP 36.8; O2SAT 98
--- NOTE | 2024-08-26 20:05 | EX.ED.DYSGE1 ---
HPI <REINALDO Saleh - Last Filed: 08/26/24 21:16> History of Present Illness Chief Complaint: Lower Extremity Injury Narrative Narrative: 69-year-old female states her right lower shelley hurts x 1 day. She denies injury. She states it feels like when she had shinsplints before. She has no fever chills, redness or swelling or skin changes. The lower shelley hurts but not her knee or ankle joints. No weakness or numbness or tingling. She has not taken any medications for it. She has a history of surgery on her right foot for a bone spur. [facility] <REINALDO Saleh - Last Filed: 08/26/24 21:16> [facility] Medical History Wears glasses Wears dentures Post-menopausal Low iron Fatty liver Restless legs Scoliosis History of IBS Non-smoker Leg cramps History of edema History of stress test Pre-diabetes GERD (gastroesophageal reflux disease) High cholesterol Gallstones Chronic bronchitis Asthma Arthritis Seasonal allergies Home Medications ?Medication ?Instructions ?Recorded ?Last Taken ?Type simvastatin 20 mg tablet 20 mg PO QHS 12/23/12 03/04/16 History sodium chloride 0.65 % nasal spray 1 spray intranasal Q1-4H PRN 10/21/17 Unknown History aerosol (Saline Nasal) Allergies albuterol sulfate 90 mcg/actuation 2 puff IH PRN PRN Sob &/Or Wheezing 08/26/19 12/30/21 History aerosol inhaler ferrous sulfate 325 mg (65 mg 650 mg PO DAILY 10/22/21 Unknown History iron) tablet pantoprazole 40 mg tablet,delayed 40 mg PO DAILY 12/26/21 12/30/21 History release loratadine 10 mg tablet 10 mg PO DAILY 08/03/24 Unknown History Allergy/AdvReac Type Severity Reaction Status Date / Time cefdinir (From Omnicef) Allergy Severe Unknown Verified 08/26/24 19:49 Penicillins Allergy Severe STOP Verified 08/26/24 19:49 BREATHING codeine Allergy Other Verified 08/26/24 19:49 hydrocodone bitartrate (From Allergy Other Verified 08/26/24 19:49 Vicodin) latex Allergy Rash Verified 08/26/24 19:49 aspirin AdvReac Other Verified 08/26/24 19:49 tramadol (From Ultram) AdvReac Rash Verified 08/26/24 19:49 Family History Mother Cancer Father Heart disease Hypertension High cholesterol Kidney disease CVA (cerebral vascular accident) Colon cancer Surgical History History of colonoscopy H/O hernia repair Hx of cholecystectomy Social History household members: none Smoking Status: Never smoker second hand exposure: No alcohol intake: never substance use type: does not use ROS <REINALDO Saleh - Last Filed: 08/26/24 21:16> ROS ED ROS Narrative Constitutional: Negative for fever, chills, malaise. Neuro: Negative for motor/sensory dysfunction. Skin: Negative for rash, abscess, or wound. Musc: Negative for joint pain, trauma. EXAM <REINALDO Saleh - Last Filed: 08/26/24 21:16> Physical Exam Narrative Exam Narrative: CONST: Patient sitting in no acute distress. EYES: Normal inspection. NECK: Normal inspection. RESP: No respiratory distress, CTAB. CVS: Regular rate and rhythm, no murmur, no gallop. SKIN: Color normal, no rash, warm, dry, intact. EXTREMITIES: Normal appearance of both lower extremities. Superficial veins visible under the skin in both shins. She is tender over the right lower tibia without deformity or crepitus. No tenderness of the knee ankle or foot. No edema, calf tenderness, or palpable cords. No palpable pulses but capillary refill is normal. With Doppler bilateral biphasic PT pulses are intact. NEURO: Alert and answering questions appropriately. PSYCH: Normal affect. Const Vital Signs: 08/26/24 19:47 08/26/24 21:00 Temperature 98.3 F 98.3 F Temperature Source Oral Pulse Rate 78 78 Respiratory Rate 16 16 Blood Pressure 133/66 H 130/78 H Blood Pressure Mean 88 95 Pulse Ox 98 98 Oxygen Delivery Method Room Air <Dr. Ran Bauer MD - Last Filed: 08/26/24 22:24> Physical Exam Const Vital Signs: 08/26/24 19:47 08/26/24 21:00 Temperature 98.3 F 98.3 F Temperature Source Oral Pulse Rate 78 78 Respiratory Rate 16 16 Blood Pressure 133/66 H 130/78 H Blood Pressure Mean 88 95 Pulse Ox 98 98 Oxygen Delivery Method Room Air [facility] <REINALDO Saleh - Last Filed: 08/26/24 21:16> [facility] Narrative Medical decision making narrative: Differential: Musculoskeletal pain, fracture, infection. Pain is on the anterior shelley so I am not concerned for DVT. 69-year-old female has right anterior distal tibia pain over the last day without trauma. She is awake alert no distress. Vitals are stable. Her lower extremities appear symmetric with trace ankle edema. There is no external signs of trauma or infection. She is mildly tender over the distal tibia without deformity or crepitus. No tenderness of the ankle or foot. She has full range of motion and is neurovascularly intact. X-ray of the right tibia and fibula shows no acute findings. She was given Tylenol and advised to use ice and [id number] pain relievers as needed. She was discharged in stable condition. I have personally performed a face to face assessment of the patient and have reviewed the TYE Note. I performed a substantive portion of the visit including all aspects of the following. My lee findings include: History is remarkable for pain anterior distal right leg. There is no history of trauma. Denies history of gout or pseudogout. Denies fever, chills night sweats. Exam is marked for slight swelling. There is no bruising noted. There is no pain palpation joint line of the knee. Patellas are blottable. There is no effusion. She has full active range of motion. She does have pain outpatient distal right leg anteriorly. There is no pain over the calf. There is no leg vein distention, palpable cords or tenderness on the distribution deep in the system. There is no asymmetry. There is no discoloration. Distal pulses are palpable. She then complained of pain in her hip. This been going on for months. She has pain actually all over the anterior inferior iliac spine. There is no pain the patient over the rectus for Tanvir muscle. She has full active range of motion of the hip. Medical Decision Making because pain send has pain over the distal tibia and fibula x-ray was obtained. X-ray of the tibia and fibula was independent reviewed by me. Other additions or changes: [None] Radiography Diagnostic Testing: Clinical Impression(s) from Imaging Studies Tibia/Fibula X-Ray 08/26/24 20:12 IMPRESSION: No displaced fracture. Consider nonemergent bone scan or MRI if there is persistent concern for stress injury. Reading Location: [facility] <Dr. Ran Bauer MD - Last Filed: 08/26/24 22:24> [facility] Narrative Medical decision making narrative: I have personally performed a face to face assessment of the patient and have reviewed the TYE Note. I performed a substantive portion of the visit including all aspects of the following. My lee findings include: History is remarkable for pain anterior distal right leg. There is no history of trauma. Denies history of gout or pseudogout. Denies fever, chills night sweats. Exam is marked for slight swelling. There is no bruising noted. There is no pain palpation joint line of the knee. Patellas are blottable. There is no effusion. She has full active range of motion. She does have pain outpatient distal right leg anteriorly. There is no pain over the calf. There is no leg vein distention, palpable cords or tenderness on the distribution deep in the system. There is no asymmetry. There is no discoloration. Distal pulses are palpable. She then complained of pain in her hip. This been going on for months. She has pain actually all over the anterior inferior iliac spine. There is no pain the patient over the rectus for Tanvir muscle. She has full active range of motion of the hip. Medical Decision Making because pain send has pain over the distal tibia and fibula x-ray was obtained. X-ray of the tibia and fibula was independent reviewed by me. Other additions or changes: [None] Radiography Chest X-Ray - ED: 2 View and Read by ED Physician (There is no acute process noted. There is no fracture, foreign body etc.) Diagnostic Testing: Clinical Impression(s) from Imaging Studies Tibia/Fibula X-Ray 08/26/24 20:12 IMPRESSION: No displaced fracture. Consider nonemergent bone scan or MRI if there is persistent concern for stress injury. Reading Location: [id number] Discharge Plan Triage Chief Complaint: Lower Extremity Injury ED Midlevel Provider: Marianne Solano ED Provider: Ran Bauer Dx/Rx/DC Orders Clinical Impression: Right leg pain Instructions: Self-Care for Strains and Sprains Prescriptions: No Action sodium chloride [Saline Nasal] 0.65 % aerosol,spray 1 spray INTRANASAL Q1-4H PRN (Reason: Allergies) ferrous sulfate 325 mg (65 mg iron) tablet 650 mg PO DAILY simvastatin 20 MG tablet 20 mg PO QHS albuterol sulfate 1 PUFF inhaler 2 puff IH PRN PRN (Reason: Sob &/Or Wheezing) pantoprazole 40 mg tablet,delayed release (DR/EC) 40 mg PO DAILY loratadine 10 mg tablet 10 mg PO DAILY Primary Care Provider: DIANE COELHO Referrals: DIANE COELHO NP-C [Primary Care Provider] - Activity Restrictions/Additional Instructions: Ice and take Tylenol every 6 hours as needed. Follow-up with your primary care doctor if not improving. Print Language: Frisian Disposition Disposition: Home, Self Care Discharge Date/Time: 08/26/24 21:00
--- NOTE | 2024-08-26 20:12 | RAD_ITS ---
EXAM: TIBIA FIBULA 2 VIEWS CLINICAL HISTORY: 69 y/o F; PAIN COMPARISON: None. TECHNIQUE: 2 views of the right TIB/FIB DX FINDINGS: No displaced fracture or traumatic malalignment. No periosteal reaction. Bone mineral density is subjectively normal. The soft tissues are unremarkable. There is an Achilles heel spur. RAD/Tibia & Fibula 2 Views IMPRESSION: No displaced fracture. Consider nonemergent bone scan or MRI if there is persistent concern for stress injury. Reading Location: [id number]
--- OUTSIDE RECORDS SUMMARY | 2024-08-26 20:43 | XMS RPT_ITS | CCD ---
Author Organization [facility] Care Team Providers Care Raisin Separator Operator Name Role Phone Hi Hammer MD Primary Care Provider Dr. Hi Hammer Primary Care Provider Birdie Brewster Attending Provider Unavailable Dr. Hi Hammer Referring Provider Dr. Reji Lopez Attending Provider Friend, Dr. Mendoza Other Provider Hi Hammer MD Primary Care Provider Hi Hammer MD Primary Care Provider Denbow PA-C, Marlene L Unavailable Older TECHNICAL ACCOUNT MANAGER.COMMUNICATIONS EDITOR, Caron Unavailable Bogner PA-C, Giorgio Unavailable Denbow PA-C, Marlene L Unavailable Bogner PA-C, Giorgio Unavailable OLDER GAS TORCH SOLDERER-C, CARON Primary Care Provider Dr. Ren William DO Emergency Provider Dr. Ren William DO Attending Provider Dr. Garrett Escalante MD Attending Provider Dr. Garrett Escalante MD Emergency Provider OLDER GAS TORCH SOLDERER-C, CARON Referring Provider Juan GAS TORCH SOLDERER-C, Demi Attending Provider GIORGIO PRINCE Referring Unavailable HI HAMMER Primary Care Unavailable GIORGIO PRINCE Attending Unavailable HI HAMMER Primary Care Unavailable Dr. Wilder Ring DO Emergency Provider OLDER, CARON Referring Unavailable Demi Martinez Attending Unavailable OLDER, CARON Primary Care Unavailable Wilder Ring Attending Unavailable OLDER, CARON Primary Care Unavailable OLDER, CARON Primary Care Unavailable Ren William Attending Unavailable OLDER, CARON Primary Care Unavailable Ren William Attending Unavailable OLDER, CARON Primary Care Unavailable Garrett Escalante Attending Unavailable Demi Martinez Attending Unavailable Demi Martinez Referring Unavailable OLDER, CARON Primary Care Unavailable Allergies Allergy Classification Reported Allergen(s) Allergy Type Date of Onset Reaction(s) Facility (20 sources) Codeine; Translations: [CODEINE] Drug Allergy 2 Intolerance [facility] Work Phone: (20 sources) Latex; Translations: [LATEX] Drug Allergy 2 Itching [facility] Work Phone: (12 sources) Penicillins; Translations: [PENICILLINS] Drug Intolerance 2 Shortness of Breath [facility] Work Phone: (20 sources) traMADol; Translations: [TRAMADOL HCL] Drug Allergy 2 Rash [facility] Work Phone: (20 sources) Penicillins Drug Intolerance 2 Shortness of Breath [facility] Work Phone: (9 sources) Aspirin Drug Allergy 2 Other [facility] (9 sources) cefdinir Drug Allergy 2 Unknown [facility] (10 sources) HYDROcodone; Translations: [hydrocodone bitartrate] Drug Allergy 2 Other [facility] (9 sources) traMADol Drug Allergy 2 Rash [facility] (8 sources) Penicillins Allergy to substance 2 STOP BREATHING [facility] (4 sources) Penicillins Drug Intolerance 2 Shortness of Breath [facility] (1 source) Aspirin Drug Allergy 5 [facility] (1 source) cefdinir Drug Allergy 5 [facility] (1 source) Codeine Drug Allergy 5 [facility] (1 source) Latex Drug allergy (disorder) 5 [facility] (1 source) Penicillins Drug allergy (disorder) 5 [facility] (1 source) traMADol Drug Allergy 5 [facility] Medications Current Medications Medication Drug Class(es) Dates Sig (Normalized) Sig (Original) [id number] actuat albuterol 0.09 mg/actuat metered dose inhaler (20 sources) beta2-Adrenergic Agonist Start: 07-06-2024 take 2 puff(s) by inhalation every four hours as needed for cough albuterol HFA (PROVENTIL HFA, VENTOLIN HFA) 90 mcg/actuation inhaler Inhale 2 puffs as instructed every 4 hours as needed (for cough, wheezing, chest tightness or shortness of breath. Use with spacer. ). 18 g 2 07/06/2024 Active Start: 02-19-2022 End: 12-26-2022 take 2 puff(s) by inhalation every four hours as needed for cough albuterol HFA (PROVENTIL HFA, VENTOLIN HFA) 90 mcg/actuation inhaler Inhale 2 Puffs as instructed every 4 hours as needed (for cough, wheezing, chest tightness or shortness of breath. Use with spacer. ). 18 g 2 12/26/2022 Active Start: 01-31-2020 End: 07-11-2021 take 2 puff(s) by inhalation every four hours as needed for cough albuterol HFA (PROVENTIL HFA, VENTOLIN HFA) 90 mcg/actuation inhaler Inhale 2 Puffs as instructed every 4 hours as needed (for cough, wheezing, chest tightness or shortness of breath. Use with spacer. ). 18 g 2 07/11/2021 Active Start: 08-26-2019 Albuterol Sulf ate 1 PUFF inhaler Active 2 NMA IH NEEDED as needed for Sob &/Or Wheezing August 26, 2019 12:00am Start: 08-26-2019 Albuterol Sulf ate Active 2 PUFF IH NEEDED August 25, 2019 11:00pm Start: 04-19-2016 End: 04-08-2017 take 2.5 mg by inhalation every four hours Albuterol Sulfate 2.5 MG/3 ML solution for nebulization Discontinued 2.5 mg INHALATION EVERY 4 HOURS WHILE AWAKE April 19, 2016 1:00am April 08, 2017 4:17pm Start: 04-19-2016 End: 04-08-2017 Albuterol Sulfate 1 INHALER inhaler Discontinued 2 NMA INHALATION EVERY 4 HOURS NEEDED as needed for Wheezing April 19, 2016 1:00am April 08, 2017 4:17pm Start: 04-19-2016 End: 04-08-2017 take 1 puff(s) by inhalation every four hours as needed Albuterol Sulfate Discontinued 2 PUFF INHALATION EVERY 4 HOURS NEEDED April 19, 2016 12:00am April 08, 2017 3:17pm Comment on above: Inhale 2 Puffs as in structed every 4 hours as needed (for cough, wheezing, chest tightness or shortness of breath. Use with spacer. ). Blood-Glucose Meter (ACCU-CHEK GUIDE GLUCOSE METER) (20 sources) Start: 11-25-2021 Blood-Glucose Meter (ACCU-CHEK GUIDE GLUCOSE METER) 1 m once daily. testing once daily DX R73.03 Insulin No 1 Each 11/25/2021 Active Start: 11-25-2021 Blood-Glucose Meter (ACCU-CHEK GUIDE GLUCOSE METER) 1 m once daily. testing once daily DX R73.03 Insulin No 1 Each 0 11/25/2021 Active Comment on above: 1 m once daily. test ing once daily DX R73.03 Insulin No COMPOUNDED PRESCRIPTION (20 sources) Start: 08-26-2017 COMPOUNDED PRESCRIPTION Powerstep full length original (M76.821) Posterior tibial tendonitis, right (primary encounter diagnosis) (M89.8X9) Exostosis 1 Device 08/26/2017 Active Start: 08-26-2017 COMPOUNDED PRE SCRIPTION Powerstep full length original (M76.821) Posterior tibial tendonitis, right (primary encounter diagnosis) (M89.8X9) Exostosis 1 Device 0 08/26/2017 Active Comment on above: Powerstep full lengt h original (M76.821) Posterior tibial tendonitis, right (primary encounter diagnosis) (M89.8X9) Exostosis ferrous sulfate 325 mg oral tablet (20 sources) Start: 10-22-2021 take 1 tablet by mouth once daily Ferrous Sulfate 325 mg (65 mg iron) tablet Active 650 mg PO DAILY October 22, 2021 12:00am Start: 10-22-2021 take 1 tablet by mouth once da eleonora Ferrous Sulfate 325 mg (65 mg iron) tablet Active 325 mg PO DAILY October 22, 2021 12:00am Start: 10-15-2020 End: 05-10-2024 take 1 tablet by mouth twice daily at mealtime ferrous sulfate 325 mg (65 mg iron) tablet Take 1 tablet by mouth two times a day with meals. 180 tablet 2 05/10/2024 Active Comment on above: Take 1 tablet by shaan th twice daily with meals. loratadine 10 mg oral tablet (20 sources) Start: 07-06-2024 take 1 tablet by mouth once daily loratadine (CLARITIN) 10 mg tablet Indications: Seasonal allergies Take 1 tablet by mouth once daily. 90 tablet 3 07/06/2024 Active Start: 05-14-2020 End: 07-01-2023 take 1 tablet by mouth once daily loratadine (CLARITIN) 10 mg tablet Indications: Seasonal allergies Take 1 tablet by mouth once daily. 90 tablet 3 07/01/2023 Active Comment on above: Take 1 tablet by shaan th once daily. Magnesium (20 sources) Start: 02-25-2017 take 1 tablet by mouth once daily Magnesium 250 mg tab Take 1 tablet by mouth once daily. 02/25/2017 Active Start: 02-25-2017 take 1 tablet by shaan th once daily Magnesium 250 mg tab Take 1 tablet by mouth once daily. 0 02/25/2017 Active Comment on above: Take 1 tablet by shaan th once daily. omeprazole 20 mg delayed release oral capsule (1 source) Proton Pump Inhibitor Start: 5 take 20 mg by mouth twice daily Omeprazole Active 20 MG PO TWICE A DAY January 01, 2015 1:00am pantoprazole 40 mg delayed release oral tablet (20 sources) Proton Pump Inhibitor Start: 4 take 1 tablet by mouth once daily before mealtime pantoprazole DR (PROTONIX) 40 mg tablet Take 1 tablet by mouth once daily. Take on empty stomach, 1/2 hr before meal. 90 tablet 3 01/25/2024 Active Start: 04-15-2021 End: 01-22-2024 take 1 tablet by mouth once daily before mealtime pantoprazole DR (PROTONIX) 40 mg tablet Take 1 tablet by mouth once daily. Take on empty stomach, 1/2 hr before meal. 90 tablet 3 01/25/2024 Active Comment on above: Take 1 tablet by shaan th once daily. Take on empty stomach, 1/2 hr before meal. predniSONE 20 mg oral tablet (3 sources) Start: 07-12-2022 End: 07-17-2022 take 1 tablet by mouth once daily predniSONE (DELTASONE) 20 mg tablet Take 1 tablet by mouth once daily for 5 days. 5 tablet 0 07/12/2022 07/17/2022 Active Start: 06-02-2022 End: 06-07-2022 take 1 tablet by mouth once daily predniSONE (DELTASONE) 20 mg tablet Indications: Rash Take 1 tablet by mouth once daily for 5 days. 5 tablet 0 06/02/2022 06/07/2022 Active Comment on above: Take 1 tablet by shaan th once daily for 5 days. simvastatin 20 mg oral tablet (20 sources) HMG-CoA Reductase Inhibitor Start: take 1 tablet by mouth once daily at bedtime simvastatin (ZOCOR) 20 mg tablet Take 1 tablet by mouth daily at bedtime. 90 tablet 3 01/25/2024 Active Start: 12-23-2012 End: 01-22-2024 take 1 tablet by mouth at bedtime Simvastatin 20 MG tablet Discontinued 20 mg PO AT BEDTIME September 16, 2016 12:00am April 08, 2017 4:19pm Comment on above: TAKE 1 TABLET EVERY DAY AT BEDTIME Take 1 tablet by shaan th daily at bedtime. sodium chloride 0.111 meq/ml nasal spray (20 sources) Start: 10-21-2017 Sodium Chloride (Saline Nasal) 0.65 % aerosol,spray Active 1 NMA INTRANASAL every 1 to 4 hours as needed for Allergies October 21, 2017 12:00am Start: 10-21-2017 Sodium Chlorid e (Saline Nasal) 0.65 % aerosol,spray Active 1 SPRAY INTRANASAL every 1 to 4 hours October 20, 2017 11:00pm Start: 06-03-2015 End: 04-08-2017 Sodium Chloride 126 ML mist Discontinued 126 mL NS DAILY as needed for DRYNESS June 03, 2015 12:00am April 08, 2017 4:19pm Start: 04-07-2014 sodium chlorid e 0.65 % nasal spray Indications: Eustachian tube dysfunction Use 1 [place] in the nose as needed for Cold/Allergy Symptoms. 0 04/07/2014 Active Comment on above: Use 1 [place] in the n ose as needed for Cold/Allergy Symptoms. Completed/Discontinued Medications Medication Drug Class(es) Dates Sig (Normalized) Sig (Original) alendronic acid 35 mg oral tablet (20 sources) Bisphosphonate Start: 12-26-2021 End: 08-03-2024 take 1 tablet by mouth once daily Alendronate 35 mg tablet Discontinued 35 mg PO DAILY December 26, 2021 1:00am August 03, 2024 11:35am Start: 11-27-2021 End: 04-01-2023 take 1 tablet by mouth every week alendronate (FOSAMAX) 35 mg tablet Indications: post-menopausal osteoporosis prevention Take 1 tablet by mouth one time a week. 12 tablet 3 12/25/2021 04/01/2023 Discontinued Comment on above: Take 1 tablet by shaan th one time a week. Blood-Glucose Meter (Onetouch Verio Flex Meter) misc (20 sources) Start: 04-30-2017 End: 04-30-2017 Blood-Glucose Meter (Onetouch Verio Flex Meter) misc Discontinued 0 .ROUTE .MEDSUPPLY April 30, 2017 3:01pm April 30, 2017 3:06pm As directed Start: 04-30-2017 End: 04-30-2017 Blood-Glucose Meter (Onetouc h Verio Flex Meter) misc Discontinued 0 .ROUTE .MEDSUPPLY April 30, 2017 4:01pm April 30, 2017 4:06pm As directed Start: 04-29-2017 End: 04-30-2017 Blood-Glucose Meter (Onetouc h Verio Flex Meter) misc Discontinued 0 .ROUTE .MEDSUPPLY April 29, 2017 3:29pm April 30, 2017 3:02pm As directed Start: 04-29-2017 End: 04-30-2017 Blood-Glucose Meter (Onetouc h Verio Flex Meter) misc Discontinued 0 .ROUTE .MEDSUPPLY April 29, 2017 4:29pm April 30, 2017 4:02pm As directed Start: 04-29-2017 End: 04-29-2017 Blood-Glucose Meter (Onetouc h Verio Flex Meter) [facility] [place] Discontinued 0 .ROUTE .MEDSUPPLY 1 April 28, 2017 11:00pm April 29, 2017 3:30pm As directed Start: 04-29-2017 End: 04-29-2017 Blood-Glucose Meter (Onetouc h Verio Flex Meter) [facility] [place] Discontinued 0 .ROUTE .MEDSUPPLY 1 April 29, 2017 12:00am April 29, 2017 4:30pm As directed calcium carbonate 1500 mg / cholecalciferol 800 unt chewable tablet (20 sources) Vitamin D Start: 06-30-2017 End: 08-03-2024 Calcium Carbonate-Vitamin D3 600 mg-10 mcg (400 unit) tablet,chewable Discontinued 1 {tbl} PO DAILY June 29, 2024 10:34am August 03, 2024 11:35am taken in afternoon Start: 06-30-2017 take 1 tablet by shaan once daily Calcium Carbonate-Vitamin D3 Active 1 TABLET PO DAILY June 29, 2017 11:00pm taken in afternoon Start: 05-15-2016 End: 04-08-2017 Calcium Carbonate-Vitamin D3 1 EACH tablet Discontinued 1 NMA PO DAILY May 15, 2016 12:00am April 08, 2017 4:17pm Start: 05-15-2016 End: 04-08-2017 Calcium Carbonate-Vitamin D3 Discontinued 1 EACH PO DAILY May 14, 2016 11:00pm April 08, 2017 3:17pm Comment on above: Take 1 tablet by shaan once daily. cholecalciferol 0.025 mg oral capsule (20 sources) Vitamin D Start: 02-25-19 End: 07-22-19 take 1 capsule by mouth once daily Cholecalciferol, Vitamin D3, 25 mcg (1,000 unit) cap Indications: Bronchitis Take 1 capsule by mouth once daily. 02/25/2017 07/21/2022 Discontinued (Discontinued by Patient) Comment on above: Take 1 capsule by mo [facility] once daily. diclofenac sodium 0.01 mg/mg topical gel (2 sources) Nonsteroidal Anti-inflammatory Drug Start: 12-13-19 End: 04-01-19 24 diclofenac (VOLTAREN ARTHRITIS PAIN) 1 % topical gel Apply 2 g to affected area four times daily. 50 g 1 12/12/2022 04/01/2023 Discontinued Comment on above: Apply 2 g to affecte d area four times daily. flash glucose sensor (FREESTYLE CATHERINE 14 DAY SENSOR) kit (3 sources) Start: 07-03-19 End: 07-12-19 flash glucose sensor (FREESTYLE CATHERINE 14 DAY SENSOR) kit Indications: Insulin resistance 1 Each every 2 weeks. 2 Each 07/02/2020 07/11/2021 Discontinued (Discontinued by Patient) Start: 07-02-2020 flash glucose sensor (FREESTYLE CATHERINE 14 DAY SENSOR) kit Indications: Insulin resistance 1 Each every 2 weeks. 2 Each 07/02/2020 Active Comment on above: 1 Each every 2 weeks . 120 actuat fluticasone propionate 0.115 mg/actuat / salmeterol 0.021 mg/actuat metered dose inhaler (20 sources) Corticosteroid, beta2-Adrenergic Agonist Start: 3 End: 4 take 2 puff(s) by inhalation twice daily fluticasone-salmetero l HFA (ADVAIR HFA) 115-21 mcg/actuation inhaler Indications: Mild intermittent asthma without complication Inhale 2 Puffs as instructed twice daily. 3 Each 3 02/19/2022 04/01/2023 Discontinued Start: 02-19-2022 take 2 puff(s) by in halation twice daily fluticasone-salmeterol HFA (ADVAIR HFA) 115-21 mcg/actuation inhaler Indications: Mild intermittent asthma without complication Inhale 2 Puffs as instructed twice daily. 3 Each 3 02/19/2022 Active Start: 01-31-2020 take 2 puff(s) by in halation twice daily fluticasone-salmeterol HFA (ADVAIR HFA) 115-21 mcg/actuation inhaler Indications: Mild intermittent asthma without complication Inhale 2 Puffs as instructed twice daily. 3 Inhaler 4 01/31/2020 Active Start: 06-30-2017 End: 08-03-2024 take 1 puff(s) by inhalation twice daily Fluticasone Propion-Salmeterol 1 PUFF inhaler Discontinued 2 NMA INHALATION TWICE A DAY June 30, 2017 12:00am August 03, 2024 11:35am Start: 06-30-2017 take 1 puff(s) by in halation twice daily Fluticasone Propion-Salmeterol 1 PUFF inhaler Active 2 NMA INHALATION TWICE A DAY June 30, 2017 12:00am Start: 06-30-2017 take 1 puff(s) by in halation twice daily Fluticasone Propion-Salmeterol Active 2 PUFF INHALATION TWICE A DAY June 29, 2017 11:00pm Start: 06-30-2017 take 1 puff(s) by in halation twice daily Fluticasone Propion-Salmeterol Active 2 PUFF INHALATION TWICE A DAY June 30, 2017 12:00am Comment on above: Inhale 2 Puffs as in structed twice daily. metFORMIN hydrochloride 500 mg oral tablet (20 sources) Biguanide Start: 05-18-19 End: 11-13-19 take 1 tablet by mouth once daily at breakfast metFORMIN (GLUCOPHAGE) 500 mg tablet Take 1 tablet by mouth daily with breakfast. 90 tablet 1 05/17/2021 11/12/2021 Discontinued Start: 05-10-2021 take 1 tablet by shaan th once daily at breakfast metFORMIN (GLUCOPHAGE) 500 mg tablet Take 1 tablet by mouth daily with breakfast. 90 tablet 1 05/10/2021 Active Start: 06-04-2017 End: 10-21-2017 take 1 tablet by mouth once daily Metformin 500 mg tablet Discontinued 500 mg PO DAILY June 30, 2017 1:11pm October 21, 2017 1:36pm Start: 09-16-2016 End: 04-08-2017 take 1 tablet by mouth once daily Metformin 500 MG tablet Discontinued 500 mg PO DAILY September 16, 2016 12:00am April 08, 2017 4:18pm Comment on above: Take 1 tablet by shaan th daily with breakfast. naproxen 500 mg oral tablet (17 sources) Nonsteroidal Anti-inflammatory Drug Start: 3 End: 3 take 1 tablet by mouth twice daily as needed for pain naproxen (NAPROSYN) 500 mg tablet Indications: Left sided sciatica , Chronic left hip pain Take 1 tablet by mouth twice daily as needed for pain (for pain/inflammation). Take with food. 15 tablet 02/19/2022 07/21/2022 Discontinued (Course of therapy completed) Start: 05-15-2016 End: 04-08-2017 take 1 tablet by mouth twice daily as needed Naproxen 500 MG tablet Discontinued 500 mg PO TWICE DAILY NEEDED May 15, 2016 12:00am April 08, 2017 4:18pm Comment on above: Take 1 tablet by shaan th twice daily as needed for pain (for pain/inflammation). Take with food. nystatin 100 unt/mg topical ointment (3 sources) Polyene Antifungal Start: 024 End: Nystatin 100,000 unit/gram ointment Discontinued 1 NMA TOPICAL DAILY October 30, 2023 12:00am August 03, 2024 11:35am traMADol hydrochloride 50 mg oral tablet (9 sources) Opioid Agonist Start: End: take 1 tablet by mouth every four hours as needed for pain Tramadol 50 MG tablet Discontinued 50 mg PO EVERY 4 HOURS NEEDED as needed for Mod-Severe Pain (4-10/10) June 10, 2017 12:00am October 21, 2017 12:31pm Problems Active Problems Problem Classification Problem Date Documented Da te Episodic/Chronic Abdominal pain (3 sources) Tenderness of right upper quadrant of abdomen; Translations: [Right upper quadrant rebound abdominal tenderness] Episodic Asthma (20 sources) Asthma; Translations: [Unspecified asthma, uncomplicated] 04-07-2014 Chronic Blindness and vision defects (2 sources) Bilateral myopia of eyes; Translations: [Myopia, bilateral] 05-10-2024 Episodic Deficiency and other anemia (1 source) Iron deficiency anemia; Translations: [Iron deficiency anemia, unspecified] 05-10-2024 Episodic Deficiency and other anemia (1 source) Iron deficiency anemia, unspecified; Translations: [Iron deficiency anemia, unspecified iron deficiency anemia type] Onset: 5 Episodic Developmental disorders (20 sources) Learning difficulties; Translations: [Developmental disorder of scholastic skills, unspecified] Onset: 3 02-11-2021 Chronic Diabetes mellitus without complication (9 sources) Diabetes mellitus; Translations: [Type 2 diabetes mellitus without complications] 08-22-2021 Chronic Diabetes mellitus without complication (20 sources) Prediabetes; Translations: [Prediabetes] Onset: 2 Resolved: 5 04-15-2021 Episodic Comment on above: Patient continues on metformin 500mg daily. Tolerating well. Labs reviewed and in range. no change in condition. Enc to monitor diet which was reviewed. Enc daily exercise which she is doing. Has occ BG of 16-180. Enc to eview her diet on day such as this and toe valuate was occurred. Disorders of lipid metabolism (20 sources) Mixed hyperlipidemia; Translations: [Mixed hyperlipidemia] Onset: 1 02-11-2021 Chronic Esophageal disorders (20 sources) Gastroesophageal reflux disease; Translations: [Gastro-esophageal reflux disease without esophagitis] Onset: 2 04-07-2014 Chronic Essential hypertension (20 sources) Hypertensive disorder; Translations: [Essential (primary) hypertension] Onset: 5 06-05-2014 Chronic Nausea and vomiting (1 source) Nausea; Translations: [Nausea] Episodic Noninfectious gastroenteritis (9 sources) Chronic diarrhea; Translations: [Noninfective gastroenteritis and colitis, unspecified] 08-31-2021 Episodic Nonspecific chest pain (20 sources) Chest pain; Translations: [Chest pain, unspecified] Onset: 5 08-27-2019 Episodic Open wounds of extremities (9 sources) Laceration of left index finger; Translations: [Laceration without foreign body of left index finger without damage to nail, subsequent encounter] 11-08-2019 Episodic Osteoarthritis (12 sources) Osteoarthritis of left knee joint; Translations: [Unilateral primary osteoarthritis, left knee] Onset: 5 06-29-2024 Chronic Osteoporosis (4 sources) Osteoporosis; Translations: [Age-related osteoporosis without current pathological fracture] Chronic Other bone disease and musculoskeletal deformities (3 sources) Senile osteopenia; Translations: [Other specified disorders of bone density and structure, unspecified site] Episodic Other circulatory disease (1 source) Orthostatic hypotension; Translations: [Orthostatic hypotension] Episodic Other connective tissue disease (9 sources) Pain in calf; Translations: [Pain in left lower leg] 08-26-2019 Episodic Other connective tissue disease (1 source) Pain of toe of left foot; Translations: [Pain in left toe(s)] 07-01-2023 Episodic Other connective tissue disease (3 sources) Foot pain; Translations: [Pain in right foot] 04-26-2024 Episodic Other connective tissue disease (2 sources) Pain in left foot; Translations: [Pain in left foot] 08-25-2024 Episodic Other diseases of bladder and urethra (20 sources) Overactive bladder; Translations: [Overactive bladder] Onset: 3 04-07-2014 Chronic Other gastrointestinal disorders (20 sources) Irritable bowel syndrome; Translations: [Irritable bowel syndrome without diarrhea] Onset: 3 10-25-2012 Chronic Other gastrointestinal disorders (3 sources) Diarrhea; Translations: [Diarrhea, unspecified] Episodic Other gastrointestinal disorders (9 sources) Constipation; Translations: [Constipation, unspecified] 06-11-2017 Episodic Other injuries and conditions due to external causes (1 source) Other injury of other muscle(s) and tendon(s) at lower leg level, unspecified leg, initial encounter; Translations: [Sprains and strains of unspecified site of knee and leg] 08-25-2024 Episodic Other lower respiratory disease (9 sources) Dyspnea; Translations: [Dyspnea, unspecified] 08-27-2019 Episodic Other nervous system disorders (20 sources) Chronic pain; Translations: [Other chronic pain] Onset: 5 06-12-2014 Chronic Other nervous system disorders (1 source) Other chronic pain; Translations: [Other chronic pain] Onset: Chronic Other non-traumatic joint disorders (3 sources) Shoulder pain; Translations: [Pain in right shoulder] 06-11-2017 Episodic Other non-traumatic joint disorders (6 sources) Pain in right shoulder; Translations: [Right shoulder pain] 06-11-2017 Episodic Other nutritional; endocrine; and metabolic disorders (1 source) Insulin resistance; Translations: [Metabolic syndrome] Chronic Other screening for suspected conditions (not mental disorders or infectious disease) (15 sources) Patient encounter status; Translations: [Encounter for screening mammogram for malignant neoplasm of breast] Episodic Other skin disorders (9 sources) Eruption; Translations: [Rash and other nonspecific skin eruption] Episodic Other skin disorders (1 source) Callosity; Translations: [Corns and callosities] 07-01-2023 Episodic Other skin disorders (1 source) Bell of toe; Translations: [Corns and callosities] 07-01-2023 Episodic Other skin disorders (4 sources) Onychogryposis; Translations: [Onychogryphosis] 06-29-2024 Episodic Other skin disorders (6 sources) Bell - lesion ; Translations: [Corns and callosities] 06-29-2024 Episodic Other skin disorders (4 sources) Foot callus; Translations: [Corns and callosities] 06-29-2024 Episodic Other skin disorders (1 source) Corns and callosities; Translations: [Corns and callosities] Onset: Episodic Other skin disorders (1 source) Onychogryphosis; Translations: [Onychogryphosis] Onset: 5 Episodic Other upper respiratory disease (2 sources) Seasonal allergy; Translations: [Other seasonal allergic rhinitis] Chronic Residual codes; unclassified (2 sources) Dependent edema; Translations: [Edema, unspecified] Episodic Spondylosis; intervertebral disc disorders; other back problems (14 sources) Backache; Translations: [Dorsalgia, unspecified] 06-11-2017 Episodic Sprains and strains (17 sources) Sprain of ligament of finger; Translations: [Unspecified sprain of unspecified finger, initial encounter] 07-16-2022 Episodic Superficial injury; contusion (7 sources) Contusion of finger; Translations: [Contusion of unspecified finger without damage to nail, initial encounter] 07-16-2022 Episodic Unclassified (4 sources) Primary localized osteoarthritis of left hip; Translations: [M16.12 - Unilateral primary osteoarthritis, left hip] Unclassified (4 sources) Bell of foot; Translations: [L84 - Corns and callosities,L60.2 - Onychogryphosis] Unclassified (2 sources) Callus of foot Unclassified (2 sources) Onychogryposis of toenail Unclassified (2 sources) M17.12 - Unilateral primary osteoarthritis, left knee,M16.12 - Unilateral primary osteoarthritis, left hip,M54.50 - Low back pain, unspecified,G89.29 - Other chronic pain Unclassified (1 source) Low back pain, unspecified; Translations: [Low back pain, unspecified] Onset: 5 Urinary tract infections (9 sources) Urinary tract infectious disease; Translations: [Urinary tract infection, site not specified] 06-11-2017 Episodic Past or Other Problems Problem Classification Problem Date Documented Da te Episodic/Chronic Other connective tissue disease (1 source) Pain in right foot; Translations: [Pain in right foot] Onset: 05-05-2024 Episodic Other nervous system disorders (20 sources) Speech problem; Translations: [Unspecified speech disturbances] Onset: 05-21-2012 02-11-2021 Episodic Other non-traumatic joint disorders (20 sources) Hip pain; Translations: [Pain in right hip] Onset: 04-24-2013 04-24-2013 Episodic Other non-traumatic joint disorders (20 sources) Pain in left knee; Translations: [Pain in joint, lower leg] Onset: 09-22-2017 09-22-2017 Episodic Other non-traumatic joint disorders (16 sources) Chronic pain of right upper limb; Translations: [Pain in right shoulder] Onset: 12-30-2011 Resolved: 10-25-2014 10-25-2014 Episodic Other skin disorders (1 source) Rash and other nonspecific skin eruption; Translations: [Rash and other nonspecific skin eruption] Onset: 11-23-2023 Episodic Residual codes; unclassified (20 sources) Edema; Translations: [Edema, unspecified] Onset: 01-04-2014 04-07-2014 Episodic Unclassified (1 source) Patient encounter status 05-10-2024 Results Test Name Value Interpretation Reference Range Facility HEMOGLOBIN A1C (POC)on 08-24 HbA1c (Bld) [Mass fraction] 5.5 % 4.3 - 5.6 % [facility] Comment on above: Location:[address], [address] Point of care (POC) Hemoglobin A1c (HGBA1C) testing is intended to assess glucose control and provide a management tool for patients known to have diabetes and their healthcare providers. Target HGBA1C levels may depend on specific clinical circumstances. POC HGBA1C is not intended for use as a diagnostic or screening test; laboratory-based testing should be used for diagnostic purposes. The following information is supplemental and may not be applicable to specific diabetes management situations: The POC device embroidery machine operator provides a normal range of 4.2% to 6.5% for the HGBA1C POC test. However, the [place] [employer] guidelines indicate that patients with HGBA1C in the range of 5.7% to 6.4% are at increased risk for development of diabetes and that intervention by lifestyle modification may be beneficial. A HGBA1C level greater than or equal to 6.5% is considered diagnostic of diabetes, pending confirmatory testing. Use of HGBA1C testing to evaluate glucose control may not be appropriate for patients with hemoglobin variants or other conditions (e.g. anemia) that alter red blood cell lifespan. [facility] 12 Lead EKGon 08-03-2024 12 Lead EKG [facility] [address] [place] [address] 12 Lead EKG 08/03/24 0802 MR#: [id number] Acct: [id number] Name: SALLY MORRISON Rep #: [id number] : 1955 69 From: Dillon Obregon MD Attending Dr: Status: DEP ER Ordering Dr: Wilder Ring DO Date: 08/03/24 Location: ED Sex: F C Admitted: Test Reason : CP Blood Pressure : */* mmHG Vent. Rate : 67 BPM Atrial Rate : 67 BPM P-R Int : 186 ms QRS Dur : 116 ms QT Int : 442 ms P-R-T Axes : 68 83 29 degrees QTcB Int : 467 ms Normal sinus rhythm Low voltage QRS Right bundle branch block Abnormal ECG Confirmed by RODRIGO SIMPSON, SUMAN ([id number]), editor house organ ESTELA REVELES ([id number]) on 08/05/2024 12:45:51 PM Referred By: ELIZABETH Confirmed By: SUMAN OBREGON MD 08/05/24 1245 Date Dillon Obregon MD CC: GAS TORCH SOLDERER-Bailey ROBLES; Dr. Wilder Ring DO Signed Normal [facility] Absolute lymphocyte countOrd ered By: Wilder Ring on 08-03-2024 Lymphocytes Auto (Unsp spec) [#/Vol] 1.13 10*3/uL 0.83-4.51 [facility] Absolute neutrophil countOrd ered By: Wilder Ring on 08-03-2024 Neutrophils (Bld) [#/Vol] 2.2 10*3/uL 2.0-7.7 [facility] Anion gap in Serum or Plasma Ordered By: Wilder Vaughanur on 08-03-2024 Anion gap [Moles/Vol] 9 mmol/L 5-15 [facility] Automated lymphocyte count a s percentage of total leukocytesOrdered By: Remus Ungvelma on 08-03-2024 Lymphocytes/100 WBC Auto (Unsp spec) 29.4 % -41 [facility] BUN/creatinine ratioOrdered By: Remus Ungvelma on 08-03-2024 Urea nitrogen/Creatinine [Mass ratio] 18.2 mg/mg 10- [facility] Basic Metabolic Profile (BMP )on 08-03-2024 BUN/CRE 18.2 RATIO Normal - [facility] Comment on above: Order Comment: REDRA W. PREVIOUS SPECIMEN REJECTED DUE TO HEMOLYSIS. 08/03/24 0908 Sandy Vazquez. Performed By: #### L 300.8000, L500.2500, L501.4021 #### [facility] [address] [place], [address] Calcium [Mass/Vol] 8.9 mg/dL Normal 7.6-11.0 [facility] Comment on above: Order Comment: REDRA W. PREVIOUS SPECIMEN REJECTED DUE TO HEMOLYSIS. 08/03/24 0908 Sandy Vazquez. Performed By: #### L 300.8000, L500.2500, L501.4021 #### [facility] [address] [place], [address] Chloride [Moles/Vol] 106 mmol/L Normal 98-108 [facility] Comment on above: Order Comment: REDRA W. PREVIOUS SPECIMEN REJECTED DUE TO HEMOLYSIS. 08/03/24 0908 Sandy Vazquez. Performed By: #### L 300.8000, L500.2500, L501.4021 #### [facility] [address] [place], [address] CO2 [Moles/Vol] 25.1 mmol/L Normal 21.0-32.0 [facility] Comment on above: Order Comment: REDRA W. PREVIOUS SPECIMEN REJECTED DUE TO HEMOLYSIS. 08/03/24 0908 Sandy Vazquez. Performed By: #### L 300.8000, L500.2500, L501.4021 #### [facility] [address] [place], [address] Creatinine [Mass/Vol] 0.66 mg/dL Low 0.70-1.20 [facility] Comment on above: Order Comment: REDRA W. PREVIOUS SPECIMEN REJECTED DUE TO HEMOLYSIS. 08/03/24 0908 Sandy Vazquez. Performed By: #### L 300.8000, L500.2500, L501.4021 #### [facility] [address] [place], [address] ECRCL 58.59 ml/min Normal 50-250 [facility] Comment on above: Order Comment: REDRA W. PREVIOUS SPECIMEN REJECTED DUE TO HEMOLYSIS. 08/03/24 0908 Sandy Vazquez. Performed By: #### L 300.8000, L500.2500, L501.4021 #### [facility] [address] [place], [address] GAP 9 Normal 5-15 [facility] Comment on above: Order Comment: REDRA W. PREVIOUS SPECIMEN REJECTED DUE TO HEMOLYSIS. 08/03/24 0908 Sandy Vazquez. Performed By: #### L 300.8000, L500.2500, L501.4021 #### [facility] [address] [place], [address] GFR/1.73 sq M.predicted among non-blacks MDRD (S/P/Bld) [Vol rate/Area] 94 mL/min/{1.73_m2} Normal >60 [facility] Comment on above: Order Comment: REDRA W. PREVIOUS SPECIMEN REJECTED DUE TO HEMOLYSIS. 08/03/24 0908 Sandy Vazquez. Result Comment: mL/m in/1.73m2 CKD-EPI Creatinine Equation (2020) Performed By: #### L 300.8000, L500.2500, L501.4021 #### [facility] [address] [place], [address] Glucose [Mass/Vol] 102 mg/dL High 70-99 [facility] Comment on above: Order Comment: REDRA W. PREVIOUS SPECIMEN REJECTED DUE TO HEMOLYSIS. 08/03/24 0908 Sandy Vazquez. Performed By: #### L 300.8000, L500.2500, L501.4021 #### [facility] [address] [place], [address] Potassium [Moles/Vol] 3.9 mmol/L Normal 3.3-5.1 [facility] Comment on above: Order Comment: REDRA W. PREVIOUS SPECIMEN REJECTED DUE TO HEMOLYSIS. 08/03/24 0908 Sandy Vazquez. Performed By: #### L 300.8000, L500.2500, L501.4021 #### [facility] [address] [place], [address] Sodium [Moles/Vol] 140 mmol/L Normal 133-145 [facility] Comment on above: Order Comment: REDRA W. PREVIOUS SPECIMEN REJECTED DUE TO HEMOLYSIS. 08/03/2408 Sandy Vazquez. Performed By: #### L 300.8000, L500.2500, L501.4021 #### [facility] [address] [place], [address] Urea nitrogen [Mass/Vol] 12 mg/dL Normal - [facility] Comment on above: Order Comment: REDRA W. PREVIOUS SPECIMEN REJECTED DUE TO HEMOLYSIS. 08/03/2408 Sandy Vazquez. Performed By: #### L 300.8000, L500.2500, L501.4021 #### [facility] [address] [place], [address] BUN Normal - [facility] Comment on above: Result Comment: This specimen has been REJECTED due to Laboratory criteria: Hemolyzed. DHAVAL has been notified of need of recollection. 08/03/24 0908 Sandy Vazquez Performed By: #### L 100.0100, L500.2500 #### [facility] [address] [place], [address] BUN/CRE Normal 10-20 [facility] Comment on above: Result Comment: This specimen has been REJECTED due to Laboratory criteria: Hemolyzed. DHAVAL has been notified of need of recollection. 08/03/24 0908 Sandy Vazquez Performed By: #### L 100.0100, L500.2500 #### [facility] [address] [place], [address] Calcium Normal 7.6-11.0 [facility] Comment on above: Result Comment: This specimen has been REJECTED due to Laboratory criteria: Hemolyzed. DHAVAL has been notified of need of recollection. 08/03/24 0908 Sandy Vazquez Performed By: #### L 100.0100, L500.2500 #### [facility] [address] [facility] [address] CL Normal 98-108 [facility] Comment on above: Result Comment: This specimen has been REJECTED due to Laboratory criteria: Hemolyzed. DHAVAL has been notified of need of recollection. 08/03/24 0908 Sandy Vazquez Performed By: #### L 100.0100, L500.2500 #### [facility] [address] [facility] [address] CO2 Normal 21.0-32.0 [facility] Comment on above: Result Comment: This specimen has been REJECTED due to Laboratory criteria: Hemolyzed. DHAVAL has been notified of need of recollection. 08/03/24 0908 Sandy Vazquez Performed By: #### L 100.0100, L500.2500 #### [facility] [address] [place], [address] CREAT,SERUM Normal 0.70-1.20 [facility] Comment on above: Result Comment: This specimen has been REJECTED due to Laboratory criteria: Hemolyzed. DHAVAL has been notified of need of recollection. 08/03/24 0908 Sandy Avzquez Performed By: #### L 100.0100, L500.2500 #### [facility] [address] [place], [address] eGFR Normal >60 [facility] Comment on above: Result Comment: This specimen has been REJECTED due to Laboratory criteria: Hemolyzed. DHAVAL has been notified of need of recollection. 08/03/24 0908 Sandy Vazquez Performed By: #### L 100.0100, L500.2500 #### [facility] [address] [facility] [address] GAP Normal 5-15 [facility] Comment on above: Result Comment: This specimen has been REJECTED due to Laboratory criteria: Hemolyzed. DHAVAL has been notified of need of recollection. 08/03/24 0908 Sandy Vazquez Performed By: #### L 100.0100, L500.2500 #### [facility] [address] [facility] [address] GLU Normal 70-99 [facility] Comment on above: Result Comment: This specimen has been REJECTED due to Laboratory criteria: Hemolyzed. DHAVAL has been notified of need of recollection. 08/03/24 0908 Sandy Vazquez Performed By: #### L 100.0100, L500.2500 #### [facility] [address] [facility] [address] Potassium Normal 3.3-5.1 [facility] Comment on above: Result Comment: This specimen has been REJECTED due to Laboratory criteria: Hemolyzed. DHAVAL has been notified of need of recollection. 08/03/24 0908 Sandy Vazquez Performed By: #### L 100.0100, L500.2500 #### [facility] [address] [place], [address] Basic Metabolic Profile (BMP) Normal 133-145 [facility] Comment on above: Result Comment: This specimen has been REJECTED due to Laboratory criteria: Hemolyzed. DHAVAL has been notified of need of recollection. 08/03/24 0908 Sandy Vazquez Performed By: #### L 100.0100, L500.2500 #### [facility] [address] [place], [address] Basophil percentageOrdered B y: Wilder Ring on 08-03-2024 Basophils/100 WBC (Bld) 0.5 % 0-1 [facility] CBC W/Diff, Automatedon 07-17 Absolute Lymph 1.13 X10 3/uL Normal 0.83-4.51 [facility] Comment on above: Performed By: #### L 100.0100, L500.2500 #### [facility] [address] [place], [address] Absolute Neut 2.2 X10 3/uL Normal 2.0-7.7 [facility] Comment on above: Performed By: #### L 100.0100, L500.2500 #### [facility] [address] [place], [address] Basophils/100 WBC (Bld) 0.5 % Normal 0-1 [facility] Comment on above: Performed By: #### L 100.0100, L500.2500 #### [facility] [address] [place], [address] Eosinophils/100 WBC (Bld) 6.5 % High 0-5 [facility] Comment on above: Performed By: #### L 100.0100, L500.2500 #### [facility] [address] [place], [address] Erythrocyte distribution width (RBC) [Ratio] 13.0 % Normal 11.6-14.6 [facility] Comment on above: Performed By: #### L 100.0100, L500.2500 #### [facility] [address] [place], [address] Hematocrit (Bld) [Volume fraction] 41.9 % Normal 37-47 [facility] Comment on above: Performed By: #### L 100.0100, L500.2500 #### [facility] [address] [place], [address] Hemoglobin (Bld) [Mass/Vol] 14.1 g/dL Normal 12.0-15.0 [facility] Comment on above: Performed By: #### L 100.0100, L500.2500 #### [facility] [address] [place], [address] IG% 0.300 Normal 0.0-0.9 [facility] Comment on above: Result Comment: IG% - Immature Granulocytes (promyelocytes, myelocytes and metamyelocytes) > 1% indicates that a LEFT SHIFT is Present. Performed By: #### L 100.0100, L500.2500 #### [facility] [address] [place], [address] Lymphocytes/100 WBC (Bld) 29.4 % Normal 19-41 [facility] Comment on above: Performed By: #### L 100.0100, L500.2500 #### [facility] [address] [place], [address] MCH (RBC) [Entitic mass] 31.6 pg Normal 27.0-32.0 [facility] Comment on above: Performed By: #### L 100.0100, L500.2500 #### [facility] [address] [place], [address] MCHC (RBC) [Mass/Vol] 33.7 g/dL Normal 32-36 [facility] Comment on above: Performed By: #### L 100.0100, L500.2500 #### [facility] [address] [place], [address] MCV (RBC) [Entitic vol] 93.9 fL Normal 81-99 [facility] Comment on above: Performed By: #### L 100.0100, L500.2500 #### [facility] [address] [place], [address] Monocytes/100 WBC (Bld) 7.5 % Normal 0-10 [facility] Comment on above: Performed By: #### L 100.0100, L500.2500 #### [facility] [address] [place], [address] Neutrophils/100 WBC (Bld) 55.8 % Normal 47-70 [facility] Comment on above: Performed By: #### L 100.0100, L500.2500 #### [facility] [address] [place], [address] Nucleated RBC (Bld) [#/Vol] 0 10*3/uL Normal 0-5 [facility] Comment on above: Performed By: #### L 100.0100, L500.2500 #### [facility] [address] [place], [address] Platelet mean volume (Bld) [Entitic vol] 9.0 fL Normal 6.2-12.0 [facility] Comment on above: Performed By: #### L 100.0100, L500.2500 #### [facility] [address] [place], [address] Platelets (Bld) [#/Vol] 295 10*3/uL Normal 150-450 [facility] Comment on above: Performed By: #### L 100.0100, L500.2500 #### [facility] [address] [place], [address] RBC (Bld) [#/Vol] 4.46 10*6/uL Normal 4.2-5.4 [facility] Comment on above: Performed By: #### L 100.0100, L500.2500 #### [facility] [address] [place], [address] RDW SD 44.6 fl High 35.1-43.9 [facility] Comment on above: Performed By: #### L 100.0100, L500.2500 #### [facility] [address] [place], [address] WBC (Bld) [#/Vol] 3.9 10*3/uL Low 4.4-11.0 [facility] Comment on above: Performed By: #### L 100.0100, L500.2500 #### [facility] [address] [place], [address] Carbon dioxide, total [Moles /volume] in Central venous bloodOrdered By: Wilder Ring on 08-03-2024 CO2 [Moles/Vol] 25.1 mmol/L 21.0-32.0 [facility] Chest 1 View (Portable)on Chest 1 View (Portable) [facility] Imaging Services [address] [place] [address] Chest 1 View (Portable) MR#: [id number] Acct: [id number] Name: SALLY MORRISON Rep #: [id number] : 1955 F 69 From: Ulices See DO PCP: JASON ESPIONZA Status: REG ER Study: Chest 1 View (Portable) Date of Exam: 08/03/24 Exam# [id number] Ordering Dr: Wilder Ring DO PROCEDURE: CHEST 1 VIEW (PORTABLE) 08/03/2024 REASON FOR EXAM: CHEST PAIN TECHNIQUE: Frontal view of the chest. COMPARISON: August 01, 2022 FINDINGS: Hardware: EKG lead wires Heart: Mildly enlarged, but stable Lungs: Clear no pleural effusions. Bones: No aggressive bony lesions. Other: RAD/Chest 1 View (Portable) IMPRESSION: No acute process. [facility] CC: GAS TORCH SOLDERER-C CARON ROBLES; Dr. Wilder Ring DO Rubber Splicer: Signed Normal [facility] Chloride assayOrdered By: Greta Ring on 08-03-2024 Chloride [Moles/Vol] 106 mmol/L 98-108 [facility] D-Dimer Quantitative (DVT/PE )on 08-03-2024 D-DIMER QUANT 0.46 FEU/ug/m Normal 0.27-0.49 [facility] Comment on above: Order Comment: FAUSTO Tyson PREVIOUS SPECIMEN REJECTED DUE TO HEMOLYSIS. 08/03/24 0908 Sandy Vazquez. Result Comment: NORM AL D-Dimer level (<0.50) indicates no DVT or PE. Performed By: #### L 300.8000, L500.2500, L501.4021 #### [facility] [address] [facility] [place], [address] Emergency Department Summary on 08-03-2024 Emergency Department Summary [facility] Medical Records Department [address] [place] [address] Emergency Department Summary 08/03/24 MR#: [id number] Acct: [id number] Name: SALLY MORRISON Rep #: [id number] : 1955 69 From: Wilder Ring DO PCP: CARON ROBLES, G[employer] T[employer]CH SOLDERER-C Status:DEP ER Location: ED HPI History of Present Illness Chief Complaint: Chest Pain Detail of Chief Complaint: Chest pain Informant: patient Narrative Narrative: Patient presents to the emergency department via EMS from home with complaint of chest pain that started this morning around 6:30 AM. Patient complains of discomfort in the left chest that radiates to the back of her neck and right arm. She denies nausea or vomiting. She describes some mild shortness of breath. Currently rates her pain a 3 out of 10. Patient states she has had similar pain in the past which is not as bad. She has no heart history. Denies recent travel or surgery. Denies recent illness. She denies abdominal pain. [facility] Medical History Wears glasses Wears dentures Post-menopausal Low iron Fatty liver Restless legs Scoliosis History of IBS Non-smoker Leg cramps History of edema History of stress test Pre-diabetes GERD (gastroesophageal reflux disease) High cholesterol Gallstones Chronic bronchitis Asthma Arthritis Seasonal allergies Home Medications ???Medication ???Instructions ???Recorded ???Last Taken ???Type simvastatin 20 mg tablet 20 mg PO QHS 12/23/12 03/04/16 His tory sodium chloride 0.65 % nasal spray 1 spray intranasal Q1-4H PRN 07/03 Unknown History aerosol (Saline Nasal) Allergies albuterol sulfate 90 mcg/actuation 2 puff IH PRN PRN Sob /Or Wheez ing 08/26/19 12/30/21 History aerosol inhaler ferrous sulfate 325 mg (65 mg 650 mg PO DAILY 10/22/21 Unknown H istory iron) tablet pantoprazole 40 mg tablet,delayed 40 mg PO DAILY 12/26/21 12/30/21 History release loratadine 10 mg tablet 10 mg PO DAILY 08/03/24 Unknown Hi story Allergy/AdvReac Type Severity Reaction Status Date / Time cefdinir (From Omnicef) Allergy Severe Unknown Verified 06/29/24 10:34 Penicillins Allergy Severe STOP Verified 06/29/24 10:34 BREATHING codeine Allergy Other Verified 06/29/24 10:34 hydrocodone bitartrate (From Allergy Other Verified 06/29/24 10:34 Vicodin) latex Allergy Rash Verified 06/29/24 10:34 aspirin AdvReac Other Verified 06/29/24 10:34 tramadol (From Ultram) AdvReac Rash Verified 06/29/24 10:34 Family History Mother Cancer Father Heart disease Hypertension High cholesterol Kidney disease CVA (cerebral vascular accident) Colon cancer Surgical History History of colonoscopy H/O hernia repair Hx of cholecystectomy Social History household members: none Smoking Status: Never smoker second hand exposure: No alcohol intake: never substance use type: does not use ROS ROS ED Review of Systems ROS Unobtainable: other Constitutional Constitutional ED: Reports lethargy; Denies chills, fever(s), sweats or weight loss Eyes Eyes: Denies blurry vision, change in vision or diplopia ENT ENT ED: Denies rhinorrhea or sore throat Cardiovascular Cardiovascular: Reports chest pain; Denies orthopnea or racing heartbeat Respiratory/Chest Respiratory/Chest: Denies cough, dyspnea, dyspnea on exertion, orthopnea or sputum Gastrointestinal Gastrointestinal: Denies abdominal pain, diarrhea, nausea or vomiting Genitourinary Genitourinary ED: Denies dysuria, hematuria or urinary frequency Musculoskeletal Musculoskeletal: Denies arthralgias, back pain, myalgias or neck pain Integumentary Denies abscess, Abrasions or rash Neurologic Neurologic: Denies headache(s) or weakness Psychiatric Psychiatric: Denies anxiety, depression or suicidal thoughts Endocrine Endocrinology: Denies polydipsia, polyphagia or polyuria Hematologic/Lymphati c Hematologic/Lymphati c: Denies easy bleeding, easy bruising or lymphadenopathy Allergic/Immunologic Allergic/Immunologic ED: Denies mouth swelling, tongue swelling or urticaria EXAM Physical Exam Const Vital Signs: 08/03/24 07:48 08/03/24 08:25 08/03/24 08:48 Temperature 98.3 F Temperature Source Oral Pulse Rate 69 70 Respiratory Rate 21 H 19 H Blood Pressure 147/68 H 121/79 H Blood Pressure Mean 94 93 Pulse Ox 100 100 Oxygen Delivery Method Room Air Room Air 08/03/24 09:00 08/03/24 10:00 08/03/24 11:12 Temperature Temperature Source Pulse Rate 66 68 64 Respiratory Rate 20 H 20 H 21 H Blood Pressure 131 (more content not included)... Normal [facility] Eosinophil percentageOrdered By: Wilder Ring on 08-03-2024 Eosinophils/100 WBC (Bld) 6.5 % High 0-5 [facility] Erythrocyte distribution wid th ratioOrdered By: Wilder Ring on 08-03-2024 Erythrocyte distribution width (RBC) [Ratio] 13.0 % 11.6-14.6 [facility] Erythrocyte distribution wid th standard deviationOrdered By: Wilder Ring on 08-03-2024 Erythrocyte distribution width (RBC) [Ratio] 44.6 fl High 35.1-43.9 [facility] Glomerular filtration rate ( GFR) estimation/1.73 sq m using serum, plasma, or whole bOrdered By: Wilder Ring on 08-03-2024 GFR/1.73 sq M.predicted among non-blacks MDRD (S/P/Bld) [Vol rate/Area] 94 mL/min/{1.73_m2} >60 [facility] Comment on above: mL/min/1.73m2 CKD-EP I Creatinine Equation (2020) Hematocrit Auto (Bld) [Volum e fraction]Ordered By: Wilder Ring on 08-03-2024 Hematocrit (Bld) [Volume fraction] 41.9 % 37-47 [facility] Hemoglobin measurementOrdere d By: Wilder Ring on 08-03-2024 Hemoglobin (Bld) [Mass/Vol] 14.1 g/dL 12.0-15.0 [facility] Immature granulocytes/100 WB C Auto (Bld)Ordered By: Wilder Ring on 08-03-2024 Immature granulocytes/100 WBC (Bld) 0.300 % 0.0-0.9 [facility] Comment on above: IG% - Immature Granu locytes (promyelocytes, myelocytes and metamyelocytes) > 1% indicates that a LEFT SHIFT is Present. L499.0042on 08-03-2024 Trop T High Sen < 6 Normal <=14 [facility] Comment on above: Performed By: #### L 100.0100, L500.2500 #### [facility] [address] [place], [address] L499.0043on 08-03-2024 Trop T High Sen Normal <=14 [facility] Comment on above: Result Comment: LULÚ ENT HAS BEEN DISCHARGED Performed By: #### L 100.0100, L500.2500 #### [facility] [address] [place], [address] L501.4021on 08-03-2024 Trop T High Sen 7 ng/L Normal <=14 [facility] Comment on above: Order Comment: FAUSTO Gardner. PREVIOUS SPECIMEN REJECTED DUE TO HEMOLYSIS. 08/03/24 Seth Vazquez. Performed By: #### L 300.8000, L500.2500, L501.4021 #### [facility] [address] [place], [address] MCV (mean corpuscular volume ) determinationOrdered By: Wilder Ring on 08-03-2024 MCV (RBC) [Entitic vol] 93.9 fL 81-99 [facility] Mean corpuscular hemoglobin (MCH) determinationOrdered By: Wilder Ring on 08-03-2024 MCH (RBC) [Entitic mass] 31.6 pg 27.0-32.0 [facility] Mean corpuscular hemoglobin concentration (MCHC) determinationOrdered By: Wilder Ring on 08-03-2024 MCHC (RBC) [Mass/Vol] 33.7 g/dL 32-36 [facility] Mean platelet volume determi nationOrdered By: Wilder Ring on 08-03-2024 Platelet mean volume (Bld) [Entitic vol] 9.0 fL 6.2-12.0 [facility] Monocyte percentageOrdered B y: Wilder Ring on 08-03-2024 Monocytes/100 WBC (Bld) 7.5 % 0-10 [facility] Neutrophil percentageOrdered By: Wilder Ring on 08-03-2024 Neutrophils/100 WBC (Bld) 55.8 % 47-70 [facility] Nucleated red blood cell per centageOrdered By: Wilder Ring on 08-03-2024 Nucleated RBC/100 WBC (Bld) [Ratio] 0 % 0-5 [facility] Platelet countOrdered By: Greta Ring on 08-03-2024 Platelets (Bld) [#/Vol] 295 10*3/uL 150-450 [facility] Potassium measurement (mass/ volume)Ordered By: Wilder Ring on 08-03-2024 Potassium (Unsp spec) [Mass/Vol] 3.9 mmol/L 3.3-5.1 [facility] RBC Auto (Bld) [#/Vol]Ordere d By: Wilder Ring on 08-03-2024 RBC (Bld) [#/Vol] 4.46 10*6/uL 4.2-5.4 [facility] Serum creatinine measurement (mass/volume)Ordered By: Wilder Ring on 08-03-2024 Creatinine [Mass/Vol] 0.66 mg/dL Low 0.70-1.20 [facility] Serum glucose measurement (m ass/volume)Ordered By: Wilder Ring on 08-03-2024 Glucose [Mass/Vol] 102 mg/dL High 70-99 [facility] Serum or plasma calcium mini urement (mass/volume)Ordered By: Wilder Ring on 08-03-2024 Calcium [Mass/Vol] 8.9 mg/dL 7.6-11.0 [facility] Serum or plasma urea nitroge n measurement (mass/volume)Ordered By: Remus María Elena on 08-03-2024 Urea nitrogen [Mass/Vol] 12 mg/dL 4-19 [facility] Sodium levelOrdered By: Remu s María Elena on 08-03-2024 Sodium [Moles/Vol] 140 mmol/L 133-145 [facility] Troponin T.cardiac [Mass/vol ume] in Serum or Plasma by High sensitivity methodOrdered By: Wilder Ring on 08-03-2024 Troponin T.cardiac High sensitivity method [Mass/Vol] < 6 ng/L <14 [facility] Troponin T.cardiac High sensitivity method [Mass/Vol] 7 ng/L <14 [facility] White blood cell (WBC) count Ordered By: Wilder Ring on 08-03-2024 WBC (Bld) [#/Vol] 3.9 10*3/uL Low 4.4-11.0 [facility] CNPNon 06-29-2024 CNPN Telephone (INTMWS) SALLY MORRISON ([id number]) 1955 F Date Time Provider Department 06/29/24 HI HAMMER INTWS During your visit today, we recorded the following information about you: Lina Gutierres RN 06/29/2024 11:05 AM Signed Estrella with [facility] calling with request for pt's recent A1C level to be faxed to them for upcoming visit. Faxed as requested to [phone]. Lina Gutierres RN Allergies As of Date: 06/29/2024 Noted Allergy Reaction CODEINE 08/23/2011 5 - Intolerance LATEX 11/08/2011 9 - Itching PENICILLINS 08/23/2011 12 - Shortness of Breath ULTRAM (TRAMADOL HCL) 08/23/2011 2 - Rash Date Reviewed: 05/10/2024 Reviewed by: Kay Washington MA - Fully Assessed Reason for Visit: Information Request [Other] Prescriptions as of 06/29/2024 - ferrous sulfate 325 mg (65 mg iron) tablet Take 1 tablet by mouth two times a day with meals. - simvastatin (ZOCOR) 20 mg tablet Take 1 tablet by mouth daily at bedtime. - pantoprazole DR (PROTONIX) 40 mg tablet Take 1 tablet by mouth once daily. Take on empty stomach, 1/2 hr before meal. - loratadine (CLARITIN) 10 mg tablet Take 1 tablet by mouth once daily. - albuterol HFA (PROVENTIL HFA, VENTOLIN HFA) 90 mcg/actuation inhaler Inhale 2 Puffs as instructed every 4 hours as needed (for cough, wheezing, chest tightness or shortness of breath. Use with spacer. ). - blood sugar diagnostic (BLOOD GLUCOSE TEST) test strip Test blood sugar(s) 1 times daily. Dx: Type 2 DM - Controlled E11.9 Insulin: No. Uses a one touch meter - Lancets lancets Test blood sugar(s) 1 times daily. Dx: Type 2 DM - Controlled E11.9 Insulin: No - Blood-Glucose Meter (ACCU-CHEK GUIDE GLUCOSE METER) 1 m once daily. testing once daily DX R73.03 Insulin No - COMPOUNDED PRESCRIPTION Powerstep full length original (M76.821) Posterior tibial tendonitis, right (primary encounter diagnosis) (M89.8X9) Exostosis - Magnesium 250 mg tab Take 1 tablet by mouth once daily. - sodium chloride 0.65 % nasal spray Use 1 [place] in the nose as needed for Cold/Allergy Symptoms. Problem List As Of Date 06/29/2024 Noted Resolved Mixed hyperlipidemia [E78.2] Asthma [J45.909] GERD (gastroesophageal reflux disease) [K21.9] Abnormal glucose [R73.09] 11/08/2011 10/25/2014 Barretts esophagus [K22.70] 11/08/2011 Chronic right shoulder pain [M25.511, G89.29] 12/30/2011 10/25/2014 Speech problem [R47.9] 05/21/2012 Learning difficulty [F81.9] 05/21/2012 Overactive bladder [N32.81] 09/07/2012 Irritable bowel disease [K58.9] 10/25/2012 Chronic right hip pain [M25.551, G89.29] 04/24/2013 Edema [R60.9] 01/04/2014 Hypertension [I10] 04/07/2014 Disability, developmental [F89] 06/05/2014 Other chronic pain [G89.29] 06/12/2014 Left knee pain [M25.562] 09/22/2017 Prediabetes [R73.03] 04/15/2021 Encounter Status:Closed by LINA GUTIERRES on 06/29/24 [facility] Orthopedic Visit Reporton Orthopedic Visit Report [facility] [address] [place] [address] OFFICE VISIT Date of Service: 06/29/24 MR#: [id number] Acct: [id number] Name: PRINCESALLY Karin Rep #: [id number] : 1955 Provider: JASON russo Age/Sex: 69/F Location: [facility] Status: Signed Intake Vital Signs 06/20/24 14:25 06/29/24 10:31 Height 5 ft 1 in 5 ft 1 in Weight: 152 lb 2 oz BMI 28.7 Intake Visit Reasons: LEFT HIP/KNEE Chief Complaint: Left hip and knee pain Accompanied by: Self Is patient in pain?: Yes Pain scale (1-10): 5 Allergies cefdinir (From Omnicef) Allergy (Severe, Verified 06/29/24 10:34) Unknown Penicillins Allergy (Severe, Verified 06/29/24 10:34) STOP BREATHING codeine Allergy (Verified 06/29/24 10:34) Other hydrocodone bitartrate (From Vicodin) Allergy (Verified 06/29/24 10:34) Other latex Allergy (Verified 06/29/24 10:34) Rash aspirin Adverse Reaction (Verified 06/29/24 10:34) Other tramadol (From [facility]) Adverse Reaction (Verified 06/29/24 10:34) Rash Medications ???Medication ???Instructions ???Recorded ???Confirmed ???Type simvastatin 20 mg tablet 20 mg PO QHS 12/23/12 06/29/24 His tory fluticasone propionate 115 2 puff inhalation BID 06/30/17 History mcg-salmeterol 21 mcg/actuation HFA inhaler sodium chloride 0.65 % nasal spray 1 spray intranasal Q1-4H PRN 07/0306/29/24 History aerosol (Saline Nasal) Allergies albuterol sulfate 90 mcg/actuation 2 puff IH PRN PRN Sob /Or Wheez ing 08/26/19 06/29/24 History aerosol inhaler ferrous sulfate 325 mg (65 mg 325 mg PO DAILY 10/22/21 06/29/24 History iron) tablet alendronate 35 mg tablet 35 mg PO DAILY 12/26/21 06/29/24 H istory pantoprazole 40 mg tablet,delayed 40 mg PO DAILY 12/26/21 06/29/24 History release nystatin 100,000 unit/gram topical 1 applic topical DAILY #30 grams 10/30/23 06/29/24 Rx ointment calcium 600 mg (as carbonate)-vit 1 tab PO DAILY 06/29/24 06/29/24 History D3 10 mcg (400 unit) chewable tablet Have you fallen in the past year?: No PFSH Medical History Wears glasses Wears dentures Post-menopausal Low iron Fatty liver Restless legs Scoliosis History of IBS Non-smoker Leg cramps History of edema History of stress test Pre-diabetes GERD (gastroesophageal reflux disease) High cholesterol Gallstones Chronic bronchitis Asthma Arthritis Seasonal allergies Surgical History History of colonoscopy H/O hernia repair Hx of cholecystectomy Family History Mother Cancer Father Heart disease Hypertension High cholesterol Kidney disease CVA (cerebral vascular accident) Colon cancer Social History household members: none Smoking Status: Never smoker second hand exposure: No alcohol intake: never substance use type: does not use HPI LEFT HIP/KNEE Details: This documentation accurately reflects the service provided and the decisions made by me, JASON Farrar 06/29/24 1031. Part of today???s visit was documented by Erica Conroy MA, acting as scribe. SALLY MORRISON is a 69 year old F here today for left hip and knee pain. Patient is having pain in the left hip and knee. The pain in the left knee is sore. The left hip pain feels sharp. Sometimes shes gets numbness and tingling in the feet and toes. Patient states that the pain hurts worse right in the knee cap.This has been going on for about [address] Hammer, [facility], told the patient that it was arthritis. Patient was in the ER for her hip and knee pain on 06/20/2024. They did xrays on her knee and hip and it showed arthritis. Patient denies any surgeries in the past for her left hip and left knee. Aggravating factor: Standing for a long period of time makes the pain worse. Dr. Gonzalez put an injection in her left knee at the ER. Patient denies any physical therapy.Patient is a diabetic. Her A1C numbers go up and down.Patient denies any smoking or drug use. Sally is a pleasant 69 yo presenting for eval of L hip add knee were locking x 1 month, seen in ED. Cortisone injection in ED approx 75% improvement in knee sx. Hip about the same. Locking approx 1 x/week Lower back surgery- had tailbone removed Sx same for long time, no recent aggravation. Tylenol prn helps sometimes Aggravated with bending, step use Denies any mechanical symptoms or instability No braces or wraps attempted Also reports R Hip pain for a long time, worse x 1 yr after a fall. ROS Const All systems reviewed are unremarkable except as noted (more content not included)... Normal [facility] Emergency Department Summary on 06-20-2024 Emergency Department Summary [facility] Medical Records Department [address] [place] [address] Emergency Department Summary 06/20/24 MR#: [id number] Acct: [id number] Name: SALLY MORRISON Rep #: [id number] : 1955 69 From: Garrett Escalante MD PCP: CARON ROBLES, [employer]-C Status:REG ER Location: ED HPI History of Present Illness HPI Narrative: 69-year-old female complaining of atraumatic left hip and knee pain for months. Progressively getting worse. Worse to walk on. When she bends down she says sometimes the left hip locks up. She denies any recent injury. She denies any fever or chills. From time to time she does get swelling in her left knee. No redness or fever. She has never had surgery on the left hip or knee. She says years ago she did have a knee injection. Chief Complaint: Lower Extremity Injury Informant: patient Occured/Mechanism Mechanism/Context: No injury Onset/Context/Timing Onset: Month(s) Timing: Continuous Quality of Pain: Dull and Aching Maximum Severity: Moderate Associated Symptoms Associated Symptoms: Negative for Parasthesia, Weakness or Loss of Funtion Narrative Narrative: 69-year-old female atraumatic left hip and knee pain for months. Progressively getting worse. No fall injury or trauma. Occasionally she gets swelling in the left knee but no redness or fever. No prior hip or knee surgery or prior left knee injection. Prior similar symptoms: Yes Recent Illness/Hospitalizat ion: No PFSH PFS Medical History Wears glasses Wears dentures Post-menopausal Low iron Fatty liver Restless legs Scoliosis History of IBS Non-smoker Leg cramps History of edema History of stress test Pre-diabetes GERD (gastroesophageal reflux disease) High cholesterol Gallstones Chronic bronchitis Asthma Arthritis Seasonal allergies Home Medications ???Medication ???Instructions ???Recorded ???Last Taken ???Type simvastatin 20 mg tablet 20 mg PO QHS 12/23/12 03/04/16 His tory calcium 600 mg (as carbonate)-vit 1 tab PO DAILY 06/30/17 Unknown H istory D3 10 mcg (400 unit) chewable tablet fluticasone propionate 115 2 puff inhalation BID 06/30/17 Unk nown History mcg-salmeterol 21 mcg/actuation HFA inhaler sodium chloride 0.65 % nasal spray 1 spray intranasal Q1-4H PRN 07/03 Unknown History aerosol (Saline Nasal) Allergies albuterol sulfate 90 mcg/actuation 2 puff IH PRN PRN Sob /Or Wheez ing 08/26/19 12/30/21 History aerosol inhaler ferrous sulfate 325 mg (65 mg 325 mg PO DAILY 10/22/21 Unknown H istory iron) tablet alendronate 35 mg tablet 35 mg PO DAILY 12/26/21 12/30/21 H istory pantoprazole 40 mg tablet,delayed 40 mg PO DAILY 12/26/21 12/30/21 History release nystatin 100,000 unit/gram topical 1 applic topical DAILY #30 grams 10/30/23 Unknown Rx ointment Allergy/AdvReac Type Severity Reaction Status Date / Time cefdinir (From Omnicef) Allergy Severe Unknown Verified 06/20/24 14:24 Penicillins Allergy Severe STOP Verified 06/20/24 14:24 BREATHING codeine Allergy Other Verified 06/20/24 14:24 hydrocodone bitartrate (From Allergy Other Verified 06/20/24 14:24 Vicodin) latex Allergy Rash Verified 06/20/24 14:24 aspirin AdvReac Other Verified 06/20/24 14:24 tramadol (From Ultram) AdvReac Rash Verified 06/20/24 14:24 Family History Mother Cancer Father Heart disease Hypertension High cholesterol Kidney disease CVA (cerebral vascular accident) Colon cancer Surgical History History of colonoscopy H/O hernia repair Hx of cholecystectomy Social History household members: none Smoking Status: Never smoker second hand exposure: No alcohol intake: never substance use type: does not use ROS ROS ED ROS Narrative Denies recent illness. Constitutional Constitutional ED: Denies chills or fever(s) Eyes Eyes: Denies blurry vision ENT ENT ED: Denies ear pain Cardiovascular Cardiovascular: Denies chest pain Respiratory/Chest Respiratory/Chest: Denies cough or dyspnea Gastrointestinal Gastrointestinal: Denies abdominal pain Musculoskeletal Musculoskeletal: Denies arthralgias Integumentary Denies abscess Neurologic Neurologic: Denies headache(s) Psychiatric Psychiatric: Denies anxiety Endocrine Endocrinology: Denies polydipsia Hematologic/Lymphati c Hematologic/Lymphati c: Denies easy bleeding, easy bruising or lymphadenopathy Allergic/Immunologic Allergic/Immunologic ED: Denies mouth swelling, tongue swelling or urticaria EXAM Physical Exam Narrative Exam Narrative: 69-year-old female sitting upright in a chair. Vital sign (more content not included)... Normal [facility] HIP, UNI W/ Pelvis 2-3 Views on 06-20-2024 HIP, UNI W/ Pelvis 2-3 Views [facility] [address] [place], [place] [address] HIP, UNI W/ Pelvis 2-3 Views MR#: [id number] Acct: [id number] Name: SALLY MORRISON Rep #: [id number] : 1955 F 69 From: Amy Grace PCP: CARON ROBLES, [employer]-C Status: REG ER Study: HIP, UNI W/ Pelvis 2-3 Views Date of Exam: 07/10 Exam# [id number] Ordering Dr: Garrett Escalante MD PROCEDURE: HIP, UNI W/ PELVIS 2-3 VIEWS 06/20/2024 REASON FOR EXAM: ATRAUMATIC PAIN TECHNIQUE: AP view of the pelvis was obtained as well as two views of the left hip. COMPARISON: Pelvic study dated 02/19/2023 FINDINGS: AP pelvic view was obtained as well as two views of the left hip. Diffuse osteopenia of the osseous structures is noted. Again noted is cortical sclerosis and osteophyte formation of the sacroiliac joints consistent with degenerative osteoarthritic changes. There are mild degenerative changes of the pubic symphysis There is mild arthritic changes of both hips. There are no fractures or dislocations. A stable 5 mm calcific density is identified in the left pubic bone and is most compatible with a bony island. RAD/HIP, UNI W/ Pelvis 2-3 Views IMPRESSION: Diffuse osteopenia bony pelvis and hips. Very mild arthritic changes involving both hips. Osteoarthritic changes seen involving the SI joints. Degenerative changes of the pubic symphysis. Benign-appearing bony island left pubic bone. Reading Location: [id number] CC: JASON ROBLES; Dr. Garrett Escalante MD Rubber Splicer: Signed Normal [facility] Knee 4 or More Viewson 06-20 Knee 4 or More Views [facility] [address] [place] [address] Knee 4 or More Views MR#: [id number] Acct: [id number] Name: SALLY MORRISON Rep #: [id number] : 1955 F 69 From: Eric Cho MD PCP: JASON ESPINOZA Status: REG ER Study: Knee 4 or More Views Date of Exam: 06/20/24 Exam# [id number] Ordering Dr: Garrett Escalante MD PROCEDURE: KNEE 4 OR MORE VIEWS, 06/20/2024 REASON FOR EXAM: ATRAUMATIC LEFT KNEE PAIN TECHNIQUE: AP, lateral, AP tunnel, and sunrise views of the LEFT knee were obtained. COMPARISON: 09/17/2022 FINDINGS: Note that sunrise view is limited due to oblique positioning, unable to evaluate the joint space on this view. Lateral view is also limited due to oblique positioning to a lesser degree. Fracture/dislocation : None visible. Joint space(s): Mild medial compartment joint space loss again without bony hypertrophic changes. Soft tissues: Unremarkable. Foreign bodies: None visible. Bone mineralization: Demineralization. Other: None. RAD/Knee 4 or More Views IMPRESSION: 1. Demineralization without visible acute displaced fracture.. 2. Minimal degenerative changes and additional description as above. Reading Location: [id number] CC: JASON ROBLES; Dr. Garrett Escalante MD Rubber Splicer: Signed Normal [facility] 05-13-2024 [facility] Telephone (INTWS) PRINCESALLY ([id number]) 1955 F Date Time Provider Department 05/13/24 HI HAMMER During your visit today, we recorded the following information about you: Brenna Garcia, RN 05/13/2024 8:59 AM Signed Pt asking provider to review and advise on labs completed 05/10/24. Molly Rosenbaum APRN.BON 05/13/2024 9:09 AM Signed Overall her labs look good, no concerns. Molly Rosenbaum APRN.Mona Bolivar MA 05/13/2024 10:18 AM Signed Left message to return call ALVIN Flores Stephanie, RN 05/13/2024 10:21 AM Signed Patient notified of results and provider's instructions. Patient verbalizes understanding. Alyssa Shi RN Allergies As of Date: 05/13/2024 Noted Allergy Reaction CODEINE 08/23/2011 5 - Intolerance LATEX 11/08/2011 9 - Itching PENICILLINS 08/23/2011 12 - Shortness of Breath ULTRAM (TRAMADOL HCL) 08/23/2011 2 - Rash Date Reviewed: 05/10/2024 Reviewed by: Kay Washington MA - Fully Assessed Reason for Visit: Results [95] Prescriptions as of 05/13/2024 - ferrous sulfate 325 mg (65 mg iron) tablet Take 1 tablet by mouth two times a day with meals. - simvastatin (ZOCOR) 20 mg tablet Take 1 tablet by mouth daily at bedtime. - pantoprazole DR (PROTONIX) 40 mg tablet Take 1 tablet by mouth once daily. Take on empty stomach, 1/2 hr before meal. - loratadine (CLARITIN) 10 mg tablet Take 1 tablet by mouth once daily. - albuterol HFA (PROVENTIL HFA, VENTOLIN HFA) 90 mcg/actuation inhaler Inhale 2 Puffs as instructed every 4 hours as needed (for cough, wheezing, chest tightness or shortness of breath. Use with spacer. ). - blood sugar diagnostic (BLOOD GLUCOSE TEST) test strip Test blood sugar(s) 1 times daily. Dx: Type 2 DM - Controlled E11.9 Insulin: No. Uses a one touch meter - Lancets lancets Test blood sugar(s) 1 times daily. Dx: Type 2 DM - Controlled E11.9 Insulin: No - Blood-Glucose Meter (ACCU-CHEK GUIDE GLUCOSE METER) 1 m once daily. testing once daily DX R73.03 Insulin No - COMPOUNDED PRESCRIPTION Powerstep full length original (M76.821) Posterior tibial tendonitis, right (primary encounter diagnosis) (M89.8X9) Exostosis - Magnesium 250 mg tab Take 1 tablet by mouth once daily. - sodium chloride 0.65 % nasal spray Use 1 [place] in the nose as needed for Cold/Allergy Symptoms. Problem List As Of Date 05/13/2024 Noted Resolved Mixed hyperlipidemia [E78.2] Asthma [J45.909] GERD (gastroesophageal reflux disease) [K21.9] Abnormal glucose [R73.09] 11/08/2011 10/25/2014 Barretts esophagus [K22.70] 11/08/2011 Chronic right shoulder pain [M25.511, G89.29] 12/30/2011 10/25/2014 Speech problem [R47.9] 05/21/2012 Learning difficulty [F81.9] 05/21/2012 Overactive bladder [N32.81] 09/07/2012 Irritable bowel disease [K58.9] 10/25/2012 Chronic right hip pain [M25.551, G89.29] 04/24/2013 Edema [R60.9] 01/04/2014 Hypertension [I10] 04/07/2014 Disability, developmental [F89] 06/05/2014 Other chronic pain [G89.29] 06/12/2014 Left knee pain [M25.562] 09/22/2017 Prediabetes [R73.03] 04/15/2021 Encounter Status:Closed by ALYSSA SHI on 05/13/24 Normal [facility] ALBUMIN/CREATININE RATIO, UR INEon 05-10-2024 Albumin DL <= 20 mg/L (U) [Mass/Vol] 24.8 mg/L Normal [facility] Comment on above: Order Comment: Speci men Type: URINE SPECIMENOrdering Facility: [facility] Address: [address] [place] [address] [place] [address] Performed By: #### U ACR ####[facility] LABCLIA [id number] [place] [id number] [place] Albumin/Creatinine (U) [Mass ratio] 12 mg/g Normal <30 [facility] Comment on above: Order Comment: Speci men Type: URINE SPECIMENOrdering Facility: [facility] Address: [address] [place] [address] Result Comment: Adul t Male and Female Nephrotic Criteria: <30 mg/g is considered normal to mildly increased 30-300 mg/g is considered moderately increased >300 mg/g is considered severely increased KDIGO. (2013). KDIGO 2012 Clinical Practice Guideline for the Evaluation and Management of Chronic Kidney Disease. Official Journal of the International Society of Nephrology, 3(1), 1-150. Performed By: #### U ACR ####[facility] LABCLIA [id number] [place] [address] [place] Creatinine (U) [Mass/Vol] 211.4 mg/dL Normal 20.0-300.0 [facility] Comment on above: Order Comment: Speci men Type: URINE SPECIMENOrdering Facility: [facility] Address: [address] [place] [address] Performed By: #### U ACR ####[facility] LABCLIA [id number] [place] [id number] [place] Basic metabolic 2000 panelon 05-10-2024 Anion gap [Moles/Vol] 9 mmol/L Normal 8-15 [facility] Comment on above: Order Comment: Speci men Type: BLOOD SPECIMENOrdering Facility: [facility] Address: [address] [place] [address] Performed By: #### 2 4321-2, 35823-4, 99770-7, 2276-4 ####[facility] LABCLIA [id number] [place] [id number] [place] Calcium [Mass/Vol] 9.3 mg/dL Normal 8.5-10.2 [facility] Comment on above: Order Comment: Speci men Type: BLOOD SPECIMENOrdering Facility: [facility] Address: [facility] [place] [address] Performed By: #### 2 4321-2, 42405-4, 87021-4, 2275-4 ####[facility] LABCLIA [id number] [place] [id number] [place] Chloride [Moles/Vol] 105 mmol/L Normal 98-107 [facility] Comment on above: Order Comment: Speci men Type: BLOOD SPECIMENOrdering Facility: [facility] Address: [address] [place] [address] Performed By: #### 2 4321-2, 09283-4, 72135-8, 2275-05 ####[facility] LABIA [id number] [place] [address] [place] CO2 [Moles/Vol] 28 mmol/L Normal 22-30 [facility] Comment on above: Order Comment: Speci men Type: BLOOD SPECIMENOrdering Facility: [facility] Address: [address] [place] [address] Performed By: #### 2 4321-2, 36397-3, 86243-0, 2275-05 ####[facility] LABIA [id number] [place] [id number] [place] Creatinine [Mass/Vol] 0.61 mg/dL Normal 0.58-0.96 [facility] Comment on above: Order Comment: Speci men Type: BLOOD SPECIMENOrdering Facility: [facility] Address: [address] [place] [address] Performed By: #### 2 4321-2, 19856-8, 27172-7, 2275- ####[facility] LABCLIA [id number] [address] [address] [place] Creatinine and Glomerular filtration rate.predicted panel (S/P/Bld) 96 mL/min/1.73m??? Normal >=60 [facility] Comment on above: Order Comment: Ilia bustillo Type: BLOOD SPECIMENOrdering Facility: [facility] Address: [address] [place] [address] Result Comment: Marcy mated Glomerular Filtration Rate (eGFR) is calculated using the 2020 CKD-EPI creatinine equation. This equation utilizes serum creatinine, sex, and age as parameters. The creatinine assay has traceable calibration to isotope dilution-mass spectrometry. Refer to KDIGO guidelines for clinical interpretation. In patients with unstable renal function, e.g. those with acute kidney injury, the eGFR may not accurately reflect actual GFR. Performed By: #### 2 4321-2, 08237-0, 68726-9, 6-4 ####[facility] LABIA [id number] [address] [address] [place] Glucose [Mass/Vol] 96 mg/dL Normal 74-99 [facility] Comment on above: Order Comment: Ilia bustillo Type: BLOOD SPECIMENOrdering Facility: [facility] Address: [address] [place] [address] Result Comment: The [place] Diabetes Association (ADA) provides guidance for cutoff values for fasting glucose and random glucose. The ADA defines fasting as no caloric intake for at least 8 hours. Fasting plasma glucose results between 100 to 125 mg/dL indicate increased risk for diabetes (prediabetes). Fasting plasma glucose results greater than or equal to 126 mg/dL meet the criteria for diagnosis of diabetes. In the absence of unequivocal hyperglycemia, results should be confirmed by repeat testing. In a patient with classic symptoms of hyperglycemia or hyperglycemic crisis, random plasma glucose results greater than or equal to 200 mg/dL meet the criteria for diagnosis of diabetes. Reference: Standards of Medical Care in Diabetes 2016, [place] Diabetes Association. Diabetes Care. 2016.39(Suppl 1). Performed By: #### 2 4321-2, 24209-2, 45829-1, 6-4 ####[facility] LABCLIA [id number] [address] [address] [place] Potassium [Moles/Vol] 3.9 mmol/L Normal 3.7-5.1 [facility] Comment on above: Order Comment: Speci men Type: BLOOD SPECIMENOrdering Facility: [facility] Address: [address] [place], [place] [address] [address] Performed By: #### 2 4321-2, 56598-1, 78358-8, 6-4 ####[facility] LABCLIA [id number] [place] [address] [place] Sodium [Moles/Vol] 142 mmol/L Normal 136-144 [facility] Comment on above: Order Comment: Speci men Type: BLOOD SPECIMENOrdering Facility: [facility] Address: [address] [place], [place] [address] [address] Performed By: #### 2 4321-2, 62452-4, 76535-8, 2275-4 ####[facility] LABCLIA [id number] [place] [address] [place] Urea nitrogen [Mass/Vol] 17 mg/dL Normal 7-21 [facility] Comment on above: Order Comment: Speci men Type: BLOOD SPECIMENOrdering Facility: [facility] Address: [address] [place], [place] [address] [address] Performed By: #### 2 4321-2, 92948-9, 23693-2, 2275-4 ####[facility] LABCLIA [id number] [place] [address] [place] CBC W Auto Differential pane l (Bld)on 05-10-2024 Basophils (Bld) [#/Vol] 0.03 10*3/uL [facility] Basophils/100 WBC (Bld) 0.6 % C [facility] Differential cell count method Nom (Bld) Auto [facility] Eosinophils (Bld) [#/Vol] 0.28 10*3/uL [facility] Eosinophils/100 WBC (Bld) 5.7 % [facility] Erythrocyte distribution width (RBC) [Ratio] 13.2 % 11.5 - 15.0 % [facility] Hematocrit (Bld) [Volume fraction] 40.7 % 36.0 - 46.0 % [facility] Hemoglobin (Bld) [Mass/Vol] 12.8 g/dL 11.5 - 15.5 g/dL [facility] Immature granulocytes (Bld) [#/Vol] BANNERF [facility] Immature granulocytes/100 WBC (Bld) 0 % [facility] Lymphocytes (Bld) [#/Vol] 1.47 10*3/uL [facility] Lymphocytes/100 WBC (Bld) 29.8 % [facility] MCH (RBC) [Entitic mass] 30.2 pg 26. 0 - 34.0 pg [facility] MCHC (RBC) [Mass/Vol] 31.4 g/dL 30.5 - 36.0 g/dL [facility] MCV (RBC) [Entitic vol] 96 fL 80.0 - 100.0 fL [facility] Monocytes (Bld) [#/Vol] 0.43 10*3/uL [facility] Monocytes/100 WBC (Bld) 8.7 % [facility] Neutrophils (Bld) [#/Vol] 2.73 10*3/uL [facility] Neutrophils/100 WBC (Bld) 55.2 % [facility] Nucleated RBC (Bld) [#/Vol] [facility] Nucleated RBC/100 WBC (Bld) [Ratio] 0 % /100 WBC [facility] Platelet mean volume (Bld) [Entitic vol] 9.4 fL 9.0 - 12.7 fL [facility] Platelets (Bld) [#/Vol] 339 10*3/uL [facility] RBC (Bld) [#/Vol] 4.24 10*6/uL 3.90 - 5.2 0 m/uL [facility] WBC (Bld) [#/Vol] 4.94 10*3/uL [facility] Basophils (Bld) [#/Vol] 0.03 10*3/uL Normal <0.11 [facility] Comment on above: Order Comment: Speci men Type: BLOOD SPECIMENOrdering Facility: [facility] Address: [address] [place] [address] Performed By: #### 5 7021-8 ####[facility] LABCLIA [id number] [place] [id number] [place] Basophils/100 WBC (Bld) 0.6 % Normal [facility] Comment on above: Order Comment: Speci men Type: BLOOD SPECIMENOrdering Facility: [facility] Address: [address] [place] [address] Performed By: #### 5 7021-8 ####[facility] LABCLIA [id number] [place] [address] [place] Differential cell count method Nom (Bld) Auto Normal [facility] Comment on above: Order Comment: Speci men Type: BLOOD SPECIMENOrdering Facility: [facility] Address: [address] [place] [address] Performed By: #### 5 7021-8 ####[facility] LABCLIA [id number] [place] [address] [place] Eosinophils (Bld) [#/Vol] 0.28 10*3/uL Normal <0.46 [facility] Comment on above: Order Comment: Speci men Type: BLOOD SPECIMENOrdering Facility: [facility] Address: [address] [place] [address] Performed By: #### 5 7021-8 ####[facility] LABCLIA [id number] [address] [place] Eosinophils/100 WBC (Bld) 5.7 % Normal [facility] Comment on above: Order Comment: Speci men Type: BLOOD SPECIMENOrdering Facility: [facility] Address: [address] [place] [address] Performed By: #### 5 7021-8 ####[facility] LABCLIA [id number] [place] [address] [place] Erythrocyte distribution width (RBC) [Ratio] 13.2 % Normal 11.5-15.0 [facility] Comment on above: Order Comment: Speci men Type: BLOOD SPECIMENOrdering Facility: [facility] Address: [address] [place] [address] Performed By: #### 5 7021-8 ####[facility] LABCLIA [id number] [address], [place] [address] [place] Hematocrit (Bld) [Volume fraction] 40.7 % Normal 36.0-46.0 [facility] Comment on above: Order Comment: Speci men Type: BLOOD SPECIMENOrdering Facility: [facility] Address: [address] [place] [address] Performed By: #### 5 7021-8 ####[facility] LABCLIA [id number] [address], [place] [address] [place] Hemoglobin (Bld) [Mass/Vol] 12.8 g/dL Normal 11.5-15.5 [facility] Comment on above: Order Comment: Speci men Type: BLOOD SPECIMENOrdering Facility: [facility] Address: [address] [place] [address] Performed By: #### 5 7021-8 ####[facility] LABIA [id number] [address], [place] [address] [place] Immature granulocytes (Bld) [#/Vol] 10*3/uL Normal <0.10 [facility] Comment on above: Order Comment: Speci men Type: BLOOD SPECIMENOrdering Facility: [facility] Address: [address] [place] [address] Performed By: #### 5 7021-8 ####[facility] LABCLIA [id number] [place] [id number] [place] Immature granulocytes/100 WBC (Bld) 0.0 % Normal [facility] Comment on above: Order Comment: Speci men Type: BLOOD SPECIMENOrdering Facility: [facility] Address: [address] [place] [address] Performed By: #### 5 7021-8 ####[facility] LABCLIA [id number] [address], [facility] [place] Lymphocytes (Bld) [#/Vol] 1.47 10*3/uL Normal 1.00-4.00 [facility] Comment on above: Order Comment: Speci men Type: BLOOD SPECIMENOrdering Facility: [facility] Address: [address] [place] [address] Performed By: #### 5 7021-8 ####[facility] LABIA [id number] [place] [address] [place] Lymphocytes/100 WBC (Bld) 29.8 % Normal [facility] Comment on above: Order Comment: Speci men Type: BLOOD SPECIMENOrdering Facility: [facility] Address: [address] [place] [address] Performed By: #### 5 7021-8 ####[facility] LABIA [id number] [place] [address] [place] MCH (RBC) [Entitic mass] 30.2 pg Normal 26.0-34.0 [facility] Comment on above: Order Comment: Speci men Type: BLOOD SPECIMENOrdering Facility: [facility] Address: [address] [place] [address] Performed By: #### 5 7021-8 ####[facility] LABIA [id number] [place] [address] [place] MCHC (RBC) [Mass/Vol] 31.4 g/dL Normal 30.5-36.0 [facility] Comment on above: Order Comment: Speci men Type: BLOOD SPECIMENOrdering Facility: [facility] Address: [address] [place] [address] Performed By: #### 5 7021-8 ####[facility] LABIA [id number] [place] [address] [place] MCV (RBC) [Entitic vol] 96.0 fL Normal 80.0-100.0 C [facility] Comment on above: Order Comment: Speci men Type: BLOOD SPECIMENOrdering Facility: [facility] Address: [address] [place] [address] Performed By: #### 5 7021-8 ####[facility] LABCLIA [id number] [address], [place] [address] [place] Monocytes (Bld) [#/Vol] 0.43 10*3/uL Normal <0.87 [facility] Comment on above: Order Comment: Speci men Type: BLOOD SPECIMENOrdering Facility: [facility] Address: [address] [place] [address] Performed By: #### 5 7021-8 ####[facility] LABCLIA [id number] [address], [place] [address] [place] Monocytes/100 WBC (Bld) 8.7 % Normal [facility] Comment on above: Order Comment: Speci men Type: BLOOD SPECIMENOrdering Facility: [facility] Address: [address] [place] [address] Performed By: #### 5 7021-8 ####[facility] LABCLIA [id number] [address], [place] [address] [place] Neutrophils (Bld) [#/Vol] 2.73 10*3/uL Normal 1.45-7.50 [facility] Comment on above: Order Comment: Speci men Type: BLOOD SPECIMENOrdering Facility: [facility] Address: [address] [place] [address] Performed By: #### 5 7021-8 ####[facility] LABCLIA [id number] [address], [facility] [place] Neutrophils/100 WBC (Bld) 55.2 % Normal [facility] Comment on above: Order Comment: Speci men Type: BLOOD SPECIMENOrdering Facility: [facility] Address: [address] [place] [address] Performed By: #### 5 7021-8 ####[facility] LABCLIA [id number] [place] [address] [place] Nucleated RBC (Bld) [#/Vol] 10*3/uL Normal <0.01 [facility] Comment on above: Order Comment: Speci men Type: BLOOD SPECIMENOrdering Facility: [facility] Address: [address] [place] [address] Performed By: #### 5 7021-8 ####[facility] LABCLIA [id number] [place] [address] [place] Nucleated RBC/100 WBC (Bld) [Ratio] 0.0 /100 WBC Normal [facility] Comment on above: Order Comment: Speci men Type: BLOOD SPECIMENOrdering Facility: [facility] Address: [address] [place] [address] Performed By: #### 5 7021-8 ####[facility] LABCLIA [id number] [place] [address] [place] Platelet mean volume (Bld) [Entitic vol] 9.4 fL Normal 9.0-12.7 [facility] Comment on above: Order Comment: Speci men Type: BLOOD SPECIMENOrdering Facility: [facility] Address: [address] [place] [address] Performed By: #### 5 7021-8 ####[facility] LABIA [id number] [place] [address] [place] Platelets (Bld) [#/Vol] 339 10*3/uL Normal 150-400 [facility] Comment on above: Order Comment: Speci men Type: BLOOD SPECIMENOrdering Facility: [facility] Address: [address] [place] [address] Performed By: #### 5 7021-8 ####[facility] LABCLIA [id number] [place] [id number] [place] RBC (Bld) [#/Vol] 4.24 10*6/uL Normal 3.90-5.20 [facility] Comment on above: Order Comment: Speci men Type: BLOOD SPECIMENOrdering Facility: [facility] Address: [address] [place] [address] Performed By: #### 5 7021-8 ####[facility] [id number] [place] [address] [place] WBC (Bld) [#/Vol] 4.94 10*3/uL Normal 3.70-11.00 [facility] Comment on above: Order Comment: Speci men Type: BLOOD SPECIMENOrdering Facility: [facility] Address: [address] [place] [address] Performed By: #### 5 7021-8 ####[facility] LABIA [id number] [place] [id number] [facility] [place] CNOVon 05-10-2024 CNOV Office Visit (FAMPWS) SALLY MORRISON Karin ([id number]) 1955 F Date Time Provider Department 05/10/24 10:20 AM GIORGIO PRINCE During your visit today, we recorded the following information about you: Pulse Respiration Blood pressure Weight 87/minute 16/minute 104/67 68.7 kg Height 1.562 m Giorgio Prince PA-C 05/10/2024 10:53 AM Signed The patient consented to the use of [employer] software for draft documentation of the visit consistent with [facility]?s Notice of Privacy Practices. Sally Morrison is a 69 year old female here for a Medicare wellness visit. Medicare Health Risk Assessment General Health Exercise: Minutes/Day walking Exercise: Days/Week 7 days Alcohol: Daily Use no Alcohol: Drinks/Day no Alcohol: 6 or more drinks no Feel off balance Sometimes, chronic for years Concerns: Teeth/Dentures no Concerns: Sexual function no Troubled by feelings no Frequency: Eating healthy diet yes ADLs requiring help no Safety precautions in home/vehicle no Smoke, vape, chews tobacco no Difficulty hearing no Difficulty seeing Yes-wears glasses no following wih the eye doctors Current Providers Specialists: I have reviewed specialist-related care of the patient in the medical record. Medical/Family history review Reviewed and updated problem list, medical history, family history, social history, medication list, and allergies. Opioid use review Opioid Medications (last 90 days) No data to display Anxiety/Depression screening Recommendation: no further intervention at this time Cognitive screening Mini Cog Score: 5 Cognitive screening reviewed and No further action needed (score 3-5). Functional Observation Was the patient's Timed Up AND Go test unsteady or >= 12 seconds? No Advance Care Planning Surrogate decision maker and/or advance care plan documented Measurements BP 104/67 Pulse 87 Resp 16 Ht 156.2 cm (5' 1.5) Wt 68.7 kg (151 lb 6.4 oz) SpO2 100% BMI 28.15 kg/m? Assessment/Plan Medicare annual wellness visit, subsequent (Z00.00) - Counseled on healthy diet and regular exercise - Fall avoidance information provided - Personalized prevention plan provided Sally is a 69-year-old female with a history of hyperlipidemia, HTN, prediabetes, GERD, and allergies, presenting for an annual wellness visit, with additional complaints of cold symptoms. Annual Wellness Exam: - Denies alcohol use and smoking. - Walks daily for exercise. - Eats a healthy diet, including fruits, vegetables, and protein. - Able to perform household tasks such as laundry and cooking. - Denies issues with teeth or sexual function. - Wears glasses; has not seen an eye doctor recently. - Has not completed a living will or advanced care planning. - Up to date on colonoscopy and bone density screening. Hyperlipidemia: - Taking simvastatin; denies muscle aches. GERD: - Taking Protonix. Allergies: - Taking Claritin. Foot: - Reports a callus on the feet. no pain. - Has not seen podiatry yet. not interested at this time Anxiety: - Experiences anxiety sometimes. - Denies symptoms of depression. Cold Symptoms: - Reports feeling chilled lately. - Experiencing a stuffy or runny nose; denies sore throat, ear pain, or sinus pain, cough, chest pain, SOB - Symptoms are improving Anemia: - Taking an iron supplement but has run out. Pre-Diabetes: - Monitors blood glucose at different times of the day, - Reports some high readings, particularly after dinner, but not waiting 2 hours. overall BG readings between 110-125 Constitutional: (-) fever, (+) chills Ears/Nose/Mouth/Thro at: (+) congestion, (-) sore throat, (-) tooth pain Cardiovascular: (-) chest pain Respiratory: (-) shortness of breath EXT (+) callus , no edema Neurological: (+) off balance at times, but chronic for years. unchanged from baseline. Psychiatric: (+) anxiety at times, but manageable, (-) depression PHYSICAL EXAMINATION: General appearance: Well appearing, alert, in no acute distress, well-hydrated, well nourished. Skin: Skin color, texture, turgor normal, no suspicious rashes or lesions Head: Normocephalic, no masses, lesions, tenderness or abnormalities Eyes: Anicteric sclera. Pupils are equally round and reactive to light Ears: External ears normal, canals clear. TMs normal FERNANDO Nose/Sinuses: Nares normal, septum midline, mucosa normal, no drainage or sinus tenderness Oropharynx: Lips, mucosa, and tongue normal, teeth and gums normal, oropharynx normal Neck: Supple, no adenopathy; thyroid symmetric, normal size, Lungs: Lungs clear to auscultation. No wheezing, rhonchi, rales. Heart: RRR without murmur, gallop, or rubs. Extremities: No deformities, edema, skin discoloration, clubbing or cyanosis. Good capillary refill. Musculoskeletal: No joint swelling, def (more content not included)... Normal [facility] Ferritin SerPl-mCncon 2024 Ferritin [Mass/Vol] 241.0 ng/mL High 14.7-205.1 [facility] Comment on above: Order Comment: Speci men Type: BLOOD SPECIMENOrdering Facility: [facility] Address: [address] [place] [address] Performed By: #### 2 4321-2, 95870-8, 69569-0, 2276-4 ####[facility] LABCLIA [id number] [place] [id number] [place] HbA1c (Bld)on 05-10-2024 Average glucose Estimated from glycated hemoglobin (Bld) [Mass/Vol] 108 mg/dL Normal [facility] Comment on above: Order Comment: Ilia bustillo Type: BLOOD SPECIMENOrdering Facility: [facility] Address: [address] [place] [address] Result Comment: eAG: (Estimated average glucose) is a calculated value from HgbA1c and is patient account representative of the average blood glucose level in the last 2-3 month period. Performed By: #### 5 5454-3 ####[facility] LABCLIA [id number] [place] [address] [place] HbA1c (Bld) [Mass fraction] 5.4 % Normal 4.3-5.6 [facility] Comment on above: Order Comment: Ilia bustillo Type: BLOOD SPECIMENOrdering Facility: [facility] Address: [address] [place] [address] Result Comment: [place] Diabetes Association guidelines indicate that patients with HgbA1c in the range 5.7-6.4% are at increased risk for development of diabetes, and intervention by lifestyle modification may be beneficial. HgbA1c greater or equal to 6.5% is considered diagnostic of diabetes. Performed By: #### 5 5454-3 ####[facility] LABCLIA [id number] [place] [address] [place] Iron and Iron binding capaci ty panelon 05-10-2024 Iron [Mass/Vol] 78 ug/dL Normal 41-186 [facility] Comment on above: Order Comment: Ilia bustillo Type: BLOOD SPECIMENOrdering Facility: [facility] Address: [address] [place] [address] Performed By: #### 2 4321-2, 06861-9, 61268-8, 2276-4 ####[facility] LABCLIA [id number] [place] [address] [place] Iron binding capacity [Mass/Vol] 298 ug/dL Normal 232-386 [facility] Comment on above: Order Comment: Speci men Type: BLOOD SPECIMENOrdering Facility: [facility] Address: [address] [place] [address] Performed By: #### 2 4321-2, 47515-1, 84366-1, 6-4 ####[facility] LABCLIA [id number] [address] [address] [place] Iron/TIBC [Molar ratio] 26.2 % Normal 15.0-57.0 C [facility] Comment on above: Order Comment: Speci men Type: BLOOD SPECIMENOrdering Facility: [facility] Address: [address] [place] [address] Performed By: #### 2 4321-2, 55535-3, 05683-9, 2275-4 ####[facility] LABCLIA [id number] [place] [id number] [place] Lipid 1996 panelon 5 Cholesterol [Mass/Vol] 191 mg/dL Normal <200 [facility] Comment on above: Order Comment: Speci men Type: BLOOD SPECIMENOrdering Facility: [facility] Address: [address] [place] [address] Result Comment: <200 mg/dL, Desirable 200-239 mg/dL, Borderline high >239 mg/dL, High Performed By: #### 2 4321-2, 17039-9, 41091-2, 2275-4 ####[facility] LABCLIA [id number] [address] [address] [facility] Cholesterol in HDL [Mass/Vol] 74 mg/dL Normal >39 [facility] Comment on above: Order Comment: Speci men Type: BLOOD SPECIMENOrdering Facility: [facility] Address: [address] [place] [address] Result Comment: 40-5 9 mg/dL, Acceptable >59 mg/dL, High: Negative risk factor for coronary heart disease <40 mg/dL, Low: Positive risk factor for coronary heart disease Performed By: #### 2 4321-2, 68230-1, 99296-7, 2275-4 ####[facility] LABCLIA [id number] [address] [address] [place] Cholesterol in LDL [Mass/Vol] 105 mg/dL High <100 [facility] Comment on above: Order Comment: Speci men Type: BLOOD SPECIMENOrdering Facility: [facility] Address: [address] [place] [address] Result Comment: <100 mg/dL, Optimal 100-129 mg/dL, Near optimal/above optimal 130-159 mg/dL, Borderline high 160-189 mg/dL, High >189 mg/dL, Very high Secondary prevention optimal LDL Cholesterol levels are recommended to be < 70 mg/dL Performed By: #### 2 4321-2, 41704-3, 07599-9, 2275- ####[facility] LABIA [id number] [address] [place] OF [facility] Cholesterol in LDL/Cholesterol in HDL [Mass ratio] 1.42 {ratio} Normal <2.54 [facility] Comment on above: Order Comment: Speci men Type: BLOOD SPECIMENOrdering Facility: [facility] Address: [address] [place] [address] Result Comment: Refe rence: 1. National Cholesterol Education Program ATP III Guideline At-A-Glance Quick Desk Reference: National Heart, Lung, and Blood [place]. National Institutes of Health. 2001: NIH Publication No. 01-3305. 2. An International Atherosclerosis Society position paper: global recommendations for the management of dyslipidemia: executive summary, Atherosclerosis. 2014: 232(2):410-413. Performed By: #### 2 4321-2, 40921-6, 15436-0, 2275- ####[facility] LABCLIA [id number] [address] [address] [place] Cholesterol in VLDL [Mass/Vol] 12 mg/dL Normal <30 [facility] Comment on above: Order Comment: Speci men Type: BLOOD SPECIMENOrdering Facility: [facility] Address: [address] [place] [address] Performed By: #### 2 4321-2, 93306-9, 93504-7, 2275- ####[facility] LABCLIA [id number] [facility] [address] [address] [place] Cholesterol non HDL [Mass/Vol] 117 mg/dL Normal <130 [facility] Comment on above: Order Comment: Speci men Type: BLOOD SPECIMENOrdering Facility: [facility] Address: [address] [place] [address] Result Comment: <130 mg/dL, Optimal 130-159 mg/dL, Near optimal/above optimal 160-189 mg/dL, Borderline high 190-219 mg/dL, High >219 mg/dL, Very high Secondary prevention optimal non HDL Cholesterol levels are recommended to be <100 mg/dL Performed By: #### 2 4321-2, 70947-8, 41753-4, 2275-05 ####[facility] LABCLIA [id number] [place] [id number] [place] Cholesterol.total/Choles terol in HDL [Mass ratio] 2.58 {ratio} Normal <5.10 [facility] Comment on above: Order Comment: Speci men Type: BLOOD SPECIMENOrdering Facility: [facility] Address: [address] [place] [address] Performed By: #### 2 4321-2, 21018-7, 45697-3, 2275- ####[facility] LABCLIA [id number] [facility] [address] [address] [place] FASTING TIME 12 hrs Normal [facility] Comment on above: Order Comment: Speci men Type: BLOOD SPECIMENOrdering Facility: [facility] Address: [address] [place] [address] Performed By: #### 2 4321-2, 44223-2, 80279-8, 2275- ####[facility] LABCLIA [id number] [address] [place] Triglyceride [Mass/Vol] 62 mg/dL Normal <150 [facility] Comment on above: Order Comment: Speci men Type: BLOOD SPECIMENOrdering Facility: [facility] Address: [address] [place] [address] Result Comment: <150 mg/dL, Normal 150-199 mg/dL, Borderline high 200-499 mg/dL, High >499 mg/dL, Very high Performed By: #### 2 4321-2, 66118-9, 66805-1, 2276-4 ####[facility] LABCLIA [id number] [address] OF [place] CNPMiguelina 04-28-2024 CNPN Telephone (INTMWS) SALLY MORRISON ([id number]) 1955 F Date Time Provider Department 04/28/24 HI HAMMER INTWS During your visit today, we recorded the following information about you: Mervat Snyder LPN 04/28/2024 10:48 AM Signed Patient requesting new glucose meter to be sent to [facility] pharmacy. Pending generic for each item, patient unaware what is covered. Please advise The patient has been identified by name and date of : Yes Caregiver verified no other encounters exist for this prescription request: Yes Caregiver confirmed with patient/requestor that no other refills are due, in the near future, with this provider at this time: Yes The last office visit in the department: 07/01/2023 Does the patient have a future office visit with this provider/department: No No future appt scheduled Requested Prescriptions Pending Prescriptions Disp Refills Blood-Glucose Meter monitoring kit 1 Each 0 Sig: Glucose Meter of Choice - Kit - Dx: Type 2 DM - Controlled E11.9 Insulin No Generic meter that insurance would cover for the patient blood sugar diagnostic (BLOOD GLUCOSE TEST) test strip 50 Strip 11 Sig: Test blood sugar(s) 2 times daily. Dx: Type 2 DM - Controlled E11.9 Insulin: No Lancets 100 Each 11 Sig: Test blood sugar(s) 2 times daily. Dx: Type 2 DM - Controlled E11.9 Insulin: No Mervat SnyderMICHELLE April 28, 2024 10:47 AM Hi Hammer MD 04/28/2024 1:42 PM Signed Please ask her to give labs that have been ordered. If she is diabetic we will definitely give her the glucometer and the strips. From what I have seen and she has not been diabetic but prediabetic, the last A1c there was 5.4 which is in the nondiabetic range. I do not see that she is on medications for diabetes. I understand there may be a reason that she is asking for this because she has asked for this and previous years 2. Regards, Hi BahAlexandrea brasherMICHELLE 04/28/2024 2:53 PM Signed Called and left message for patient to call office back for update. Alexandrea MICHELLE Diaz April 28, 2024 2:53 PM Julianna Barnett RN 04/29/2024 4:05 PM Signed Pt called and is notified of providers message and instructions. Pt states she was just in the ER on 04/26/24 and she had labs done then and was told they were fine. I told her they probably didn't do all the ones the provider wanted. Pt states it's too cold to walk her and get them done. I tried to rn l and d hetr the phone # for the [facility] and she said they stop by where she lives all the time. Pt also states she had to cancel her appointment with Dr Hammer because she couldn't get a rid. I set her back up with for another appointment with Giorgio NAJERA on 05/10/24. I told her to get labs done before. Pt states sometimes she eats things and it will hurt her stomach, I told her it doesn't mean it's because of diabetes there could be many other reasons her stomach is hurting. I told her she would have to go over this with the provider. AMIRA Langford Chitra, MD 04/29/2024 5:17 PM Signed Noted and agree Regards, Mervat Hughes MD, LPN 05/02/2024 10:33 AM Signed Patient returned call and went over notes from Dr Hammer several times to get here to understand. Aware to get fasting lab orders done and she was given lab hours also. Allergies As of Date: 04/28/2024 Noted Allergy Reaction CODEINE 08/23/2011 5 - Intolerance LATEX 11/08/2011 9 - Itching PENICILLINS 08/23/2011 12 - Shortness of Breath ULTRAM (TRAMADOL HCL) 08/23/2011 2 - Rash Date Reviewed: 07/01/2023 Reviewed by: Dominga Guardado MA - Fully Assessed Reason for Visit: requesting new glucose meter [Other] Prescriptions as of 05/13/2024 - ferrous sulfate 325 mg (65 mg iron) tablet Take 1 tablet by mouth two times a day with meals. - simvastatin (ZOCOR) 20 mg tablet Take 1 tablet by mouth daily at bedtime. - pantoprazole DR (PROTONIX) 40 mg tablet Take 1 tablet by mouth once daily. Take on empty stomach, 1/2 hr before meal. - loratadine (CLARITIN) 10 mg tablet Take 1 tablet by mouth once daily. - albuterol HFA (PROVENTIL HFA, VENTOLIN HFA) 90 mcg/actuation inhaler Inhale 2 Puffs as instructed every 4 hours as needed (for cough, wheezing, chest tightness or shortness of breath. Use with spacer. ). - blood sugar diagnostic (BLOOD GLUCOSE TEST) test strip Test blood sugar(s) 1 times daily. Dx: Type 2 DM - Controlled E11.9 Insulin: No. Uses a one touch meter - Lancets lancets Test blood sugar(s) 1 times daily. Dx: Type 2 DM - Controlled E11.9 Insulin: No - Blood-Glucose Meter (ACCU-CHEK GUIDE GLUCOSE METER) 1 m once daily. testing once daily DX R73.03 Insulin No - COMPOUNDED PRESCRIPTION Powerstep full length original (M76.821) Posterior tibial tendonitis, right (primary encounter diagnosis) (M89.8X9) Exostosis - Magnesium 250 mg tab Take (more content not included)... Normal [facility] Bacteria LM.HPF (Urine sed) [#/Area]Ordered By: Ren William on 04-26-2024 Urine Bacteria RARE /hpf None Seen [facility] Bedside Glucoseon 04-26-2024 FINGERSTICK GLU 73 mg/dL Low 74-106 [facility] Comment on above: Result Comment: MARISA DORSEY OF PATIENT CARE PER NURSING PROTOCOL Performed By: #### L 100.0100, L500.2500 #### [facility] [address] [place], [address] Bilirubin Test strip Ql (U)O rdered By: Ren William on 04-26-2024 Bilirubin Ql (U) Negative Negative [facility] Emergency Department Summary on 04-26-2024 Emergency Department Summary [facility] Medical Records Department [address] [place] [address] Emergency Department Summary 04/26/24 MR#: [id number] Acct: [id number] Name: SALLY MORRISON Rep #: [id number] : 1955 69 From: Ren William DO PCP: CARON ROBLES [employer]-C Status:REG ER Location: ED HPI History of Present Illness Chief Complaint: Lower Extremity Injury Narrative Narrative: Patient is a 69-year-old female with a past medical history of asthma, hypercholesteremia, GERD, prediabetes, IBS, scoliosis who presented to the emergency with a chief complaint of bilateral foot pain. Patient states that she has had foot pain for significant time however things are getting better therefore she came here for the valuation management. Patient denies any trauma or injuries to her feet. Otherwise she has no complaints at this point time. [facility] Medical History Wears glasses Wears dentures Post-menopausal Low iron Fatty liver Restless legs Scoliosis History of IBS Non-smoker Leg cramps History of edema History of stress test Pre-diabetes GERD (gastroesophageal reflux disease) High cholesterol Gallstones Chronic bronchitis Asthma Arthritis Seasonal allergies Home Medications ???Medication ???Instructions ???Recorded ???Last Taken ???Type simvastatin 20 mg tablet 20 mg PO QHS 12/23/12 03/04/16 His tory calcium 600 mg (as carbonate)-vit 1 tab PO DAILY 06/30/17 Unknown H istory D3 10 mcg (400 unit) chewable tablet fluticasone propionate 115 2 puff inhalation BID 06/30/17 Unk nown History mcg-salmeterol 21 mcg/actuation HFA inhaler sodium chloride 0.65 % nasal spray 1 spray intranasal Q1-4H PRN 07/03 Unknown History aerosol (Saline Nasal) Allergies albuterol sulfate 90 mcg/actuation 2 puff IH PRN PRN Sob /Or Wheez ing 08/26/19 12/30/21 History aerosol inhaler ferrous sulfate 325 mg (65 mg 325 mg PO DAILY 10/22/21 Unknown H istory iron) tablet alendronate 35 mg tablet 35 mg PO DAILY 12/26/21 12/30/21 H istory pantoprazole 40 mg tablet,delayed 40 mg PO DAILY 12/26/21 12/30/21 History release nystatin 100,000 unit/gram topical 1 applic topical DAILY #30 grams 10/30/23 Unknown Rx ointment Allergy/AdvReac Type Severity Reaction Status Date / Time cefdinir (From Omnicef) Allergy Severe Unknown Verified 10/30/23 09:36 Penicillins Allergy Severe STOP Verified 10/30/23 09:36 BREATHING codeine Allergy Other Verified 10/30/23 09:36 hydrocodone bitartrate (From Allergy Other Verified 10/30/23 09:36 Vicodin) latex Allergy Rash Verified 10/30/23 09:36 aspirin AdvReac Other Verified 10/30/23 09:36 tramadol (From Ultram) AdvReac Rash Verified 10/30/23 09:36 Family History Mother Cancer Father Heart disease Hypertension High cholesterol Kidney disease CVA (cerebral vascular accident) Colon cancer Surgical History History of colonoscopy H/O hernia repair Hx of cholecystectomy Social History household members: none Smoking Status: Never smoker second hand exposure: No alcohol intake: never substance use type: does not use ROS ROS ED ROS Narrative Constitutional: Denies fevers, chills, headaches, lightness, dizziness Eyes: Denies change in vision double vision blurry vision Cardiovascular: Denies chest pain or palpitation Respiratory: Denies coughing wheezing shortness of breath Abdomen: Denies abdominal pain nausea vomit diarrhea : Denies painful urination, hematuria, polyuria Neurological: Denies numbness, weakness, Musculoskeletal: Denies back Skin: Denies rashes or lesions EXAM Physical Exam Narrative Exam Narrative: General: Patient lying in bed rest comfortably did not appear to be in acute distress Head: Atraumatic, normocephalic Eyes: PERRL bilaterally, EOMI bilaterally, no conjunctival injection noted Neck: Soft, supple, trachea midline Cardiovascular: Regular rate and rhythm no murmurs gallops rubs noted Respiratory: Clear to auscultation bilaterally no rales rhonchi or wheezes noted Abdomen: Soft, nondistended, no distention Musculoskeletal: Patient has mild tenderness palpation over the lateral aspect of her left foot and on the medial aspect of her right foot Extremities: DP pulses +2/4 in the bilateral lower extremities, +5/5 strength noted in the bilateral upper and lower extremities Neurological: Patient follow commands knew that she was at [facility] year is 2024 Skin: Warm, dry, intact no rashes or lesions noted Const Vital Signs: 04/26/24 12:14 04/26/24 13:55 04/26/24 14:14 Temperature 96.8 F L 97.8 F Tempera (more content not included)... Normal [facility] Epithelial cells.squamous LM Ql (Urine sed)Ordered By: Ren William on 04-26-2024 Epithelial cells.squamous LM.HPF (Urine sed) [#/Area] 0 /[HPF] 5-10 [facility] Foot min 3 Viewson 5 Foot min 3 Views [facility] [address] [place] [address] Foot min 3 Views MR#: [id number] Acct: [id number] Name: SALLY MORRISON Karin Rep #: [id number] : 1955 F 69 From: Cole Lerma PCP: CARON ROBLES, [employer]-C Status: REG ER Study: Foot min 3 Views Date of Exam: 04/26/24 Exam# [id number] Ordering Dr: Ren William DO PROCEDURE: FOOT MIN 3 VIEWS left foot three-view REASON FOR EXAM: PAIN TECHNIQUE: 3 view(s) of each foot COMPARISON: None. FINDINGS: RIGHT FOOT: Demineralization of the bones. Degenerative change seen at the base of the 1st metatarsal. Scattered degenerative changes. No acute fracture. There is Achilles and plantar spurring. LEFT FOOT: Demineralization limits sensitivity. Achilles and plantar spurring. No acute fracture. Apparent healed left 3rd metatarsal shaft fracture RAD/Foot min 3 Views IMPRESSION: Demineralization. No definite acute fracture. Please note stress fractures can be radiographically occult. If clinical symptoms do not improve, consider MRI Reading Location: [id number] CC: JASON ROBLES; Dr. Ren William DO Rubber Splicer: Signed Normal [facility] Foot min 3 Views [facility] [address] [place] [address] Foot min 3 Views MR#: [id number] Acct: [id number] Name: SALLY MORRISON Rep #: [id number] : 1955 F 69 From: Cole Lerma PCP: JASON ESPINOZA Status: REG ER Study: Foot min 3 Views Date of Exam: 04/26/24 Exam# [id number] Ordering Dr: Ren William DO PROCEDURE: FOOT MIN 3 VIEWS left foot three-view REASON FOR EXAM: PAIN TECHNIQUE: 3 view(s) of each foot COMPARISON: None. FINDINGS: RIGHT FOOT: Demineralization of the bones. Degenerative change seen at the base of the 1st metatarsal. Scattered degenerative changes. No acute fracture. There is Achilles and plantar spurring. LEFT FOOT: Demineralization limits sensitivity. Achilles and plantar spurring. No acute fracture. Apparent healed left 3rd metatarsal shaft fracture RAD/Foot min 3 Views IMPRESSION: Demineralization. No definite acute fracture. Please note stress fractures can be radiographically occult. If clinical symptoms do not improve, consider MRI Reading Location: [id number] CC: JASON ROBLES; Dr. Ren William DO Rubber Splicer: Signed Normal [facility] Glucose Ql (U)Ordered By: Og William on 04-26-2024 Urine Glucose (UA) Normal mg/dl Normal [facility] deOrdered By: Ren William on 04-26-2024 Bedside Glucose (Misc Panel) 73 mg/dL Low 74-106 [facility] Comment on above: MANAGEMENT OF PATIEN T CARE PER NURSING PROTOCOL Glucose [Mass/Vol] 73 mg/dL Low 74-106 [facility] Comment on above: MANAGEMENT OF PATIEN T CARE PER NURSING PROTOCOL Ketones Test strip Ql (U)Ord ered By: Ren William on 04-26-2024 Ketones Ql (U) Negative Negative [facility] Microscopic analysis of urin e for red blood cells (RBC)Ordered By: Ren William on 04-26-2024 Microscopic analysis of urine for red blood cells (RBC) 0 SEEN /hpf 0-5 [facility] Urine RBC 0 SEEN /hpf 0-5 [facility] Mucus LM Ql (Urine sed)Order ed By: Ren William on 04-26-2024 Mucus Ql (Urine sed) 0 SEEN /hpf [facility] Nitrite Test strip Ql (U)Ord ered By: Ren William on 04-26-2024 Nitrite Ql (U) Negative Negative [facility] Protein Test strip Ql (U)Ord ered By: Ren William on 04-26-2024 Protein Ql (U) Negative Negative [facility] Squamous epithelial cells de tection in urine sediment by light microscopyOrdered By: Ren William on 04-26-2024 Epithelial cells.squamous LM Ql (Urine sed) 0-5 SEEN /hpf 5-10 [facility] Urinalysis, Completeon 04-26 BACTERIA RARE Normal None Seen [facility] Comment on above: Order Comment: CLEAN CATCH Performed By: #### L 100.0100, L500.2500 #### [facility] [address] [place], [place], [id number] EPI,SQUAMOUS 0-5 SEEN Normal 5-10 [facility] Comment on above: Order Comment: CLEAN CATCH Performed By: #### L 100.0100, L500.2500 #### [facility] [address] [place], [address] RBC 0 SEEN Normal 0-5 [facility] Comment on above: Order Comment: CLEAN CATCH Performed By: #### L 100.0100, L500.2500 #### [facility] [address] [place], [address] WBC 0-5 SEEN Normal 0-5 [facility] Comment on above: Order Comment: CLEAN CATCH Performed By: #### L 100.0100, L500.2500 #### [facility] [address] [place], [address] Mucus Ql (Urine sed) 0 SEEN Normal [facility] Comment on above: Order Comment: CLEAN CATCH Performed By: #### L 100.0100, L500.2500 #### [facility] [address] [place], [address] Urine blood detectionOrdered By: Ren William on 04-26-2024 Urine Occult Blood Negative Negative [facility] Urine clarityOrdered By: Michelle William on 04-26-2024 Clarity (U) Sl. Cloudy Clear [facility] Urine color determinationOrd ered By: Ren William on 04-26-2024 Color (U) Yellow Yellow [facility] Urine glucose detectionOrder ed By: Ren William on 04-26-2024 Glucose Ql (U) Normal mg/dl Normal [facility] Urine leukocyte esterase det ection by dipstickOrdered By: Ren William on 04-26-2024 Leukocyte esterase Test strip Ql (U) 25 /ul High Negative [facility] Urine pHOrdered By: Ren bo on 04-26-2024 pH (U) 8.0 [pH] 5.0 - 8.0 [facility] Urine sediment bacteria coun t by microscopy (number/high power field)Ordered By: Ren William on 04-26-2024 Bacteria LM.HPF (Urine sed) [#/Area] RARE /hpf None Seen [facility] Urine specific gravity measu rementOrdered By: Ren William on 04-26-2024 Specific gravity (U) [Rel density] 1.015 1.002-1.030 [facility] Urine urobilinogen measureme ntOrdered By: Ren William on 04-26-2024 Urobilinogen Ql (U) Normal mg/dl Normal [facility] Urobilinogen Ql (U)Ordered B y: Ren William on 04-26-2024 Urine Urobilinogen Normal mg/dl Normal [facility] White blood cell countOrdere d By: Ren William on 04-26-2024 Urine WBC 0-5 SEEN /hpf 0-5 [facility] White blood cell count 0-5 SEEN /hpf 0-5 [facility] CNCOon 04-14-2024 CNCO Letter Text Normal [facility] CNPNon 04-01-2024 CNPN Telephone (INTMWS) SALLY MORRISON ([id number]) 1955 F Date Time Provider Department 04/01/24 HI HAMMER INTWS During your visit today, we recorded the following information about you: Julianna Barnett RN 04/01/2024 3:44 PM Signed Updated Pt on date and time of appointment. Let Pt know she had blood work and urine that needed to be done for appointment. Allergies As of Date: 04/01/2024 Noted Allergy Reaction CODEINE 08/23/2011 5 - Intolerance LATEX 11/08/2011 9 - Itching PENICILLINS 08/23/2011 12 - Shortness of Breath ULTRAM (TRAMADOL HCL) 08/23/2011 2 - Rash Date Reviewed: 07/01/2023 Reviewed by: Dominga Guardado MA - Fully Assessed Reason for Visit: Patient Question [3637] Prescriptions as of 04/01/2024 - simvastatin (ZOCOR) 20 mg tablet Take 1 tablet by mouth daily at bedtime. - pantoprazole DR (PROTONIX) 40 mg tablet Take 1 tablet by mouth once daily. Take on empty stomach, 1/2 hr before meal. - ferrous sulfate 325 mg (65 mg iron) tablet Take 1 tablet by mouth two times a day with meals. - loratadine (CLARITIN) 10 mg tablet Take 1 tablet by mouth once daily. - albuterol HFA (PROVENTIL HFA, VENTOLIN HFA) 90 mcg/actuation inhaler Inhale 2 Puffs as instructed every 4 hours as needed (for cough, wheezing, chest tightness or shortness of breath. Use with spacer. ). - blood sugar diagnostic (BLOOD GLUCOSE TEST) test strip Test blood sugar(s) 1 times daily. Dx: Type 2 DM - Controlled E11.9 Insulin: No. Uses a one touch meter - Lancets lancets Test blood sugar(s) 1 times daily. Dx: Type 2 DM - Controlled E11.9 Insulin: No - Blood-Glucose Meter (ACCU-CHEK GUIDE GLUCOSE METER) 1 m once daily. testing once daily DX R73.03 Insulin No - COMPOUNDED PRESCRIPTION Powerstep full length original (M76.821) Posterior tibial tendonitis, right (primary encounter diagnosis) (M89.8X9) Exostosis - Magnesium 250 mg tab Take 1 tablet by mouth once daily. - sodium chloride 0.65 % nasal spray Use 1 [place] in the nose as needed for Cold/Allergy Symptoms. Problem List As Of Date 04/01/2024 Noted Resolved Mixed hyperlipidemia [E78.2] Asthma [J45.909] GERD (gastroesophageal reflux disease) [K21.9] Abnormal glucose [R73.09] 11/08/2011 10/25/2014 Barretts esophagus [K22.70] 11/08/2011 Chronic right shoulder pain [M25.511, G89.29] 12/30/2011 10/25/2014 Speech problem [R47.9] 05/21/2012 Learning difficulty [F81.9] 05/21/2012 Overactive bladder [N32.81] 09/07/2012 Irritable bowel disease [K58.9] 10/25/2012 Chronic right hip pain [M25.551, G89.29] 04/24/2013 Edema [R60.9] 01/04/2014 Hypertension [I10] 04/07/2014 Disability, developmental [F89] 06/05/2014 Other chronic pain [G89.29] 06/12/2014 Left knee pain [M25.562] 09/22/2017 Prediabetes [R73.03] 04/15/2021 Encounter Status:Closed by JULIANNA BARNETT on 04/01/24 Normal [facility] Urine Cultureon 11-01-2023 [facility] Mixed Gram Positive Organisms [place] Count 1000-10,000 MIXC Mixed contaminants. Submit a new specimen if indicated. Normal [facility] Comment on above: Performed By: #### L 100.0100, L500.2500 #### [facility] [address] [place], [place], [id number] Abdomen/Pelvis W IV Cont ONL Yon 10-30-2023 Abdomen/Pelvis W IV Cont ONLY [facility] [address] [place], [place] [id number] Abdomen/Pelvis W IV Cont ONLY MR#: [id number] Acct: [id number] Name: SALLY MORRISON Rep #: [id number] : 1955 F 68 From: Dominguez herron MD PCP: CARON ROBLES, [employer]DERER-C Status: REG ER Study: Abdomen/Pelvis W IV Cont ONLY Date of Exam: Exam# [id number] Ordering Dr: Ren William DO [id number] STUDY: CT ABDOMEN AND PELVIS WITH CONTRAST REASON FOR EXAM: Female, 68 years old. Right lower quadrant abdominal pain RADIATION DOSAGE (If Supplied By Facility): CTDIvol = ( 15.83 ) mGy, DLP = ( 892.04 ) mGycm TECHNIQUE: Transaxial images were obtained from the dome of the diaphragm to the symphysis pubis without oral contrast. ml of 100mL Isovue-300 contrast was administered. Sagittal and coronal images were reconstructed. Individualized dose optimization techniques were used for this CT. COMPARISON: CT of abdomen and pelvis dated July 31, 2015 FINDINGS: There are chronic interstitial fibrotic changes of the lung bases. The visualized portions of the heart are within normal limits. Normal liver. Tiny cyst near the falciform ligament in the right lobe of the liver redemonstrated and does not require any follow-up. There are surgical clips in the gallbladder fossa consistent with a prior cholecystectomy. Normal spleen. Normal pancreas. Normal bilateral adrenal glands. Normal right kidney. Normal left kidney. No renal masses or hydronephrosis or hydroureter is present. No right lower quadrant lymphadenopathy or inflammation or fluid collections. Stool filled right and transverse colon. Normal visualized stomach. Normal small intestine. There are multiple colonic diverticula consistent with diverticulosis. The appendix is visualized and appears normal -see image 64/112 series 601. No free air or free fluid or bowel dilatation is present. No small bowel obstruction. Shallow incisional hernia at the umbilicus without bowel incarceration.. There is diffuse atherosclerotic calcification of the abdominal aorta, without a demonstrated aneurysm. Normal inferior vena cava. Normal retroperitoneum. Normal urinary bladder. There is absence of the uterus consistent with a prior hysterectomy. There are diffuse degenerative changes of the visualized lumbar spine. CT/Abdomen/Pelvis W IV Cont ONLY IMPRESSION: 1. There are multiple colonic diverticula consistent with diverticulosis. The appendix is visualized and appears normal -see image 64/112 series 601. No free air or free fluid or bowel dilatation is present. No small bowel obstruction. Shallow incisional hernia at the umbilicus without bowel incarceration. 2. No right lower quadrant lymphadenopathy or inflammation or fluid collections. Stool filled right and transverse colon. Electronically Signed: Dominguez Canales MD at 11:33 EDT , CC: JASON ROBLES; Dr. Ren William DO Rubber Splicer: Signed Normal [facility] CBC W/Diff, Automatedon 10-17 Absolute Lymph 1.50 X10 3/uL Normal 0.83-4.51 [facility] Comment on above: Performed By: #### L 500.4050, L501.2450, L100.0100 #### [facility] [address] [place], [address] Absolute Neut 1.9 X10 3/uL Low 2.0-7.7 [facility] Comment on above: Performed By: #### L 500.4050, L501.2450, L100.0100 #### [facility] [address] [place], [address] Basophils/100 WBC (Bld) 0.5 % Normal 0-1 [facility] Comment on above: Performed By: #### L 500.4050, L501.2450, L100.0100 #### [facility] [address] [place], [address] Eosinophils/100 WBC (Bld) 6.9 % High 0-5 [facility] Comment on above: Performed By: #### L 500.4050, L501.2450, L100.0100 #### [facility] [address] [place], [address] Erythrocyte distribution width (RBC) [Ratio] 13.1 % Normal 11.6-14.6 [facility] Comment on above: Performed By: #### L 500.4050, L501.2450, L100.0100 #### [facility] [address] [place], [address] Hematocrit (Bld) [Volume fraction] 39.2 % Normal 37-47 [facility] Comment on above: Performed By: #### L 500.4050, L501.2450, L100.0100 #### [facility] [address] [place], [address] Hemoglobin (Bld) [Mass/Vol] 12.8 g/dL Normal 12.0-15.0 [facility] Comment on above: Performed By: #### L 500.4050, L501.2450, L100.0100 #### [facility] [address] [place], [address] IG% 0.200 Normal 0.0-0.9 [facility] Comment on above: Result Comment: IG% - Immature Granulocytes (promyelocytes, myelocytes and metamyelocytes) > 1% indicates that a LEFT SHIFT is Present. Performed By: #### L 500.4050, L501.2450, L100.0100 #### [facility] [address] [place], [address] Lymphocytes/100 WBC (Bld) 36.9 % Normal 19-41 [facility] Comment on above: Performed By: #### L 500.4050, L501.2450, L100.0100 #### [facility] [address] [place], [address] MCH (RBC) [Entitic mass] 30.7 pg Normal 27.0-32.0 [facility] Comment on above: Performed By: #### L 500.4050, L501.2450, L100.0100 #### [facility] [address] [place], [address] MCHC (RBC) [Mass/Vol] 32.7 g/dL Normal 32-36 [facility] Comment on above: Performed By: #### L 500.4050, L501.2450, L100.0100 #### [facility] [address] [place], [address] MCV (RBC) [Entitic vol] 94.0 fL Normal 81-99 [facility] Comment on above: Performed By: #### L 500.4050, L501.2450, L100.0100 #### [facility] [address] [place], [address] Monocytes/100 WBC (Bld) 7.9 % Normal 0-10 [facility] Comment on above: Performed By: #### L 500.4050, L501.2450, L100.0100 #### [facility] [address] [place], [address] Neutrophils/100 WBC (Bld) 47.6 % Normal 47-70 [facility] Comment on above: Performed By: #### L 500.4050, L501.2450, L100.0100 #### [facility] [address] [place], [address] Nucleated RBC (Bld) [#/Vol] 0 10*3/uL Normal 0-5 [facility] Comment on above: Performed By: #### L 500.4050, L501.2450, L100.0100 #### [facility] [address] [place], [address] Platelet mean volume (Bld) [Entitic vol] 8.6 fL Normal 6.2-12.0 [facility] Comment on above: Performed By: #### L 500.4050, L501.2450, L100.0100 #### [facility] [address] [place], [address] Platelets (Bld) [#/Vol] 274 10*3/uL Normal 150-450 [facility] Comment on above: Performed By: #### L 500.4050, L501.2450, L100.0100 #### [facility] [address] [place], [address] RBC (Bld) [#/Vol] 4.17 10*6/uL Low 4.2-5.4 [facility] Comment on above: Performed By: #### L 500.4050, L501.2450, L100.0100 #### [facility] [address] [place], [address] RDW SD 44.7 fl High 35.1-43.9 [facility] Comment on above: Performed By: #### L 500.4050, L501.2450, L100.0100 #### [facility] [address] [place], [address] WBC (Bld) [#/Vol] 4.1 10*3/uL Low 4.4-11.0 [facility] Comment on above: Performed By: #### L 500.4050, L501.2450, L100.0100 #### [facility] [address] [place], [address] Comprehensive Metabolic Prof ilon 10-30-2023 Albumin [Mass/Vol] 3.5 g/dL Normal 3.2-5.0 [facility] Comment on above: Performed By: #### L 500.4050, L501.2450, L100.0100 #### [facility] [address] [place], [address] Albumin/Globulin [Mass ratio] 1.0 {ratio} Normal 0.9-2.4 [facility] Comment on above: Performed By: #### L 500.4050, L501.2450, L100.0100 #### [facility] [address] [place], [address] ALK P 137 U/L High 45-117 [facility] Comment on above: Performed By: #### L 500.4050, L501.2450, L100.0100 #### [facility] [address] [place], [address] ALT [Catalytic activity/Vol] 36 U/L Normal 13-56 [facility] Comment on above: Performed By: #### L 500.4050, L501.2450, L100.0100 #### [facility] [address] [place], [address] AST [Catalytic activity/Vol] 26 U/L Normal 15-37 [facility] Comment on above: Performed By: #### L 500.4050, L501.2450, L100.0100 #### [facility] [address] [place], [address] Bilirubin [Mass/Vol] 1.30 mg/dL High 0.20-1.00 [facility] Comment on above: Result Comment: For patients on eltrombopag therapy, use of Dimension [place] TBIL is not recommended. Performed By: #### L 500.4050, L501.2450, L100.0100 #### [facility] [address] [place], [address] BUN/CRE 16.6 RATIO Normal 10-20 [facility] Comment on above: Performed By: #### L 500.4050, L501.2450, L100.0100 #### [facility] [address] [place], [address] CA,Total 9.4 mg/dL Normal 8.5-10.1 [facility] Comment on above: Performed By: #### L 500.4050, L501.2450, L100.0100 #### [facility] [address] [place], [address] Chloride [Moles/Vol] 110 mmol/L High 98-107 [facility] Comment on above: Performed By: #### L 500.4050, L501.2450, L100.0100 #### [facility] [address] [place], [address] CO2 [Moles/Vol] 27.0 mmol/L Normal 21.0-32.0 [facility] Comment on above: Performed By: #### L 500.4050, L501.2450, L100.0100 #### [facility] [address] [place], [address] Creatinine [Mass/Vol] 0.72 mg/dL Normal 0.55-1.02 [facility] Comment on above: Result Comment: The validity of the calculated GFR GFRAA in patients over 70 years has not been determined. Clinical correlation is essential. Performed By: #### L 500.4050, L501.2450, L100.0100 #### [facility] [address] [place], [address] ECRCL 64.44 ml/min Normal [facility] Comment on above: Performed By: #### L 500.4050, L501.2450, L100.0100 #### [facility] [address] [place], [address] EST GFR - AA 103 mL/min Normal >60 [facility] Comment on above: Result Comment: Afri can Tongan GFR Calc Performed By: #### L 500.4050, L501.2450, L100.0100 #### [facility] [address] [place], [address] GAP 6 Normal 5-15 [facility] Comment on above: Performed By: #### L 500.4050, L501.2450, L100.0100 #### [facility] [address] [place], [address] GFR/1.73 sq M.predicted among non-blacks MDRD (S/P/Bld) [Vol rate/Area] 85 mL/min/{1.73_m2} Normal >60 [facility] Comment on above: Result Comment: Non- GFR Calc Performed By: #### L 500.4050, L501.2450, L100.0100 #### [facility] [address] [place], [address] Globulin (S) [Mass/Vol] 3.4 g/dL Normal 2.2-4.2 [facility] Comment on above: Performed By: #### L 500.4050, L501.2450, L100.0100 #### [facility] [address] [place], [address] Glucose [Mass/Vol] 108 mg/dL High 74-106 [facility] Comment on above: Result Comment: Fast ing Glucose result from 100 to 125 mg/dL suggests IMPAIRED HOMEOSTASIS per A.D.A. criteria. Performed By: #### L 500.4050, L501.2450, L100.0100 #### [facility] [address] [place], [address] Potassium [Moles/Vol] 3.6 mmol/L Normal 3.5-5.1 [facility] Comment on above: Performed By: #### L 500.4050, L501.2450, L100.0100 #### [facility] [address] [place], [address] Sodium [Moles/Vol] 143 mmol/L Normal 136-145 [facility] Comment on above: Performed By: #### L 500.4050, L501.2450, L100.0100 #### [facility] [address] [place], [address] T PROT 6.9 g/dL Normal 6.4-8.2 [facility] Comment on above: Performed By: #### L 500.4050, L501.2450, L100.0100 #### [facility] [address] [place], [address] Urea nitrogen [Mass/Vol] 12 mg/dL Normal 7-18 [facility] Comment on above: Performed By: #### L 500.4050, L501.2450, L100.0100 #### [facility] [address] [place], [address] Emergency Department Summary on 10-30-2023 Emergency Department Summary [facility] Medical Records Department [address] [place] [address] Emergency Department Summary 10/30/23 MR#: [id number] Acct: [id number] Name: SALLY MORRISON Rep #: [id number] : 1955 68 From: Ren William DO PCP: CARON ROBLES G[employer]ER-C Status:REG ER Location: ED HPI History of Present Illness Chief Complaint: Wound Narrative Narrative: Patient is a 68-year-old female with past medical history of IBS, prediabetic, GERD, hypercholesteremia, asthma who presented to the emergency department with a chief complaint of a red eric on her inner thigh. Patient notes that this has been there for a a while now and states that she has not follow-up with her primary care physician on this she states that things were not improving prompting her here today for further evaluation management patient denies any injuries. [facility] Medical History Wears glasses Wears dentures Post-menopausal Low iron Fatty liver Restless legs Scoliosis History of IBS Non-smoker Leg cramps History of edema History of stress test Pre-diabetes GERD (gastroesophageal reflux disease) High cholesterol Gallstones Chronic bronchitis Asthma Arthritis Seasonal allergies Home Medications ???Medication ???Instructions ???Recorded ???Last Taken ???Type simvastatin 20 mg tablet 20 mg PO QHS 12/23/12 03/04/16 History calcium carbonate 600 mg-vitamin 1 tab PO DAILY 06/30/17 Unknown History D3 10 mcg (400 unit) chewable tablet fluticasone propionate 115 2 puff inhalation BID 06/30/17 Unknown History mcg-salmeterol 21 mcg/actuation HFA inhaler sodium chloride 0.65 % nasal spray 1 spray intranasal Q1-4H PRN 10/21/17 Unknown History aerosol (Saline Nasal) Allergies albuterol sulfate 90 mcg/actuation 2 puff IH PRN PRN Sob /Or Wheezing 08/26/19 12/30/21 History aerosol inhaler ferrous sulfate 325 mg (65 mg 325 mg PO DAILY 10/22/21 Unknown History iron) tablet alendronate 35 mg tablet 35 mg PO DAILY 12/26/21 12/30/21 History pantoprazole 40 mg tablet,delayed 40 mg PO DAILY 12/26/21 12/30/21 History release nystatin 100,000 unit/gram topical 1 applic topical DAILY #30 grams 09/13/24 Unknown Rx ointment Allergy/AdvReac Type Severity Reaction Status Date / Time cefdinir (From Omnicef) Allergy Severe Unknown Verified 10/30/23 09:36 Penicillins Allergy Severe STOP Verified 10/30/23 09:36 BREATHING codeine Allergy Other Verified 10/30/23 09:36 hydrocodone bitartrate (From Allergy Other Verified 10/30/23 09:36 Vicodin) latex Allergy Rash Verified 10/30/23 09:36 aspirin AdvReac Other Verified 10/30/23 09:36 tramadol (From Ultram) AdvReac Rash Verified 10/30/23 09:36 Family History Mother Cancer Father Heart disease Hypertension High cholesterol Kidney disease CVA (cerebral vascular accident) Colon cancer Surgical History History of colonoscopy H/O hernia repair Hx of cholecystectomy Social History household members: none Smoking Status: Never smoker second hand exposure: No alcohol intake: never substance use type: does not use ROS ROS ED ROS Narrative Constitutional: Denies fevers, chills, headaches, lightness, dizziness Cardiovascular: Denies chest pain or palpitations Respiratory: Denies coughing wheezing shortness of breath Abdomen: Denies abdominal pain nausea vomit diarrhea : Denies any pain phonation, hematuria, polyuria Neurological: Denies numbness, weakness, tingling Skin: Complains of red area on the inner thigh on the right side EXAM Physical Exam Narrative Exam Narrative: General: Patient lying in bed rest comfortably did not appear to be in acute distress Head: Atraumatic, normocephalic Eyes: PERRL bilaterally, EOMI by, no conjunctival injection noted Neck: Soft, supple, trachea midline Cardiovascular: Regular rate and rhythm no murmurs gallops rubs noted Respiratory: Clear to auscultation bilaterally no rales rhonchi wheeze noted Abdomen: Soft, nondistended, patient does have tenderness to palpation lower portion of abdomen no rebound or guarding on exam Genitourinary: No rashes or lesions no concern for Lucio's gangrene Extremities: +5/5 strength noted in the bilateral lower extremities no pedal edema noted on exam Neurological: Patient follow commands knew that she was at [facility] year is 2023 Skin: Patient has a blanching small area of redness in her inner thigh which appears to be irritated from it rubbing against her skin. Blanching no petechia no purpura no sloughing of the skin noted Const Vital Signs: 10/30/23 09:36 10/30/23 09:54 09 (more content not included)... Normal [facility] Lipaseon 10-30-2023 Lipase [Catalytic activity/Vol] 35 U/L Normal 13-75 [facility] Comment on above: Result Comment: Yvette daniels note: LIPASE revised reference range effective 22. New Lipase methodology. Expected to produce lower values than the previous assay method. NEW Reference Range: 13 - 75 U/L Performed By: #### L 500.4050, L501.2450, L100.0100 #### [facility] [address] [place], [address] Urinalysis, Completeon 10-29 EPI,SQUAMOUS 5-10 SEEN Normal 5-10 [facility] Comment on above: Order Comment: CLEAN CATCH Performed By: #### L 400.0001 #### [facility] [address] [place], [address] BACTERIA RARE Normal None Seen [facility] Comment on above: Order Comment: CLEAN CATCH Performed By: #### L 400.0001 #### [facility] [address] [place], [address] RBC 0-5 SEEN Normal 0-5 [facility] Comment on above: Order Comment: CLEAN CATCH Performed By: #### L 400.0001 #### [facility] [address] [place], [address] WBC 0-5 SEEN Normal 0-5 [facility] Comment on above: Order Comment: CLEAN CATCH Performed By: #### L 400.0001 #### [facility] [address] [place], [address] Mucus Ql (Urine sed) 0 SEEN Normal [facility] Comment on above: Order Comment: CLEAN CATCH Performed By: #### L 400.0001 #### [facility] [address] [place], [place], [address] HEMOGLOBIN A1C (POC)on 09-11 HbA1c (Bld) [Mass fraction] 5.3 % 4.2 - 5.6 % [facility] Absolute lymphocyte countOrd ered By: Dr. Menon on 08-01-2022 Lymphocytes Auto (Unsp spec) [#/Vol] 1.49 10*3/uL 0.83-4.51 [facility] Basophil percentageOrdered B y: Dr. Menon on 08-01-2022 Basophils/100 WBC (Bld) 0.6 % 0-1 [facility] Chloride [Moles/Vol] 107 mmol/L 98-107 [facility] Eosinophils/100 WBC (Bld) 4.4 % 0-5 [facility] Glucose [Mass/Vol] 117 mg/dL 74-106 [facility] Comment on above: Fasting Glucose resu lt from 100 to 125 mg/dL suggests IMPAIRED HOMEOSTASIS per A.D.A. criteria. Neutrophils (Bld) [#/Vol] 2.9 10*3/uL 2.0-7.7 [facility] Neutrophils/100 WBC (Bld) 58.2 % 47-70 [facility] Potassium [Moles/Vol] 3.6 mmol/L 3.5-5.1 [facility] Sodium [Moles/Vol] 142 mmol/L 136-145 [facility] WBC (Bld) [#/Vol] 5.0 10*3/uL 4.4-11.0 [facility] Blood erythrocytes count (nu mber/volume)Ordered By: Dr. Menon on 08-01-2022 RBC (Bld) [#/Vol] 4.25 10*6/uL 4.2-5.4 [facility] Blood hemoglobin measurement (mass/volume)Ordered By: Dr. Menon on 08-01-2022 Hemoglobin (Bld) [Mass/Vol] 13.0 g/dL 12.0-15.0 [facility] Blood lymphocytes/100 leukoc ytesOrdered By: Dr. Menon on 08-01-2022 Lymphocytes/100 WBC (Bld) 29.8 % 19-41 [facility] Blood monocytes/100 leukocyt esOrdered By: Dr. Menon on 08-01-2022 Monocytes/100 WBC (Bld) 6.6 % 0-10 [facility] Blood platelet mean volumeOr dered By: Dr. Menon on 08-01-2022 Platelet mean volume (Bld) [Entitic vol] 8.6 fL 6.2-12.0 [facility] Determination of erythrocyte mean corpuscular volume (MCV)Ordered By: Dr. Menon on 08-01-2022 MCV (RBC) [Entitic vol] 94.1 fL 81-99 [facility] Hematocrit Auto (Bld) [Volum e fraction]Ordered By: Dr. Menon on 08-01-2022 Hematocrit (Bld) [Volume fraction] 40.0 % 37-47 [facility] - Chemistry and C hemistry - challengeOrdered By: Dr. Menon on 08-01-2022 CO2 [Moles/Vol] 28.0 mmol/L 21.0-32.0 [facility] Urea nitrogen/Creatinine [Mass ratio] 13.9 mg/mg 10-20 [facility] - Hematology and Cell countsOrdered By: Dr. Menon on 08-01-2022 Erythrocyte distribution width (RBC) [Entitic vol] 44.9 fL 35.1-43.9 [facility] Erythrocyte distribution width (RBC) [Ratio] 13.2 % 11.6-14.6 [facility] Immature granulocytes/100 WBC (Bld) 0.400 % 0.0-0.9 [facility] Comment on above: IG% - Immature Granu locytes (promyelocytes, myelocytes and metamyelocytes) > 1% indicates that a LEFT SHIFT is Present. MCH (RBC) [Entitic mass] 30.6 pg 27.0-32.0 [facility] Nucleated RBC/100 WBC (Bld) [Ratio] 0 % 0-5 [facility] MCHC Auto (RBC) [Mass/Vol]Or dered By: Dr. Menon on 06-16-2023 MCHC (RBC) [Mass/Vol] 32.5 g/dL 32-36 [facility] No Panel InformationOrdered By: Dr. Menon on 08-01-2022 Estimated Creatinine Clearance Calc 40.63 ml/min [facility] Estimated GFR (MDRD) Amer 104 mL/min >60 [facility] Comment on above: GFR Calc Estimated GFR (MDRD) Non-Af Amer 86 mL/min >60 [facility] Comment on above: Non- GFR Calc Troponin I High Sensitivity 9 pg/mL 3.0-54.0 [facility] Comment on above: Please Note: New Rhiannon t Units and Gender Specific Reference Ranges. For more information see Policy Stat Procedure [place] High Sensitivity Troponin (TNIH) and attachments. Platelets bldOrdered By: Dr. Menon on 08-01-2022 Platelets (Bld) [#/Vol] 282 10*3/uL 150-450 [facility] Serum or plasma calcium mini urement (mass/volume)Ordered By: Dr. Menon on 08-01-2022 Calcium [Mass/Vol] 9.2 mg/dL 8.5-10.1 [facility] Serum or plasma creatinine m easurement (mass/volume)Ordered By: Dr. Menon on 08-01-2022 Creatinine [Mass/Vol] 0.72 mg/dL 0.55-1.02 [facility] Comment on above: The validity of the calculated GFR & GFRAA in patients over 70 years has not been determined. Clinical correlation is essential. Serum or plasma urea nitroge n measurement (mass/volume)Ordered By: Dr. Menon on 08-01-2022 Urea nitrogen [Mass/Vol] 10 mg/dL 7-18 [facility] Thin prep Papanicolaou smear with manual screeningOrdered By: Dr. Menon on 08-01-2022 Thin prep Papanicolaou smear with manual screening 7 -15 [facility] XR Pelvis and Hip - left AP and Lateral frogon 02-21-2022 IMPRESSION: MILD JOINT SPACE NARROWING ON THE LEFT. Rubber Splicer: MARCOS Transcribe Date/Time: Feb 21 2022 12:28P Dictated by : CHRIS AREVALO MD This examination was interpreted and the report reviewed and electronically signed by: CHRIS AREVALO MD on Feb 21 2022 12:30PM [facility] DIVISION OF RADIOLOGY * * *Final Report* * * DATE OF EXAM: Feb 19 2022 1:44PM WOX 5351 - XR HIP 3V PELV+ AP/LAT LT / PROCEDURE REASON: Left sided sciatica * * * * Physician Interpretation * * * * Examination: XR HIP 3V PELV+ AP/LAT LT History: Left sided sciatica Technique: XR HIP 3V PELV+ AP/LAT LT Comparison: 05/29/2014 RESULT: Mild joint space narrowing. No fracture or focal bony abnormality. Normal mineralization and alignment. SI joints are unremarkable. Moderate retained fecal material. Bone island in the left ischium is unchanged DIVISION OF RADIOLOGY Provider, [facility] [place] - 02/21/2022 * * *Final Report* * * DATE OF EXAM: Feb 19 2022 1:44PM WOX [id number] - XR HIP 3V PELV+ AP/LAT LT / PROCEDURE REASON: Left sided sciatica * * * * Physician Interpretation * * * * Examination: XR HIP 3V PELV+ AP/LAT LT History: Left sided sciatica Technique: XR HIP 3V PELV+ AP/LAT LT Comparison: 05/29/2014 RESULT: Mild joint space narrowing. No fracture or focal bony abnormality. Normal mineralization and alignment. SI joints are unremarkable. Moderate retained fecal material. Bone island in the left ischium is unchanged IMPRESSION IMPRESSION: MILD JOINT SPACE NARROWING ON THE LEFT. Rubber Splicer: PSCB Transcribe Date/Time: Feb 21 2022 12:28P Dictated by : CHRIS AREVALO MD This examination was interpreted and the report reviewed and electronically signed by: CHRIS AREVALO MD on Feb 21 2022 12:30PM EST [facility] XR Pelvis and Hip - left AP and Lateral frogOrdered By: [facility] Provider on 02-21-2022 [facility] XR Pelvis and Hip - left AP and Lateral frogon 02-19-2022 Radiology Study observation (narrative) [facility] DXA-AXIAL SKELETONon 022 [facility] HEMOGLOBIN A1C (POC)on 11-12 HbA1c (Bld) [Mass fraction] 5.2 % 4.2 - 5.6 % [facility] No Panel Informationon 08-22 Troponin I High Sensitivity 6 pg/mL 3.0-54.0 [facility] Work Phone: Comment on above: Please Note: New Rhiannon t Units and Gender Specific Reference Ranges. For more information see Policy Stat Procedure [place] High Sensitivity Troponin (TNIH) and attachments. No Panel Informationon 07-19 [facility] Vital Signs Date Time Vital Sign Value Performing Clinician Faci lity 08-24-2024 14:55-0400 Body mass index (BMI) [Ratio] 28.07 kg/m2 Caron Older TECHNICAL ACCOUNT MANAGER.COMMUNICATIONS EDITOR Work Phone: [facility] 08-24-2024 14:55-0400 Body weight 68.49 kg Caron Older TECHNICAL ACCOUNT MANAGER.COMMUNICATIONS EDITOR Work Phone: [facility] 08-24-2024 14:55-0400 Diastolic blood pressure 68 mm[Hg] Caron Older TECHNICAL ACCOUNT MANAGER.COMMUNICATIONS EDITOR Work Phone: [facility] 08-24-2024 14:55-0400 Heart rate 77 /min Caron Older TECHNICAL ACCOUNT MANAGER.COMMUNICATIONS EDITOR Work Phone: [facility] 08-24-2024 14:55-0400 Respiratory rate 16 /min Caron Older TECHNICAL ACCOUNT MANAGER.COMMUNICATIONS EDITOR Work Phone: [facility] 08-24-2024 14:55-0400 SaO2% (BldA) [Mass fraction] 97 % Caron Older TECHNICAL ACCOUNT MANAGER.COMMUNICATIONS EDITOR Work Phone: [facility] 08-24-2024 14:55-0400 Systolic blood pressure 112 mm[Hg] Caron Older TECHNICAL ACCOUNT MANAGER.COMMUNICATIONS EDITOR Work Phone: [facility] 08-03-2024 12:38-0400 Body temperature 97.8 [degF] CARON OLDER GAS TORCH SOLDERER-C Work Phone: [facility] 08-03-2024 12:38-0400 Diastolic blood pressure 68 mm[Hg] CARON OLDER GAS TORCH SOLDERER-C Work Phone: [facility] 08-03-2024 12:38-0400 Heart rate 68 /min CARON OLDER G[employer] TORCH SOLDERER-C Work Phone: [facility] 08-03-2024 12:38-0400 Respiratory rate 15 /min CARON OLDER GAS TORCH SOLDERER-C Work Phone: 2(991)718-461468 [place] [address] 08-03-2024 12:38-0400 SaO2% (BldA) [Mass fraction] 98 % CARON OLDER G[employer] TORCH SOLDERER-C Work Phone: 4(666)793-895368 [place] [address] 08-03-2024 12:38-0400 Systolic blood pressure 129 mm[Hg] CARON OLDER GAS TORCH SOLDERER-C Work Phone: 3(350)900-448068 [place] [address] 08-03-2024 07:48-0400 Body height 154.94 cm CARON OLDER G[employer] TORCH SOLDERER-C Work Phone: 1(067)414-218668 [place] [address] 08-03-2024 07:48-0400 Body mass index (BMI) [Ratio] 29.2 kg/m2 CARON OLDER G[employer] TORCH SOLDERER-C Work Phone: 7(698)220-963868 [place] [address] 08-03-2024 07:48-0400 Body weight 70.1 kg CARON OLDER G[employer] TORCH SOLDERER-C Work Phone: 6(068)172-480868 [place] [address] 06-29-2024 10:31-0400 Body height 154.94 cm CARON OLDER G[employer] TORCH SOLDERER-C Work Phone: 4(693)653-859868 [place] [address] 06-29-2024 10:31-0400 Body mass index (BMI) [Ratio] 28.7 kg/m2 CARON OLDER G[employer] TORCH SOLDERER-C Work Phone: 6(959)514-217168 [place] [address] 06-29-2024 10:31-0400 Body weight 69 kg CARON OLDER G[employer] TORCH SOLDERER-C Work Phone: 5(045)838-628968 [place] [address] 06-20-2024 16:48-0400 Body temperature 97.2 [degF] CARON OLDER G[employer] TORCH SOLDERER-C Work Phone: 7(545)530-935268 [place] [address] 06-20-2024 16:48-0400 Diastolic blood pressure 65 mm[Hg] CARON OLDER G[employer] TORCH SOLDERER-C Work Phone: 2(543)404-003232 [place] [address] 06-20-2024 16:48-0400 Heart rate 95 /min CARON OLDER G[employer] TORCH SOLDERER-C Work Phone: 7(114)631-122932 [place] [address] 06-20-2024 16:48-0400 Respiratory rate 18 /min CARON OLDER G[employer] TORCH SOLDERER-C Work Phone: [facility] 06-20-2024 16:48-0400 SaO2% (BldA) [Mass fraction] 96 % CARON OLDER G[employer] TORCH SOLDERER-C Work Phone: [facility] 06-20-2024 16:48-0400 Systolic blood pressure 144 mm[Hg] CARON OLDER G[employer] TORCH SOLDERER-C Work Phone: [facility] 06-20-2024 14:25-0400 Body mass index (BMI) [Ratio] 29.1 kg/m2 CARON OLDER G[employer] TORCH SOLDERER-C Work Phone: [facility] 06-20-2024 14:25-0400 Body weight 69.9 kg CARON OLDER G[employer] TORCH SOLDERER-C Work Phone: [facility] 05-10-2024 10:12-0400 Body height 156.2 cm Giorgio Bogner PA-C Work Phone: [facility] 05-10-2024 10:12-0400 Body mass index (BMI) [Ratio] 28.15 kg/m2 Giorgio Bogner PA-C Work Phone: [facility] 05-10-2024 10:12-0400 Body weight 68.67 kg Giorgio Bogner PA-C Work Phone: [facility] 05-10-2024 10:12-0400 Diastolic blood pressure 67 mm[Hg] Giorgio Bogner PA-C Work Phone: [facility] 05-10-2024 10:12-0400 Heart rate 87 /min Giorgio Bogner PA-C Work Phone: [facility] 05-10-2024 10:12-0400 Respiratory rate 16 /min Giorgio Bogner PA-C Work Phone: [facility] 05-10-2024 10:12-0400 SaO2% (BldA) [Mass fraction] 100 % Giorgio Bogner PA-C Work Phone: [facility] 05-10-2024 10:12-0400 Systolic blood pressure 104 mm[Hg] Giorgio Prince PA-C Work Phone: [facility] 04-26-2024 15:05-0400 Body temperature 97.8 [degF] CARON OLDER G[employer] TORCH SOLDERER-C Work Phone: [facility] 04-26-2024 15:05-0400 Diastolic blood pressure 67 mm[Hg] CARON OLDER G[employer] TORCH SOLDERER-C Work Phone: [facility] 04-26-2024 15:05-0400 Heart rate 72 /min CARON OLDER G[employer] TORCH SOLDERER-C Work Phone: [facility] 04-26-2024 15:05-0400 Respiratory rate 19 /min CARON OLDER G[employer] TORCH SOLDERER-C Work Phone: [facility] 04-26-2024 15:05-0400 SaO2% (BldA) [Mass fraction] 100 % CARON OLDER G[employer] TORCH SOLDERER-C Work Phone: [facility] 04-26-2024 15:05-0400 Systolic blood pressure 111 mm[Hg] CARON OLDER G[employer] TORCH SOLDERER-C Work Phone: [facility] 04-26-2024 12:16-0400 Body mass index (BMI) [Ratio] 28.2 kg/m2 CARON OLDER G[employer] TORCH SOLDERER-C Work Phone: [facility] 04-26-2024 12:16-0400 Body weight 67.8 kg CARON OLDER G[employer] TORCH SOLDERER-C Work Phone: [facility] 04-26-2024 12:14-0400 Body height 154.94 cm CARON OLDER G[employer] TORCH SOLDERER-C Work Phone: [facility] 07-01-2023 11:19-0400 Body mass index (BMI) [Ratio] 29.37 kg/m2 Caron Older TECHNICAL ACCOUNT MANAGER.COMMUNICATIONS EDITOR Work Phone: [facility] 07-01-2023 11:19-0400 Body weight 71.67 kg Caron Older TECHNICAL ACCOUNT MANAGER.COMMUNICATIONS EDITOR Work Phone: [facility] 07-01-2023 11:19-0400 Diastolic blood pressure 76 mm[Hg] Caron Older TECHNICAL ACCOUNT MANAGER.COMMUNICATIONS EDITOR Work Phone: [facility] 07-01-2023 11:19-0400 Heart rate 70 /min Caron Older TECHNICAL ACCOUNT MANAGER.COMMUNICATIONS EDITOR Work Phone: [facility] 07-01-2023 11:19-0400 Respiratory rate 16 /min Caron Older TECHNICAL ACCOUNT MANAGER.COMMUNICATIONS EDITOR Work Phone: [facility] 07-01-2023 11:19-0400 SaO2% (BldA) [Mass fraction] 98 % Caron Older TECHNICAL ACCOUNT MANAGER.COMMUNICATIONS EDITOR Work Phone: [facility] 07-01-2023 11:19-0400 Systolic blood pressure 118 mm[Hg] Caron Older TECHNICAL ACCOUNT MANAGER.COMMUNICATIONS EDITOR Work Phone: [facility] 04-01-2023 08:33-0500 Body height 156.2 cm Marlene Denbow PA-C Work Phone: [facility] 04-01-2023 08:33-0500 Body weight 73.03 kg Marlene Denbow PA-C Work Phone: [facility] 04-01-2023 08:33-0500 Diastolic blood pressure 62 mm[Hg] Marlene Denbow PA-C Work Phone: [facility] 04-01-2023 08:33-0500 Heart rate 77 /min Marlene Denbow PA-C Work Phone: [facility] 04-01-2023 08:33-0500 Respiratory rate 12 /min Marlene Denbow PA-C Work Phone: [facility] 04-01-2023 08:33-0500 SaO2% (BldA) [Mass fraction] 100 % Marlene Denbow PA-C Work Phone: [facility] 04-01-2023 08:33-0500 Systolic blood pressure 122 mm[Hg] Marlene Denbow PA-C Work Phone: [facility] 02-19-2023 16:55-0500 Body height 154.94 cm [facility] 02-19-2023 16:55-0500 Body temperature 96.7 [degF] [facility] 02-19-2023 16:55-0500 Diastolic blood pressure 63 mm[Hg] [facility] 02-19-2023 16:55-0500 Heart rate 95 /min [facility] 02-19-2023 16:55-0500 Respiratory rate 18 /min [facility] 02-19-2023 16:55-0500 SaO2% (BldA) [Mass fraction] 98 % [facility] 02-19-2023 16:55-0500 Systolic blood pressure 143 mm[Hg] [facility] 09-11-2022 13:25-0400 Body temperature 97.3 [degF] Caron Older TECHNICAL ACCOUNT MANAGER.COMMUNICATIONS EDITOR Work Phone: [facility] 09-11-2022 13:25-0400 Body weight 76.2 kg Caron Older TECHNICAL ACCOUNT MANAGER.COMMUNICATIONS EDITOR Work Phone: [facility] 09-11-2022 13:25-0400 Diastolic blood pressure 68 mm[Hg] Caron Older TECHNICAL ACCOUNT MANAGER.COMMUNICATIONS EDITOR Work Phone: [facility] 09-11-2022 13:25-0400 Heart rate 68 /min Caron Older TECHNICAL ACCOUNT MANAGER.COMMUNICATIONS EDITOR Work Phone: [facility] 09-11-2022 13:25-0400 Respiratory rate 16 /min Caron Older TECHNICAL ACCOUNT MANAGER.COMMUNICATIONS EDITOR Work Phone: [facility] 09-11-2022 13:25-0400 SaO2% (BldA) [Mass fraction] 99 % Caron Older TECHNICAL ACCOUNT MANAGER.COMMUNICATIONS EDITOR Work Phone: [facility] 09-11-2022 13:25-0400 Systolic blood pressure 122 mm[Hg] Caron Older TECHNICAL ACCOUNT MANAGER.COMMUNICATIONS EDITOR Work Phone: [facility] 09-04-2022 13:57-0400 Respiratory rate 18 /min [facility] 09-04-2022 13:19-0400 Body height 154.94 cm [facility] 09-04-2022 13:19-0400 Body mass index (BMI) [Ratio] 31.9 kg/m2 [facility] 09-04-2022 13:19-0400 Body temperature 97.3 [degF] [facility] 09-04-2022 13:19-0400 Body weight 76.65 kg [facility] 09-04-2022 13:19-0400 Diastolic blood pressure 44 mm[Hg] [facility] 09-04-2022 13:19-0400 Heart rate 87 /min [facility] 09-04-2022 13:19-0400 SaO2% (BldA) [Mass fraction] 98 % [facility] 09-04-2022 13:19-0400 Systolic blood pressure 113 mm[Hg] [facility] 08-01-2022 18:34-0400 Diastolic blood pressure 71 mm[Hg] [facility] 08-01-2022 18:34-0400 Heart rate 81 /min [facility] 08-01-2022 18:34-0400 Respiratory rate 21 /min [facility] 08-01-2022 18:34-0400 Systolic blood pressure 124 mm[Hg] [facility] 08-01-2022 17:28-0400 SaO2% (BldA) [Mass fraction] 99 % [facility] 08-01-2022 16:45-0400 Body height 154.94 cm [facility] 08-01-2022 16:45-0400 Body mass index (BMI) [Ratio] 32.8 kg/m2 [facility] 08-01-2022 16:45-0400 Body temperature 98.1 [degF] [facility] 08-01-2022 16:45-0400 Body weight 78.92 kg [facility] 07-21-2022 12:41-0400 Body weight 76.66 kg Caron Robles TECHNICAL ACCOUNT MANAGERArpitCOMMUNICATIONS EDITOR Work Phone: [facility] 07-21-2022 12:41-0400 Diastolic blood pressure 78 mm[Hg] Caron Older TECHNICAL ACCOUNT MANAGERArpitCOMMUNICATIONS EDITOR Work Phone: [facility] 07-21-2022 12:41-0400 Heart rate 88 /min Caron Older TECHNICAL ACCOUNT MANAGER.COMMUNICATIONS EDITOR Work Phone: [facility] 07-21-2022 12:41-0400 Respiratory rate 16 /min Caron Older TECHNICAL ACCOUNT MANAGER.COMMUNICATIONS EDITOR Work Phone: [facility] 07-21-2022 12:41-0400 Systolic blood pressure 122 mm[Hg] Caron Older TECHNICAL ACCOUNT MANAGER.COMMUNICATIONS EDITOR Work Phone: [facility] 07-16-2022 20:38-0400 Respiratory rate 18 /min [facility] 07-16-2022 18:37-0400 Body height 154.94 cm [facility] 07-16-2022 18:37-0400 Body mass index (BMI) [Ratio] 32.6 kg/m2 [facility] 07-16-2022 18:37-0400 Body temperature 98.2 [degF] [facility] 07-16-2022 18:37-0400 Body weight 78.47 kg [facility] 07-16-2022 18:37-0400 Diastolic blood pressure 91 mm[Hg] [facility] 07-16-2022 18:37-0400 Heart rate 87 /min [facility] 07-16-2022 18:37-0400 SaO2% (BldA) [Mass fraction] 97 % [facility] 07-16-2022 18:37-0400 Systolic blood pressure 143 mm[Hg] [facility] 06-02-2022 12:32-0400 Body temperature 97.3 [degF] Saida Cisneros APRN.COMMUNICATIONS EDITOR Work Phone: [facility] 06-02-2022 12:32-0400 Body weight 77.84 kg Saida Cisneros APRN.COMMUNICATIONS EDITOR Work Phone: [facility] 06-02-2022 12:32-0400 Diastolic blood pressure 82 mm[Hg] Saida Cisneros TECHNICAL ACCOUNT MANAGER.COMMUNICATIONS EDITOR Work Phone: [facility] 06-02-2022 12:32-0400 Heart rate 80 /min Saida Cisneros APRN.COMMUNICATIONS EDITOR Work Phone: [facility] 06-02-2022 12:32-0400 Respiratory rate 20 /min Saida Cisneros APRN.COMMUNICATIONS EDITOR Work Phone: [facility] 06-02-2022 12:32-0400 SaO2% (BldA) [Mass fraction] 99 % Saida Cisneros APRN.COMMUNICATIONS EDITOR Work Phone: [facility] 06-02-2022 12:32-0400 Systolic blood pressure 110 mm[Hg] Saida Cisneros APRN.COMMUNICATIONS EDITOR Work Phone: [facility] 12-30-2021 10:31-0500 Body temperature 98 [degF] Dr. Hi Hammer Work Phone: [facility] Work Phone: 12-30-2021 10:31-0500 Diastolic blood pressure 61 mm[Hg] Dr. Hi Hammer Work Phone: [facility] Work Phone: 12-30-2021 10:31-0500 Heart rate 76 /min Dr. Hi Hammer Work Phone: [facility] Work Phone: 12-30-2021 10:31-0500 Respiratory rate 18 /min Dr. Hi Hammer Work Phone: [facility] Work Phone: 12-30-2021 10:31-0500 SaO2% (BldA) [Mass fraction] 100 % Dr. Hi Hammer Work Phone: [facility] Work Phone: 12-30-2021 10:31-0500 Systolic blood pressure 111 mm[Hg] Dr. Hi Hammer Work Phone: [facility] Work Phone: 12-30-2021 09:07-0500 Body height 154.[address] Hi Hammer Work Phone: [facility] Work Phone: 12-30-2021 09:07-0500 Body mass index (BMI) [Ratio] 31.2 kg/m2 Dr. Hi Hammer Work Phone: [facility] Work Phone: 12-30-2021 09:07-0500 Body weight [address] Hi Hammer Work Phone: [facility] Work Phone: 11-12-2021 10:13-0400 Body height 156.2 cm Hi Hammer MD Work Phone: [facility] 11-12-2021 10:13-0400 Body temperature 97.2 [degF] Hi Hammer MD Work Phone: [facility] 11-12-2021 10:13-0400 Body weight 75.3 kg Hi Hammer MD Work Phone: [facility] 11-12-2021 10:13-0400 Diastolic blood pressure 66 mm[Hg] Hi Hammer MD Work Phone: [facility] 11-12-2021 10:13-0400 Heart rate 84 /min Hi Hammer MD Work Phone: [facility] 11-12-2021 10:13-0400 Respiratory rate 14 /min Hi Hammer MD Work Phone: [facility] 11-12-2021 10:13-0400 SaO2% (BldA) [Mass fraction] 96 % Hi Hammer MD Work Phone: [facility] 11-12-2021 10:13-0400 Systolic blood pressure 126 mm[Hg] Hi Hammer MD Work Phone: [facility] 10-22-2021 15:57-0400 Body mass index (BMI) [Ratio] 32.1 kg/m2 Dr. Hi Hammer Work Phone: [facility] Work Phone: 10-22-2021 15:57-0400 Body weight 77.[address] Hi Hammer Work Phone: [facility] Work Phone: 08-22-2021 23:40-0400 Diastolic blood pressure 69 mm[Hg] [facility] Work Phone: 08-22-2021 23:40-0400 Heart rate 73 /min [facility] Work Phone: 08-22-2021 23:40-0400 Respiratory rate 23 /min [facility] Work Phone: 08-22-2021 23:40-0400 SaO2% (BldA) [Mass fraction] 100 % [facility] Work Phone: 08-22-2021 23:40-0400 Systolic blood pressure 131 mm[Hg] [facility] Work Phone: 08-22-2021 19:52-0400 Body height 154.94 cm [facility] Work Phone: 08-22-2021 19:52-0400 Body mass index (BMI) [Ratio] 34 kg/m2 [facility] Work Phone: 08-22-2021 19:52-0400 Body temperature 97.4 [degF] [facility] Work Phone: 08-22-2021 19:52-0400 Body weight 81.8 kg [facility] Work Phone: 07-11-2021 11:00-0400 Body weight 80.29 kg Caron Older TECHNICAL ACCOUNT MANAGER.COMMUNICATIONS EDITOR Work Phone: [facility] 07-11-2021 11:00-0400 Diastolic blood pressure 70 mm[Hg] Acron Older TECHNICAL ACCOUNT MANAGER.COMMUNICATIONS EDITOR Work Phone: [facility] 07-11-2021 11:00-0400 Heart rate 76 /min Caron Older TECHNICAL ACCOUNT MANAGER.COMMUNICATIONS EDITOR Work Phone: [facility] 07-11-2021 11:00-0400 Respiratory rate 16 /min Caron Older TECHNICAL ACCOUNT MANAGER.COMMUNICATIONS EDITOR Work Phone: [facility] 07-11-2021 11:00-0400 SaO2% (BldA) [Mass fraction] 96 % Caron Robles TECHNICAL ACCOUNT MANAGER.COMMUNICATIONS EDITOR Work Phone: [facility] 07-11-2021 11:00-0400 Systolic blood pressure 118 mm[Hg] Caron Robles TECHNICAL ACCOUNT MANAGER.COMMUNICATIONS EDITOR Work Phone: [facility] Encounters Encounter Date Encounter Type Care Provider Facility Start: 08-24-2024 End: 08-24-2024 Office outpatient visit 15 minutes Caron Robles TECHNICAL ACCOUNT MANAGER.COMMUNICATIONS EDITOR Work Phone: [facility] Comment on above: Elevated glucose (Pr imary Dx); Medial tibial stress syndrome, unspecified laterality, initial encounter; Dependent edema; Pain of left foot; Bell of foot Start: 08-23-2024 End: 08-23-2024 Telephone encounter Hi Hammer MD Work Phone: [facility] Comment on above: pt concerned with bl ood sugar readings Start: 08-03-2024 End: 08-03-2024 Emergency department patient visit CARON ROBLES GAS TORCH SOLDERER-C Work Phone: -Emergency Department Work Phone: Start: 07-13-2024 ambulatory Demi Martinez Facility :[facility] Start: 06-29-2024 End: 06-29-2024 Telephone encounter Hi Hammer MD Work Phone: [facility] Comment on above: Information Request Start: 06-29-2024 End: 06-29-2024 Patient encounter procedure Demi Martinez GAS TORCH SOLDERER-C -[facility] Work Phone: Start: 06-29-2024 End: 06-29-2024 ambulatory CARON ROBLES G[employer] TORCH SOLDERER-C Work Phone: [facility] Work Phone: Start: 06-20-2024 End: 06-20-2024 Emergency department patient visit Dr. Garrett Escalante MD -Emergency Department Work Phone: Start: 05-14-2024 End: 07-14-2024 Follow-up encounter Hi Hammer MD Work Phone: [facility] Start: 05-13-2024 End: 05-13-2024 Telephone encounter Hi Hammer MD Work Phone: [facility] Comment on above: Results Start: 05-10-2024 End: 05-10-2024 ambulatory GIORGIO PRINCE Facility:[facility] Start: 05-10-2024 End: 05-10-2024 Office outpatient visit 25 minutes Giorgio Prince PA-C Work Phone: [facility] Comment on above: Medicare annual well ness visit, subsequent (Primary Dx); Screening for depression; Encounter for screening examination for other mental health and behavioral disorders; Encounter for screening mammogram for malignant neoplasm of breast; Prediabetes; Mixed hyperlipidemia; Iron deficiency anemia, unspecified iron deficiency anemia type; Nearsightedness, bilateral; Essential (primary) hypertension; Dyslipidemia Start: 05-10-2024 End: 05-10-2024 Patient encounter procedure Giorgio Prince PA-C Work Phone: [facility] Start: 04-28-2024 End: 05-13-2024 Telephone encounter Hi Hammer MD Work Phone: [facility] Comment on above: requesting new gluco se meter Start: 04-26-2024 End: 04-26-2024 Emergency department patient visit CARON GOMEZ Work Phone: -Emergency Department Work Phone: Start: 04-12-2024 End: 04-15-2024 ambulatory Hi Hammer MD Work Phone: [facility] [place] Start: 04-01-2024 End: 04-01-2024 Telephone encounter Hi Hammer MD Work Phone: [facility] Comment on above: Patient Question Start: 03-28-2024 End: 04-01-2024 ambulatory Natasha Roger MA [facility] Start: 03-28-2024 End: 04-01-2024 Patient encounter procedure Natasha Roger MA [facility] Comment on above: Population Health Na vigation Outreach ([employer] [place] ) Start: 01-22-2024 End: 01-25-2024 ambulatory Hi Hammer MD Work Phone: [facility] Comment on above: Patient Question (Fo od concern) Refill Request Start: 11-04-2023 End: 11-09-2023 ambulatory Jo Ann Martinez RN Work Phone: [employer] Comment on above: OMER DUDLEY RN ( ED utilization review per request of payer) Start: 10-30-2023 End: 10-30-2023 Emergency department patient visit CARON ROBLES Facility:[facility] Start: 07-01-2023 End: 07-01-2023 Patient encounter procedure Caron Robles APRN.COMMUNICATIONS EDITOR Work Phone: [facility] Comment on above: Pain in left toe(s) (Primary Dx); Callus; Bell of toe; Seasonal allergies Start: 04-01-2023 End: 04-01-2023 Patient encounter procedure Marlene Arteaga PA-C Work Phone: [facility] Comment on above: Chronic right hip pa in (Primary Dx); Prediabetes; Mixed hyperlipidemia; Gastroesophageal reflux disease without esophagitis; Chest pain, unspecified type Start: 03-25-2023 ambulatory Charisse Garcia MA [facility] Comment on above: Population Health Na vigation Outreach ([facility] ) Start: 02-19-2023 End: 02-19-2023 Emergency department patient visit [facility]gency Department Work Phone: Start: 11-26-2022 ambulatory Hi Lerma Work Phone: [facility] [place] Start: 11-25-2022 ambulatory Hi Lerma Work Phone: [facility] [place] Start: 10-14-2022 ambulatory Hi Lerma Work Phone: [facility] Comment on above: Question regarding B lood Pressure Start: 09-11-2022 End: 09-11-2022 Patient encounter procedure Caron Robles APRN.COMMUNICATIONS EDITOR Work Phone: [facility] Comment on above: Osteopenia, senile ( Primary Dx); Prediabetes Start: 09-04-2022 End: 09-04-2022 [facility] Start: 08-01-2022 End: 08-01-2022 [facility] Start: 07-22-2022 Telephone encounter Hi moreno MD Work Phone: [facility] Comment on above: Patient Question Start: 07-21-2022 End: 07-21-2022 Patient encounter procedure Caron Robles KERON.COMMUNICATIONS EDITOR Work Phone: [facility] Comment on above: Medicare annual well ness visit, subsequent (Primary Dx); Prediabetes; Dependent edema; Mild intermittent asthma without complication; Osteopenia, senile; Disability, developmental; Speech problem Start: 07-16-2022 End: 07-16-2022 [facility] Start: 07-15-2022 ambulatory Natasharuss Roger [facility] Comment on above: Population Health Na vigation Outreach ([employer] care gaps) Start: 06-06-2022 Refill Hi Lerma Work Phone: [facility] [place] Comment on above: Refill Request Start: 06-02-2022 End: 06-02-2022 Patient encounter procedure Saida Cisneros KERON.COMMUNICATIONS EDITOR Work Phone: [facility] Comment on above: Rash (Primary Dx) Start: 05-09-2022 Refill Hi Lerma Work Phone: [facility] [place] Comment on above: Refill Request Start: 02-28-2022 ambulatory Natasha Roger [facility] [place] Comment on above: Population Health Na vigation Outreach ([employer] care gaps) Start: 02-28-2022 Telephone encounter Hi moreno MD Work Phone: [facility] [place] Comment on above: FYI-No Action Needed Start: 02-19-2022 End: 02-19-2022 Subsequent hospital visit by physician [facility] Work Phone: Radiology Comment on above: Left sided sciatica [M54.32] Start: 01-08-2022 Refill Hi Leram Work Phone: [facility] [place] Comment on above: Refill Request Start: 12-30-2021 Non-patient / Non-visit Dr. Mary Hammer Work Phone: [facility] Start: 12-30-2021 End: 12-30-2021 Admission to same day surgery center Dr. Hi Hammer Work Phone: [facility] Start: 12-30-2021 End: 12-30-[address] Hi Hammer Work Phone: [facility] Work Phone: Start: 12-25-2021 ambulatory Hi Lerma Work Phone: [facility] [place] Start: 12-24-2021 Refill Hi Lerma Work Phone: [facility] [place] Comment on above: Refill Request Start: 11-25-2021 End: 11-25-2021 Subsequent hospital visit by physician [facility] Work Phone: Radiology Comment on above: Osteoporosis, unspec ified osteoporosis type, unspecified pathological fracture presence [M81.0] Start: 11-25-2021 Telephone encounter Hi moreno MD Work Phone: [facility] [place] Comment on above: requesting new gluco se meter, other is discontinued Start: 11-22-2021 Refill Hi Hammer M D Work Phone: [facility] [place] Comment on above: Refill Request Start: 11-12-2021 End: 11-12-2021 Patient encounter procedure Hi Hammer MD Work Phone: [facility] [place] Comment on above: Orthostasis (Primary Dx); Prediabetes; Osteoporosis, unspecified osteoporosis type, unspecified pathological fracture presence Start: 11-06-2021 Telephone encounter Caron Robles APRN.CNP Work Phone: [facility] [place] Comment on above: Results Start: 10-22-2021 Non-patient / Non-visit Dr. Mary Hammer Work Phone: [facility] Start: 09-19-2021 ambulatory Hi Lerma Work Phone: [facility] [place] Comment on above: wasp sting Start: 09-03-2021 Telephone encounter Hi moreno MD Work Phone: [facility] [place] Comment on above: Patient Question; Re sults Start: 08-22-2021 End: 08-23-2021 Emergency department patient visit [facility] Start: 08-13-2021 ambulatory Kaitlin Rajput [facility] [place] Comment on above: Population Health Na vigation Outreach ([employer] Medicare) Start: 07-31-2021 Telephone encounter Hi moreno MD Work Phone: [facility] [place] Comment on above: Electronic Communica tion Start: 07-22-2021 Telephone encounter Caron Robles APRN.COMMUNICATIONS EDITOR Work Phone: [facility] [place] Comment on above: Results Start: 07-19-2021 End: 07-19-2021 Subsequent hospital visit by physician [facility] Work Phone: Radiology Comment on above: Diarrhea, unspecifie d type [R19.7] Start: 07-12-2021 Telephone encounter Caron Robles APRN.COMMUNICATIONS EDITOR Work Phone: [facility] [place] Comment on above: Results Start: 07-11-2021 End: 07-11-2021 Patient encounter procedure Caron Robles APRN.COMMUNICATIONS EDITOR Work Phone: [facility] [place] Comment on above: Primary hypertension (Primary Dx); Prediabetes; Insulin resistance; Diarrhea, unspecified type; Right upper quadrant abdominal tenderness with rebound tenderness Start: 07-08-2021 Telephone encounter Hi moreno MD Work Phone: [facility] [place] Comment on above: Diarrhea Start: 05-09-2021 Refill Hi Lerma Work Phone: [facility] [place] Comment on above: Refill Request Procedures Date Procedure Procedure Detail Performing Clinician Start: 08-24-2024 Hemoglobin A1c/Hemoglobin.total in Blood Caron Robles TECHNICAL ACCOUNT MANAGER.COMMUNICATIONS EDITOR Work Phone: Start: 08-03-2024 D-dimer assay, quantitative CARON OLDER GAS TORCH SOLDERER-C Work Phone: Comment on above: NORMAL D-Dimer level (<0.50) indicates no DVT or PE. Start: 08-03-2024 Estimated creatinine clearance CARON OLDER G[employer] TORCH SOLDERER-C Work Phone: Start: 08-03-2024 Plain chest X-ray CARON Grace RAYSAER GAS TORCH SOLDERER-C Work Phone: Start: 06-20-2024 Plain x-ray of pelvi s and lower extremity CARON OLDER G[employer] TORCH SOLDERER-C Work Phone: Start: 06-20-2024 X-ray of knee, four or more views CARON OLDER G[employer] TORCH SOLDERER-C Work Phone: Start: 05-10-2024 Adult depression screening assessment Giorgio Prince PA-C Work Phone: Start: 05-10-2024 Lipid 1996 panel - Serum or Plasma Hi Hammer MD Work Phone: Start: 04-26-2024 Urnls dip stick/tabl et reagent auto microscopy CARON OLDER [employer] TOR[employer] SOLDERER-C Work Phone: Start: 04-26-2024 X-ray of foot, three or more views CARON OLDER [employer] TORCH SOLDERER-C Work Phone: Start: 04-01-2023 Lipid 1996 panel - Serum or Plasma Caron Older TECHNICAL ACCOUNT MANAGER.COMMUNICATIONS EDITOR Work Phone: Start: 02-19-2023 X-ray of both feet Start: 02-19-2023 Plain x-ray of pelvi s and lower extremity Start: 02-19-2023 Radiography of ankle Start: 09-11-2022 Hemoglobin A1c/Hemoglobin.total in Blood Caron Older TECHNICAL ACCOUNT MANAGER.COMMUNICATIONS EDITOR Work Phone: Start: 08-01-2022 Plain chest X-ray Start: 07-16-2022 Diagnostic radiograp hy of finger Start: 02-19-2022 Radex hip unilateral with pelvis 2-3 views Caron Robles APRN.COMMUNICATIONS EDITOR Work Phone: Start: 12-30-2021 End: 12-30-[address] Hi Hammer Work Phone: Start: 11-25-2021 Dxa bone density yong dy 1/> sites axial skel Hi Hammer MD Work Phone: Start: 11-12-2021 Hemoglobin A1c/Hemoglobin.total in Blood Hi Hammer MD Work Phone: Start: 11-05-2021 Lipid 1996 panel - Serum or Plasma Hi Hammer MD Work Phone: Start: 07-19-2021 Us abdominal real ti me w/image limited Caron Robles APRN.COMMUNICATIONS EDITOR Work Phone: Start: 07-11-2021 Adult depression screening assessment Caron Robles APRN.COMMUNICATIONS EDITOR Work Phone: Start: 11-13-2020 Mammography Hi moreno MD Work Phone: Start: 12-13-2018 Colonoscopy Hi moreno MD Work Phone: Start: 10-22-2016 Adult depression screening assessment Hi Hammer MD Work Phone: H/O: surgery H/O unilateral oophorectomy Plan of Treatment Date Care Activity Detail Author Start: 12-31-2031 Screening for malign ant neoplasm of colon [facility] Start: 05-10-2029 Lipid panel Lipid Screening [facility] Start: 05-02-2029 Urine microalbumin profile [facility] Start: 12-13-2028 Colonoscopy COLONOSCOPY [facility] Start: 12-13-2028 COLORECTAL CANCER SCREENING COLORECTAL CANCER SCREENING [facility] Start: 04-01-2028 Lipid panel Lipid Screening [facility] Start: 08-25-2027 Diabetes Screening Diabetes Screenin g [facility] Start: 05-11-2027 Diabetes Screening Diabetes Screenin [facility] Start: 11-05-2026 Lipid 1996 panel - Serum or Plasma Lipid Screening [facility] Start: 11-05-2026 Lipid panel Lipid Screening [facility] Start: 11-05-2026 LIPID SCREEN LIPID SCREEN [facility] Start: 04-01-2026 Diabetes Screening Diabetes Screenin g [facility] Start: 10-10-2025 LIPID SCREEN LIPID SCREEN [facility] Start: 09-11-2025 DIABETES SCREEN DIABETES SCREEN [facility] Start: 09-11-2025 Diabetes Screening Diabetes Screenin g [facility] Start: 08-24-2025 Annual PCP Team Store Deli Manager alice Disease Visit Annual PCP Team Chronic Disease Visit [facility] Start: 05-10-2025 Annual PCP Team Store Deli Manager alice Disease Visit Annual PCP Team Chronic Disease Visit [facility] Start: 05-10-2025 Anxiety Screening Anxiety Screening [facility] Start: 05-10-2025 BP Controlled (<130/80) BP Controlle d (<130/80) [facility] Start: 05-10-2025 Depression Screening Depression Scre ening [facility] Start: 11-12-2024 DIABETES SCREEN DIABETES SCREEN [facility] Start: 11-08-2024 End: 11-08-2024 Patient encounter procedure 11/08/2024 11:20 AM EDT Office Visit Internal Medicine [place] [address] [place] [address] Hi Hammer MD [address] [place] [address] 6 month F/U [facility] [place] Comment on above: 6 month F/U Start: 10-17-2024 Influenza vaccination Influenza Vacc ine (#1) [facility] Start: 09-26-2024 End: 09-26-2024 Patient encounter procedure 09/26/2024 2:30 PM EDT Office Visit Podiatry [address] [place] [address] Jose Patel [address] [place] [address] Pain of left foot [M79.672]; Bell of foot [L84] Podiatry Comment on above: Pain of left foot [M 79.672]; Bell of foot [L84] Start: 08-24-2024 End: 08-24-2024 Patient encounter procedure 08/24/2024 3:00 PM EDT Office Visit [facility] [place] [address] [facility] [place] [address] Caron Robles APRN.COMMUNICATIONS EDITOR [address] [place] [address] discuss blood sugars & arthritis pains-see phone note 08/23 [facility] [place] Comment on above: discuss blood sugars & arthritis pains-see phone note 08/23 Start: 08-03-2024 [facility] Start: 08-03-2024 [facility] Start: 07-11-2024 DIABETES SCREEN DIABETES SCREEN [facility] Start: 06-30-2024 Annual PCP Team Store Deli Manager alice Disease Visit Annual PCP Team Chronic Disease Visit [facility] Start: 06-30-2024 BP Controlled (<130/80) BP Controlle d (<130/80) [facility] Start: 06-29-2024 Patient referral [facility] Work Phone: Start: 06-28-2024 Covid-19 Vaccine ( season) Covid-19 Vaccine () [facility] Start: 06-20-2024 [facility] Start: 05-30-2024 End: 05-30-2024 Patient encounter procedure 05/30/2024 12:30 PM EDT Appointment Mammogram [address] [place] [address] Encounter for screening mammogram for breast cancer [Z12.31] Mammogram Comment on above: Encounter for screen ing mammogram for breast cancer [Z12.31] Start: 05-10-2024 End: 08-09-2024 Ferritin [Mass/volume] in Serum or Plasma [facility] Comment on above: Expected: 05/10/2024 , Expires: 08/09/2024 Start: 05-10-2024 End: 08-09-2024 Iron and Iron binding capacity panel - Serum or Plasma [facility] Comment on above: Expected: 05/10/2024 , Expires: 08/09/2024 Start: 04-26-2024 [place] [facility] Start: 04-26-2024 End: 04-26-2024 Patient encounter procedure 04/26/2024 10:00 AM EDT Office Visit Internal Medicine [place] [address] [place] [address] Hi Hammer MD [address] [place] [address] medicare wellness, uacr,mammogram, influenza,bp, review due [facility] [place] Comment on above: medicare wellness, u acr,mammogram, influenza,bp, review due Start: 04-15-2024 DIABETES SCREEN DIABETES SCREEN [facility] Start: 04-12-2024 End: 07-12-2024 Hemoglobin A1c in Blood HEMOGLOBIN A1C Lab Routine Prediabetes Expected: 04/12/2024, Expires: 07/12/2024 [facility] Work Phone: Comment on above: Expected: 04/12/2024 , Expires: 07/12/2024 Start: 04-12-2024 End: 07-12-2024 Lipid 1996 panel - Serum or Plasma LIPID PANEL BASIC Lab Routine Mixed hyperlipidemia Expected: 04/12/2024, Expires: 07/12/2024 [facility] Comment on above: Expected: 04/12/2024 , Expires: 07/12/2024 Start: 04-01-2024 Annual PCP Team Store Deli Manager alice Disease Visit Annual PCP Team Chronic Disease Visit [facility] Start: 04-01-2024 BP Controlled (<130/80) BP Controlle d (<130/80) [facility] Start: 03-31-2024 End: 06-30-2024 Basic metabolic 2000 panel - Serum or Plasma BASIC METABOLIC PANEL Lab Routine Prediabetes Expected: 03/31/2024, Expires: 06/30/2024 [facility] Comment on above: Expected: 03/31/2024 , Expires: 06/30/2024 Start: 03-31-2024 End: 06-30-2024 Microalbumin/Creatinine [Mass Ratio] in Urine ALBUMIN/CREATININE RATIO, URINE Lab Routine Prediabetes Expected: 03/31/2024, Expires: 06/30/2024 [facility] Work Phone: Comment on above: Expected: 03/31/2024 , Expires: 06/30/2024 Start: 02-17-2024 Advance Directive Discussion Advance Directive Discussion [facility] Start: 01-29-2024 End: 01-29-2024 Patient encounter procedure 01/29/2024 2:20 PM EST Office Visit Internal Medicine [place] [address] [facility] [place] [address] Hi Hammer MD [address] [facility] [place] [id number] 3 mo follow up [facility] [place] Comment on above: 3 mo follow up Start: 12-13-2023 Annual PCP Team Store Deli Manager alice Disease Visit Annual PCP Team Chronic Disease Visit [facility] Start: 12-13-2023 BP Controlled (<130/80) BP Controlle d (<130/80) [facility] Start: 10-18-2023 Covid-19 Vaccine ( season) Covid-19 Vaccine () [facility] Start: 10-18-2023 Influenza vaccination Influenza Vacc ine (#1) [facility] Start: 10-08-2023 End: 10-08-2023 Patient encounter procedure 10/08/2023 10:40 AM EDT Office Visit Internal Medicine [place] [address] [facility] [place] [address] Hi Hammer MD [address] [facility] [place] [address] 3 month follow up [facility] [place] Comment on above: 3 month follow up Start: 09-12-2023 ANNUAL PCP TEAM CASINO SHIFT MANAGER ALICE DISEASE VISIT ANNUAL PCP TEAM CHRONIC DISEASE VISIT [facility] Start: 09-12-2023 BP CONTROLLED (<130/80) BP CONTROLLE D (<130/80) [facility] Start: 07-31-2023 End: 07-31-2023 Patient encounter procedure 07/31/2023 9:30 AM EDT Office Visit Podiatry [address] [place] [address] Jose Patel [address] [place] [address] Callus [L84] Podiatry Comment on above: Callus [L84] Start: 07-22-2023 ANNUAL PCP TEAM CASINO SHIFT MANAGER ALICE DISEASE VISIT ANNUAL PCP TEAM CHRONIC DISEASE VISIT [facility] Start: 07-22-2023 BP CONTROLLED (<130/80) BP CONTROLLE D (<130/80) [facility] Start: 02-19-2023 [facility] Start: 02-19-2023 ANNUAL PCP TEAM CASINO SHIFT MANAGER ALICE DISEASE VISIT ANNUAL PCP TEAM CHRONIC DISEASE VISIT [facility] Start: 02-19-2023 BP CONTROLLED (<130/80) BP CONTROLLE D (<130/80) [facility] Start: 02-16-2023 Advance Directive Discussion Advance Directive Discussion [facility] Start: 02-16-2023 Behavioral Health Screening Behavioral Health Screening [facility] Start: 02-16-2023 Depression Assessment Depression Ass essment [facility] Start: 12-30-2022 Colonoscopy COLONOSCOPY [facility] Start: 12-30-2022 COLORECTAL CANCER SCREENING COLORECTAL CANCER SCREENING [facility] Start: 11-25-2022 End: 01-25-2023 Basic metabolic 2000 panel - Serum or Plasma BASIC METABOLIC PNL Lab Routine Hypertension Expected: 11/25/2022, Expires: 01/25/2023 [facility] Work Phone: Comment on above: Expected: 11/25/2022 , Expires: 01/25/2023 Start: 11-25-2022 End: 01-25-2023 Lipid 1996 panel - Serum or Plasma LIPID PANEL BASIC Lab Routine Mixed hyperlipidemia Expected: 11/25/2022, Expires: 01/25/2023 [facility] Work Phone: Comment on above: Expected: 11/25/2022 , Expires: 01/25/2023 Start: 11-12-2022 ANNUAL PCP TEAM CASINO SHIFT MANAGER ALICE DISEASE VISIT ANNUAL PCP TEAM CHRONIC DISEASE VISIT [facility] Start: 11-12-2022 BP CONTROLLED (<130/80) BP CONTROLLE D (<130/80) [facility] Start: 10-17-2022 Covid-19 Vaccine ( season) Covid-19 Vaccine ( season) [facility] Start: 10-17-2022 Influenza vaccination INFLUENZA (#1) [facility] Start: 08-01-2022 [facility] Start: 07-16-2022 Diagnostic radiograp hy of finger Finger(s) Min 2 Views [facility] Start: 07-16-2022 XR Finger GE 2 Views [facility] Start: 07-11-2022 Adult depression screening assessment DEPRESSION SCREENING [facility] Start: 07-11-2022 ANNUAL PCP TEAM CASINO SHIFT MANAGER ALICE DISEASE VISIT ANNUAL PCP TEAM CHRONIC DISEASE VISIT [facility] Start: 07-11-2022 BP CONTROLLED (<130/80) BP CONTROLLE D (<130/80) [facility] Start: 07-11-2022 COVID-19 VACCINE (4 - Booster for Pfizer series) COVID-19 VACCINE (4 - Booster for Pfizer series) [facility] Comment on above: Postponed from 06/13 (Declined at this time) Start: 07-11-2022 PNEUMOCOCCAL: 65+ (2 - PCV) PNEUMOCOCCAL: 65+ (2 - PCV) [facility] Comment on above: Postponed from 05/02 (Declined at this time) Start: 04-15-2022 ANNUAL PCP TEAM CASINO SHIFT MANAGER ALICE DISEASE VISIT ANNUAL PCP TEAM CHRONIC DISEASE VISIT [facility] Start: 04-15-2022 BP CONTROLLED (<130/80) BP CONTROLLE D (<130/80) [facility] Start: 12-30-2021 Patient discharge [facility] Work Phone: Start: 11-13-2021 Mammography [facility] Start: 11-13-2021 Screening for malign ant neoplasm of breast Mammogram Screening [facility] Start: 10-17-2021 Influenza vaccination INFLUENZA (#1) [facility] Start: 09-08-2021 COVID-19 VACCINE (5 - Booster for Pfizer series) COVID-19 VACCINE (5 - Booster for Pfizer series) [facility] Start: 07-11-2021 End: 09-10-2021 CBC W Auto Differential panel - Blood [facility] Work Phone: Comment on above: Expected: 07/11/2021 , Expires: 09/10/2021 Start: 07-11-2021 End: 09-10-2021 Comprehensive metabolic 2000 panel - Serum or Plasma [facility] Work Phone: Comment on above: Expected: 07/11/2021 , Expires: 09/10/2021 Start: 06-13-2021 COVID-19 VACCINE (4 - Booster for Pfizer series) COVID-19 VACCINE (4 - Booster for Pfizer series) [facility] Start: 02-16-2021 ADVANCE DIRECTIVE DISCUSSION ADVANCE DIRECTIVE DISCUSSION [facility] Start: 05-02-2020 Pneumococcal Vaccine : 65+ (2 - PCV) Pneumococcal Vaccine: 65+ (2 - PCV) [facility] Start: 05-02-2020 PNEUMOCOCCAL: 65+ (2 - PCV) PNEUMOCOCCAL: 65+ (2 - PCV) [facility] Start: 11-23-2018 BP CONTROLLED (<130/80) BP CONTROLLE D (<130/80) [facility] Start: 10-22-2017 Adult depression screening assessment DEPRESSION SCREENING [facility] Start: 1999 COLOGUARD (FIT-DNA) COLOGUARD (FIT-D NA) [facility] Start: [address] COLONOGRAPHY [facility] Start: 1999 FECAL OCCULT BLOOD FECAL OCCULT BLOO D [facility] Start: 1999 Screening for malign ant neoplasm of colon [facility] Start: [address] [facility] Start: 1972 Anxiety Screening Anxiety Screening [facility] Start: 1972 Depression Screening Depression Scre ening [facility] Colonoscopy [facility] Work Phone: End: 12-03-2024 DBT Breast - bilateral screening KAYODE SCREENING W ДМИТРИЙ Radiology Routine Encounter for screening mammogram for breast cancer 1 Occurrences starting 11/04/2023 until 12/03/2024 [facility] Work Phone: Comment on above: 1 Occurrences starti ng 11/04/2023 until 12/03/2024 End: 12-12-2022 Dxa bone density study 1/> sites axial skel DXA-AXIAL SKELETON Radiology Routine Osteoporosis, unspecified osteoporosis type, unspecified pathological fracture presence 1 Occurrences starting 11/12/2021 until 12/12/2022 [facility] Work Phone: Comment on above: 1 Occurrences starti ng 11/12/2021 until 12/12/2022 ECG COMPLETE ECG COMPLETE ECG Routine Chest pain, unspecified type Ordered: 04/01/2023 [facility] Work Phone: Comment on above: Ordered: 04/01/2023 End: 01-24-2023 KAYODE SCREENING W ДМИТРИЙ KAYODE SCREENING W ДМИТРИЙ Radiology Routine Encounter for screening mammogram for breast cancer 1 Occurrences starting 12/25/2021 until 01/24/2023 [facility] Work Phone: Comment on above: 1 Occurrences starti ng 12/25/2021 until 01/24/2023 End: 12-26-2023 KAYODE SCREENING W ДМИТРИЙ KAYODE SCREENING W ДМИТРИЙ Radiology Routine Encounter for screening mammogram for breast cancer 1 Occurrences starting 11/26/2022 until 12/26/2023 [facility] Work Phone: Comment on above: 1 Occurrences starti ng 11/26/2022 until 12/26/2023 End: 06-09-2025 MG Breast Screening KAYODE SCREENING Radiology Routine Encounter for screening mammogram for malignant neoplasm of breast 1 Occurrences starting 05/10/2024 until 06/09/2025 [facility] Work Phone: Comment on above: 1 Occurrences starti ng 05/10/2024 until 06/09/2025 Patient Education [facility] Work Phone: Patient referral [facility] Work Phone: Troponin T.cardiac [Mass/volume] in Serum or Plasma by High sensitivity method [facility] End: 08-10-2022 Us abdominal real time w/image limited US ABD RT UPPER QUADRANT Radiology Routine Diarrhea, unspecified type Right upper quadrant abdominal tenderness with rebound tenderness 1 Occurrences starting 07/11/2021 until 08/10/2022 [facility] Work Phone: Comment on above: 1 Occurrences starti ng 07/11/2021 until 08/10/2022 [facility] Immunizations Immunization Date Immunization Notes Care Provider Pierre torres 06-07-2024 measles, mumps and rubella virus vaccine Hi Hammer MD Work Phone: [facility] 10-09-2023 influenza virus vacc ine, unspecified formulation Hi Hammer MD Work Phone: [facility] 10-16-2022 influenza (aIIV4) vaccine, age 65+ yr, quadrivalent, PF (FLUAD QUAD) Hi Hammer MD Work Phone: [facility] 10-16-2022 respiratory syncytia l virus (RSV) vaccine, bivalent (ABRYSVO) Hi Hammer MD Work Phone: [facility] 10-16-2022 influenza virus vacc ine, unspecified formulation Jo Ann Martinez RN Work Phone: [facility] 01-20-2022 COVID-19 booster vaccine, age 12+ yr, bivalent (MODERNA) [facility] Work Phone: 01-20-2022 influenza, high-dose , quadrivalent vaccine (FLUZONE HIGH DOSE QUADRIVALENT) [facility] Work Phone: 05-03-2020 COVID-19 vaccine, ag e 12+ yr (PFIZER-[place]Scan[place] - PURPLE TOP) Hi Hammer MD Work Phone: [facility] Work Phone: 02-05-2020 zoster vaccine recombinant Hi Hammer MD Work Phone: [facility] 09-07-2019 zoster vaccine recombinant Hi Hammer MD Work Phone: [facility] 05-03-2019 pneumococcal polysaccharide vaccine, 23 valent Hi Hammer MD Work Phone: [facility] Work Phone: 11-22-2016 influenza, injectabl e, quadrivalent, contains preservative Hi Hammer MD Work Phone: [facility] 11-03-2016 Influenza virus vaccine [facility] 10-26-2015 influenza, injectabl e, quadrivalent, contains preservative Hi Hammer MD Work Phone: [facility] Work Phone: 10-19-2015 influenza, seasonal, injectable Hi Hammer MD Work Phone: [facility] Work Phone: 11-30-2014 influenza virus vacc ine, unspecified formulation Hi Hammer MD Work Phone: [facility] Work Phone: 04-26-2014 tetanus toxoid, redu brenda diphtheria toxoid, and acellular pertussis vaccine, adsorbed Hi Hammer MD Work Phone: [facility] 11-23-2013 influenza, seasonal, injectable Hi Hammer MD Work Phone: [facility] 11-08-2011 influenza virus vacc ine, unspecified formulation Hi Hammer MD Work Phone: [facility] 09-16-2011 tetanus and diphther ia toxoids, adsorbed, preservative free, for adult use (2 Lf of tetanus toxoid and 2 Lf of diphtheria toxoid) Hi Hammer MD Work Phone: [facility] Payers Date Payer Category Payer Medicare (Managed Care) [facility] MEDIC[facility] [id number] 2024 Unknown [id number] 2023 Medicaid [id number] 2023 Private Health Insurance [id number] 2023 Self-pay [id number] 2020 Medicare HUMANA MEDICARE HUMANA GOLD PLUS [id number] 2020-Present [phone] [address] [address] [place] [address] O [id number] 2020 Medicare HUMANA MEDICARE HUMANA GOLD PLUS [id number] 2020-Present [phone] [address] [address] [place] [address] O [id number] 2020 Medicaid [employer] [facility] [employer] MEDICAID [id number] 2020-Present [phone] [address] [place] [address] Medicaid [id number] 2020 Medicaid [id number] 2020 Unknown [id number] Medicare [id number] Medicare [id number] Unknown [id number] Unknown [id number] Unknown [id number] Unknown [id number] Unknown [id number] Unknown [id number] Unknown [id number] Social History Date Type Detail Facility Start: 08-23-2011 End: 11-08-2011 Tobacco smoking status NHIS Never smoked tobacco [facility] Work Phone: Start: 08-23-2011 End: 11-08-2011 Tobacco use and exposure Smokeless tobacco non-user [facility] Work Phone: Start: 04-15-2021 End: 05-10-2024 Alcohol intake Current non-drinker of alcohol (finding) [facility] Start: 1955 Sex Assigned At Not on file [facility] Start: 04-23-2021 End: 11-19-2021 Exposure to SARS-CoV-2 (event) Not sure [facility] Start: 08-22-2021 End: 02-19-2023 Tobacco smoking status NHIS Unknown if ever smoked [facility] Start: 08-26-2019 None [facility] Start: 08-26-2019 Alone [facility] Start: 1955 Sex Assigned At Female W [facility] Start: 07-12-2022 End: 07-21-2022 History of Social function [facility] Work Phone: Start: 07-12-2022 End: 07-21-2022 Tobacco use panel [facility] Work Phone: Adult Depression Screening Assessment 0 [facility] Work Phone: Start: 04-26-2024 Sex Female (finding) [facility] Medical Equipment Procedure Code Equipment Code Equipment Origin al Text Equipment Identifier Dates [id number], [id number], [id number], [id number], [id number], [id number] Start: 03-28-2020 End: 07-21-2022 Comment on above: TEST BLOOD SUGAR RUBÉN Test blood sugar(s) 1 daily. Dx: insulin resistance . Insulin: No Test blood sugar(s) 1 times daily. Dx: Type 2 DM - Controlled E11.9 Insulin: No. Uses a one touch meter Test blood sugar(s) 1 times daily. Dx: Type 2 DM - Controlled E11.9 Insulin: No Test blood sugar(s) 1 times daily. Dx: Other DM Code R73.03 Insulin: No MESH,ECHO 15CM [place] FDA Start: 06-08-2017 DAVIANSECURE STRAP FDA Start: 06-08-2017 Blood Sugar Diagnostic (Onetouch Verio Strips) strip Start: 04-29-2017 End: 04-29-2017 Blood Sugar Diagnostic (Onetouch Verio Strips) strip Start: 04-30-2017 End: 04-30-2017 Blood Sugar Diagnostic (Onetouch Verio Strips) strip Start: 04-29-2017 End: 04-30-2017 Blood Sugar Diagnostic (Onetouch Verio Test Strips) strip Start: 04-29-2017 End: 04-29-2017 Blood Sugar Diagnostic (Onetouch Verio) strip Start: 12-24-2017 End: 12-24-2017 MESH,ECHO 15CM [place] FDA Start: 06-08-2017 DAVIANSECURE STRAP FDA Start: 06-08-2017 Blood Sugar Diagnostic (Onetouch Verio Strips) strip Start: 04-29-2017 End: 04-29-2017 Blood Sugar Diagnostic (Onetouch Verio Strips) strip Start: 04-30-2017 End: 04-30-2017 Blood Sugar Diagnostic (Onetouch Verio Strips) strip Start: 04-29-2017 End: 04-30-2017 Blood Sugar Diagnostic (Onetouch Verio Test Strips) strip Start: 04-29-2017 End: 04-29-2017 Blood Sugar Diagnostic (Onetouch Verio) strip Start: 12-24-2017 End: 12-24-2017 MESH,ECHO 15CM [place] FDA Start: 06-08-2017 DAVIANSECURE STRAP FDA Start: 06-08-2017 Blood Sugar Diagnostic (Onetouch Verio Strips) strip Start: 04-29-2017 End: 04-29-2017 Blood Sugar Diagnostic (Onetouch Verio Strips) strip Start: 04-30-2017 End: 04-30-2017 Blood Sugar Diagnostic (Onetouch Verio Strips) strip Start: 04-29-2017 End: 04-30-2017 Blood Sugar Diagnostic (Onetouch Verio Test Strips) strip Start: 04-29-2017 End: 04-29-2017 Blood Sugar Diagnostic (Onetouch Verio) strip Start: 12-24-2017 End: 12-24-2017 MESH,ECHO 15CM [place] FDA Start: 06-08-2017 TACKER,SECURE STRAP FDA Start: 06-08-2017 Blood Sugar Diagnostic (Onetouch Verio Strips) strip Start: 04-29-2017 End: 04-29-2017 Blood Sugar Diagnostic (Onetouch Verio Strips) strip Start: 04-30-2017 End: 04-30-2017 Blood Sugar Diagnostic (Onetouch Verio Strips) strip Start: 04-29-2017 End: 04-30-2017 Blood Sugar Diagnostic (Onetouch Verio Test Strips) strip Start: 04-29-2017 End: 04-29-2017 Blood Sugar Diagnostic (Onetouch Verio) strip Start: 12-24-2017 End: 12-24-2017 MESH,ECHO 15CM [place] FDA Start: 06-08-2017 TACKER,SECURE STRAP FDA Start: 06-08-2017 Blood Sugar Diagnostic (Onetouch Verio Strips) strip Start: 04-29-2017 End: 04-29-2017 Blood Sugar Diagnostic (Onetouch Verio Strips) strip Start: 04-30-2017 End: 04-30-2017 Blood Sugar Diagnostic (Onetouch Verio Strips) strip Start: 04-29-2017 End: 04-30-2017 Blood Sugar Diagnostic (Onetouch Verio Test Strips) strip Start: 04-29-2017 End: 04-29-2017 Blood Sugar Diagnostic (Onetouch Verio) strip Start: 12-24-2017 End: 12-24-2017 MESH,ECHO 15CM [place] FDA Start: 06-08-2017 TACKER,SECURE STRAP FDA Start: 06-08-2017 Blood Sugar Diagnostic (Onetouch Verio Strips) strip Start: 04-29-2017 End: 04-29-2017 Blood Sugar Diagnostic (Onetouch Verio Strips) strip Start: 04-30-2017 End: 04-30-2017 Blood Sugar Diagnostic (Onetouch Verio Strips) strip Start: 04-29-2017 End: 04-30-2017 Blood Sugar Diagnostic (Onetouch Verio Test Strips) strip Start: 04-29-2017 End: 04-29-2017 Blood Sugar Diagnostic (Onetouch Verio) strip Start: 12-24-2017 End: 12-24-2017 MESH,ECHO 15CM [place] FDA Start: 06-08-2017 DAVIANSECURE STRAP FDA Start: 06-08-2017 Blood Sugar Diagnostic (Onetouch Verio Strips) strip Start: 04-29-2017 End: 04-29-2017 Blood Sugar Diagnostic (Onetouch Verio Strips) strip Start: 04-30-2017 End: 04-30-2017 Blood Sugar Diagnostic (Onetouch Verio Strips) strip Start: 04-29-2017 End: 04-30-2017 Blood Sugar Diagnostic (Onetouch Verio Test Strips) strip Start: 04-29-2017 End: 04-29-2017 Blood Sugar Diagnostic (Onetouch Verio) strip Start: 12-24-2017 End: 12-24-2017 MESH,ECHO 15CM [place] FDA Start: 06-08-2017 ADRIANA MARCELO STRACarlos Manuel FDA Start: 06-08-2017 Blood Sugar Diagnostic (Onetouch Verio Strips) strip Start: 04-29-2017 End: 04-29-2017 Blood Sugar Diagnostic (Onetouch Verio Strips) strip Start: 04-30-2017 End: 04-30-2017 Blood Sugar Diagnostic (Onetouch Verio Strips) strip Start: 04-29-2017 End: 04-30-2017 Blood Sugar Diagnostic (Onetouch Verio Test Strips) strip Start: 04-29-2017 End: 04-29-2017 Blood Sugar Diagnostic (Onetouch Verio) strip Start: 12-24-2017 End: 12-24-2017 MESH,ECHO 15CM [place] FDA Start: 06-08-2017 DAVIANSECURE STRAP FDA Start: 06-08-2017 Blood Sugar Diagnostic (Onetouch Verio Strips) strip Start: 04-29-2017 End: 04-29-2017 Blood Sugar Diagnostic (Onetouch Verio Strips) strip Start: 04-30-2017 End: 04-30-2017 Blood Sugar Diagnostic (Onetouch Verio Strips) strip Start: 04-29-2017 End: 04-30-2017 Blood Sugar Diagnostic (Onetouch Verio Test Strips) strip Start: 04-29-2017 End: 04-29-2017 Blood Sugar Diagnostic (Onetouch Verio) strip Start: 12-24-2017 End: 12-24-2017 Goals Date Patient Goal Desired Activity /State Functional Status Date Assessment Result Facility 09-20-2014 Are you deaf, or do you have serious difficulty hearing No 09/20/2014 11:32 AM Vida Bullock LPN No [facility] 09-20-2014 Are you blind, or do you have serious difficulty seeing, even when wearing glasses No 09/20/2014 11:32 AM Vida Bullock LPN [facility] 09-20-2014 Do you have serious difficulty walking or climbing stairs No 09/20/2014 11:32 AM Vida Bullock LPN [facility] 09-20-2014 Do you have difficul ty dressing or bathing No 09/20/2014 11:32 AM Vida Bullock LPN No [facility] 09-20-2014 Because of a physica l, mental, or emotional condition, do you have difficulty doing errands alone such as visiting a physician's office or shopping No 09/20/2014 11:32 AM Vida Bullock LPN No [facility] Mental Status Date Assessment Result Facility 08-03-2024 Cognitive function Voice/Name [facility] Work Phone: 08-01-2022 Cognitive function Voice/Name [facility] Work Phone: 12-30-2021 Cognitive function Voice[facility]Name[facility]: 08-22-2021 Cognitive function Voice/Name [facility] Work Phone: 09-20-2014 Because of a physica l, mental, or emotional condition, do you have serious difficulty concentrating, remembering, or making decisions No 09/20/2014 11:32 AM Vdia Bullock LPN No [facility] Clinical Notes 12-30-2011 to 08-24-2024 Caron Robles APRN.COMMUNICATIONS EDITOR - 08/24/2024 3:26 PM EDTPatient InstructionsTelephone Encounter - Lupe Cerna RN - 08/23/2024 12:00 PM EDTTelephone Encounter - Lupe Cerna RN - 08/23/2024 12:00 PM EDT Note Date & Type Note Facility 08-24-2024 History of Presen t illness Narrative CC: Patient presents with: Recheck: Follow up, elevated blood sugars HPI Sally Morrison is a 69 year old female who presents today for elevated blood glucose concerns and shelley pain. Patient presents today with concerns of high blood glucose levels at home. Patient does not have a history of prediabetes, states checking blood glucose levels daily, infrequently at home. States has had high blood glucose levels ranging from 150-170's, and one reading on 04/30/2024 of 300. After review of the glucometer, all high readings were found to be after meals. HbgA1c on 05/10/2024 was 5.4 Patient states she tries to eat a low carb diet but is not always consistent, denies alcohol use. Denies increased hunger, thirst, or worsening urination. Denies N/V/D. Denies new medications or supplement usage. Pt endorses fuzzy vision intermittently, occurs when reading or watching television, but states has had this for quite sometime, unknown when saw ophthalmology last. Patient endorses bilateral shelley pain for the past month. Denies redness, injury, or fever. Mild swelling reported. Patient states has increased her walking, states walks to and from the store daily. Patient states the pain is worse when walking. Denies any injury. Denies watching salt in her diet. After examination and state of shoes was noted, found that she wears her old shoes because they are the only shoes that don't cause pain to her lateral left side of her foot due to the large corn she has had there for a long time. REVIEW OF SYSTEMS General: no fevers, no chills, no night sweats, no recurrent infections, no change in appetite, no change in energy, and no significant changes in weight Respiratory: no cough, no wheezing, no shortness of breath, no hemoptysis Cardiovascular: no chest pain, no chest pressure, no palpitations GI: No nausea, vomiting, or diarrhea : No history of dysuria, frequency or incontinence Musculoskeletal: reports pain to bilateral shins and swelling to bilateral ankles for 1 month Endocrine: no fatigue, no weight gain, no weight loss, no hair loss, no dry skin, no cold intolerance, no heat intolerance, no neck pain/pressure, no polyuria, no polyphagia, and no polydipsia PAST MEDICAL HISTORY Diagnosis Date Asthma Esophagitis, unspecified External hemorrhoids without mention of complication 01/12/2012 Family history of malignant neoplasm of gastrointestinal tract 01/12/2012 Fibromyalgia GERD (gastroesophageal reflux disease) Hypertension Hypokalemia 10/25/2012 Internal hemorrhoids without mention of complication 01/12/2012 Mixed hyperlipidemia controlled Overactive bladder 09/07/2012 Pain in joint, lower leg 06/12/2014 Ventral hernia 2017 PAST SURGICAL HISTORY Procedure Laterality Date CHOLECYSTECTOMY Cholecystectomy in her 30's COLONOSCOPY FLX DX W/COLLJ SPEC WHEN PFRMD 01/12/2012 Colonoscopy COLONOSCOPY FLX DX W/COLLJ SPEC WHEN PFRMD 10/15/15 Colonoscopy repeat 5 years/f.hx COLONOSCOPY FLX DX W/COLLJ SPEC WHEN PFRMD 12/13/[address] BRAIN W/O 01/01/15 only soft tissue swelling right periorbital region 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 ESOPHAGOGASTRODUODENOSCOPY TRANSORAL DIAGNOSTIC 01/12/2012 EGD ESOPHAGOGASTRODUODENOSCOPY TRANSORAL DIAGNOSTIC 04/27/14 EGD ESOPHAGOGASTRODUODENOSCOPY TRANSORAL DIAGNOSTIC 12/13/2018 EGD FOOT SURGERY HX Right 2003 [employer]/VENT HERNIA REPAIR 05/2017 VAGINAL HYSTERECTOMY UTERUS 250 GM/< left ovary and cervix still intact XR TIBIA FIBULA AP/LAT RT 01/01/15 no fracture ALLERGIES Codeine, Latex, Penicillins, and Ultram [Tramadol Hcl] MEDICATIONS albuterol HFA (PROVENTIL HFA, VENTOLIN HFA) 90 mcg/actuation inhaler Inhale 2 puffs as instructed every 4 hours as needed (for cough, wheezing, chest tightness or shortness of breath. Use with spacer. ). loratadine (CLARITIN) 10 mg tablet Take 1 tablet by mouth once daily. ferrous sulfate 325 mg (65 mg iron) tablet Take 1 tablet by mouth two times a day with meals. simvastatin (ZOCOR) 20 mg tablet Take 1 tablet by mouth daily at bedtime. pantoprazole DR (PROTONIX) 40 mg tablet Take 1 tablet by mouth once daily. Take on empty stomach, 1/2 hr before meal. blood sugar diagnostic (BLOOD GLUCOSE TEST) test strip Test blood sugar(s) 1 times daily. Dx: Type 2 DM - Controlled E11.9 Insulin: No. Uses a one touch meter Lancets lancets Test blood sugar(s) 1 times daily. Dx: Type 2 DM - Controlled E11.9 Insulin: No Blood-Glucose Meter (ACCU-CHEK GUIDE GLUCOSE METER) 1 m once daily. testing once daily DX R73.03 Insulin No COMPOUNDED PRESCRIPTION Powerstep full length original (M76.821) Posterior tibial tendonitis, right (primary encounter diagnosis) (M89.8X9) Exostosis (Patient taking differently: Powerstep full length original (M76.821) Posterior tibial tendonitis, right (primary encounter diagnosis) (M89.8X9) Exostosis) Magnesium 250 mg tab Take 1 tablet by mouth once daily. (Patient not taking: Reported on 05/10/2024) sodium chloride 0.65 % nasal spray Use 1 [place] in the nose as needed for Cold/Allergy Symptoms. FAMILY HISTORY Problem Relation Age of Onset Heart Mother Heart Father Stroke Father Colon Cancer Father before age 40 Cancer Brother Social History Tobacco Use Smoking status: Never Smokeless tobacco: Never Substance Use Topics Alcohol use: No Drug use: No PHYSICAL EXAM BP 112/68 Pulse 77 Resp 16 Wt 68.5 kg (151 lb) SpO2 97% BMI 28.07 kg/m General Appearance: well appearing, in no acute distress, alert Lungs: Lungs clear to auscultation. No wheezing, rhonchi, rales. Heart: RRR without murmur, gallop, or rubs. No ectopy Extremities: No deformities, skin discoloration, clubbing or cyanosis. Pulses: 2+, Non-pitting edema: bilateral ankle extending up shelley, Positive findings: tenderness to bilateral shins with palpation and surrounding tissue without deformity or discoloration. No calf tenderness, redness or edema., corn to left pinky toe with redness to surrounding tissue Health maintenance reviewed with patient: Mammogram Screening due on 11/13/2021 Advance Directive Discussion due on 02/17/2024 Covid-19 Vaccine( season) due on 06/28/2024 Influenza Vaccine(1) due on 10/17/2024 Annual PCP Team Chronic Disease Visit due on 05/10/2025 Depression Screening due on 05/10/2025 Anxiety Screening due on 05/10/2025 Diabetes Screening due on 08/25/2027 DTaP,Tdap,Td Vaccine(4 - Td or Tdap) due on 05/02/2029 Lipid Screening due on 05/10/2029 Colorectal Cancer Screening due on 12/31/2031 Bone Density Screening Completed RSV Vaccine Completed Medicare Advantage Annual Wellness Visit Completed Shingrix Vaccine Completed Pneumococcal Vaccine: 50+ Completed Hepatitis C Screening Discontinued DATA REVIEWED: Most recent labs ASSESSMENT/PLAN: 1. Elevated glucose - ICD9: 790.29, ICD10: R73.09 (primary diagnosis) HgbA1c of 5.7 5 years ago. All others have been in normal range. Patient checks blood sugar at inconsistent times and sometimes immediately after eating. - patient educated she is not diabetic and does not need to check her blood sugar that often. If she feels she needs to monitor her blood sugar, she can check it first thing in the morning fasting or 2 hours after eating or drinking something. - HEMOGLOBIN A1C (POC) 2. Medial tibial stress syndrome, unspecified laterality, initial encounter - ICD9: 844.9, ICD10: S86.899A With the recent increase in walking and shoes noted to be old with very thin soles with holes and little to no support. Probable shelley splints. No indication for imaging at this time - will get her into podiatry for corn so she can wear appropriate footwear - exercises and stretches given along with care for shelley splints. - follow up if no improvement or for worsening symptoms. 3. Dependent edema - ICD9: 782.3, ICD10: R60.9 Low salt diet Elevate legs throughout the day as able - utilize compression socks. - follow up if no improvement or for worsening symptoms. 4. Pain of left foot - ICD9: 729.5, ICD10: M79.672 - corn and pain is causing her to wear old shoes resulting in shelley splints. - CONSULT TO PODIATRY 5. Bell of foot - ICD9: 700, ICD10: L84 As above - CONSULT TO PODIATRY Prescription instructions reviewed with patient as applicable. Potential red flag symptoms discussed with the patient. Reviewed appropriate action plan to take if red flag symptoms occur. Patient agreeable to treatment plan. Caron Robles APRN.CNP documented in this encounter [facility] 08-24-2024 Instructions Caron Robles APRN.CNP - 08/24/2024 3:19 PM EDT Low sodium low fat diet High fiber with portion control of carbohydrates. Compression socks and elevate feet as able throughout the day documented in this encounter [facility] 08-23-2024 Telephone encounter Note Pt calling in and difficult to understand. Pt talking fast and seems to have some sort of speech impediment or slurred speech. (per problem list, pt has a speech problem, learning difficulty & developmental disability). Asked pt several times to slow down so that nurse can understand her better. Pt states she talks fast when she is excited. She states that her speech today is normal for her. Pt knows name, , address & SS #. She is calling in because she states her blood sugars have been reading high. Yesterday 143 and today 132. States had one recently that was 300. Pt is pre-diabetic and not on any diabetic medications. Last HgbA1c was 5.4 on 05/10/24. Asked pt about her diet and she states she likes sweets and when asked if she has been eating a lot of sugar and carbohydrates, pt responded yes-she likes cookies. Pt states she is keeping track of her blood sugars. Also states her glucose meter is color coded and she has had a lot of readings in the yellow and the red. Pt denies any headache. When asked about visual disturbances, pt states that her eyesight is blurry. When asked pt if it has been that way for hours, days, months or years, at first pt's response was I'm not sure. Again with speech difficulty, asked pt again how she is feeling today and if she feels any different or unusual. Pt denies. She states her eyesight has been that way. Asked if she has been to the eye doctor lately. Pt states she no. Per last appt with Giorgio Prince on 05/10/24, it is documented that pt was having difficulty seeing. Asked pt about any numbness or tingling and she answered in her knees. Asked more about that and she states not numb but painful from her arthritis. Pt states she is moving her arms and legs without issues. Pt booked for an appt with Caron Lynn tomorrow at 3 pm. Pt instructed to bring her glucose readings with her. Pt asked if she could bring her meter-pt told yes if she would like to. [facility] 08-23-2024 Miscellaneous Notes Pt calling in and difficult to understand. Pt talking fast and seems to have some sort of speech impediment or slurred speech. (per problem list, pt has a speech problem, learning difficulty & developmental disability). Asked pt several times to slow down so that nurse can understand her better. Pt states she talks fast when she is excited. She states that her speech today is normal for her. Pt knows name, , address & SS #. She is calling in because she states her blood sugars have been reading high. Yesterday 143 and today 132. States had one recently that was 300. Pt is pre-diabetic and not on any diabetic medications. Last HgbA1c was 5.4 on 05/10/24. Asked pt about her diet and she states she likes sweets and when asked if she has been eating a lot of sugar and carbohydrates, pt responded yes-she likes cookies. Pt states she is keeping track of her blood sugars. Also states her glucose meter is color coded and she has had a lot of readings in the yellow and the red. Pt denies any headache. When asked about visual disturbances, pt states that her eyesight is blurry. When asked pt if it has been that way for hours, days, months or years, at first pt's response was I'm not sure. Again with speech difficulty, asked pt again how she is feeling today and if she feels any different or unusual. Pt denies. She states her eyesight has been that way. Asked if she has been to the eye doctor lately. Pt states she no. Per last appt with Giorgio Prince on 05/10/24, it is documented that pt was having difficulty seeing. Asked pt about any numbness or tingling and she answered in her knees. Asked more about that and she states not numb but painful from her arthritis. Pt states she is moving her arms and legs without issues. Pt booked for an appt with Caron Robles tomorrow at 3 pm. Pt instructed to bring her glucose readings with her. Pt asked if she could bring her meter-pt told yes if she would like to. documented in this encounter [facility] 08-03-2024 Radiology Diagnostic study note [facility] [address] [place] [address] Chest 1 View (Portable) MR#: [id number] Acct: [id number] Name: SALLY MORRISON Rep #: [id number] : 1955 F 69 From: Pet er Peer PCP: JASON ESPINOZA Status: REG ER Study:Chest 1 View (Portable) Date of Exam: 08/03/24 Exam# [id number] Ordering Dr: Greta Ring DO PROCEDURE: CHEST 1 VIEW (PORTABLE) 08/03/2024 REASON FOR EXAM: CHEST PAIN TECHNIQUE: Frontal view of the chest. COMPARISON: August 01, 2022 FINDINGS: Hardware: EKG lead wires Heart: Mildly enlarged, but stable Lungs: Clear no pleural effusions. Bones: No aggressive bony lesions. Other: RAD/Chest 1 View (Portable) IMPRESSION: No acute process. Reading Location: [facility]- CC: GAS TORCH SOLDERER-C CARON ROBLES; Dr. Wilder Ring DO ~ Rubber Splicer: Signed [facility] 06-29-2024 Evaluation note Diagnosis Onset Date Resolution Bell of foot acute June 29 10:29am Foot callus acute June 29 10:29am Localized osteoarthritis of left knee acute June 29, 2024 10:29am Low back pain acute June 29, 2 025 10:29am Osteoporosis acute June 29 10:29am Overgrown toenails acute June 292024 10:29am Primary localized osteoarthritis of left hip acute June 29, 2024 10:29am [facility] Work Phone: 1(166) 651-971205-14-2025 Telephone encounter Note* Telephone Encounter - Lina Gutierres RN - 06/29/2024 11:04 AM EDT Estrella with [facility] calling with request for pt's recent A1C level to be faxed to them for upcoming visit. Faxed as requested to [phone]. Lina Gutierres RN [facility]05-14-2025 Miscellaneous Notes* Telephone Encounter - Lina Gutierres RN - 06/29/2024 11:04 AM EDT Estrella with [facility] calling with request for pt's recent A1C level to be faxed to them for upcoming visit. Faxed as requested to [phone]. Lina Gutierres RN documented in this encounterMari[facility]03-[facility]25 Telephone encounter Note * Telephone Encounter - Alyssa Shi RN - 05/13/2024 10:20 AM EDT Patient notified of results and provider's instructions. Patient verbalizes understanding. Alyssa Shi RN [facility]03-28-2025 Miscellaneous Notes* Telephone Encounter - Alyssa Shi RN - 05/13/2024 10:20 AM EDT Patient notified of results and provider's instructions. Patient verbalizes understanding. Alyssa Shi RN * Telephone Encounter - Mona Rosas MA - 05/13/2024 10:18 AM EDT Left message to return call Mona Rosas MA * Telephone Encounter - Molly Rosenbaum APRN.CNP - 05/13/2024 9:09 AM EDT Overall her labs look good, no concerns. Molly Rosenbaum APRN.CNP * Telephone Encounter - Brenna Garcia RN - 05/13/2024 8:59 AM EDT Pt asking provider to review and advise on labs completed 05/10/24. documented in this encounterMari[facility]03-28-2025 Telephone encounter Note * Telephone Encounter - Mona Rosas MA - 05/13/2024 10:18 AM EDT Left message to return call Mona Rosas MA [facility]03-28-2025 Telephone encounter Note* Telephone Encounter - Molly Rosenbaum APRN.CNP - 05/13/2024 9:09 AM EDT Overall her labs look good, no concerns. Molly Rosenbaum APRN.CNP [facility] Work Phone: 1(941) 747-623003-28-2025 Telephone encounter Note* Telephone Encounter - Brenna Garcia RN - 05/13/2024 8:59 AM EDT Pt asking provider to review and advise on labs completed 05/10/24. [facility]03-25-2025 History of Present illness Narrative* Giorgio Prince PA-C - 05/10/2024 10:21 AM EDT Images from the original note were not included. The patient consented to the use of [employer] software for draft documentation of the visit consistent with [facility] s Notice of Privacy Practices. Sally Morrison is a 69 year old female here for a Medicare wellness visit. Medicare Health Risk Assessment General Health Exercise: Minutes/Day walking Exercise: Days/Week 7 days Alcohol: Daily Use no Alcohol: Drinks/Day no Alcohol: 6 or more drinks no Feel off balance Sometimes, chronic for years Concerns: Teeth/Dentures no Concerns: Sexual function no Troubled by feelings no Frequency: Eating healthy diet yes ADLs requiring help no Safety precautions in home/vehicle no Smoke, vape, chews tobacco no Difficulty hearing no Difficulty seeing Yes-wears glasses no following wih the eye doctors Current Providers Specialists: I have reviewed specialist-related care of the patient in the medical record. Medical/Family history review Reviewed and updated problem list, medical history, family history, social history, medication list, and allergies. Opioid use review Opioid Medications (last 90 days) No data to display Anxiety/Depression screening Recommendation: no further intervention at this time Cognitive screening Mini Cog Score: 5 Cognitive screening reviewed and No further action needed (score 3-5). Functional Observation Was the patient's Timed Up & Go test unsteady or >= 12 seconds? No Advance Care Planning Surrogate decision maker and/or advance care plan documented Measurements BP 104/67 Pulse 87 Resp 16 Ht 156.2 cm (5' 1.5) Wt 68.7 kg (151 lb 6.4 oz) SpO2 100% BMI 28.15 kg/m Assessment/Plan Medicare annual wellness visit, subsequent (Z00.00) - Counseled on healthy diet and regular exercise - Fall avoidance information provided - Personalized prevention plan provided Sally is a 69-year-old female with a history of hyperlipidemia, HTN, prediabetes, GERD, and allergies, presenting for an annual wellness visit, with additional complaints of cold symptoms. Annual Wellness Exam: - Denies alcohol use and smoking. - Walks daily for exercise. - Eats a healthy diet, including fruits, vegetables, and protein. - Able to perform household tasks such as laundry and cooking. - Denies issues with teeth or sexual function. - Wears glasses; has not seen an eye doctor recently. - Has not completed a living will or advanced care planning. - Up to date on colonoscopy and bone density screening. Hyperlipidemia: - Taking simvastatin; denies muscle aches. GERD: - Taking Protonix. Allergies: - Taking Claritin. Foot: - Reports a callus on the feet. no pain. - Has not seen podiatry yet. not interested at this time Anxiety: - Experiences anxiety sometimes. - Denies symptoms of depression. Cold Symptoms: - Reports feeling chilled lately. - Experiencing a stuffy or runny nose; denies sore throat, ear pain, or sinus pain, cough, chest pain, SOB - Symptoms are improving Anemia: - Taking an iron supplement but has run out. Pre-Diabetes: - Monitors blood glucose at different times of the day, - Reports some high readings, particularly after dinner, but not waiting 2 hours. overall BG readings between 110-125 Constitutional: (-) fever, (+) chills Ears/Nose/Mouth/Throat: (+) congestion, (-) sore throat, (-) tooth pain Cardiovascular: (-) chest pain Respiratory: (-) shortness of breath EXT (+) callus , no edema Neurological: (+) off balance at times, but chronic for years. unchanged from baseline. Psychiatric: (+) anxiety at times, but manageable, (-) depression PHYSICAL EXAMINATION: General appearance: Well appearing, alert, in no acute distress, well-hydrated, well nourished. Skin: Skin color, texture, turgor normal, no suspicious rashes or lesions Head: Normocephalic, no masses, lesions, tenderness or abnormalities Eyes: Anicteric sclera. Pupils are equally round and reactive to light Ears: External ears normal, canals clear. TMs normal FERNANDO Nose/Sinuses: Nares normal, septum midline, mucosa normal, no drainage or sinus tenderness Oropharynx: Lips, mucosa, and tongue normal, teeth and gums normal, oropharynx normal Neck: Supple, no adenopathy; thyroid symmetric, normal size, Lungs: Lungs clear to auscultation. No wheezing, rhonchi, rales. Heart: RRR without murmur, gallop, or rubs. Extremities: No deformities, edema, skin discoloration, clubbing or cyanosis. Good capillary refill. Musculoskeletal: No joint swelling, deformity, or tenderness. Declines foot exam. A/P 1. Screening for depression (Z13.31) 2. Encounter for screening examination for other mental health and behavioral disorders (Z13.39) - No symptoms of depression reported; occasional anxiety noted. - Mini-Cog assessment performed; no signs of dementia. 3. Encounter for screening mammogram for malignant neoplasm of breast (Z12.31) - Ordered screening mammogram. 4. Prediabetes (R73.03) - Blood glucose levels monitored at home; advised to check fasting glucose in the morning and 2 hours postprandial. - Ordered A1c to assess three-month glycemic control. 5. Dyslipidemia (E78.5) - Clinically stable on simvastatin; no myalgias reported. - Ordered lipid panel. 6. Iron deficiency anemia, unspecified iron deficiency anemia type (D50.9) - Refilled iron supplement prescription; sent to [facility] - Ordered CBC and iron studies. 7. Nearsightedness, bilateral (H52.13) - Referred to optometry for vision evaluation. 8. Essential (primary) hypertension (I10) - Blood pressure well-controlled. - Ordered BMP. 9. URI Suspect viral etiology, improving F/u in 5-7 days if not resolving, sooner if worsening. 10. Calluses Offered consult to podiatry, declines at this time. The patient indicates understanding of these issues and agrees with the plan. Reviewed red flags and when to seek care sooner. Giorgio Prince PA-C 05/10/2024 documented in this encounterMari[facility]03-[facility]25 Instructions* Patient Instructions* Giorgio Prince PA-C - 05/10/2024 10:21 AM EDT - [facility] and resume taking it as prescribed. - Continue taking Claritin for allergies, Protonix for stomach issues, and simvastatin for cholesterol management. - Monitor your blood sugar levels in the morning before eating (fasting) and two hours after meals. - Use wawb-hqk-zjmmzio medication for cold symptoms as needed. If symptoms do not improve within a week, please contact us. - A mammogram has been ordered for you; please complete it as scheduled. - Schedule an appointment with an eye doctor for a vision check. - Review and complete the advanced care planning paperwork provided, and discuss it with someone you trust. - Next follow-up appointment is scheduled in [address] Hammer. Screening schedule The following prevention plan is recommended: Depression Screening Never done Anxiety Screening Never done Mammogram Screening due on 11/13/2021 Advance Directive Discussion due on 02/17/2024 WHAT YOU CAN DO TO PREVENT FALLS Many falls can be prevented. By making some changes, you can lower your chances of falling. Four things YOU can do to prevent falls for you* and your caregiver 1. Begin a regular exercise program Exercise is one of the most important ways to lower your chances of falling. It makes you stronger and helps you feel better. Exercises that improve balance and coordination (like Victoriano Chi) are the most helpful. Lack of exercise leads to weakness and increases your chances of falling. Ask your doctor or health care provider about the best type of exercise program for you. 2. Have your health care provider review your medicines Have your doctor or pharmacist review all the medicines you take, even lkxd-kaf-cghzsly medicines. As you get older, the way medicines work in your body can change. Some medicines, or combinations of medicines, can make you sleepy or dizzy andcan cause you to fall. 3. Have your vision checked Have your eyes checked by an eye doctor at least once a year. You may be wearing the wrong glasses or have a condition like glaucoma or cataracts that limits your vision. Poor vision can increase your chances of falling. 4. Make your home safer About half of all falls happen at home. To make your home safer: Remove things you can trip over (like papers, books, clothes, and shoes) from stairs and places where you walk. Remove small throw rugs or use double-sided tape to keep the rugs from slipping. Keep items you use often in cabinets you can reach easily without using a step stool. Have grab bars put in next to your toilet and in the tub or shower. Use non-slip mats in the bathtub and on shower floors. Improve the lighting in your home. As you get older, you need brighter lights to see well. Hang light-weight curtains or shades to reduce glare. Have handrails and lights put in on all staircases. Wear shoes both inside and outside the house. Avoid going barefoot or wearing slippers. For more information, contact: Centers for Disease Control and Prevention www.cdc.gov/injury * This information may not apply if you have certain medical conditions. documented in this encounterMarietta [facility]03-25-2025 NoteHNO ID: [id number] Author: GIORGIO PRINCE PA-C Service: ? Author Type: Physician Carbon Diox[employer] Operator Type: Progress Notes Filed: 05/10/2024 10:53 Note Text: The patient consented to the use of [employer] software for draft documentation of the visit consistent with [facility]?s Notice of Privacy Practices. Sally Morrison is a 69 year old female here for a Medicare wellness visit. Medicare Health Risk Assessment General Health Exercise: Minutes/Day walking Exercise: Days/Week 7 days Alcohol: Daily Use no Alcohol: Drinks/Day no Alcohol: 6 or more drinks no Feel off balance Sometimes, chronic for years Concerns: Teeth/Dentures no Concerns: Sexual function no Troubled by feelings no Frequency: Eating healthy diet yes ADLs requiring help no Safety precautions in home/vehicle no Smoke, vape, chews tobacco no Difficulty hearing no Difficulty seeing Yes-wears glasses no following wih the eye doctors Current Providers Specialists: I have reviewed specialist-related care of the patient in the medical record. Medical/Family history review Reviewed and updated problem list, medical history, family history, social history, medication list, and allergies. Opioid use review Opioid Medications (last 90 days) No data to display Anxiety/Depression screening Recommendation: no further intervention at this time Cognitive screening Mini Cog Score: 5 Cognitive screening reviewed and No further action needed (score 3-5). Functional Observation Was the patient's Timed Up AND Go test unsteady or >= 12 seconds? No Advance Care Planning Surrogate decision maker and/or advance care plan documented Measurements BP 104/67 Pulse 87 Resp 16 Ht 156.2 cm (5' 1.5) Wt 68.7 kg (151 lb 6.4 oz) SpO2 100% BMI 28.15 kg/m? Assessment/Plan Medicare annual wellness visit, subsequent (Z00.00) - Counseled on healthy diet and regular exercise - Fall avoidance information provided - Personalized prevention plan provided Sally is a 69-year-old female with a history of hyperlipidemia, HTN, prediabetes, GERD, and allergies, presenting for an annual wellness visit, with additional complaints of cold symptoms. Annual Wellness Exam: - Denies alcohol use and smoking. - Walks daily for exercise. - Eats a healthy diet, including fruits, vegetables, and protein. - Able to perform household tasks such as laundry and cooking. - Denies issues with teeth or sexual function. - Wears glasses; has not seen an eye doctor recently. - Has not completed a living will or advanced care planning. - Up to date on colonoscopy and bone density screening. Hyperlipidemia: - Taking simvastatin; denies muscle aches. GERD: - Taking Protonix. Allergies: - Taking Claritin. Foot: - Reports a callus on the feet. no pain. - Has not seen podiatry yet. not interested at this time Anxiety: - Experiences anxiety sometimes. - Denies symptoms of depression. Cold Symptoms: - Reports feeling chilled lately. - Experiencing a stuffy or runny nose; denies sore throat, ear pain, or sinus pain, cough, chest pain, SOB - Symptoms are improving Anemia: - Taking an iron supplement but has run out. Pre-Diabetes: - Monitors blood glucose at different times of the day, - Reports some high readings, particularly after dinner, but not waiting 2 hours. overall BG readings between 110-125 Constitutional: (-) fever, (+) chills Ears/Nose/Mouth/Throat: (+) congestion, (-) sore throat, (-) tooth pain Cardiovascular: (-) chest pain Respiratory: (-) shortness of breath EXT (+) callus , no edema Neurological: (+) off balance at times, but chronic for years. unchanged from baseline. Psychiatric: (+) anxiety at times, but manageable, (-) depression PHYSICAL EXAMINATION: General appearance: Well appearing, alert, in no acute distress, well-hydrated, well nourished. Skin: Skin color, texture, turgor normal, no suspicious rashes or lesions Head: Normocephalic, no masses, lesions, tenderness or abnormalities Eyes: Anicteric sclera. Pupils are equally round and reactive to light Ears: External ears normal, canals clear. TMs normal FERNANDO Nose/Sinuses: Nares normal, septum midline, mucosa normal, no drainage or sinus tenderness Oropharynx: Lips, mucosa, and tongue normal, teeth and gums normal, oropharynx normal Neck: Supple, no adenopathy; thyroid symmetric, normal size, Lungs: Lungs clear to auscultation. No wheezing, rhonchi, rales. Heart: RRR without murmur, gallop, or rubs. Extremities: No deformities, edema, skin discoloration, clubbing or cyanosis. Good capillary refill. Musculoskeletal: No joint swelling, deformity, or tenderness. Declines foot exam. A/P 1. Screening for depression (Z13.31) 2. Encounter for screening examination for other mental health and behavioral disorders (Z13.39) - No symptoms of depression reported; occasional anxiety noted. - Mini-Cog assessment pe (more content not included)...[facility]03-17-2025 Telephone encounter Note* Telephone Encounter - Mervat Snyder LPN - 05/02/2024 10:28 AM EDT Patient returned call and went over notes from Dr Hammer several times to get here to understand. Aware to get fasting lab orders done and she was given lab hours also. [facility]03-17-2025 Miscellaneous Notes* Telephone Encounter - Mervat Snyder LPN - 05/02/2024 10:28 AM EDT Patient returned call and went over notes from Dr Hammer several times to get here to understand. Aware to get fasting lab orders done and she was given lab hours also. * Telephone Encounter - Hi Hammer MD - 04/29/2024 5:17 PM EDT Noted and agree Regards, Hi Hammer MD * Telephone Encounter - Julianna Barnett RN - 04/29/2024 3:53 PM EDT Pt called and is notified of providers message and instructions. Pt states she was just in the ER on 04/26/24 and she had labs done then and was told they were fine. I told her they probably didn't doall the ones the provider wanted. Pt states it's too cold to walk her and get them done. I tried togiver hetr the phone # for the [facility] and she said they stop by where she lives all the time. Pt also states she had to cancel her appointment with Dr Hammer because she couldn't get a rid. Iset her back up with for another appointment with Giorgio NAJERA on 05/10/24. I told her to get labs done before. Pt states sometimes she eats things and it will hurt her stomach, I told her it doesn't mean it's because of diabetes there could be many other reasons her stomach is hurting. I told her she would have to go over this with the provider. Julianna Barnett, AMIRA * Telephone Encounter - Alexandrea Diaz LPN - 04/28/2024 2:53 PM EDT Called and left message for patient to call office back for update. Alexandrea Diaz LPN April 28, 2024 2:53 PM * Telephone Encounter - Hi Hammer MD - 04/28/2024 1:37 PM EDT Please ask her to give labs that have been ordered. If she is diabetic we will definitely give her the glucometer and the strips. From what I have seenand she has not been diabetic but prediabetic, the last A1c there was 5.4 which is in the nondiabetic range. I do not see that she is on medications for diabetes. I understand there may be a reason that she is asking for this because she has asked for this and previous years 2. Regards, Hi Hammer MD * Telephone Encounter - Mervat Snyder LPN - 04/28/2024 10:42 AM EDT Patient requesting new glucose meter to be sent to [facility] pharmacy. Pending generic for each item, patient unaware what is covered. Please advise The patient has been identified by name and date of : Yes Caregiver verified no other encounters exist for this prescription request: Yes Caregiver confirmed with patient/requestor that no other refills are due, in the near future, with this provider at this time: Yes The last office visit in the department: 07/01/2023 Does the patient have a future office visit with this provider/department: No No future appt scheduled Requested Prescriptions Pending Prescriptions Disp Refills Blood-Glucose Meter monitoring kit 1 Each 0 Sig: Glucose Meter of Choice - Kit - Dx: Type 2 DM - Controlled E11.9 Insulin No Generic meter thatinsurance would cover for the patient blood sugar diagnostic (BLOOD GLUCOSE TEST) test strip 50 Strip 11 Sig: Test blood sugar(s) 2 times daily. Dx: Type 2 DM - Controlled E11.9 Insulin: No Lancets 100 Each 11 Sig: Test blood sugar(s) 2 times daily. Dx: Type 2 DM - Controlled E11.9 Insulin: No Mervat Snyder LPN April 28, 2024 10:47 AM documented in this encounterMari[facility]03-14-2025 Telephone encounter Note * Telephone Encounter - Hi Hammer MD - 04/29/2024 5:17 PM EDT Noted and agree Regards, Hi Hammer MD [facility]03-14-2025 Telephone encounter Note* Telephone Encounter - Julianna Barnett RN - 04/29/2024 3:53 PM EDT Pt called and is notified of providers message and instructions. Pt states she was just in the ER on 04/26/24 and she had labs done then and was told they were fine. I told her they probably didn't doall the ones the provider wanted. Pt states it's too cold to walk her and get them done. I tried togiver hetr the phone # for the [facility] and she said they stop by where she lives all the time. Pt also states she had to cancel her appointment with Dr Hammer because she couldn't get a rid. Iset her back up with for another appointment with Giorgio NAJERA on 05/10/24. I told her to get labs done before. Pt states sometimes she eats things and it will hurt her stomach, I told her it doesn't mean it's because of diabetes there could be many other reasons her stomach is hurting. I told her she would have to go over this with the provider. Julianna Barnett, RN [facility]03-13-2025 Telephone encounter Note* Telephone Encounter - Alexandrea Diaz LPN - 04/28/2024 2:53 PM EDT Called and left message for patient to call office back for update. Alexandrea Diaz LPN April 28, 2024 2:53 PM [facility]03-13-2025 Telephone encounter Note* Telephone Encounter - Hi Hammer MD - 04/28/2024 1:37 PM EDT Please ask her to give labs that have been ordered. If she is diabetic we will definitely give her the glucometer and the strips. From what I have seenand she has not been diabetic but prediabetic, the last A1c there was 5.4 which is in the nondiabetic range. I do not see that she is on medications for diabetes. I understand there may be a reason that she is asking for this because she has asked for this and previous years 2. Regards, Hi Hammer MD [facility]03-13-2025 Telephone encounter Note* Telephone Encounter - Mervat Snyder LPN - 04/28/2024 10:42 AM EDT Patient requesting new glucose meter to be sent to [facility] pharmacy. Pending generic for each item, patient unaware what is covered. Please advise The patient has been identified by name and date of : Yes Caregiver verified no other encounters exist for this prescription request: Yes Caregiver confirmed with patient/requestor that no other refills are due, in the near future, with this provider at this time: Yes The last office visit in the department: 07/01/2023 Does the patient have a future office visit with this provider/department: No No future appt scheduled Requested Prescriptions Pending Prescriptions Disp Refills Blood-Glucose Meter monitoring kit 1 Each 0 Sig: Glucose Meter of Choice - Kit - Dx: Type 2 DM - Controlled E11.9 Insulin No Generic meter thatinsurance would cover for the patient blood sugar diagnostic (BLOOD GLUCOSE TEST) test strip 50 Strip 11 Sig: Test blood sugar(s) 2 times daily. Dx: Type 2 DM - Controlled E11.9 Insulin: No Lancets 100 Each 11 Sig: Test blood sugar(s) 2 times daily. Dx: Type 2 DM - Controlled E11.9 Insulin: No Mervat Snyder LPN April 28, 2024 10:47 AM [facility]03-11-2025 Discharge summary [facility] Medical Records Department [address] [place] [address] [place] [address] Emergency Department Summary 04/26/24 MR#: [id number] Acct: [id number] Name: SALLY MORRISON Rep #:[id number] : 1955 69 From: Ren William DO PCP: CARON ROBLES, [employer]ER-C Status:REG ER Location: ED HPI History of Present Illness Chief Complaint: Lower Extremity Injury Narrative Narrative: Patient is a 69-year-old female with a past medical history of asthma, hypercholesteremia, GERD, prediabetes, IBS, scoliosis who presented to the emergency with a chief complaint of bilateral foot pain. Patient states that she has had foot pain for significant time however things are getting better therefore she came here for the valuation management. Patient denies any traumaor injuries to her feet. Otherwise she has no complaints at this point time. [facility] Medical History Wears glasses Wears dentures Post-menopausal Low iron Fatty liver Restless legs Scoliosis History of IBS Non-smoker Leg cramps History of edema History of stress test Pre-diabetes GERD (gastroesophageal reflux disease) High cholesterol Gallstones Chronic bronchitis Asthma Arthritis Seasonal allergies Home Medications ?Medication ?Instructions ?Recorded ?Last Taken ?Type simvastatin 20 mg tablet 20 mg PO QHS 12/23/12 History calcium 600 mg (as carbonate)-vit 1 tab PO DAILY 06/30 Unknown History D3 10 mcg (400 unit) chewable tablet fluticasone propionate 115 2 puff inhalation BID 06/30 Unknown History mcg-salmeterol 21 mcg/actuation HFA inhaler sodium chloride 0.65 % nasal spray 1 spray intranasal Q1-4H PRN 10/21/17 Unknown History aerosol (Saline Nasal) Allergies albuterol sulfate 90 mcg/actuation 2 puff IH PRN PRN S ob &/Or Wheezing 08/26/19 12/30/21 History aerosol inhaler ferrous sulfate 325 mg (65 mg 325 mg PO DAILY 10/22/21 Unknown History iron) tablet alendronate 35 mg tablet 35 mg PO DAILY 12/26/2112/17 History pantoprazole 40 mg tablet,delayed 40 mg PO DAILY 12/2612/30/21 History release nystatin 100,000 unit/gram topical 1 applic topical DA ELEONORA #30 grams 10/30/23 Unknown Rx ointment Allergy/AdvReac Type Severity Reaction Status Date / Time cefdinir (From Omnicef) Allergy Severe Unknown Verified 10/30/23 09:36 Penicillins Allergy Severe STOP Verified 10/30/23 09:36 BREATHING codeine Allergy Other Verified 10/30/23 09:36 hydrocodone bitartrate (From Allergy Other Verified 10/30/23 09:36 Vicodin) latex Allergy Rash Verified 10/30/23 09:36 aspirin AdvReac Other Verified 10/30/23 09:36 tramadol (From Ultram) AdvReac Rash Verified 10/30/23 09:36 Family History Mother Cancer Father Heart disease Hypertension High cholesterol Kidney disease CVA (cerebral vascular accident) Colon cancer Surgical History History of colonoscopy H/O hernia repair Hx of cholecystectomy Social History household members: none Smoking Status: Never smoker second hand exposure: No alcohol intake: never substance use type: does not use ROS ROS ED ROS Narrative Constitutional: Denies fevers, chills, headaches, lightness, dizziness Eyes: Denies change in vision double vision blurry vision Cardiovascular: Denies chest pain or palpitation Respiratory: Denies coughing wheezing shortness of breath Abdomen: Denies abdominal pain nausea vomit diarrhea : Denies painful urination, hematuria, polyuria Neurological: Denies numbness, weakness, Musculoskeletal: Denies back Skin: Denies rashes or lesions EXAM Physical Exam Narrative Exam Narrative: General: Patient lying in bed rest comfortably did not appear to be in acute distress Head: Atraumatic, normocephalic Eyes: PERRL bilaterally, EOMI bilaterally, no conjunctival injection noted Neck: Soft, supple, trachea midline Cardiovascular: Regular rate and rhythm no murmurs gallops rubs noted Respiratory: Clear to auscultation bilaterally no rales rhonchi or wheezes noted Abdomen: Soft, nondistended, no distention Musculoskeletal: Patient has mild tenderness palpation over the lateral aspect of her left foot andon the medial aspect of her right foot Extremities: DP pulses +2/4 in the bilateral lower extremities, +5/5 strength noted in the bilateral upper and lower extremities Neurological: Patient follow commands knew that she was at [facility] year2024 Skin: Warm, dry, intact no rashes or lesions noted Const Vital Signs: 04/26/24 12:14 04/26/24 13:55 04/26/24 14:14 Temperature 96.8 F L 97.8 F Temperature Source Temporal Oral Pulse Rate 105 H 110 H 80 Respiratory Rate 20 H 20 H Blood Pressure 126/77 H 120/78 114/69 Blood Pressure Mean 93 92 84 Pulse Ox 98 97 99 Oxygen Delivery Method Room Air Room Air Room Air 04/26/24 14:51 Temperature 97.8 F Temperature Source Oral Pulse Rate 72 Respiratory Rate 19 H Blood Pressure 111/67 Blood Pressure Mean 81 Pulse Ox 100 Oxygen Delivery Method Room Air MDM MDM MDM Narrative Medical decision making narrative: Patient is a 69-year-old female who presents to the emergency department chief complaint of bilateral foot pain. On the differential diagnose includes but notlimited to fracture, musculoskeletal strain. Once workup is obtained reviewed she will be reevaluated. Patient given Tylenol. Jgwpx-sc-hwry glucose obtainedand is normal. Patient urinalysis reviewed and showed no evidence of infection. Dqtiw-er-uxov glucose was noted be73. Patient's x-ray of her bilateral feet were reviewed bymyself and by radiology which showed no acute fractures or dislocations. On theleft foot there appears to be healed left third metatarsal shaft fracture. Did discuss results with the patient and she would like to go home at this pointtime she is feelingbetter after Tylenol. Vital signs had normalized. She has been up several times here in the emergency department ambulated without any difficulty. She was advised follow-up with primary care physician and return with worsening symptoms or any other concerns. All question concerns answered she is discharged home in stable condition. Lab Data Labs: Laboratory Results - last 24 hr 04/26/24 04/26/24 13:51 14:00 Urine Color Yellow Urine Clarity Sl. Cloudy Urine pH 8.0 Ur Specific [place] 1.015 Urine Protein Negative Urine Glucose (UA) Normal Urine Ketones Negative Urine Occult Blood Negative Urine Nitrite Negative Urine Bilirubin Negative Urine Urobilinogen Normal Ur Leukocyte Esterase 25 H Urine RBC 0 SEEN Urine WBC 0-5 SEEN Ur Squamous Epith Cells 0-5 SEEN Urine Bacteria RARE Urine Mucus 0 SEEN POC Glucose 73 L Radiography Diagnostic Testing: Clinical Impression(s) from Imaging Studies Foot X-Ray 04/26/24 14:00 IMPRESSION: Demineralization. No definite acute fracture. Please note stress fractures canbe radiographically occult. If clinical symptoms do not improve, consider MRI Reading Location: [facility] Foot X-Ray 04/26/24 14:00 IMPRESSION: Demineralization. No definite acute fracture. Please note stress fractures canbe radiographically occult. If clinical symptoms do not improve, consider MRI Reading Location: [facility] Discharge Plan Triage Chief Complaint: Lower Extremity Injury ED Provider: Ren William Dx/Rx/DC Orders Clinical Impression: Bilateral foot pain Prescriptions: No Action sodium chloride [Saline Nasal] 0.65 % aerosol,spray 1 spray INTRANASAL Q1-4H PRN (Reason: Allergies) ferrous sulfate 325 mg (65 mg iron) tablet 325 mg PO DAILY simvastatin 20 MG tablet 20 mg PO QHS fluticasone propion-salmeterol 1 PUFF inhaler 2 puff INHALATION BID calcium carbonate-vitamin D3 1 EACH tablet,chewable 1 tab PO DAILY Rx Instructions: taken in afternoon albuterol sulfate 1 PUFF inhaler 2 puff IH PRN PRN (Reason: Sob &/Or Wheezing) alendronate 35 mg tablet 35 mg PO DAILY pantoprazole 40 mg tablet,delayed release (DR/EC) 40 mg PO DAILY nystatin 100,000 unit/gram ointment 1 applic topical DAILY Qty: 30 0RF Primary Care Provider: CARON ROBLES Referrals: CARON ROBLES NP-C [Primary Care Provider] - Activity Restrictions/Additional Instructions: Follow-up with your primary care physician outpatient setting. Return with worsening symptoms or concerns. Ensure you are using something for pain such asTylenol at home. Your x-rays here today of your feet on both sides did not showany broken bones. Print Language: [place] Disposition Disposition: Home, Self Care What to do if you have Problems For any increased pain, shortness of breath, bleeding, nausea or vomiting, chestpain, or any unexpected problems, contact your Primary Care Provider. Call [facility] ([phone]) or report tothe closest Emergency Room. Call 911 if necessary. 04/26/24 1501 Cosigner Signature (if applicable): CC: GAS TORCH SOLDERER-C CARON ROBLES ~ Signed [facility]03-11-2025 Radiology Diagnostic study note [facility] Imaging Services [address] [place], [place] [id number] ([phone]) Foot min 3 Views MR#: [id number] Acct: [id number] Name: SALLY MORRISON Rep #: [id number] : 1955 F 69 From: Milton Ellis MD PCP: JASON ESPINOZA Status: REG ER Study:Foot min 3 Views Date of Exam: 01/10 Exam# [id number] Ordering Dr: Joelle William DO PROCEDURE: FOOT MIN 3 VIEWS left foot three-view REASON FOR EXAM: PAIN TECHNIQUE: 3 view(s) of each foot COMPARISON: None. FINDINGS: RIGHT FOOT: Demineralization of the bones. Degenerative change seen at the base of the 1st metatarsal. Scattered degenerative changes. No acute fracture. There is Achilles and plantar spurring. LEFT FOOT: Demineralization limits sensitivity. Achilles and plantar spurring. No acute fracture. Apparent healed left 3rd metatarsal shaft fracture RAD/Foot min 3 Views IMPRESSION: Demineralization. No definite acute fracture. Please note stress fractures canbe radiographically occult. If clinical symptoms do not improve, consider MRI Reading Location: [facility] CC: CORBY-Bailey ROBLES; Dr. Ren William DO ~ Rubber Splicer: Signed [facility]03-11-2025 Radiology Diagnostic study note [facility] Imaging Services [address], [place] [phone] ([phone]) Foot min 3 Views MR#: [id number] Acct: [id number] Name: SALLY MORRISON Rep #: [id number] : 1955 F 69 From: Milton Ellis MD PCP: JASON ESPINOZA Status: REG ER Study:Foot min 3 Views Date of Exam: 01/10 Exam# [id number] Ordering Dr: Joelle William DO PROCEDURE: FOOT MIN 3 VIEWS left foot three-view REASON FOR EXAM: PAIN TECHNIQUE: 3 view(s) of each foot COMPARISON: None. FINDINGS: RIGHT FOOT: Demineralization of the bones. Degenerative change seen at the base of the 1st metatarsal. Scattered degenerative changes. No acute fracture. There is Achilles and plantar spurring. LEFT FOOT: Demineralization limits sensitivity. Achilles and plantar spurring. No acute fracture. Apparent healed left 3rd metatarsal shaft fracture RAD/Foot min 3 Views IMPRESSION: Demineralization. No definite acute fracture. Please note stress fractures canbe radiographically occult. If clinical symptoms do not improve, consider MRI Reading Location: [id number] CC: G[employer] TORCH SOLDERER-C CARON ROBLES; Dr. Ren William DO ~ Rubber Splicer: Signed [facility]03-11-2025 Discharge summary Author Ren William [facility] Note Date/Time April 26, 2024 3:0 1pm [facility] Medical Records Department [address] [place] [address] Emergency Department Summary 04/26/24 MR#: [id number] Acct: [id number] Name: SALLY MORRISON Rep #:[id number] : 1955 69 From: Ren William DO PCP: JASON ESPINOZA Status:REG ER Location: ED HPI History of Present Illness Chief Complaint: Lower Extremity Injury Narrative Narrative: Patient is a 69-year-old female with a past medical history of asthma, hypercholesteremia, GERD, prediabetes, IBS, scoliosis who presented to the emergency with a chief complaint of bilateral foot pain. Patient states that she has had foot pain for significant time however things are getting better therefore she came here for the valuation management. Patient denies any traumaor injuries to her feet. Otherwise she has no complaints at this point time. [facility] Medical History Wears glasses Wears dentures Post-menopausal Low iron Fatty liver Restless legs Scoliosis History of IBS Non-smoker Leg cramps History of edema History of stress test Pre-diabetes GERD (gastroesophageal reflux disease) High cholesterol Gallstones Chronic bronchitis Asthma Arthritis Seasonal allergies Home Medications ?Medication ?Instructions ?Recorded ?Last Taken ?Type simvastatin 20 mg tablet 20 mg PO QHS 12/23/12 History calcium 600 mg (as carbonate)-vit 1 tab PO DAILY 06/30 Unknown History D3 10 mcg (400 unit) chewable tablet fluticasone propionate 115 2 puff inhalation BID 06/30 Unknown History mcg-salmeterol 21 mcg/actuation HFA inhaler sodium chloride 0.65 % nasal spray 1 spray intranasal Q1-4H PRN 10/21/17 Unknown History aerosol (Saline Nasal) Allergies albuterol sulfate 90 mcg/actuation 2 puff IH PRN PRN S ob &/Or Wheezing 08/26/19 12/30/21 History aerosol inhaler ferrous sulfate 325 mg (65 mg 325 mg PO DAILY 10/22/21 Unknown History iron) tablet alendronate 35 mg tablet 35 mg PO DAILY 12/26/2112/17 History pantoprazole 40 mg tablet,delayed 40 mg PO DAILY 12/2612/30/21 History release nystatin 100,000 unit/gram topical 1 applic topical DA ELEONORA #30 grams 10/30/23 Unknown Rx ointment Allergy/AdvReac Type Severity Reaction Status Date / Time cefdinir (From Omnicef) Allergy Severe Unknown Verified 10/30/23 09:36 Penicillins Allergy Severe STOP Verified 10/30/23 09:36 BREATHING codeine Allergy Other Verified 10/30/23 09:36 hydrocodone bitartrate (From Allergy Other Verified 10/30/23 09:36 Vicodin) latex Allergy Rash Verified 10/30/23 09:36 aspirin AdvReac Other Verified 10/30/23 09:36 tramadol (From Ultram) AdvReac Rash Verified 10/30/23 09:36 Family History Mother Cancer Father Heart disease Hypertension High cholesterol Kidney disease CVA (cerebral vascular accident) Colon cancer Surgical History History of colonoscopy H/O hernia repair Hx of cholecystectomy Social History household members: none Smoking Status: Never smoker second hand exposure: No alcohol intake: never substance use type: does not use ROS ROS ED ROS Narrative Constitutional: Denies fevers, chills, headaches, lightness, dizziness Eyes: Denies change in vision double vision blurry vision Cardiovascular: Denies chest pain or palpitation Respiratory: Denies coughing wheezing shortness of breath Abdomen: Denies abdominal pain nausea vomit diarrhea : Denies painful urination, hematuria, polyuria Neurological: Denies numbness, weakness, Musculoskeletal: Denies back Skin: Denies rashes or lesions EXAM Physical Exam Narrative Exam Narrative: General: Patient lying in bed rest comfortably did not appear to be in acute distress Head: Atraumatic, normocephalic Eyes: PERRL bilaterally, EOMI bilaterally, no conjunctival injection noted Neck: Soft, supple, trachea midline Cardiovascular: Regular rate and rhythm no murmurs gallops rubs noted Respiratory: Clear to auscultation bilaterally no rales rhonchi or wheezes noted Abdomen: Soft, nondistended, no distention Musculoskeletal: Patient has mild tenderness palpation over the lateral aspect of her left foot and on the medial aspect of her right foot Extremities: DP pulses +2/4 in the bilateral lower extremities, +5/5 strength noted in the bilateral upper and lower extremities Neurological: Patient follow commands knew that she was at [facility] 2024 Skin: Warm, dry, intact no rashes or lesions noted Const Vital Signs: 04/26/24 12:14 04/26/24 13:55 04/26/24 14:14 Temperature 96.8 F L 97.8 F Temperature Source Temporal Oral Pulse Rate 105 H 110 H 80 Respiratory Rate 20 H 20 H Blood Pressure 126/77 H 120/78 114/69 Blood Pressure Mean 93 92 84 Pulse Ox 98 97 99 Oxygen Delivery Method Room Air Room Air Room Air 04/26/24 14:51 Temperature 97.8 F Temperature Source Oral Pulse Rate 72 Respiratory Rate 19 H Blood Pressure 111/67 Blood Pressure Mean 81 Pulse Ox 100 Oxygen Delivery Method Room Air MDM MDM MDM Narrative Medical decision making narrative: Patient is a 69-year-old female who presents to the emergency department chief complaint of bilateral foot pain. On the differential diagnose includes but notlimited to fracture, musculoskeletal strain. Once workup is obtained reviewed she will be reevaluated. Patient given Tylenol. Nghkc-kq-yqsd glucose obtainedand is normal. Patient urinalysis reviewed and showed no evidence of infection. Cszig-jy-jxxk glucose was noted be 73. Patient's x-ray of her bilateral feet were reviewed bymyself and by radiology which showed no acute fractures or dislocations. On theleft foot there appears to be healed left third metatarsal shaft fracture. Did discuss results with the patient and she would like to go home at this pointtime she is feeling better after Tylenol. Vital signs had normalized. She has been up several times here in the emergency department ambulated without any difficulty. She was advised follow-up with primary care physician and return with worsening symptoms or any other concerns. All question concerns answered she is discharged home in stable condition. Lab Data Labs: Laboratory Results - last 24 hr 04/26/24 04/26/24 13:51 14:00 Urine Color Yellow Urine Clarity Sl. Cloudy Urine pH 8.0 Ur Specific [place] 1.015 Urine Protein Negative Urine Glucose (UA) Normal Urine Ketones Negative Urine Occult Blood Negative Urine Nitrite Negative Urine Bilirubin Negative Urine Urobilinogen Normal Ur Leukocyte Esterase 25 H Urine RBC 0 SEEN Urine WBC 0-5 SEEN Ur Squamous Epith Cells 0-5 SEEN Urine Bacteria RARE Urine Mucus 0 SEEN POC Glucose 73 L Radiography Diagnostic Testing: Clinical Impression(s) from Imaging Studies Foot X-Ray 04/26/24 14:00 IMPRESSION: Demineralization. No definite acute fracture. Please note stress fractures canbe radiographically occult. If clinical symptoms do not improve, consider MRI Reading Location: [facility] Foot X-Ray 04/26/24 14:00 IMPRESSION: Demineralization. No definite acute fracture. Please note stress fractures canbe radiographically occult. If clinical symptoms do not improve, consider MRI Reading Location: [facility] Discharge Plan Triage Chief Complaint: Lower Extremity Injury ED Provider: Ren William Dx/Rx/DC Orders Clinical Impression: Bilateral foot pain Prescriptions: No Action sodium chloride [Saline Nasal] 0.65 % aerosol,spray 1 spray INTRANASAL Q1-4H PRN (Reason: Allergies) ferrous sulfate 325 mg (65 mg iron) tablet 325 mg PO DAILY simvastatin 20 MG tablet 20 mg PO QHS fluticasone propion-salmeterol 1 PUFF inhaler 2 puff INHALATION BID calcium carbonate-vitamin D3 1 EACH tablet,chewable 1 tab PO DAILY Rx Instructions: taken in afternoon albuterol sulfate 1 PUFF inhaler 2 puff IH PRN PRN (Reason: Sob &/Or Wheezing) alendronate 35 mg tablet 35 mg PO DAILY pantoprazole 40 mg tablet,delayed release (DR/EC) 40 mg PO DAILY nystatin 100,000 unit/gram ointment 1 applic topical DAILY Qty: 30 0RF Primary Care Provider: CARON ROBLES Referrals: CARON ROBLES NP-C [Primary Care Provider] - Activity Restrictions/Additional Instructions: Follow-up with your primary care physician outpatient setting. Return with worsening symptoms or concerns. Ensure you are using something for pain such asTylenol at home. Your x-rays here today of your feet on both sides did not showany broken bones. Print Language: [place] Disposition Disposition: Home, Self Care What to do if you have Problems For any increased pain, shortness of breath, bleeding, nausea or vomiting, chestpain, or any unexpected problems, contact your Primary Care Provider. Call [facility] ([phone]) or report to the closest Emergency Room. Call 911 if necessary. 04/26/24 1501 <Electronically signed by Ren William DO> Cosigner Signature (if applicable): CC: JASON ROBLES ~ Signed [facility] Work Phone: 1(914) 741-430002-25-2025 NotePatient Outreach (INTMMN) SALLY MORRISON ([id number]) 1955 F Date Time Provider Department 04/12/24 [facility]MER During your visit today, we recorded the following information about you: Allergies As of Date: 04/12/2024 Noted Allergy Reaction CODEINE 08/23/2011 5 - Intolerance LATEX 11/08/2011 9 - Itching PENICILLINS 08/23/2011 12 - Shortness of Breath ULTRAM (TRAMADOL HCL) 08/23/2011 2 - Rash Date Reviewed: 07/01/2023 Reviewed by: Dominga Guardado MA - Fully Assessed Visit Diagnoses:Prediabetes [R73.03] Mixed hyperlipidemia [E78.2] Order(s):HEMOGLOBIN A1C [KTGVW3V] Order #: [id number] FUTURE LIPID PANEL BASIC [SQLIPB] Order #: [id number] FUTURE Prescriptions as of 04/15/2024 - simvastatin (ZOCOR) 20 mg tablet Take 1 tablet by mouth daily at bedtime. - pantoprazole DR (PROTONIX) 40 mg tablet Take 1 tablet by mouth once daily. Take on empty stomach, 1/2 hr before meal. - ferrous sulfate 325 mg (65 mg iron) tablet Take 1 tablet by mouth two times a day with meals. - loratadine (CLARITIN) 10 mg tablet Take 1 tablet by mouth once daily. - albuterol HFA (PROVENTIL HFA, VENTOLIN HFA) 90 mcg/actuation inhaler Inhale 2 Puffs as instructed every 4 hours as needed (for cough, wheezing, chest tightness or shortness of breath. Use with spacer. ). - blood sugar diagnostic (BLOOD GLUCOSE TEST) test strip Test blood sugar(s) 1 times daily. Dx: Type 2 DM - Controlled E11.9 Insulin: No. Uses a one touch meter - Lancets lancets Test blood sugar(s) 1 times daily. Dx: Type 2 DM - Controlled E11.9 Insulin: No - Blood-Glucose Meter (ACCU-CHEK GUIDE GLUCOSE METER) 1 m once daily. testing once daily DX R73.03 Insulin No - COMPOUNDED PRESCRIPTION Powerstep full length original (M76.821) Posterior tibial tendonitis, right (primary encounter diagnosis) (M89.8X9) Exostosis - Magnesium 250 mg tab Take 1 tablet by mouth once daily. - sodium chloride 0.65 % nasal spray Use 1 [place] in the nose as needed for Cold/Allergy Symptoms. Problem List As Of Date 04/12/2024 Noted Resolved Mixed hyperlipidemia [E78.2] Asthma [J45.909] GERD (gastroesophageal reflux disease) [K21.9] Abnormal glucose [R73.09] 11/08/2011 10/25/2014 Barretts esophagus [K22.70] 11/08/2011 Chronic right shoulder pain [M25.511, G89.29] 12/30/2011 10/25/2014 Speech problem [R47.9] 05/21/2012 Learning difficulty [F81.9] 05/21/2012 Overactive bladder [N32.81] 09/07/2012 Irritable bowel disease [K58.9] 10/25/2012 Chronic right hip pain [M25.551, G89.29] 04/24/2013 Edema [R60.9] 01/04/2014 Hypertension [I10] 04/07/2014 Disability, developmental [F89] 06/05/2014 Other chronic pain [G89.29] 06/12/2014 Left knee pain [M25.562] 09/22/2017 Prediabetes [R73.03] 04/15/2021 Encounter Status:Closed by SANGEETHA ANGULO on 04/15/24[facility] 04-01-2024 Telephone encounter Note* Telephone Encounter - Julianna Barnett RN - 04/01/2024 3:44 PM EST Updated Pt on date and time of appointment. Let Pt know she had blood work and urine that needed antelmo done for appointment. [facility]02-14-2025 Miscellaneous Notes* Telephone Encounter - Julianna Barnett RN - 04/01/2024 3:44 PM EST Updated Pt on date and time of appointment. Let Pt know she had blood work and urine that needed antelmo done for appointment. [facility] NoteHNO ID: [id number] Author: NATASHA ROGER MA Service: ? Author Type: Chief Human Resources Officer Type: Progress Notes Filed: 04/01/2024 15:29 Note Text: POPULATION HEALTH NAVIGATION OUTREACH Action/FYI spoke to pt to advise that labs have been ordered for her- we didn't schedule them she said that she will do this on her own Reason for Outreach Returned Call/MyChart Patient Contacted: Spoke to patient/parent/or legal guardian Patient identified by name and date of : Yes Returned call/MyChart actions taken: No action required Navigation Signature: Natasha Roger MA April 01, 2024 3:28 [facility]02-14-2025 History of Present illness Narrative* Natasha Roger MA - 04/01/2024 3:28 PM EST POPULATION HEALTH NAVIGATION OUTREACH Action/FYI spoke to pt to advise that labs have been ordered for her- we didn't schedule them she said that she will do this on her own Reason for Outreach Returned Call/MyChart Patient Contacted: Spoke to patient/parent/or legal guardian Patient identified by name and date of : Yes Returned call/MyChart actions taken: No action required Navigation Signature: Natasha Roger MA April 01, 2024 3:28 PM * Natasha Roger MA - 03/28/2024 11:12 AM EST POPULATION HEALTH NAVIGATION OUTREACH Action/FYI spoke to pt and scheduled wellness, follow up not scheduled as wellness was scheduled so soon, pt wants a call back to schedule mammogram, pt said that she got an influenza vaccine this season she thinks, bp to be addressed as not compliant not <130/80, ked/ uacr and bmp pended as pt gave permission- dx of diabetes and prediabetes in chart- msg sent to pcp to file and advise on labs Reason for Outreach Care Gap/HCC or Scheduling Wellness Visits Care Gaps due: Medicare Annual Wellness Visit Follow-up Appointment Breast Cancer Screening Controlling Blood Pressure KED Flu Vaccine Patient Contacted: Spoke to patient/parent/or legal guardian Patient identified by name and : Yes Care Gap/HCC/Scheduling Wellness actions taken: Patient scheduled/pended orders: Medicare Annual Wellness Visit Controlling Blood Pressure 04/26/2024 in [facility] with HI HAMMER - medicare wellness, uacr,mammogram, influenza,bp, review due Navigation Signature: Natasha Roger MA March 28, 2024 11:12 AM documented in [facility]25 NoteHNO ID: [id number] Author: NATASHA ROGER MA Service: ? Author Type: Chief Human Resources Officer Type: Progress Notes Filed: 04/01/2024 15:29 Note Text: POPULATION HEALTH NAVIGATION OUTREACH Action/FYI spoke to pt and scheduled wellness, follow up not scheduled as wellness was scheduled so soon, pt wants a call back to schedule mammogram, pt said that she got an influenza vaccine this season she thinks, bp to be addressed as not compliant not <130/80, ked/ uacr and bmp pended as pt gave permission- dx of diabetes and prediabetes in chart- msg sent to pcp to file and advise on labs Reason for Outreach Care Gap/HCC or Scheduling Wellness Visits Care Gaps due: Medicare Annual Wellness Visit Follow-up Appointment Breast Cancer Screening Controlling Blood Pressure KED Flu Vaccine Patient Contacted: Spoke to patient/parent/or legal guardian Patient identified by name and : Yes Care Gap/HCC/Scheduling Wellness actions taken: Patient scheduled/pended orders: Medicare Annual Wellness Visit Controlling Blood Pressure 04/26/2024 in [facility] with HI HAMEMR - medicare wellness, uacr,mammogram, influenza,bp, review due hm Navigation Signature: Natasha Roger MA March 28, 2024 11:12 [facility]02-10-2025 NotePatient Outreach (NETNAV) SALLY MORRISON ([id number]) 1955 F Date Time Provider Department 03/28/24 NATASHA ROGER During your visit today, we recorded the following information about you: Natasha Roger MA 04/01/2024 3:29 PM Signed POPULATION HEALTH NAVIGATION OUTREACH Action/FYI spoke to pt and scheduled wellness, follow up not scheduled as wellness was scheduled so soon, pt wants a call back to schedule mammogram, pt said that she got an influenza vaccine this season she thinks, bp to be addressed as not compliant not <130/80, ked/ uacr and bmp pended as pt gave permission- dx of diabetes and prediabetes in chart- msg sent to pcp to file and advise on labs Reason for Outreach Care Gap/HCC or Scheduling Wellness Visits Care Gaps due: Medicare Annual Wellness Visit Follow-up Appointment Breast Cancer Screening Controlling Blood Pressure KED Flu Vaccine Patient Contacted: Spoke to patient/parent/or legal guardian Patient identified by name and : Yes Care Gap/HCC/Scheduling Wellness actions taken: Patient scheduled/pended orders: Medicare Annual Wellness Visit Controlling Blood Pressure 04/26/2024 in [facility] with HI HAMMER - medicare wellness, uacr,mammogram, influenza,bp, review due Navigation Signature: Natasha Roger MA March 28, 2024 11:12 AM Natasha Roger MA 04/01/2024 3:29 PM Signed POPULATION HEALTH NAVIGATION OUTREACH Action/FYI spoke to pt to advise that labs have been ordered for her- we didn't schedule them she said that she will do this on her own Reason for Outreach Returned Call/MyChart Patient Contacted: Spoke to patient/parent/or legal guardian Patient identified by name and date of : Yes Returned call/MyChart actions taken: No action required Navigation Signature: Natasha Roger MA April 01, 2024 3:28 PM Allergies As of Date: 03/28/2024 Noted Allergy Reaction CODEINE 08/23/2011 5 - Intolerance LATEX 11/08/2011 9 - Itching PENICILLINS 08/23/2011 12 - Shortness of Breath ULTRAM (TRAMADOL HCL) 08/23/2011 2 - Rash Date Reviewed: 07/01/2023 Reviewed by: Dominga Guardado MA - Fully Assessed Reason for Visit: Population Health Navigation Outreach [[id number]] [facility] Diagnosis:Prediabetes [R73.03] Order(s):ALBUMIN/CREATININE RATIO, URINE [SQUACR] Order #: [id number] FUTURE BASIC METABOLIC PANEL [SQBMP] Order #: [id number] FUTURE Prescriptions as of 04/01/2024 - simvastatin (ZOCOR) 20 mg tablet Take 1 tablet by mouth daily at bedtime. - pantoprazole DR (PROTONIX) 40 mg tablet Take 1 tablet by mouth once daily. Take on empty stomach, 1/2 hr before meal. - ferrous sulfate 325 mg (65 mg iron) tablet Take 1 tablet by mouth two times a day with meals. - loratadine (CLARITIN) 10 mg tablet Take 1 tablet by mouth once daily. - albuterol HFA (PROVENTIL HFA, VENTOLIN HFA) 90 mcg/actuation inhaler Inhale 2 Puffs as instructed every 4 hours as needed (for cough, wheezing, chest tightness or shortness of breath. Use with spacer. ). - blood sugar diagnostic (BLOOD GLUCOSE TEST) test strip Test blood sugar(s) 1 times daily. Dx: Type 2 DM - Controlled E11.9 Insulin: No. Uses a one touch meter - Lancets lancets Test blood sugar(s) 1 times daily. Dx: Type 2 DM - Controlled E11.9 Insulin: No - Blood-Glucose Meter (ACCU-CHEK GUIDE GLUCOSE METER) 1 m once daily. testing once daily DX R73.03 Insulin No - COMPOUNDED PRESCRIPTION Powerstep full length original (M76.821) Posterior tibial tendonitis, right (primary encounter diagnosis) (M89.8X9) Exostosis - Magnesium 250 mg tab Take 1 tablet by mouth once daily. - sodium chloride 0.65 % nasal spray Use 1 [place] in the nose as needed for Cold/Allergy Symptoms. Problem List As Of Date 03/28/2024 Noted Resolved Mixed hyperlipidemia [E78.2] Asthma [J45.909] GERD (gastroesophageal reflux disease) [K21.9] Abnormal glucose [R73.09] 11/08/2011 10/25/2014 Barretts esophagus [K22.70] 11/08/2011 Chronic right shoulder pain [M25.511, G89.29] 12/30/2011 10/25/2014 Speech problem [R47.9] 05/21/2012 Learning difficulty [F81.9] 05/21/2012 Overactive bladder [N32.81] 09/07/2012 Irritable bowel disease [K58.9] 10/25/2012 Chronic right hip pain [M25.551, G89.29] 04/24/2013 Edema [R60.9] 01/04/2014 Hypertension [I10] 04/07/2014 Disability, developmental [F89] 06/05/2014 Other chronic pain [G89.29] 06/12/2014 Left knee pain [M25.562] 09/22/2017 Prediabetes [R73.03] 04/15/2021 Encounter Status:Closed by NATASHA ROGER on 04/01/24[facility] 01-23-2024 Telephone encounter Note* Telephone Encounter - Lina Padilla - 01/23/2024 11:[address] attempt left message to return call to r/s missed appt with PCP office. [facility]12-07-[facility] Miscellaneous Notes* Telephone Encounter - Lina Padilla - 01/23/2024 11:[address] attempt left message to return call to r/s missed appt with PCP office. * Telephone Encounter - Minerva Gonzalez LPN - 01/23/2024 8:14 AM EST Please call pt to rescheduled Staves's appt with pcp. * Telephone Encounter - Ines Sharp - 01/22/2024 1:35 PM EST Prescription Refill Information The patient has been identified by name and date of : Yes Caregiver verified no other encounters exist for this prescription request: Yes Caregiver confirmed with patient/requestor that no other refills are due, in the near future, with this provider at this time: Yes The last office visit in the department: 11-04-23 Does the patient have a future office visit with this provider/department: No Requested Prescriptions Pending Prescriptions Disp Refills simvastatin (ZOCOR) 20 mg tablet 90 tablet 3 Sig: Take 1 tablet by mouth daily at bedtime. pantoprazole DR (PROTONIX) 40 mg tablet 90 tablet 3 Sig: Take 1 tablet by mouth once daily. Take on empty stomach, 1/2 hr before meal. Ines Mcdowell January 22, 2024 1:36 PM documented in this encounterMarietta [facility]12-07-2024 Telephone encounter Note * Telephone Encounter - Minerva Gonzalez LPN - 01/23/2024 8:14 AM EST Please call pt to rescheduled Staves's appt with pcp. [facility]12-06-20[facility] Telephone encounter Note* Telephone Encounter - Dominga Guardado MA - 01/22/2024 2:40 PM EST Can be addressed in OV. [facility]12-06-2024 Miscellaneous Notes* Telephone Encounter - Dominga Guardado MA - 01/22/2024 2:40 PM EST Can be addressed in OV. * Telephone Encounter - Iens Sharp - 01/22/2024 1:37 PM EST Sally is calling Hi Hammer MD today with concern regarding Patient Question (Food concern) Patient has been identified by name and birthdate. Duration of symptoms: N/A Person calling: self Call patient at: at home [phone] (home) [phone] (cell) Was an appointment scheduled: No Closing statement: Ines Mcdowell documented in this encounterMarietta [facility] Hospital12-06-2024 Telephone encounter Note * Telephone Encounter - Ines Sharp - 01/22/2024 1:37 PM EST Sally is calling Hi Hammer MD today with concern regarding Patient Question (Food concern) Patient has been identified by name and birthdate. Duration of symptoms: N/A Person calling: self Call patient at: at home [phone] (home) [phone] (cell) Was an appointment scheduled: No Closing statement: Ines Mcdowell [facility] Work Phone: 1(325) 655-603512-06-2024 Telephone encounter Note* Telephone Encounter - Ines Sharp - 01/22/2024 1:35 PM EST Prescription Refill Information The patient has been identified by name and date of : Yes Caregiver verified no other encounters exist for this prescription request: Yes Caregiver confirmed with patient/requestor that no other refills are due, in the near future, with this provider at this time: Yes The last office visit in the department: 11-04-23 Does the patient have a future office visit with this provider/department: No Requested Prescriptions Pending Prescriptions Disp Refills simvastatin (ZOCOR) 20 mg tablet 90 tablet 3 Sig: Take 1 tablet by mouth daily at bedtime. pantoprazole DR (PROTONIX) 40 mg tablet 90 tablet 3 Sig: Take 1 tablet by mouth once daily. Take on empty stomach, 1/2 hr before meal. Ines Mcdowell January 22, 2024 1:36 PM [facility] Work Phone: 1(382) 457-530009-18-2024 NoteHNO ID: [id number] Author: JO ANN MARTINEZ RN Service: ? Author Type: Registered Nurse Type: Progress Notes Filed: 11/04/2023 12:38 Note Text: Summary: ED utilization review per request of payer OMER RADHA RN Patient identified by name and date of . Reason for review or outreach: Chart Review Radha Priority Emergency Department Utilization REQUESTED ACTION/FYI: Please see ED Utilization summary below: A follow-up appointment is not noted in patient's record. We are forwarding this patient to Network Navigation to schedule a [facility] 10/29/23 PCP follow-up appointment. Thank you Exclusion Criteria - Does not meet exclusion criteria Utilization in past 6 months: # Occurrences Date Last Occurrence Hospital Admission 0 N/A Hospital Observation 0 N/A ED 2-OON 10/30/23 SNF / Acute Rehab / LTAC 0 N/A ED DIAGNOSES/REASON(S) FOR ED USE: [facility] 10/30/23 Chief Complaint: Wound Patient is a 68-year-old female with past medical history of IBS, prediabetic, GERD, hypercholesteremia, asthma who presented to the emergency department with a chief complaint of a red eric on her inner thigh. Patient notes that this has been there for a a while now and states that she has not follow-up with her primary care physician on this she states that things were not improving prompting her here today for further evaluation management patient denies any injuries. OTHER FINDINGS/SUMMARY: Patient Attributed To: KIAN Payer: Giovana ESQUIVEL Action Taken: Referrals/Routed: Population Health Navigation: Appointment. Router to [facility] [[id number]] Contact made with patient: No, Chart review only. Signature: Jo Ann Martinez MSN,RN,[facility] [employer] Management Contract RN [phone] Hospitals Portage [facility]09-18-2024 History of Present illness Narrative* Jo Ann Martinez RN - 11/04/2023 11:15 AM EDTSummary: ED utilization review per request of payer OMER RADHA RN Patient identified by name and date of . Reason for review or outreach: Chart Review Radha Priority Emergency Department Utilization REQUESTED ACTION/FYI: Please see ED Utilization summary below: A follow-up appointment is not noted in patient's record. We are forwarding this patient to Network Navigation to schedule a [facility] 10/29/23 PCP follow-up appointment. Thank you Exclusion Criteria - Does not meet exclusion criteria Utilization in past 6 months: # Occurrences Date Last Occurrence Hospital Admission 0 N/A Hospital Observation 0 N/A ED 2-OON 10/30/23 SNF / Acute Rehab / LTAC 0 N/A ED DIAGNOSES/REASON(S) FOR ED USE: [facility] 10/30/23 Chief Complaint: Wound Patient is a 68-year-old female with past medical history of IBS, prediabetic, GERD, hypercholesteremia, asthma who presented to the emergency department with a chief complaint of a red eric on her inner thigh. Patient notes that this has been there for a a while now and states that she has not follow-up with her primary care physician on this she states that things were not improving prompting her here today for further evaluation management patient denies any injuries. OTHER FINDINGS/SUMMARY: Patient Attributed To: KIAN Payer: Giovana ESQUIVEL Action Taken: Referrals/Routed: Population Health Navigation: Appointment. Router to [facility] [[id number]] Contact made with patient: No, Chart review only. Signature: Jo Ann MCCLENDON,RN,[facility] [employer] Management Contract RN [phone] documented in this encounterMarietta Memorial Hospital09-18-2024 NotePatient Outreach (INTMMN) SALLY MORRISON ([id number]) 1955 F Date Time Provider Department 11/04/23 HI HAMMER INTMMN During your visit today, we recorded the following information about you: Allergies As of Date: 11/04/2023 Noted Allergy Reaction CODEINE 08/23/2011 5 - Intolerance LATEX 11/08/2011 9 - Itching PENICILLINS 08/23/2011 12 - Shortness of Breath ULTRAM (TRAMADOL HCL) 08/23/2011 2 - Rash Date Reviewed: 07/01/2023 Reviewed by: Dominga Guardado MA - Fully Assessed Visit Diagnosis:Encounter for screening mammogram for breast cancer [Z12.31] Order(s):[facility] SCREENING [facility] Д[facility]РИЙ [[id number]] Order #: [id number] FUTURE Prescriptions as of 11/09/2023 - ferrous sulfate 325 mg (65 mg iron) tablet Take 1 tablet by mouth two times a day with meals. - loratadine (CLARITIN) 10 mg tablet Take 1 tablet by mouth once daily. - pantoprazole DR (PROTONIX) 40 mg tablet Take 1 tablet by mouth once daily. Take on empty stomach, 1/2 hr before meal. - simvastatin (ZOCOR) 20 mg tablet Take 1 tablet by mouth daily at bedtime. - albuterol HFA (PROVENTIL HFA, VENTOLIN HFA) 90 mcg/actuation inhaler Inhale 2 Puffs as instructed every 4 hours as needed (for cough, wheezing, chest tightness or shortness of breath. Use with spacer. ). - blood sugar diagnostic (BLOOD GLUCOSE TEST) test strip Test blood sugar(s) 1 times daily. Dx: Type 2 DM - Controlled E11.9 Insulin: No. Uses a one touch meter - Lancets lancets Test blood sugar(s) 1 times daily. Dx: Type 2 DM - Controlled E11.9 Insulin: No - Blood-Glucose Meter (ACCU-CHEK GUIDE GLUCOSE METER) 1 m once daily. testing once daily DX R73.03 Insulin No - COMPOUNDED PRESCRIPTION Powerstep full length original (M76.821) Posterior tibial tendonitis, right (primary encounter diagnosis) (M89.8X9) Exostosis - Magnesium 250 mg tab Take 1 tablet by mouth once daily. - sodium chloride 0.65 % nasal spray Use 1 [place] in the nose as needed for Cold/Allergy Symptoms. Problem List As Of Date 11/04/2023 Noted Resolved Mixed hyperlipidemia [E78.2] Asthma [J45.909] GERD (gastroesophageal reflux disease) [K21.9] Abnormal glucose [R73.09] 11/08/2011 10/25/2014 Barretts esophagus [K22.70] 11/08/2011 Chronic right shoulder pain [M25.511, G89.29] 12/30/2011 10/25/2014 Speech problem [R47.9] 05/21/2012 Learning difficulty [F81.9] 05/21/2012 Overactive bladder [N32.81] 09/07/2012 Irritable bowel disease [K58.9] 10/25/2012 Chronic right hip pain [M25.551, G89.29] 04/24/2013 Edema [R60.9] 01/04/2014 Hypertension [I10] 04/07/2014 Disability, developmental [F89] 06/05/2014 Other chronic pain [G89.29] 06/12/2014 Left knee pain [M25.562] 09/22/2017 Prediabetes [R73.03] 04/15/2021 Encounter Status:Closed by SANGEETHA ANGULO on 11/09/23[facility] 11-04-2023 NotePatient Outreach (AMBCMG) SALLY MORRISON ([id number]) 1955 F Date Time Provider Department 11/04/23 [facility] During your visit today, we recorded the following information about you: Jo Ann Martinez RN 11/04/2023 12:38 PM Signed ACM RADHA RN Patient identified by name and date of . Reason for review or outreach: Chart Review Radha Priority Emergency Department Utilization REQUESTED ACTION/FYI: Please see ED Utilization summary below: A follow-up appointment is not noted in patient's record. We are forwarding this patient to Network Navigation to schedule a [facility] 10/29/23 PCP follow-up appointment. Thank you Exclusion Criteria - Does not meet exclusion criteria Utilization in past 6 months: # Occurrences Date Last Occurrence Hospital Admission 0 N/A Hospital Observation 0 N/A ED 2-OON 10/30/23 SNF / Acute Rehab / LTAC 0 N/A ED DIAGNOSES/REASON(S) FOR ED USE: [facility] 10/30/23 Chief Complaint: Wound Patient is a 68-year-old female with past medical history of IBS, prediabetic, GERD, hypercholesteremia, asthma who presented to the emergency department with a chief complaint of a red eric on her inner thigh. Patient notes that this has been there for a a while now and states that she has not follow-up with her primary care physician on this she states that things were not improving prompting her here today for further evaluation management patient denies any injuries. OTHER FINDINGS/SUMMARY: Patient Attributed To: QAE Payer: Giovana ESQUIVEL Action Taken: Referrals/Routed: Population Health Navigation: Appointment. Router to [facility] [[id number]] Contact made with patient: No, Chart review only. Signature: Jo Ann MCCLENDON,RN,[facility] [employer] Contract RN [phone] Allergies As of Date: 11/04/2023 Noted Allergy Reaction CODEINE 08/23/2011 5 - Intolerance LATEX 11/08/2011 9 - Itching PENICILLINS 08/23/2011 12 - Shortness of Breath ULTRAM (TRAMADOL HCL) 08/23/2011 2 - Rash Date Reviewed: 07/01/2023 Reviewed by: Dominga Guardado MA - Fully Assessed Reason for Visit: ACM RADHA RN [[id number]] Cmt: ED utilization review per request of payer Prescriptions as of 11/04/2023 - ferrous sulfate 325 mg (65 mg iron) tablet Take 1 tablet by mouth two times a day with meals. - loratadine (CLARITIN) 10 mg tablet Take 1 tablet by mouth once daily. - pantoprazole DR (PROTONIX) 40 mg tablet Take 1 tablet by mouth once daily. Take on empty stomach, 1/2 hr before meal. - simvastatin (ZOCOR) 20 mg tablet Take 1 tablet by mouth daily at bedtime. - albuterol HFA (PROVENTIL HFA, VENTOLIN HFA) 90 mcg/actuation inhaler Inhale 2 Puffs as instructed every 4 hours as needed (for cough, wheezing, chest tightness or shortness of breath. Use with spacer. ). - blood sugar diagnostic (BLOOD GLUCOSE TEST) test strip Test blood sugar(s) 1 times daily. Dx: Type 2 DM - Controlled E11.9 Insulin: No. Uses a one touch meter - Lancets lancets Test blood sugar(s) 1 times daily. Dx: Type 2 DM - Controlled E11.9 Insulin: No - Blood-Glucose Meter (ACCU-CHEK GUIDE GLUCOSE METER) 1 m once daily. testing once daily DX R73.03 Insulin No - COMPOUNDED PRESCRIPTION Powerstep full length original (M76.821) Posterior tibial tendonitis, right (primary encounter diagnosis) (M89.8X9) Exostosis - Magnesium 250 mg tab Take 1 tablet by mouth once daily. - sodium chloride 0.65 % nasal spray Use 1 [place] in the nose as needed for Cold/Allergy Symptoms. Problem List As Of Date 11/04/2023 Noted Resolved Mixed hyperlipidemia [E78.2] Asthma [J45.909] GERD (gastroesophageal reflux disease) [K21.9] Abnormal glucose [R73.09] 11/08/2011 10/25/2014 Barretts esophagus [K22.70] 11/08/2011 Chronic right shoulder pain [M25.511, G89.29] 12/30/2011 10/25/2014 Speech problem [R47.9] 05/21/2012 Learning difficulty [F81.9] 05/21/2012 Overactive bladder [N32.81] 09/07/2012 Irritable bowel disease [K58.9] 10/25/2012 Chronic right hip pain [M25.551, G89.29] 04/24/2013 Edema [R60.9] 01/04/2014 Hypertension [I10] 04/07/2014 Disability, developmental [F89] 06/05/2014 Other chronic pain [G89.29] 06/12/2014 Left knee pain [M25.562] 09/22/2017 Prediabetes [R73.03] 04/15/2021 Encounter Status:Closed by JO ANN MARTINEZ on 11/04/23[facility]05-15-2024 History of Present illness Narrative* Caron Robles APRN.COMMUNICATIONS EDITOR - 07/01/2023 11:31 AM EDT Natalie miller CC: Patient presents with: Recheck: 3 month follow up HPI Sally Morrison is a 68 year old female who presents today for concerns of painful corn to left pinky toe Has noticed painful area about a month ago after buying new shoes. Continuing to wear new shoes butpain continues and now entire left pinky toe is tender. Has used a corn patch to toe without improvement and was still painful Denies injury, swelling, redness, or drainage. REVIEW OF SYSTEMS See HPI PAST MEDICAL HISTORY Diagnosis Date Asthma Esophagitis, unspecified External hemorrhoids without mention of complication 01/12/2012 Family history of malignant neoplasm of gastrointestinal tract 01/12/2012 Fibromyalgia GERD (gastroesophageal reflux disease) Hypertension Hypokalemia 10/25/2012 Internal hemorrhoids without mention of complication 01/12/2012 Mixed hyperlipidemia controlled Overactive bladder 09/07/2012 Pain in joint, lower leg 06/12/2014 Ventral hernia 2017 PAST SURGICAL HISTORY Procedure Laterality Date CHOLECYSTECTOMY Cholecystectomy in her 30's COLONOSCOPY FLX DX W/COLLJ SPEC WHEN PFRMD 01/12/2012 Colonoscopy COLONOSCOPY FLX DX W/COLLJ SPEC WHEN PFRMD 10/15/15 Colonoscopy repeat 5 years/f.hx COLONOSCOPY FLX DX W/COLLJ SPEC WHEN PFRMD 12/13/[address] BRAIN W/O 01/01/15 only soft tissue swelling right periorbital region 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 ESOPHAGOGASTRODUODENOSCOPY TRANSORAL DIAGNOSTIC 01/12/2012 EGD ESOPHAGOGASTRODUODENOSCOPY TRANSORAL DIAGNOSTIC 04/27/14 EGD ESOPHAGOGASTRODUODENOSCOPY TRANSORAL DIAGNOSTIC 12/13/2018 EGD FOOT SURGERY HX Right 2003 [employer]/VENT HERNIA REPAIR 05/2017 VAGINAL HYSTERECTOMY UTERUS 250 GM/< left ovary and cervix still intact XR TIBIA FIBULA AP/LAT RT 01/01/15 no fracture ALLERGIES Codeine, Latex, Penicillins, and Ultram [Tramadol Hcl] MEDICATIONS pantoprazole DR (PROTONIX) 40 mg tablet Take 1 tablet by mouth once daily. Take on empty stomach, 1/2 hr before meal. simvastatin (ZOCOR) 20 mg tablet Take 1 tablet by mouth daily at bedtime. albuterol HFA (PROVENTIL HFA, VENTOLIN HFA) 90 mcg/actuation inhaler Inhale 2 Puffs as instructed every 4 hours as needed (for cough, wheezing, chest tightness or shortness of breath. Use with spacer. ). ferrous sulfate 325 mg (65 mg iron) tablet Take 1 tablet by mouth twice daily with meals. blood sugar diagnostic (BLOOD GLUCOSE TEST) test strip Test blood sugar(s) 1 times daily. Dx: Type 2 DM - Controlled E11.9 Insulin: No. Uses a one touch meter loratadine (CLARITIN) 10 mg tablet Take 1 tablet by mouth once daily. Lancets lancets Test blood sugar(s) 1 times daily. Dx: Type 2 DM - Controlled E11.9 Insulin: No Blood-Glucose Meter (ACCU-CHEK GUIDE GLUCOSE METER) 1 m once daily. testing once daily DX R73.03 Insulin No COMPOUNDED PRESCRIPTION Powerstep full length original (M76.821) Posterior tibial tendonitis, right (primary encounter diagnosis) (M89.8X9) Exostosis (Patient taking differently: Powerstep full length original (M76.821) Posterior tibial tendonitis, right (primary encounter diagnosis) (M89.8X9) Exostosis) Magnesium 250 mg tab Take 1 tablet by mouth once daily. sodium chloride 0.65 % nasal spray Use 1 [place] in the nose as needed for Cold/Allergy Symptoms. FAMILY HISTORY Problem Relation Age of Onset Heart Mother Heart Father Stroke Father Colon Cancer Father before age 40 Cancer Brother Social History Tobacco Use Smoking status: Never Smokeless tobacco: Never Substance Use Topics Alcohol use: No Drug use: No PHYSICAL EXAM BP 118/76 Pulse 70 Resp 16 Wt 71.7 kg (158 lb) SpO2 98% BMI 29.37 kg/m General Appearance: well appearing, in no acute distress, alert Skin: Skin color, texture, turgor normal for age; Eyes: conjunctiva pink and moist, no icterus, sclera white, non-injected Lungs: Lungs clear to auscultation. No wheezing, rhonchi, rales. Heart: RRR without murmur, gallop, or rubs. No ectopy BLE: No edema, skin discoloration, clubbing or cyanosis. Good capillary refill. Pusles palpale. Roughened raised area to left outer 5th toe and tender. No redness, draianage or discoloration. No tenderness elsewhere outside of lesion. Health maintenance reviewed with patient: Mammogram Screening due on 11/13/2021 Advance Directive Discussion due on 02/16/2023 Behavioral Health Screening Never done BP Controlled (<130/80) due on 04/01/2024 Annual PCP Team Chronic Disease Visit due on 06/30/2024 Diabetes Screening due on 04/01/2026 Lipid Screening due on 04/01/2028 DTaP,Tdap,Td Vaccine(4 - Td or Tdap) due on 05/02/2029 Colorectal Cancer Screening due on 12/31/2031 Bone Density Screening Completed Spirometry Completed Influenza Vaccine Completed RSV Vaccine Completed Shingrix Vaccine Completed Covid-19 Vaccine Completed Pneumococcal Vaccine: 65+ Completed Hepatitis C Screening Discontinued DATA REVIEWED: No new labs ASSESSMENT/PLAN: 1. Pain in left toe(s) - ICD9: 729.5, ICD10: M79.675 (primary diagnosis) Bell versus callused blister. Continue with protective corn patches, wear different shoes that do not irritate your toes and can see podiatry for further evaluation. - CONSULT TO PODIATRY 2. Callus - ICD9: 700, ICD10: L84 As above - CONSULT TO PODIATRY 3. Bell of toe - ICD9: 700, ICD10: L84 See #1 - CONSULT TO PODIATRY 4. Seasonal allergies - ICD9: 477.9, ICD10: J30.2 Refill requested. Not discussed in appointment today - LORATADINE 10 MG TABLET Prescription instructions reviewed with patient as applicable. Potential red flag symptoms discussed with the patient. Reviewed appropriate action plan to take if red flag symptoms occur. Patient agreeable to treatment plan. Caron Robles APRN.CNP documented in this encounter[facility] History of Present illness Narrative* Marlene Arteaga PA-C - 04/01/2023 9:04 AM EST CC: Patient presents with: Follow Up: Routine 3 month Chest Pain HPI Sally Morrison is a 68 year old female who presents today for 3 month f/u & c/o continued R hip pain. Last visit was with Caron robles CNP on 12/12/2022. At that time, labs were ordered, but were notobtained until this morning. Patient also reports having chest pain that extends into her back. She reports that it is worse when she exerts herself. Occasionally notes associated dyspnea on exertion. Does state that she thinks it is worse with stress. Last ECG/cardiac workup of any sort was in ED at [facility] [place] in 08/08. Chronic R hip pain: Was seen in ED for this issue 02/19/23 - had XR of pelvis/hip which revealed mildOA right hip. Takes Tylenol PRN, which seems to work pretty well. Hyperlipidemia. Ms. Morrison reports doing well on current therapy of simvastatin (Zocor). Denies side effects of muscle weakness or achiness. Her most recent lipid panels are: Cholesterol, Total (mg/dL) Date Value 11/05/2021 183 10/10/2020 197 10/06/2019 163 HDL Cholesterol (mg/dL) Date Value 11/05/2021 70 10/10/2020 84 10/06/2019 65 LDL Cholesterol (mg/dL) Date Value 11/05/2021 98 10/10/2020 100 10/06/2019 85 Triglyceride (mg/dL) Date Value 11/05/2021 76 10/10/2020 66 10/06/2019 64 GERD: Symptoms are stable on protonix. Prediabetes: Sally Morrison denies excessive thirst or increased frequency of urination, chest pain or dyspnea , numbness, tingling or pain in extremities, new or unusual visual symptoms, low sugar/hypoglycemic reactions, weight loss/gain, lightheadedness/dizziness, and bowel changes/loose stools. Not on medication as she didn't tolerate metformin well (nausea). Home blood sugar readings: 90s-110s Hypoglycemia: Not too often Diabetic diet: Yes, I try to Patient's last HgA1C was Hemoglobin A1C (%) Date Value 05/14/2020 5.6 10/06/2019 5.7 Hemoglobin A1C (POCT) (%) Date Value 09/11/2022 5.3 11/12/2021 5.2 REVIEW OF SYSTEMS See HPI All other systems negative. PAST MEDICAL HISTORY Diagnosis Date Asthma Esophagitis, unspecified External hemorrhoids without mention of complication 01/12/2012 Family history of malignant neoplasm of gastrointestinal tract 01/12/2012 Fibromyalgia GERD (gastroesophageal reflux disease) Hypertension Hypokalemia 10/25/2012 Internal hemorrhoids without mention of complication 01/12/2012 Mixed hyperlipidemia controlled Overactive bladder 09/07/2012 Pain in joint, lower leg 06/12/2014 Ventral hernia 2017 PAST SURGICAL HISTORY Procedure Laterality Date CHOLECYSTECTOMY Cholecystectomy in her 30's COLONOSCOPY FLX DX W/COLLJ SPEC WHEN PFRMD 01/12/2012 Colonoscopy COLONOSCOPY FLX DX W/COLLJ SPEC WHEN PFRMD 10/15/15 Colonoscopy repeat 5 years/f.hx COLONOSCOPY FLX DX W/COLLJ SPEC WHEN PFRMD 12/13/[address] BRAIN W/O 01/01/15 only soft tissue swelling right periorbital region 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 ESOPHAGOGASTRODUODENOSCOPY TRANSORAL DIAGNOSTIC 01/12/2012 EGD ESOPHAGOGASTRODUODENOSCOPY TRANSORAL DIAGNOSTIC 04/27/14 EGD ESOPHAGOGASTRODUODENOSCOPY TRANSORAL DIAGNOSTIC 12/13/2018 EGD FOOT SURGERY HX Right 2003 [employer]/VENT HERNIA REPAIR 05/2017 VAGINAL HYSTERECTOMY UTERUS 250 GM/< left ovary and cervix still intact XR TIBIA FIBULA AP/LAT RT 01/01/15 no fracture ALLERGIES Codeine, Latex, Penicillins, and Ultram [Tramadol Hcl] MEDICATIONS pantoprazole DR (PROTONIX) 40 mg tablet Take 1 tablet by mouth once daily. Take on empty stomach, 1/2 hr before meal. simvastatin (ZOCOR) 20 mg tablet Take 1 tablet by mouth daily at bedtime. albuterol HFA (PROVENTIL HFA, VENTOLIN HFA) 90 mcg/actuation inhaler Inhale 2 Puffs as instructed every 4 hours as needed (for cough, wheezing, chest tightness or shortness of breath. Use with spacer. ). ferrous sulfate 325 mg (65 mg iron) tablet Take 1 tablet by mouth twice daily with meals. blood sugar diagnostic (BLOOD GLUCOSE TEST) test strip Test blood sugar(s) 1 times daily. Dx: Type 2 DM - Controlled E11.9 Insulin: No. Uses a one touch meter loratadine (CLARITIN) 10 mg tablet Take 1 tablet by mouth once daily. Lancets lancets Test blood sugar(s) 1 times daily. Dx: Type 2 DM - Controlled E11.9 Insulin: No Blood-Glucose Meter (ACCU-CHEK GUIDE GLUCOSE METER) 1 m once daily. testing once daily DX R73.03 Insulin No sodium chloride 0.65 % nasal spray Use 1 [place] in the nose as needed for Cold/Allergy Symptoms. diclofenac (VOLTAREN ARTHRITIS PAIN) 1 % topical gel Apply 2 g to affected area four times daily. fluticasone-salmeterol HFA (ADVAIR HFA) 115-21 mcg/actuation inhaler Inhale 2 Puffs as instructed twice daily. alendronate (FOSAMAX) 35 mg tablet Take 1 tablet by mouth one time a week. calcium carbonate-vitamin D3 (CALTRATE 600 PLUS D) 600 mg (1,500 mg)-800 unit chew Take 1 tablet bymouth once daily. COMPOUNDED PRESCRIPTION Powerstep full length original (M76.821) Posterior tibial tendonitis, right (primary encounter diagnosis) (M89.8X9) Exostosis (Patient taking differently: Powerstep full length original (M76.821) Posterior tibial tendonitis, right (primary encounter diagnosis) (M89.8X9) Exostosis) Magnesium 250 mg tab Take 1 tablet by mouth once daily. FAMILY HISTORY Problem Relation Age of Onset Heart Mother Heart Father Stroke Father Colon Cancer Father before age 40 Cancer Brother Social History Tobacco Use Smoking status: Never Smokeless tobacco: Never Substance Use Topics Alcohol use: No Drug use: No PHYSICAL EXAM BP 122/62 (BP Site: Left Arm, BP Position: Sitting, BP Cuff Size: Large Adult) Pulse 77 Resp 12 Ht 156.2 cm (5' 1.5) Wt 73 kg (161 lb) SpO2 100% BMI 29.93 kg/m General Appearance: well appearing, in no acute distress, alert Pysch: mood and affect broad and appropriate Skin: Skin color, texture, turgor normal for age; Head: normocephalic, atraumatic Lymph nodes: No cervical lymphadenopathy Lungs: Lungs clear to auscultation. No wheezing, rhonchi, rales. Heart: RRR without murmur, gallop, or rubs. No ectopy Abdomen: Normal abdominal exam Extremities: No gross deformities, significant edema, skin discoloration, clubbing or cyanosis. Neurological: Gait normal. No focal neurological deficits. Sensation grossly intact. ASSESSMENT/PLAN: 1. Chronic right hip pain - ICD9: 719.45, 338.29, ICD10: M25.551, G89.29 (primary diagnosis) Reassurance provided regarding benign x-ray findings at most recent ED visit 03/11. Pain seems to bemanaged well with Tylenol OTC. 2. Prediabetes - ICD9: 790.29, ICD10: R73.03 Pending A1c, as labs were obtained this morning-will call pending results. Stable off medication. Continue to monitor over time. 3. Mixed hyperlipidemia - ICD9: 272.2, ICD10: E78.2 -Pending labs, as obtained this morning - Continue current medications - Counseled on healthy diet and regular exercise 4. Gastroesophageal reflux disease without esophagitis - ICD9: 530.81, ICD10: K21.9 - Continue treatment with Protonix QD 5. Chest pain, unspecified type - ICD9: 786.50, ICD10: R07.9 Chest pain of unclear etiology, patient with risk factor(s) of Hyperlipidemia - Electrocardiogram: ECG obtained in office revealed normal sinus rhythm; No ectopy, acute ST changes, or other findings suggestive of ischemia. Reassurance provided to patient. Reviewed red flags with patient and when to seek care sooner. Reviewed appropriate action plan to take if red flag symptoms occur. - ECG COMPLETE Follow-up 3 months routine issues Prescription instructions reviewed with patient as applicable. Patient agreeable to treatment plan. Marlene Arteaga PA-C documented in this encounterM[facility]02-[facility] History of Present illness Narrative* Charisse Trevino MA - 03/25/2023 7:40 AM EST POPULATION HEALTH NAVIGATION OUTREACH Action/FYI Mammogram ordered 11.26.2022 Spoke with patient, states she will discuss with provider at upcoming apt. States she would like tohave this done at [facility]. Advised patient I am unable to schedule for this facility and would have to confirm with them if they do walk in appointments or if they have to have scheduled appointments. Patient states she will get order printed while she is at [facility] on 04/01/2023 and take it to [facility] Patient Identified by Name and : YES, via phone Outreach Outcome/Action Spoke to patient / parent / legal guardian: Patient declined. Would like to manage scheduling theirown appointments Did you use a PCP flex slot to schedule this appointment? N/A Reason for Outreach Care Gap or Scheduling/Wellness visits Payer: No coverage found. Care Gap Reviewed:: Breast Cancer screening Reminder: Reminder note to check Health Maintenance for items below Health Maintenance items due: Mammogram Screening due on 11/13/2021 Advance Directive Discussion due on 02/16/2023 Depression Assessment due on 02/16/2023 Navigation Signature: Charisse Garcia MA March 25, 2023 7:40 AM documented in this encounterMari[facility]01-04-2024 Discharge summary Author Anshu Tobar [facility] February 19, 2023 8:38pm Note Date/Time February 19, 2023 7: 10pm [facility] Medical Records Department [address] [place] [address] Emergency Department Summary 02/19/23 MR#: [id number] Acct: [id number] Name: SALLY MORRISON Rep #:[id number] : 1955 67 From: Anshu Tobar DO PCP: CARON ROBLES [employer]-C Status:REG ER Location: ED HPI History of Present Illness Chief Complaint: Fall Narrative Narrative: 67-year-old female presenting with right hip pain and right foot pain. Patient states she had a mechanical fall going to her doorway. States she lost her footing and fell. She states her grazed her head but did not get knocked out. She has no dizziness, nausea, lightheadedness, confusion. Patient states has been home and walks when she fell. She complains of pain in the right hip and the dorsal aspect of the right foot. She has pain with the right ankle when shemoves it. Denies blood thinners. States she did not have any prodromal symptoms prior to falling. [facility] Medical History Arthritis Asthma Chronic bronchitis Fatty liver Gallstones GERD (gastroesophageal reflux disease) High cholesterol History of edema History of IBS History of stress test Leg cramps Low iron Non-smoker Post-menopausal Pre-diabetes Restless legs Scoliosis Seasonal allergies Wears dentures Wears glasses Home Medications simvastatin 20 mg tablet 20 mg PO QHS 12/23/12 [History Last Taken 03/04/16] calcium carbonate 600 mg-vitamin D3 10 mcg (400 unit) chewable tablet 1 tab PO DAILY 06/30/17 [History Last Taken Unknown] fluticasone propionate 115 mcg-salmeterol 21 mcg/actuation HFA inhaler 2 puff inhalation BID 06/30/17 [History Last Taken Unknown] sodium chloride 0.65 % nasal spray aerosol (Saline Nasal) 1 spray intranasal Q1- 4H PRN Allergies 10/21/17 [History Last Taken Unknown] albuterol sulfate 90 mcg/actuation aerosol inhaler 2 puff IH PRN PRN Sob &/Or Wheezing 08/26/19 [History Last Taken 12/30/21] ferrous sulfate 325 mg (65 mg iron) tablet 325 mg PO DAILY 10/22/21 [History Last Taken Unknown] alendronate 35 mg tablet 35 mg PO DAILY 12/26/21 [History Last Taken 12/30/21] pantoprazole 40 mg tablet,delayed release 40 mg PO DAILY 12/26/21 [History Last Taken 12/30/21] Allergy/AdvReac Type Severity Reaction Status Date / Time cefdinir [From Omnicef] Allergy Severe Unknown Verified 02/19/23 16:55 Penicillins Allergy Severe STOP Verified 02/19/23 16:55 BREATHING codeine Allergy Other Verified 02/19/23 16:55 hydrocodone bitartrate Allergy Other Verified 02/19/23 16:55 [From Vicodin] latex Allergy Rash Verified 02/19/23 16:55 aspirin AdvReac Other Verified 02/19/23 16:55 tramadol [From Ultram] AdvReac Rash Verified 02/19/23 16:55 Family History Mother Cancer Father Heart disease Hypertension High cholesterol Kidney disease CVA (cerebral vascular accident) Colon cancer Surgical History H/O hernia repair History of colonoscopy Hx of cholecystectomy Social History household members: none Smoking Status: Never smoker second hand exposure: No alcohol intake: never substance use type: does not use ROS ROS ED Constitutional Constitutional ED: Denies chills, fever(s) or sweats Eyes Eyes: Denies blurry vision or change in vision ENT ENT ED: Denies ear pain or sore throat Cardiovascular Cardiovascular: Denies chest pain, palpitations or racing heartbeat Respiratory/Chest Respiratory/Chest: Denies cough, dyspnea or sputum Gastrointestinal Gastrointestinal: Denies abdominal pain, constipation, diarrhea, nausea or vomiting Genitourinary Genitourinary ED: Denies dysuria, hematuria or urinary frequency Musculoskeletal Musculoskeletal: Reports other Details: Right hip pain, right ankle pain, right foot pain ; Denies arthralgias, myalgias or neck pain Integumentary Denies abscess, Abrasions or rash Neurologic Neurologic: Denies headache(s), paresthesias or weakness Psychiatric Psychiatric: Denies anxiety, depression, suicidal ideation or suicidal thoughts Endocrine Endocrinology: Denies polydipsia or polyuria EXAM Physical Exam Const Vital Signs: 02/19/23 16:55 02/19/23 18:02 Temperature 96.7 F L Temperature Source Temporal Pulse Rate 95 Respiratory Rate 18 Respiratory Effort Normal Respiratory Depth Normal Respiratory Pattern Normal Blood Pressure 143/63 H Blood Pressure Mean 89 Pulse Ox 98 Oxygen Delivery Method Room Air Room Air Positive well nourished General Appearance ED: NAD HEENT Reports moist mucous membranes normocephalic and atraumatic Chest Wall inspection of chest normal Resp normal respiratory effort and no retractions Auscultation: Negative for rales, rhonchi or wheezes Cardio regular rate and regular rhythm GI non-tender Back/Spine Cervical Spine: Negative for cervical spine tenderness Thoracic Spine / Upper Back: Negative for thoracic spinal tenderness Lumbar Spine / Lower Back: Negative for lumbar spinal tenderness Extremity Extremity Narrative: To palpation over the right greater trochanter. No obvious deformity. Logroll negative. Patient able to the right hip up off the bed. Patient complains of tenderness to palpation of the right ankle on the lateral aspect as well as the dorsum of the right foot. No obvious deformities. Neurovascular intact throughout. No bruising, edema. Neuro oriented x3 Sensorium / Orientation: alert Motor Exam: strength 5/5 throughout Psych mental status grossly normal MDM MDM MDM Narrative Medical decision making narrative: Request Tylenol for pain. Differential includes foot contusion, ankle contusion, hip contusion, fracture of either. Will obtain x-rays of the right hip, right ankle, right foot. X-rays of the right ankle, right foot, right hip all of my interpretation show no acute fracture subluxation. Patient was able to ambulate with a walker. She will be given a walker for home. She felt comfortable and had a stable gait. Tylenol and ibuprofen for pain. Return precautions discussed. Impression: 1. Mechanical fall 2. Right hip contusion 3. Lower extremity diffuse Lab Data Attestation: I reviewed the patient's lab results. Radiography Diagnostic Testing: Clinical Impression(s) from Imaging Studies Ankle X-Ray 02/19/23 19:04 IMPRESSION: Nonspecific soft tissue swelling as described. No acute fracture or subluxation. Minimal plantar calcaneal spur and enthesophyte at the calcaneus as described. Electronically Signed: Myra Bonner MD at 19:40 EST Reading Location ID and State: [employer] / [place] , Service support , Hip/Pelvis X-Ray 02/19/23 19:04 IMPRESSION: Possible diffuse osteopenia with mild, multilevel degenerative disease. No acute fracture or subluxation of the right hip. Electronically Signed: Myra Bonner MD at 19:41 EST Reading Location ID and State: [employer] / [place] , Service support , Foot X-Ray 02/19/23 19:15 IMPRESSION: Minor degenerative disease with no acute fracture or subluxation. Electronically Signed: Myra Bonner MD at 19:39 EST Reading Location ID and State: [employer] / [place] , Service support , Discharge Plan Triage Chief Complaint: Fall ED Provider: Anshu Tobar Dx/Rx/DC Orders Instructions: ED Contusion, Lower Extremity, ED Hip Contusion, ED Fall Prevention Prescriptions: No Action sodium chloride [Saline Nasal] 0.65 % aerosol,spray 1 spray INTRANASAL Q1-4H PRN (Reason: Allergies) ferrous sulfate 325 mg (65 mg iron) tablet 325 mg PO DAILY simvastatin 20 MG tablet 20 mg PO QHS fluticasone propion-salmeterol 1 PUFF inhaler 2 puff INHALATION BID calcium carbonate-vitamin D3 1 EACH tablet,chewable 1 tab PO DAILY Rx Instructions: taken in afternoon albuterol sulfate 1 PUFF inhaler 2 puff IH PRN PRN (Reason: Sob &/Or Wheezing) alendronate 35 mg tablet 35 mg PO DAILY pantoprazole 40 mg tablet,delayed release (DR/EC) 40 mg PO DAILY Primary Care Provider: CARON ROBLES Referrals: CARON ROBLES NP-C [Primary Care Provider] - Disposition Disposition: Home, Self Care What to do if you have Problems For any increased pain, shortness of breath, bleeding, nausea or vomiting, chestpain, or any unexpected problems, contact your Primary Care Provider. Call [facility] ([phone]) or report to the closest Emergency Room. Call 911 if necessary. 02/19/232037 <Electronically signed by Anshu Tobar DO> Cosigner Signature (if applicable): CC: JASON ROBLES ~ Signed [facility] Work Phone: [phone]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 wear compression stockings as previously discussed. - low salt diet - elevate legs throughout the day as able - follow up for any increase in edema, skin discoloration, or any other new concerns. 4. Mild intermittent asthma without complication - ICD9: 493.90, ICD10: J45.20 - Mild intermittent asthma stable - Continue current medications - Avoidance of triggers recommended 5. Osteopenia, senile - ICD9: 733.90, ICD10: M85.80 - Reviewed the need for Calcium and Vitamin D supplements and weight bearing exercise as tolerated - need to call patient at home to further verify if on fosamax 6. Disability, developmental - ICD9: 315.9, ICD10: F89 At baseline without any concerns at this time -In office is dressed appropriately, clean, and without any signs of neglect. 7. Speech problem - ICD9: 784.59, ICD10: R47.9 As above Prescription instructions reviewed with patient as applicable. Potential red flag symptoms discussed with the patient. Reviewed appropriate action plan to take if red flag symptoms occur. Patient agreeable to treatment plan. Caron Robles APRN.CNP * Caron Robles APRN.CNP - 07/21/2022 12:46 PM EDT Medicare Yearly Visit Medical B eligibilty date 2018 Date of last exam N/A PAST MEDICAL HISTORY Diagnosis Date Asthma Esophagitis, unspecified External hemorrhoids without mention of complication 01/12/2012 Family history of malignant neoplasm of gastrointestinal tract 01/12/2012 Fibromyalgia GERD (gastroesophageal reflux disease) Hypertension Hypokalemia 10/25/2012 Internal hemorrhoids without mention of complication 01/12/2012 Mixed hyperlipidemia controlled Overactive bladder 09/07/2012 Pain in joint, lower leg 06/12/2014 Ventral hernia 2018 PAST SURGICAL HISTORY Procedure Laterality Date CHOLECYSTECTOMY Cholecystectomy in her 30's COLONOSCOPY FLX DX W/COLLJ SPEC WHEN PFRMD 01/12/2012 Colonoscopy COLONOSCOPY FLX DX W/COLLJ SPEC WHEN PFRMD 10/15/15 Colonoscopy repeat 5 years/f.hx COLONOSCOPY FLX DX W/COLLJ SPEC WHEN PFRMD 12/13/[address] BRAIN W/O 01/01/15 only soft tissue swelling right periorbital region 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 ESOPHAGOGASTRODUODENOSCOPY TRANSORAL DIAGNOSTIC 01/12/2012 EGD ESOPHAGOGASTRODUODENOSCOPY TRANSORAL DIAGNOSTIC 04/27/14 EGD ESOPHAGOGASTRODUODENOSCOPY TRANSORAL DIAGNOSTIC 12/13/2018 EGD FOOT SURGERY HX Right 2002 [employer]/VENT HERNIA REPAIR 05/2017 VAGINAL HYSTERECTOMY UTERUS 250 GM/< left ovary and cervix still intact XR TIBIA FIBULA AP/LAT RT 01/01/15 no fracture ALLERGIES: Codeine, Latex, Penicillins, and Ultram [Tramadol Hcl] Medications reviewed: Yes FAMILY HISTORY Problem Relation Age of Onset Heart Mother Heart Father Stroke Father Colon Cancer Father before age 40 Cancer Brother SOCIAL HISTORY: Social History Tobacco Use Smoking status: Never Smokeless tobacco: Never Substance Use Topics Alcohol use: No Drug use: No Sally works out regularly by walking for housework and shopping. She watches her diet for sodium, low fat and low cholesterol some of the time. List of current specialists seen: Optometry: Dr. Jordan for routine eye exams. End of Live Planning discussed including patients advanced directive wishes: No PHQ-2 / Depression screen She in the past two weeks denies having felt down, depressed, hopeless, or with little interest or pleasure in doing things. Functional Ability/Safety Screen 1. Was the patient's timed Up and Go test unsteady or longer than 30 seconds? No 2. Does the patient need help with the phone, transportation, shopping,preparing meals, housework, laundry, medications or managing money? No 3. Does your home have rugs in the hallway, lack of grab bars in the bathroom, lack of handrails onthe stairs or have poor lighting? No Hearing Evaluation: hard of hearing Has hearing aid she does not use PHYSICAL EXAM BP 122/78 Pulse 88 Resp 16 Wt 76.7 kg (169 lb) BMI 31.42 kg/m Alert and oriented X 3: YES Body mass index is 31.42 kg/m . CDT normal 3/3 word recall. ASSESSMENT/PLAN: 67 year old female The following prevention plan was discussed during the office visit and provided to the patient: - Counseled on healthy diet and regular exercise - Discussed need for and benefit of weight loss. BMI 31.42 kg/(m^2) - Fall avoidance - Vaccines recommended Pneumococcal - Lipid panel - Diabetes screening - Depression screening - Glaucoma screening Caron Robles APRN.CNP documented in this encounterMari[facility]05-31-[address] Chakraborty [facility] July 16, 2022 8:31pm Note Date/Time July 16, 2022 8:31p m [facility] Medical Records Department [address] [place] [address] Emergency Department Summary 07/16/22 MR#: [id number] Acct: [id number] Name: SALLY MORRISON Rep #:[id number] : 1955 67 From: Antelmo Chakraborty MD PCP: Dr. Hi Hammer MD Status:REG E R Location: ED HPI History of Present Illness Chief Complaint: Upper Extremity Injury [facility] Medical History (Updated 07/16/22 @ 20:[address] Antelmo Chakraborty MD) Arthritis Asthma Chronic bronchitis Fatty liver Gallstones GERD (gastroesophageal reflux disease) High cholesterol History of edema History of IBS History of stress test Leg cramps Low iron Non-smoker Post-menopausal Pre-diabetes Restless legs Scoliosis Seasonal allergies Wears dentures Wears glasses Home Medications simvastatin 20 mg tablet 20 mg PO QHS 12/23/12 [History Last Taken 03/04/16] calcium carbonate 600 mg-vitamin D3 10 mcg (400 unit) chewable tablet 1 tab PO DAILY 06/30/17 [History Last Taken Unknown] fluticasone propionate 115 mcg-salmeterol 21 mcg/actuation HFA inhaler 2 puff inhalation BID 06/30/17 [History Last Taken Unknown] sodium chloride 0.65 % nasal spray aerosol (Saline Nasal) 1 spray intranasal Q1- 4H PRN Allergies 10/21/17 [History Last Taken Unknown] albuterol sulfate 90 mcg/actuation aerosol inhaler 2 puff IH PRN PRN Sob &/Or Wheezing 08/26/19 [History Last Taken 12/30/21] ferrous sulfate 325 mg (65 mg iron) tablet 325 mg PO DAILY 10/22/21 [History Last Taken Unknown] alendronate 35 mg tablet 35 mg PO DAILY 12/26/21 [History Last Taken 12/30/21] pantoprazole 40 mg tablet,delayed release 40 mg PO DAILY 12/26/21 [History Last Taken 11/14/22] Allergy/AdvReac Type Severity Reaction Status Date / Time cefdinir [From Omnicef] Allergy Severe Unknown Verified 07/16/22 18:38 Penicillins Allergy Severe STOP Verified 07/16/22 18:38 BREATHING codeine Allergy Other Verified 07/16/22 18:38 hydrocodone bitartrate Allergy Other Verified 07/16/22 18:38 [From Vicodin] latex Allergy Rash Verified 07/16/22 18:38 aspirin AdvReac Other Verified 07/16/22 18:38 tramadol [From Ultram] AdvReac Rash Verified 07/16/22 18:38 Family History (Updated 10/22/21 @ 15:48 by Birdie Brewster) Mother Cancer Father Heart disease Hypertension High cholesterol Kidney disease CVA (cerebral vascular accident) Colon cancer Surgical History H/O hernia repair History of colonoscopy Hx of cholecystectomy Social History household members: none Smoking Status: Never smoker second hand exposure: No alcohol intake: never substance use type: does not use EXAM Physical Exam Const Vital Signs: 07/16/22 18:37 Temperature 98.2 F Temperature Source Temporal Pulse Rate 87 Respiratory Rate 16 Blood Pressure 143/91 H Blood Pressure Mean 108 Pulse Ox 97 Oxygen Delivery Method Room Air MDM MDM MDM Narrative Medical decision making narrative: Finger x-ray read by me as normal Patient has a normal x-ray of the finger. She does not need an x-ray of the hand since the pain is in the finger. She likely has a sprain. She appears well no further work-up is needed I will discharge her in stable condition Discharge Plan Triage Chief Complaint: Upper Extremity Injury ED Provider: Antelmo Chakraborty Dx/Rx/DC Orders Clinical Impression: Finger sprain, Contusion of finger Instructions: ED Finger Sprain Prescriptions: No Action sodium chloride [Saline Nasal] 0.65 % aerosol,spray 1 spray INTRANASAL Q1-4H PRN (Reason: Allergies) ferrous sulfate 325 mg (65 mg iron) tablet 325 mg PO DAILY simvastatin 20 MG tablet 20 mg PO QHS fluticasone propion-salmeterol 1 PUFF inhaler 2 puff INHALATION BID calcium carbonate-vitamin D3 1 EACH tablet,chewable 1 tab PO DAILY Rx Instructions: taken in afternoon albuterol sulfate 1 PUFF inhaler 2 puff IH PRN PRN (Reason: Sob &/Or Wheezing) alendronate 35 mg tablet 35 mg PO DAILY pantoprazole 40 mg tablet,delayed release (DR/EC) 40 mg PO DAILY Primary Care Provider: Hi Hammer Referrals: Hi Hammer MD [Primary Care Provider] - 3-5 Days Disposition Disposition: Home, Self Care What to do if you have Problems For any increased pain, shortness of breath, bleeding, nausea or vomiting, chestpain, or any unexpected problems, contact your Primary Care Provider. Call [facility] ([phone]) or report to the closest Emergency Room. Call 911 if necessary. 07/16/222030 <Electronically signed by Antelmo Chakraborty MD> Cosigner Signature (if applicable): CC: Dr. Hi Hammer MD ~ Signed [facility] Work Phone: 1(179) 694-490205-30-2023 History of Present illness Narrative* Natasha Roger MA - 07/15/2022 1:45 PM EDT POPULATION HEALTH NAVIGATION OUTREACH Action/FYI LM for pt to call to schedule mammogram, colonoscopy. Notes added to upcoming ov to address Patient Identified by Name and : NO Outreach Outcome/Action Unable to reach patient: Left message Did you use a PCP flex slot to schedule this appointment? N/A Reason for Outreach Care Gap or Scheduling/Wellness visits Payer: No coverage found. Care Gap Reviewed:: Breast Cancer screening Colorectal Cancer Screening Reminder: Reminder note to check Health Maintenance for items below Health Maintenance items due: BP CONTROLLED (<130/80) due on 11/23/2018 PNEUMOCOCCAL: 64+(2 - PCV) due on 05/02/2020 MAMMOGRAM due on 11/13/2021 Navigation Signature: Natasha Roger MA July 15, 2022 1:46 PM documented in this encounterMarietta [facility] Hospital04-21-2023 Miscellaneous Notes* Telephone Encounter - Mellisa Lynne LPN - 06/06/2022 2:08 PM EDT Patient has been identified by name and date of : Yes Patient phones for refill(s): Requested Prescriptions Pending Prescriptions Disp Refills loratadine (CLARITIN) 10 mg tablet 30 tablet 11 Sig: Take 1 tablet by mouth once daily. Date of last office visit in primary care: 02/19/22 Last 2 Encounter Wt Readings: Date: Wt: 06/02/2022 77.8 kg (171 lb 9.6 oz) 02/19/2022 74.8 kg (165 lb) Previous labs/tests for medication: Not applicable Please advise. Thank you. Mellisa Lynne LPN documented in this encounterMarietta [facility] Hospital04-17-2023 History of Present illness Narrative* Saida Cisneros APRN.[facility] - 06/02/2022 12:51 PM EDT Images from the original note were not included. Subjective Female with complaints of rash around her eyes. Patient says she has been using hand lotion and baby wipes on it. Patient denies any visual changes or pain. Patient denies any new soaps laundry detergents. Patient denies any other symptoms associated with this. The history is provided by the patient. No office assistance was used. Rash Review of Systems Constitutional: Negative. Skin: Positive for rash. Objective Physical Exam Constitutional: Appearance: Normal appearance. HENT: Head: Comments: Patient does have erythema in the areas marked above consistent with a contact dermatitis. No signs of infection. Pulmonary: Effort: Pulmonary effort is normal. Neurological: Mental Status: She is alert. PAST MEDICAL HISTORY Diagnosis Date Asthma Esophagitis, unspecified External hemorrhoids without mention of complication 01/12/2012 Family history of malignant neoplasm of gastrointestinal tract 01/12/2012 Fibromyalgia GERD (gastroesophageal reflux disease) Hypertension Hypokalemia 10/25/2012 Internal hemorrhoids without mention of complication 01/12/2012 Mixed hyperlipidemia controlled Overactive bladder 09/07/2012 Pain in joint, lower leg 06/12/2014 Ventral hernia 2018 PAST SURGICAL HISTORY Procedure Laterality Date CHOLECYSTECTOMY Cholecystectomy in her 30's COLONOSCOPY FLX DX W/COLLJ SPEC WHEN PFRMD 01/12/2012 Colonoscopy COLONOSCOPY FLX DX W/COLLJ SPEC WHEN PFRMD 10/15/15 Colonoscopy repeat 5 years/f.hx COLONOSCOPY FLX DX W/COLLJ SPEC WHEN PFRMD 12/13/[address] BRAIN W/O 01/01/15 only soft tissue swelling right periorbital region 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 ESOPHAGOGASTRODUODENOSCOPY TRANSORAL DIAGNOSTIC 01/12/2012 EGD ESOPHAGOGASTRODUODENOSCOPY TRANSORAL DIAGNOSTIC 04/27/14 EGD ESOPHAGOGASTRODUODENOSCOPY TRANSORAL DIAGNOSTIC 12/13/2018 EGD FOOT SURGERY HX Right 2002 [employer]/VENT HERNIA REPAIR 05/2017 VAGINAL HYSTERECTOMY UTERUS 250 GM/< left ovary and cervix still intact XR TIBIA FIBULA AP/LAT RT 01/01/15 no fracture ALLERGIES Codeine, Latex, Penicillins, and Ultram [Tramadol Hcl] MEDICATIONS Lancets lancets Test blood sugar(s) 1 times daily. Dx: Type 2 DM - Controlled E11.9 Insulin: No simvastatin (ZOCOR) 20 mg tablet Take 1 tablet by mouth daily at bedtime. albuterol HFA (PROVENTIL HFA, VENTOLIN HFA) 90 mcg/actuation inhaler Inhale 2 Puffs as instructed every 4 hours as needed (for cough, wheezing, chest tightness or shortness of breath. Use with spacer. ). alendronate (FOSAMAX) 35 mg tablet Take 1 tablet by mouth one time a week. Blood-Glucose Meter (ACCU-CHEK GUIDE GLUCOSE METER) 1 m once daily. testing once daily DX R73.03 Insulin No blood sugar diagnostic (BLOOD GLUCOSE TEST) test strip Test blood sugar(s) 1 times daily. Dx: OtherDM Code R73.03 Insulin: No pantoprazole DR (PROTONIX) 40 mg tablet Take 1 tablet by mouth once daily. Take on empty stomach, 1/2 hr before meal. ferrous sulfate 325 mg (65 mg iron) tablet Take 1 tablet by mouth twice daily with meals. blood sugar diagnostic (BLOOD GLUCOSE TEST) test strip Test blood sugar(s) 1 times daily. Dx: Type 2 DM - Controlled E11.9 Insulin: No. Uses a one touch meter loratadine (CLARITIN) 10 mg tablet Take 1 tablet by mouth once daily. calcium carbonate-vitamin D3 (CALTRATE 600 PLUS D) 600 mg (1,500 mg)-800 unit chew Take 1 tablet bymouth once daily. Cholecalciferol, Vitamin D3, 25 mcg (1,000 unit) cap Take 1 capsule by mouth once daily. sodium chloride 0.65 % nasal spray Use 1 [place] in the nose as needed for Cold/Allergy Symptoms. predniSONE (DELTASONE) 20 mg tablet Take 1 tablet by mouth once daily for 5 days. fluticasone-salmeterol HFA (ADVAIR HFA) 115-21 mcg/actuation inhaler Inhale 2 Puffs as instructed twice daily. (Patient not taking: Reported on 06/02/2022) naproxen (NAPROSYN) 500 mg tablet Take 1 tablet by mouth twice daily as needed for pain (for pain/inflammation). Take with food. (Patient not taking: Reported on 06/02/2022) COMPOUNDED PRESCRIPTION Powerstep full length original (M76.821) Posterior tibial tendonitis, right (primary encounter diagnosis) (M89.8X9) Exostosis (Patient not taking: Reported on 06/02/2022) Magnesium 250 mg tab Take 1 tablet by mouth once daily. FAMILY HISTORY Problem Relation Age of Onset Heart Mother Heart Father Stroke Father Colon Cancer Father before age 40 Cancer Brother Social History Tobacco Use Smoking status: Never Smokeless tobacco: Never Substance Use Topics Alcohol use: No Drug use: No ASSESSMENT/PLAN: 1. Rash - ICD9: 782.1, ICD10: R21 - PREDNISONE 20 MG TABLET Patient was educated about proper use of medication and supportive therapies to do at home such as nonscented sensitive skin soap stop using the baby wipes and lotion. Patient was okay with this careplan will monitor blood sugars extract due to steroid use. Patient will follow-up if signs and symptoms do not seem to be getting any better. Saida Cisneros APRN.BON documented in this encounterMarietta [facility] Hospital03-24-2023 Miscellaneous Notes* Telephone Encounter - Alyssa Shi RN - 05/09/2022 12:31 PM EDT Last Office Visit: 02/19/2022 Future Office Visit: 08/20/2022 Requested Prescriptions Pending Prescriptions Disp Refills simvastatin (ZOCOR) 20 mg tablet 90 tablet 3 Sig: Take 1 tablet by mouth daily at bedtime. Date of Last Labs: 11/05/2021 documented in this encounterMarietta [facility] Hospital01-13-2023 Miscellaneous Notes* Telephone Encounter - Mellisa Lynne LPN - 02/28/2022 11:31 AM EST Patient called and requested to order for Mammogram be faxed to [facility] [place]. Order faxed. documented in this encounterMarietta [facility] Hospital01-13-2023 History of Present illness Narrative* Natasha Roger MA - 02/28/2022 11:16 AM EST POPULATION HEALTH NAVIGATION OUTREACH Action/FYI LM for pt to call to schedule mammogram ,colonoscopy. Notes added to upcoming ov. Pt identified by name and : NO Outreach Outcome/Action Unable to reach patient: Left message Did you use a PCP flex slot to schedule this appointment? N/A Reason for Outreach Care Gap or Scheduling/Wellness visits Payer: No coverage found. Care Gap Reviewed:: Breast Cancer screening Colorectal Cancer Screening Reminder: Reminder note to check Health Maintenance for items below Health Maintenance items due: MAMMOGRAM due on 11/13/2021 Navigation Signature: Natasha Roger MA February 28, 2022 11:16 AM documented in this encounterMarietta [facility] Hospital01-04-2023 History of Present illness Narrative* Naomi Lindquist, RT(R) - 02/19/2022 1:40 PM EST Radiology Service Progress Note PATIENT NAME: Sally Morrison DATE OF SERVICE: February 19, 2022 TIME: 1:34 PM PATIENT IDENTITY VERIFICATION COMPLETED USING TWO (2) IDENTIFIERS: Name and Date of confirmedby patient verbally. FALL SCREENING: Has the patient had 2 falls in the last year or 1 fall with injury or currently using an Ambulatory Assistive Device (Walker, Cane, Wheelchair, Crutches, etc.)? No PATIENT GENDER DATA: Female. status: : No status: NO. PATIENT RELEVANT IMPLANT DATA REVIEWED: Yes RADIOLOGY DEPARTMENT: General X-ray: Exam(s) Completed: Pelvis X-Ray: Pelvis with Hip Left PERIPHERAL IV DATA: Not applicable SIGNED BY: RT Nadiya(R) February 19, 2022 1:34 PM documented in this encounterMarietta [facility] Hospital11-29-2022 Miscellaneous Notes* Telephone Encounter - Kami Crowell LPN - 01/14/2022 1:41 PM EST Spoke with pt and information listed below given. Pt stated when she checked with the pharmacy theytold her they did not have a prescription. I called and was told yes they have the prescription andwill get ready for her. Pt notified. Kami Crowell LPN * Telephone Encounter - Caron Robles APRN.CNP - 01/08/2022 5:41 PM EST Meter was just ordered 6 weeks ago. Does patient need supplies? Thank you Caron Robles APRN.BON * Telephone Encounter - Marina Cruz LPN - 01/08/2022 1:08 PM EST Patient has been identified by name and date of : Yes Patient phones for refill(s): Requested Prescriptions Pending Prescriptions Disp Refills Blood-Glucose Meter (ACCU-CHEK GUIDE GLUCOSE METER) 1 Each 0 Si m once daily. testing once daily DX R73.03 Insulin No Date of last office visit in primary care: 11/12/2021 Last 2 Encounter Wt Readings: Date: Wt: 11/12/2021 75.3 kg (166 lb) 07/11/2021 80.3 kg (177 lb) Previous labs/tests for medication: Not applicable Please advise. Thank you. Marina Cruz LPN * Telephone Encounter - Cynthia Arroyo Pss - 01/08/2022 11:57 AM EST Patient has been identified by name and date of : Yes Last office visit in this department: 11/12/2021 RX INSTRUCTIONS: Patient aware RX will be sent to pharmacy. No need to notify patient. Patient phones requesting refills as follows: Requested Prescriptions Pending Prescriptions Disp Refills Blood-Glucose Meter (ACCU-CHEK GUIDE GLUCOSE METER) 1 Each 0 Si m once daily. testing once daily DX R73.03 Insulin No Please review and advise. Cynthia Arroyo Pss documented in this encounterMarietta [facility] Hospital11-08-2022 Miscellaneous Notes* Telephone Encounter - Alyssa Shi RN - 12/24/2021 12:16 PM EST [facility] pharmacy calls and states that patient wants medication sent to mail order pharmacy. Please review and advise, Alyssa Shi RN documented in this encounterMarietta [facility] Hospital10-10-2022 Miscellaneous Notes* Telephone Encounter - Caron Robles APRN.CNP - 11/25/2021 3:52 PM EDT Prescription sent as requested. Caron Robles APRN.CNP * Telephone Encounter - Mervat Snyder LPN - 11/25/2021 3:14 PM EDT Patient calling asking for new glucose meter her other has been discontinued. She said Accucheck Guide is covered. she is testing once daily and wants sent to [facility] pharmacy. Pending rx for meter and strips. Please advise Patient has been identified by name and date of : Yes Patient phones for refill(s): Requested Prescriptions Pending Prescriptions Disp Refills Blood-Glucose Meter (ACCU-CHEK GUIDE GLUCOSE METER) 1 Each 0 Si m once daily. testing once daily DX R73.03 Insulin No blood sugar diagnostic (BLOOD GLUCOSE TEST) test strip 50 Strip 11 Sig: Test blood sugar(s) 1 times daily. Dx: Other DM Code R73.03 Insulin: No Date of last office visit in primary care: 11/12/2021, has appt 02/18/2022 Last 2 Encounter Wt Readings: Date: Wt: 11/12/2021 75.3 kg (166 lb) 07/11/2021 80.3 kg (177 lb) Previous labs/tests for medication: Diabetes: Hemoglobin A1C (%) Date Value 04/15/2021 5.5 05/14/2020 5.6 10/06/2019 5.7 Hemoglobin A1C (POCT) (%) Date Value 11/12/2021 5.2 Please advise. Thank you. Mervat Snyder LPN documented in this encounterMarietta [facility] Hospital10-10-2022 History of Present illness Narrative* RT Eusebio(R) - 11/25/2021 2:30 PM EDT Radiology Service Progress Note PATIENT NAME: Sally Morrison DATE OF SERVICE: November 25, 2021 TIME: 2:34 PM PATIENT IDENTITY VERIFICATION COMPLETED USING TWO (2) IDENTIFIERS: Name and Date of confirmedby patient verbally. FALL SCREENING: Has the patient had 2 falls in the last year or 1 fall with injury or currently using an Ambulatory Assistive Device (Walker, Cane, Wheelchair, Crutches, etc.)? No PATIENT GENDER DATA: Female. status: : No status: NO. PATIENT RELEVANT IMPLANT DATA REVIEWED: Not Applicable RADIOLOGY DEPARTMENT: Bone Density PERIPHERAL IV DATA: Not applicable SIGNED BY: RT Eusebio(R) November 25, 2021 2:34 PM documented in this encounterMarietta Memorial Hospital10-07-2022 Miscellaneous Notes* Telephone Encounter - Kami Crowell LPN - 11/22/2021 1:13 PM EDT Pharmacy called and pt requesting medication below thru mail service. Patient has been identified by name and date of : Yes Pharmacy phones for refill(s): Requested Prescriptions Pending Prescriptions Disp Refills pantoprazole DR (PROTONIX) 40 mg tablet 90 tablet 3 Sig: Take 1 tablet by mouth once daily. Take on empty stomach, 1/2 hr before meal. Date of last office visit in primary care: 11/12/21 next apt 02/18/22 Last 2 Encounter Wt Readings: Date: Wt: 11/12/2021 75.3 kg (166 lb) 07/11/2021 80.3 kg (177 lb) Previous labs/tests for medication: Not applicable Thank you. Kami Crowell LPN documented in this encounterMarietta [facility] Hospital09-27-2022 History of Present illness Narrative* Hi Hammer MD - 11/12/2021 10:29 AM EDT Reason for Visit Patient presents with: Follow Up For: hoverround wheel chair Sally Morrison is a 66 year old female who presents here today for Above Complaints. Health Maintenance DEPRESSION ASSESSMENT COVID-19 VACCINE(5 - Booster for Pfizer series) MAMMOGRAM HPI She is here for a hoverround, after full exam i explained to her she would not be an apppropriate candidate. She is able to move around well She proceeds with talking about her dizziness. When she gets up too quick from the bed she has it, she has to check her self,. Light headed most days, she drinks 8 ounces of water, she drinks tea 1 glass, has milk, cappuchino She runs a lot to the rest room, we discussed that she should cut down the tea and caffeine. And drink around 8 of the 8 ounce bottles of water. No problem-specific Assessment & Plan notes found for this encounter. PAST MEDICAL HISTORY Diagnosis Date Asthma Esophagitis, unspecified External hemorrhoids without mention of complication 01/12/2012 Family history of malignant neoplasm of gastrointestinal tract 01/12/2012 Fibromyalgia GERD (gastroesophageal reflux disease) Hypertension Hypokalemia 10/25/2012 Internal hemorrhoids without mention of complication 01/12/2012 Mixed hyperlipidemia controlled Overactive bladder 09/07/2012 Pain in joint, lower leg 06/12/2014 Ventral hernia 2017 PAST SURGICAL HISTORY Procedure Laterality Date CHOLECYSTECTOMY Cholecystectomy in her 30's COLONOSCOPY FLX DX W/COLLJ SPEC WHEN PFRMD 01/12/2012 Colonoscopy COLONOSCOPY FLX DX W/COLLJ SPEC WHEN PFRMD 10/15/15 Colonoscopy repeat 5 years/f.hx COLONOSCOPY FLX DX W/COLLJ SPEC WHEN PFRMD 12/13/[address] BRAIN W/O 01/01/15 only soft tissue swelling right periorbital region 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 ESOPHAGOGASTRODUODENOSCOPY TRANSORAL DIAGNOSTIC 01/12/2012 EGD ESOPHAGOGASTRODUODENOSCOPY TRANSORAL DIAGNOSTIC 04/27/14 EGD ESOPHAGOGASTRODUODENOSCOPY TRANSORAL DIAGNOSTIC 12/13/2018 EGD FOOT SURGERY HX Right 2003 [employer]/VENT HERNIA REPAIR 05/2017 VAGINAL HYSTERECTOMY UTERUS 250 GM/< left ovary and cervix still intact XR TIBIA FIBULA AP/LAT RT 01/01/15 no fracture FAMILY HISTORY Problem Relation Age of Onset Heart Mother Heart Father Stroke Father Colon Cancer Father before age 40 Cancer Brother Social History Tobacco Use Smoking status: Never Smokeless tobacco: Never Substance Use Topics Alcohol use: No Drug use: No Past medical history, appointments, medications, allergies reviewed. Pertinent Lab/Diagnostic Studies are reviewed and discussed today Current Outpatient Medications: albuterol HFA (PROVENTIL HFA, VENTOLIN HFA) 90 mcg/actuation inhaler ferrous sulfate 325 mg (65 mg iron) tablet simvastatin (ZOCOR) 20 mg tablet blood sugar diagnostic (BLOOD GLUCOSE TEST) test strip Lancets lancets Lancets lancets metFORMIN (GLUCOPHAGE) [address] (PROTONIX) 40 mg tablet loratadine (CLARITIN) 10 mg tablet fluticasone-salmeterol HFA (ADVAIR HFA) 115-21 mcg/actuation inhaler calcium carbonate-vitamin D3 (CALTRATE 600 PLUS D) 600 mg (1,500 mg)-800 unit chew COMPOUNDED PRESCRIPTION Magnesium 250 mg tab Cholecalciferol, Vitamin D3, (VITAMIN D) 1,000 unit cap sodium chloride (SALINE MIST) 0.65 % nasal spray Review of Systems CONSTITUTIONAL: No fevers, chills night sweats, unintended weight loss CARDIOVASCULAR: No chest pain, dyspnea, palpitations, orthopnea, PND, ankle edema. PULM: No dyspnea, unexplained cough. GI: No dysphagia/odynophagia, problematic reflux, constipation, diarrhea, changes in stool habits, hematochezia, melena. : No new urinary complaints, including dysuria, gross hematuria or pyuria. NEURO: No new balance problems, peripheral weakness/paresthesias or numbness of concern. Physical Exam BP 126/66 (BP Site: Left Arm, BP Position: Sitting, BP Cuff Size: Large Adult) Pulse 84 Temp 36.2 C (97.2 F) Resp 14 Ht 156.2 cm (5' 1.5) Wt 75.3 kg (166 lb) SpO2 96% BMI 30.86 kg/m General appearance: Well appearing, alert, in no acute distress, well nourished. Skin: Skin color, texture, turgor normal, no suspicious rashes or lesions Head: Normocephalic, no masses, lesions, tenderness or abnormalities Eyes: Anicteric sclera. Pupils are equally round and reactive to light. Extraocular movements are intact. Lungs: Lungs clear to auscultation. No wheezing, rhonchi, rales Heart: RRR without murmur, gallop, or rubs. Rt Knee:Normal, full range of motion without pain, no effusion, no tenderness, no ligamentous instability or deformity noted, and pain located just generally in the right side. Lt Knee:Normal, full range of motion without pain, no effusion, no tenderness, and no ligamentous instability or deformity noted. Back: straight and symmetric, no pinpoint spinal tenderness, no SI joint tenderness, no CVA tenderness, Full ROM, LE ext motor strenght and sensory exam are normal , the knee reflex on the left side was brisk. Gait: she has been walking the same as before. Wrists, shoulders and elbows are normal. ASSESSMENT/PLAN: 1. Orthostasis - ICD9: 458.0, ICD10: I95.1 (primary diagnosis) Discussed drinking 8 cups of water and cutting down the cappuchino 2. Prediabetes - ICD9: 790.29, ICD10: R73.03 Hba1c is 5.2, reassured her she does not have Diabetes Mellitus and does not need to take any medication at this point - HEMOGLOBIN A1C (POC) 3. Osteoporosis, unspecified osteoporosis type, unspecified pathological fracture presence - ICD9: 733.00, ICD10: M81.0 she - DXA-AXIAL SKELETON Hi Hammer MD documented in this encounterMarietta Memorial Hospital09-21-2022 Miscellaneous Notes* Telephone Encounter - Dominga Guardado Ma - 11/06/2021 9:34 AM EDT Patient notified. * Telephone Encounter - Caron Robles APRN.CNP - 11/06/2021 9:01 AM EDT Please let patient know cholesterol levels are currently normal. Continue with current medications. Thank you Caron Robles APRN.CNP documented in this encounterMari[facility]08-04-2022 Miscellaneous Notes* Telephone Encounter - Dominga Guardado Ma - 09/19/2021 3:25 PM EDT Patient notified. * Telephone Encounter - Caron Robles APRN.CNP - 09/19/2021 3:15 PM EDT Home care is appropriate at this time. If she has any difficulty breathing, throat or chest tightness, difficulty swallowing she needs to go to ER. Thank you Caron Robles APRN.CNP * Telephone Encounter - Lina Gutierres RN - 09/19/2021 2:17 PM EDT Protocol recommends Home Care and home care instructions reviewed. Patient would like provider to advise if Home Care is appropriate. Please call patient. Thank you. Reason for Disposition All other insect bites Answer Assessment - Initial Assessment Questions Patient calling due to concern that she got stung by a wasp this morning in her posterior left neckarea. 1. TYPE of INSECT: wasp 2. ONSET: Got stung this morning 3. LOCATION:left posterior neck area 4. REDNESS:yes, red-about the size of a nguyễn 5. PAIN: no 6. ITCHING:denies 7. SWELLING: denies 8. OTHER SYMPTOMS: Denies difficulty breathing, throat tightness, fever or hives. Denies allergy towasp stings. 9. : no Protocols used: INSECT [id number] documented in this encounterMarietta [facility]07-21-2022 Miscellaneous Notes* Telephone Encounter - Dominga Guardado Ma - 09/05/2021 11:00 AM EDT Patient notified. * Telephone Encounter - Caron Robles APRN.CNP - 09/05/2021 10:54 AM EDT ER records indicate they sent the consult. If she finds out this did not occur, she will need to beseen. Thank you Caron Robles APRN.CNP * Telephone Encounter - Dominga Guardado Ma - 09/05/2021 10:24 AM EDT Patient states that she still has been having stomach issues and that [facility] [place] put a referral in or is asking us to put a referral in to see gastro ( Dr Lopez) patient has been unable to get a hold of office. Patient asking if we could send referral? Please advise * Telephone Encounter - Caron Robles APRN.CNP - 09/05/2021 9:59 AM EDT Records reviewed. Only lab work noted was troponin which is an enzyme that is increased in heart related injuries like heart attacks. Hers was normal checked twice during her visit to make sure therewere no changes. Is there other lab work she is referring to? If so please extract that and if further discussion is necessary please schedule a visit. Can be virtual if necessary. Thank you Caron Robles APRN.CNP * Telephone Encounter - Dominga Guardado Ma - 09/04/2021 11:11 AM EDT ER report and labs placed on Caron's desk for review. * Telephone Encounter - Caron Robles APRN.CNP - 09/04/2021 11:01 AM EDT Please get full record and lab work from ER visit and place on my desk to review. Thank you Caron Robles APRN.CNP * Telephone Encounter - Hi Hammer MD - 09/03/2021 5:27 PM EDT Caron, Since I am not there, could you please do that? * Telephone Encounter - Julianna Barnett RN - 09/03/2021 1:19 PM EDT Pt called in and reports she was at [facility] ER 08/22/21 and was asking if providers office could pull therecords, and if provider could go over the labs with her. Please call and advise. Only lab I could see from report in computer was a Troponin. documented in this encounterMarietta [facility] Hospital07-07-2022 Hospital Discharge instructions Additional Instructions Call Dr. [facility] Work Phone: [phone] Miscellaneous Notes* Telephone Encounter - Marina Cruz LPN - 08/16/2021 12:06 PM EDT completed form has been faxed. Marina Cruz LPN * Telephone Encounter - Hi Hammer MD - 08/16/2021 11:19 AM EDT The form has been filled and signed * Telephone Encounter - Julianna Barnett RN - 08/16/2021 10:50 AM EDT Lien from [employer] called again asking if form had been filled out. She was given fax number again, and will re-fax the forms. She is asking if providers office can get this done within the next week for the Pt and notify the Pt when it has been done as well. * Telephone Encounter - Lina Gutierres RN - 08/15/2021 11:58 AM EDT Lien from [employer] calling to check on status of forms as discussed below. Thank you. Lina Gutierres RN * Telephone Encounter - Mervat Snyder LPN - 08/14/2021 11:46 AM EDT Lien calling to check status of form, patient request testing since she has family history of cardiac disease. * Telephone Encounter - Dominga Guardado Ma - 07/31/2021 2:02 PM EDT Forms received and placed on providers desk for review. * Telephone Encounter - Alyssa Shi RN - 07/31/2021 1:27 PM EDT Lien from [employer] calls and is asking if provider had received paperwork that was faxed over due to patient's request for Cardiac Genetic Testing? Alyssa Shi, RN documented in this encounterMarietta [facility]06-28-2022 History of Present illness Narrative* Kaitlin Rajput - 08/13/2021 2:12 PM EDT POPULATION HEALTH NAVIGATION OUTREACH Action/AFIA schmitz Patient due for the following: Annual exam Mammogram mychart activation Unable to contact patient by phone, No answer, VM full Letter printed to [facility], to be mailed by Navigator on site Pt identified by name and : NO Outreach Outcome/Action Unable to reach patient: Phone number not valid / voicemail full Letter mailed Did you use a PCP flex slot to schedule this appointment? N/A Reason for Outreach Care Gap or Scheduling/Wellness visits Payer: No coverage found. Care Gap Reviewed:: Annual Wellness visit Breast Cancer screening Reminder: Reminder note to check Health Maintenance for items below Health Maintenance items due: MAMMOGRAM due on 11/13/2021 Message Sent to Practice: No Navigation Signature: Kaitlin Rajput August 13, 2021 2:12 PM documented in this encounterMarietta [facility] Hospital06-06-2022 Miscellaneous Notes* Telephone Encounter - Mayte Eaton - 07/22/2021 2:27 PM EDT Contacted patient to schedule with Gastroenterology we have nothing in [place] with [facility] and she is leaving in August. Patient does not drive and wants to stay in [place]. Requesting to have the referral sent to Dr. Lam or Friend @ [facility] [place] Here is Dr. Lopez and have their office contact her. Mayte Eaton * Telephone Encounter - Dominga Guardado Ma - 07/22/2021 11:39 AM EDT Patient notified, please assist in scheduling. * Telephone Encounter - Caron Robles APRN.CNP - 07/22/2021 10:58 AM EDT With her pain continuing and her bouts of diarrhea and nausea, I am putting in a consult to gastroenterology. If this begins to worsen or change she needs to follow back up in office. Also for severeabdominal pain, inability to keep fluids down, chest pain, or fever, she needs to urgently be evaluated in ER. Thank you Caron Robles APRN.CNP * Telephone Encounter - Dominga Guardado Ma - 07/22/2021 9:39 AM EDT Patient notified, patient states pain is about the same. * Telephone Encounter - Caron Robles APRN.CNP - 07/22/2021 7:44 AM EDT Please let patient know that her liver US shows fatty liver which she needs to eat a low fat diet with daily aerobic type exercise to help with this. Also, this would not be the cause of the pain. Isshe still having the same amount of pain as before? If it has improved we can continue to monitor for now. Thank you Caron Robles APRN.CNP documented in this encounterMarietta [facility] Hospital06-03-2022 History of Present illness Narrative* Wanda Matthews, [facility] - 07/19/2021 9:00 AM EDT Radiology Service Progress Note PATIENT NAME: Sally Morrison DATE OF SERVICE: July 19, 2021 TIME: 3:00 PM PATIENT IDENTITY VERIFICATION COMPLETED USING TWO (2) IDENTIFIERS: Name and Date of confirmedby patient verbally. FALL SCREENING: Has the patient had 2 falls in the last year or 1 fall with injury or currently using an Ambulatory Assistive Device (Walker, Cane, Wheelchair, Crutches, etc.)? No PATIENT GENDER DATA: Female. status: : No status: N/A PATIENT RELEVANT IMPLANT DATA REVIEWED: Not Applicable RADIOLOGY DEPARTMENT: Ultrasound PERIPHERAL IV DATA: Not applicable SIGNED BY: Wanda Matthews RDMS RVT July 19, 2021 3:00 PM documented in this encounterMarietta [facility] Hospital05-27-2022 Miscellaneous Notes* Telephone Encounter - Dominga Guardado Ma - 07/12/2021 3:11 PM EDT Patient notified. * Telephone Encounter - Dominga Guardado Ma - 07/12/2021 11:57 AM EDT Please let Sally know lab work overall was not concerning. Continue with plan for RUQ US. Thank you Caron Robles APRN.CNP documented in this encounterMarietta [facility] Hospital05-26-2022 History of Present illness Narrative* Caron Robles APRN.CNP - 07/11/2021 11:03 AM EDT CC: Patient presents with: F/U 3 months stiffness left hip Diarrhea HPI Sally Morrison is a 66 year old female who presents today for routine follow up for 3 months but has also been experiencing diarrhea. Has been having diarrhea related to irritable bowel syndrome intermittently for the past few years.Has had this flare up since last , but is starting to improve. Only having 1 bout of liquidstool a day. Slight lower abdominal pain which is typically present during these flare ups and accompanied with slight intermittent nausea. Has been taking immodium for this which is helping. History of cholecystectomy years ago. Denies vomiting, fever, chills, blood in stool , or dark sticky stools. HTN: Ms. Morrison indicates that she is feeling well and denies any symptoms referable to elevated bloodpressure. Specifically denies headache, chest pain, palpitations, dyspnea and peripheral edema. Patient denies any side effects of her medication(s) and is compliant with their regimen. She does not check BP's generally. Last 3 Encounter BP Readings: Date: BP: 07/11/2021 118/70 04/15/2021 122/74 10/15/2020 116/68' Prediabetes: Ms. Morrison denies excessive thirst or increased frequency of urination, chest pain or dyspnea , numbness, tingling or pain in extremities, new or unusual visual symptoms, low sugar/hypoglycemic reactions, weight loss/gain, lightheadedness/dizziness and bowel changes/loose stools. Follows a diabetic diet most of the time. She is compliant with medication(s) and is tolerating med(s) without any side effects. She reports checking her glucose on a once a day schedule with sugars in the postprandial 80s-100s range. Patient's last HgA1C was Hemoglobin A1C (%) Date Value 04/15/2021 5.5 05/14/2020 5.6 10/06/2019 5.7 REVIEW OF SYSTEMS General: no fevers, no chills, no night sweats, no recurrent infections, no change in appetite, no change in energy and no significant changes in weight Respiratory: no cough, no wheezing, no shortness of breath, no hemoptysis Cardiovascular: no chest pain, no chest pressure, no palpitations and no swelling GI: See HPI Endocrine: no fatigue, no heat intolerance, no polyuria, no polyphagia and no polydipsia Gets cold easy and has had this all of her life. Neurologic: No headache, weakness, numbness, tingling, dizziness, syncope. Psych: PHq2 is 0 PAST MEDICAL HISTORY Diagnosis Date Asthma Esophagitis, unspecified External hemorrhoids without mention of complication 01/12/2012 Family history of malignant neoplasm of gastrointestinal tract 01/12/2012 Fibromyalgia GERD (gastroesophageal reflux disease) Hypertension Hypokalemia 10/25/2012 Internal hemorrhoids without mention of complication 01/12/2012 Mixed hyperlipidemia controlled Overactive bladder 09/07/2012 Pain in joint, lower leg 06/12/2014 Ventral hernia 2017 PAST SURGICAL HISTORY Procedure Laterality Date CHOLECYSTECTOMY Cholecystectomy in her 30's COLONOSCOPY FLX DX W/COLLJ SPEC WHEN PFRMD 01/12/2012 Colonoscopy COLONOSCOPY FLX DX W/COLLJ SPEC WHEN PFRMD 10/15/15 Colonoscopy repeat 5 years/f.hx COLONOSCOPY FLX DX W/COLLJ SPEC WHEN PFRMD 12/13/[address] BRAIN W/O 01/01/15 only soft tissue swelling right periorbital region 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 ESOPHAGOGASTRODUODENOSCOPY TRANSORAL DIAGNOSTIC 01/12/2012 EGD ESOPHAGOGASTRODUODENOSCOPY TRANSORAL DIAGNOSTIC 04/27/14 EGD ESOPHAGOGASTRODUODENOSCOPY TRANSORAL DIAGNOSTIC 12/13/2018 EGD FOOT SURGERY HX Right 2002 [employer]/VENT HERNIA REPAIR 05/2017 VAGINAL HYSTERECTOMY UTERUS 250 GM/< left ovary and cervix still intact XR TIBIA FIBULA AP/LAT RT 01/01/15 no fracture ALLERGIES Codeine, Latex, Penicillins, and Ultram [Tramadol Hcl] MEDICATIONS Lancets lancets Test blood sugar(s) 1 daily. Dx: insulin resistance . Insulin: No metFORMIN (GLUCOPHAGE) 500 mg tablet Take 1 tablet by mouth daily with breakfast. blood sugar diagnostic (ACCU-CHEK OBDULIA PLUS TEST STRP) test strip TEST BLOOD SUGAR EVERY DAY pantoprazole DR (PROTONIX) 40 mg tablet Take 1 tablet by mouth once daily. Take on empty stomach, 1/2 hr before meal. simvastatin (ZOCOR) 20 mg tablet TAKE 1 TABLET EVERY DAY AT BEDTIME ferrous sulfate 325 mg (65 mg iron) tablet Take 1 tablet by mouth twice daily with meals. flash glucose sensor ([employer] CATHERINE 14 DAY SENSOR) kit 1 Each every 2 weeks. albuterol HFA (PROVENTIL HFA, VENTOLIN HFA) 90 mcg/actuation inhaler Inhale 2 Puffs as instructed every 4 hours as needed (for cough, wheezing, chest tightness or shortness of breath. Use with spacer. ). fluticasone-salmeterol HFA (ADVAIR HFA) 115-21 mcg/actuation inhaler Inhale 2 Puffs as instructed twice daily. calcium carbonate-vitamin D3 (CALTRATE 600 PLUS D) 600 mg (1,500 mg)-800 unit chew Take 1 tablet bymouth once daily. COMPOUNDED PRESCRIPTION Powerstep full length original(M76.821) Posterior tibial tendonitis, right (primary encounter diagnosis)(M89.8X9) Exostosis Cholecalciferol, Vitamin D3, (VITAMIN D) 1,000 unit cap Take 1 capsule by mouth once daily. sodium chloride (SALINE MIST) 0.65 % nasal spray Use 1 [place] in the nose as needed for Cold/AllergySymptoms. loratadine (CLARITIN) 10 mg tablet Take 1 tablet by mouth once daily. Magnesium 250 mg tab Take 1 tablet by mouth once daily. FAMILY HISTORY Problem Relation Age of Onset Heart Mother Heart Father Stroke Father Colon Cancer Father before age 40 Cancer Brother Social History Tobacco Use Smoking status: Never Smoker Smokeless tobacco: Never Used Substance Use Topics Alcohol use: No Drug use: No PHYSICAL EXAM BP 118/70 (BP Site: Left Arm, BP Position: Sitting, BP Cuff Size: Regular Adult) Pulse 76 Resp 16 Wt 80.3 kg (177 lb) SpO2 96% BMI 32.90 kg/m General Appearance: well appearing, in no acute distress, alert Eyes: conjunctiva pink and moist, no icterus, sclera white, non-injected Neck: Thyroid normal size and symmetric without palpable nodules, No adenopathy Lymph nodes: No cervical lymphadenopathy, No supraclavicular lymphadenopathy, Lungs: Lungs clear to auscultation. No wheezing, rhonchi, rales. Heart: RRR without murmur, gallop, or rubs. No ectopy Abdomen: Abdomen soft, Bowel sounds normal. No masses, organomegaly, Negative CVA tenderness. Does have notable tenderness with palpation to RUQ, no rebound tenderness or tenderness elsewhere. No guarding but does jump and show facial grimacing with palpation of RUQ. BUE Extremities: No deformities, edema, skin discoloration, clubbing or cyanosis. Good capillary refill. Health maintenance reviewed with patient: DEPRESSION SCREENING due on 10/22/2017 PNEUMOCOCCAL: 64+(2 - PCV) due on 05/02/2020 ADVANCE DIRECTIVE DISCUSSION Never done COVID-19 VACCINE(4 - Booster for Pfizer series) due on 06/13/2021 MAMMOGRAM due on 11/13/2021 ANNUAL PCP TEAM CHRONIC DISEASE VISIT due on 04/15/2022 BP CONTROLLED (<130/80) due on 04/15/2022 DIABETES SCREEN due on 04/15/2024 LIPID SCREEN due on 10/10/2025 COLORECTAL CANCER SCREENING due on 12/13/2028 DTAP,TDAP,TD(3 - Td or Tdap) due on 05/02/2029 BONE DENSITY Completed SPIROMETRY Completed INFLUENZA Completed SHINGRIX VACCINE Completed HEPATITIS C SCREENING Discontinued DATA REVIEWED: No new labs ASSESSMENT/PLAN: 1. Primary hypertension - ICD9: 401.9, ICD10: I10 (primary diagnosis) - good control - Continue current medication(s) - Encouraged dietary sodium restriction/DASH diet - Recommended regular aerobic exercise. - Recommend home blood pressure monitoring, to bring results in on next visit - Goal of BP <130/80 2. Prediabetes - ICD9: 790.29, ICD10: R73.03 - currently controlled, HgbA1c normal. Continue current treatment and regimen 3. Insulin resistance - ICD9: 277.7, ICD10: E88.81 As above 4. Diarrhea, unspecified type - ICD9: 787.91, ICD10: R19.7 - possible IBS but is improving so no stool testing needed at this time. With the RUQ tenderness, will need to do US to further evaluate along with basic lab work - US ABD RT UPPER QUADRANT - COMP METABOLIC PANEL - CBC + DIFF 5. Right upper quadrant abdominal tenderness with rebound tenderness - ICD9: 789.61, ICD10: R10.821 As above - US ABD RT UPPER QUADRANT - COMP METABOLIC PANEL - CBC + DIFF Prescription instructions reviewed with patient as applicable. Potential red flag symptoms discussed with the patient. Reviewed appropriate action plan to take if red flag symptoms occur. Patient agreeable to treatment plan. Caron Robles APRN.CNP documented in this encounterMarietta [facility] Hospital05-23-2022 Miscellaneous Notes* Telephone Encounter - Dominga Guardado Ma - 07/08/2021 4:14 PM EDT Tried number provided twice, number is out of service. Patient encouraged to go to . * Telephone Encounter - Caron Robles APRN.CNP - 07/08/2021 3:55 PM EDT Patient needs evaluated. Thank you Caron Robles APRN.CNP * Telephone Encounter - Kami Crowell LPN - 07/08/2021 11:18 AM EDT Pt calls and states the following: Diarrhea off and on. DIARRHEA SEVERITY: She has had 2 stools today 07-08-21. (1) Runny liquid then (1) was solid. ONSET: Started past weekend. She is having diarrhea and solid stool BM CONSISTENCY: Stool is liquid when she is having the diarrhea VOMITING: no ABDOMINAL PAIN: Yes some cramping abdominal pain, this comes and goes ABDOMINAL PAIN SEVERITY: Pain scale now 07-08-21 at 11:21 am @ a 3. Pain on the right side low and she was asking if she should be concerned with her Appendix ORAL INTAKE: Getting fluid in HYDRATION: Getting fluid in EXPOSURE: Was not around any one with flu or diarrhea ANTIBIOTIC USE: no OTHER SYMPTOMS: no fever. When she tries to eating she gets loose bowels. She has tried soup and gets the same symptoms. Pt has an apt on 07-11-21 for her 3 month follow up. She has not taken any medication to help with the diarrhea when it comes. Pt states wants it to stop. Please advise. Kami Crowell LPN documented in this encounterMarietta [facility] Hospital03-24-2022 Miscellaneous Notes* Telephone Encounter - Oralia Mcdowell - 05/09/2021 11:03 AM EDT Patient has been identified by name and date of : Yes Pending Prescriptions Disp Refills METFORMIN 500 MG TABLET 90 tablet 1 Sig: Take 1 tablet by mouth daily with breakfast. TIKA: No RX INSTRUCTIONS: Patient aware RX will be sent to pharmacy. No need to notify patient. Oralia Mcdowell documented in this encounterMarietta [facility] Hospital11-13-2012 History of Past illness Narrative* Problem Noted Date Resolved Date Chronic right shoulder pain 12/30/20110 10/2014 Abnormal glucose 11/08/2011 10/25/2014 documented as of this encounter (statuses as of 05/10/2021) [facility] of [facility] illness Narrative* Problem Noted Date Resolved Date Chronic right shoulder pain 12/30/20110 10/2014 Abnormal glucose 11/08/2011 10/25/2014 documented as of this encounter (statuses as of 07/08/2021) [address]13-[address] History of Past illness Narrative* Problem Noted Date Resolved Date Chronic right shoulder pain 12/30/20110 10/2014 Abnormal glucose 11/08/2011 10/25/2014 documented as of this encounter (statuses as of 07/11/2021) [address]13-2012 History of Past illness Narrative* Problem Noted Date Resolved Date Chronic right shoulder pain 12/30/20110 10/2014 Abnormal glucose 11/08/2011 10/25/2014 documented as of this encounter (statuses as of 07/12/2021) [facility] of [facility] illness Narrative* Problem Noted Date Resolved Date Chronic right shoulder pain 12/30/20110 10/2014 Abnormal glucose 11/08/2011 10/25/2014 documented as of this encounter (statuses as of 07/20/2021) [facility] of [facility] illness Narrative* Problem Noted Date Resolved Date Chronic right shoulder pain 12/30/20110 10/2014 Abnormal glucose 11/08/2011 10/25/2014 documented as of this encounter (statuses as of 07/22/2021) [facility] of [facility] illness Narrative* Problem Noted Date Resolved Date Chronic right shoulder pain 12/30/20110 10/2014 Abnormal glucose 11/08/2011 10/25/2014 documented as of this encounter (statuses as of 08/13/2021) [facility] of [facility] illness Narrative* Problem Noted Date Resolved Date Chronic right shoulder pain 12/30/20110 10/2014 Abnormal glucose 11/08/2011 10/25/2014 documented as of this encounter (statuses as of 08/16/2021) [address]2012 History of Past illness Narrative* Problem Noted Date Resolved Date Chronic right shoulder pain 12/30/20110 10/2014 Abnormal glucose 11/08/2011 10/25/2014 documented as of this encounter (statuses as of 09/05/2021) [address]13[address]2012 History of Past illness Narrative* Problem Noted Date Resolved Date Chronic right shoulder pain 12/30/20110 10/2014 Abnormal glucose 11/08/2011 10/25/2014 documented as of this encounter (statuses as of 09/19/2021) [facility] Narrative* Problem Noted Date Resolved Date Chronic right shoulder pain 12/30/20110 10/2014 Abnormal glucose 11/08/2011 10/25/2014 documented as of this encounter (statuses as of 11/06/2021) [facility] Narrative* Problem Noted Date Resolved Date Chronic right shoulder pain 12/30/20110 10/2014 Abnormal glucose 11/08/2011 10/25/2014 documented as of this encounter (statuses as of 11/12/2021) [facility] Narrative* Problem Noted Date Resolved Date Chronic right shoulder pain 12/30/20110 10/2014 Abnormal glucose 11/08/2011 10/25/2014 documented as of this encounter (statuses as of 11/22/2021) [facility] Narrative* Problem Noted Date Resolved Date Chronic right shoulder pain 12/30/20110 10/2014 Abnormal glucose 11/08/2011 10/25/2014 documented as of this encounter (statuses as of 11/25/2021) [facility] Narrative* Problem Noted Date Resolved Date Chronic right shoulder pain 12/30/20110 10/2014 Abnormal glucose 11/08/2011 10/25/2014 documented as of this encounter (statuses as of 11/26/2021) [facility] Narrative* Problem Noted Date Resolved Date Chronic right shoulder pain 12/30/20110 10/2014 Abnormal glucose 11/08/2011 10/25/2014 documented as of this encounter (statuses as of 12/25/2021) [facility] Narrative* Problem Noted Date Resolved Date Chronic right shoulder pain 12/30/20110 10/2014 Abnormal glucose 11/08/2011 10/25/2014 documented as of this encounter (statuses as of 12/30/2021) [place] [address]13-2012 History of Past illness Narrative* Problem Noted Date Resolved Date Chronic right shoulder pain 12/30/20110 10/2014 Abnormal glucose 11/08/2011 10/25/2014 documented as of this encounter (statuses as of 01/14/2022) [address]13[address]2012 History of Past illness Narrative* Problem Noted Date Resolved Date Chronic right shoulder pain 12/30/20110 10/2014 Abnormal glucose 11/08/2011 10/25/2014 documented as of this encounter (statuses as of 02/28/2022) [address]13-2012 History of Past illness Narrative* Problem Noted Date Resolved Date Chronic right shoulder pain 12/30/20110 10/2014 Abnormal glucose 11/08/2011 10/25/2014 documented as of this encounter (statuses as of 05/09/2022) [address]2012 History of Past illness Narrative* Problem Noted Date Resolved Date Chronic right shoulder pain 12/30/20110 10/2014 Abnormal glucose 11/08/2011 10/25/2014 documented as of this encounter (statuses as of 06/02/2022) [place] [address]-13-2012 History of Past illness Narrative* Problem Noted Date Resolved Date Chronic right shoulder pain 12/30/20110 10/2014 Abnormal glucose 11/08/2011 10/25/2014 documented as of this encounter (statuses as of 06/06/2022) [place] [address]13-2012 History of Past illness Narrative* Problem Noted Date Resolved Date Chronic right shoulder pain 12/30/20110 10/2014 Abnormal glucose 11/08/2011 10/25/2014 documented as of this encounter (statuses as of 07/16/2022) [place] [address]13[address]2012 History of Past illness Narrative* Problem Noted Date Resolved Date Chronic right shoulder pain 12/30/20110 10/2014 Abnormal glucose 11/08/2011 10/25/2014 documented as of this encounter (statuses as of 07/22/2022) [address]13-2012 History of Past illness Narrative* Problem Noted Date Resolved Date Chronic right shoulder pain 12/30/20110 10/2014 Abnormal glucose 11/08/2011 10/25/2014 documented as of this encounter (statuses as of 07/23/2022) [address]13-2012 History of Past illness Narrative* Problem Noted Date Diagnosed Date Resolved Date Chronic right shoulder pain 12/30/2011 10/25/2014 Abnormal glucose 11/08/2011 10/25/2014 documented as of this encounter (statuses as of 09/11/2022) [address]13-2012 History of Past illness Narrative* Problem Noted Date Diagnosed Date Resolved Date Chronic right shoulder pain 12/30/2011 10/25/2014 Abnormal glucose 11/08/2011 10/25/2014 documented as of this encounter (statuses as of 10/14/2022) [place] [address]13-2012 History of Past illness Narrative* Problem Noted Date Diagnosed Date Resolved Date Chronic right shoulder pain 12/30/2011 10/25/2014 Abnormal glucose 11/08/2011 10/25/2014 documented as of this encounter (statuses as of 11/28/2022) [place] [address]13-2012 History of Past illness Narrative* Problem Noted Date Diagnosed Date Resolved Date Chronic right shoulder pain 12/30/2011 10/25/2014 Abnormal glucose 11/08/2011 10/25/2014 documented as of this encounter (statuses as of 12/01/2022) [place] [address]13-2012 History of Past illness Narrative* Problem Noted Date Diagnosed Date Resolved Date Chronic right shoulder pain 12/30/2011 10/25/2014 Abnormal glucose 11/08/2011 10/25/2014 documented as of this encounter (statuses as of 03/25/2023) [place] [address]13-2012 History of Past illness Narrative* Problem Noted Date Diagnosed Date Resolved Date Chronic right shoulder pain 12/30/2011 10/25/2014 Abnormal glucose 11/08/2011 10/25/2014 documented as of this encounter (statuses as of 04/01/2023) [facility] September 04, 2022 1:40pm Note Date/Time September 04, 2022 1:40 pm [facility] Medical Records Department [address] [place] [address] Emergency Department Summary 09/04/22 MR#: [id number] Acct: [id number] Name: PRINCESALLY A Rep #:[id number] : 1955 67 From: Ran Bauer MD PCP: CARON ROBLES, [employer]-C Status:REG ER Location: ED HPI History of Present Illness Chief Complaint: Bite Detail of Chief Complaint: Red dot right shoulder region Informant: patient Onset/Context/Timing Onset: Yesterday Context: Sudden Onset Timing: Continuous Quality: Area of erythema anterior proximal right shoulder Location: See under quality Current Severity: Mild Maximum Severity: Mild Worsened by: Nothing Relieved by: Nothing Associated Symptoms Associated Symptoms: None Narrative Narrative: Patient is a 67-year-old woman with history of, diabetes who presents because she believes she may have been bit by something. He states there is been bees around the house. She noted the red dot yesterday. She does not remember beingstung by a bee or bit by an insect. She denies fever or chills. She denies drainage. She denies change in the area of redness since yesterday. She deniessymptoms of hyperglycemia. Prior similar symptoms: No Recent Illness/Hospitalization: No PFSH PFSH Medical History Arthritis Asthma Chronic bronchitis Fatty liver Gallstones GERD (gastroesophageal reflux disease) High cholesterol History of edema History of IBS History of stress test Leg cramps Low iron Non-smoker Post-menopausal Pre-diabetes Restless legs Scoliosis Seasonal allergies Wears dentures Wears glasses Home Medications simvastatin 20 mg tablet 20 mg PO QHS 12/23/12 [History Last Taken 03/04/16] calcium carbonate 600 mg-vitamin D3 10 mcg (400 unit) chewable tablet 1 tab PO DAILY 06/30/17 [History Last Taken Unknown] fluticasone propionate 115 mcg-salmeterol 21 mcg/actuation HFA inhaler 2 puff inhalation BID 06/30/17 [History Last Taken Unknown] sodium chloride 0.65 % nasal spray aerosol (Saline Nasal) 1 spray intranasal Q1- 4H PRN Allergies 10/21/17 [History Last Taken Unknown] albuterol sulfate 90 mcg/actuation aerosol inhaler 2 puff IH PRN PRN Sob &/Or Wheezing 08/26/19 [History Last Taken 12/30/21] ferrous sulfate 325 mg (65 mg iron) tablet 325 mg PO DAILY 10/22/21 [History Last Taken Unknown] alendronate 35 mg tablet 35 mg PO DAILY 12/26/21 [History Last Taken 12/30/21] pantoprazole 40 mg tablet,delayed release 40 mg PO DAILY 12/26/21 [History Last Taken 12/30/21] Allergy/AdvReac Type Severity Reaction Status Date / Time cefdinir [From Omnicef] Allergy Severe Unknown Verified 09/04/22 13:19 Penicillins Allergy Severe STOP Verified 09/04/22 13:19 BREATHING codeine Allergy Other Verified 09/04/22 13:19 hydrocodone bitartrate Allergy Other Verified 09/04/22 13:19 [From Vicodin] latex Allergy Rash Verified 09/04/22 13:19 aspirin AdvReac Other Verified 09/04/22 13:19 tramadol [From Ultram] AdvReac Rash Verified 09/04/22 13:19 Family History Mother Cancer Father Heart disease Hypertension High cholesterol Kidney disease CVA (cerebral vascular accident) Colon cancer Surgical History H/O hernia repair History of colonoscopy Hx of cholecystectomy Social History household members: none Smoking Status: Never smoker second hand exposure: No alcohol intake: never substance use type: does not use ROS ROS ED Constitutional Constitutional ED: Denies chills, fever(s), subjective, sweats or weight loss Cardiovascular Cardiovascular: Denies chest pain or palpitations Respiratory/Chest Respiratory/Chest: Denies dyspnea Gastrointestinal Gastrointestinal: Denies nausea or vomiting Integumentary Reports rash Hematologic/Lymphatic Hematologic/Lymphatic: Reports systems reviewed and no addt'l complaints, exceptas documented EXAM Physical Exam Const Vital Signs: 09/04/22 13:19 Temperature 97.3 F L Temperature Source Temporal Pulse Rate 87 Respiratory Rate 16 Blood Pressure 113/44 L Blood Pressure Mean 67 Pulse Ox 98 Oxygen Delivery Method Room Air Positive well nourished, well developed and obese General Appearance ED: well developed and NAD Nutritional Appearance: obese HEENT Reports moist mucous membranes HEENT Narrative: Head is atraumatic normocephalic. Patient's speech is slurred, which is her norm. Eyes PERRL and EOMs intact bilaterally General Eye ED: Negative for pale conjunctiva or scleral icterus Neck no lymphadenopathy, supple and no JVD Chest Wall inspection of chest normal and palpation of chest normal Resp normal respiratory effort and clear to auscultation bilaterally Cardio regular rate, regular rhythm, S1 normal heart sound, S2 normal heart sound and no murmurs Extremity Extremity Narrative: There is an area of erythema that is 1 to 2 mm in diameter anterior proximal right shoulder region. There is a fine pinkish color noted that extends beyond the central area of redness by 3 to 4 mm. There are no other lesions noted on the extremity or torso. There is no axillary or epitrochlear lymphadenopathy. There is no warmth, induration, lymphangitis. There is no fluctuance. The central area of erythema is not raised. General Extremety ED: Negative for edema or tenderness General Extremity: Negative for edema Neuro oriented x3 and CN's II-XII intact bilaterally Psych mental status grossly normal Skin Skin Narrative: Described under the extremity portion of the medical record MDM MDM MDM Narrative Medical decision making narrative: Patient was informed that I cannot tell her with any degree of certainty whetherthis is or is not a bee sting or insect sting since she has no recall of being bit or stung by anything. I informed her if she develops a fever, red streak orthe area becomes significantly larger to follow-up with her doctor or return to the emergency department. Discharge Plan Triage Chief Complaint: Bite ED Provider: Ran Bauer Dx/Rx/DC Orders Clinical Impression: Rash and nonspecific skin eruption Instructions: ED Erythema Prescriptions: No Action sodium chloride [Saline Nasal] 0.65 % aerosol,spray 1 spray INTRANASAL Q1-4H PRN (Reason: Allergies) ferrous sulfate 325 mg (65 mg iron) tablet 325 mg PO DAILY simvastatin 20 MG tablet 20 mg PO QHS fluticasone propion-salmeterol 1 PUFF inhaler 2 puff INHALATION BID calcium carbonate-vitamin D3 1 EACH tablet,chewable 1 tab PO DAILY Rx Instructions: taken in afternoon albuterol sulfate 1 PUFF inhaler 2 puff IH PRN PRN (Reason: Sob &/Or Wheezing) alendronate 35 mg tablet 35 mg PO DAILY pantoprazole 40 mg tablet,delayed release (DR/EC) 40 mg PO DAILY Primary Care Provider: CARON ROBLES Referrals: Hi Hammer MD [Med Staff - [employer]er] - 3-5 Days if not improving What to do if you have Problems For any increased pain, shortness of breath, bleeding, nausea or vomiting, chestpain, or any unexpected problems, contact your Primary Care Provider. Call [facility] ([phone]) or report to the closest Emergency Room. Call 911 if necessary. 09/04/22 1340 <Electronically signed by Ran Bauer MD> Cosigner Signature (if applicable): CC: JASON ROBLES ~ Signed [facility] Work Phone: Evaluation note* Diagnosis Primary hypertension- Primary Unspecified essential hypertension Prediabetes Other abnormal glucose Insulin resistance Dysmetabolic Syndrome X Diarrhea, unspecified type Right upper quadrant abdominal tenderness with rebound tenderness documented [facility] this encounter [facility] [place] [facility]* Diagnosis Diarrhea, unspecified type Right upper quadrant abdominal tenderness with rebound tenderness [facility] [place] [facility]* Diagnosis Diarrhea, unspecified type- Primary RUQ pain Abdominal pain, right upper quadrant Nausea Nausea alone documented [facility] this [facility] [place] noteNo assessment information [facility]WMart[facility] Work Phone: Evaluation note* Diagnosis Orthostasis- Primary Orthostatic hypotension Prediabetes Other abnormal glucose Osteoporosis, unspecified osteoporosis type, unspecified pathological fracture presence documented [facility] [place] [facility]* Diagnosis Osteoporosis, unspecified osteoporosis type, unspecified pathological fracture presence [facility]* Diagnosis Osteopenia, senile Disorder of bone and cartilage, unspecified [facility] [place] [facility]* Diagnosis Encounter for screening mammogram for breast cancer documented [facility] [place] [facility]* Diagnosis Onset Date Resolution Status Encounter for screening for malignant neoplasm of colo n acute [facility] Work Phone: Evaluation note* Diagnosis Rash- Primary Rash and other nonspecific skin eruption [facility]* Diagnosis Seasonal allergies Allergic rhinitis, cause unspecified [facility]* Diagnosis Medicare annual wellness visit, subsequent- Primary Routine general medical examination at a health care facility Prediabetes Other abnormal glucose Dependent edema Edema Mild intermittent asthma without complication Unspecified asthma Osteopenia, senile Disorder of bone and cartilage, unspecified Disability, developmental Unspecified delay in development Speech problem Other speech disturbance [facility] Osteopenia, senile- Primary Disorder of bone and cartilage, unspecified Prediabetes Other abnormal glucose documented [facility] this encounter [facility] [place] [facility]* Diagnosis Hypertension Unspecified essential hypertension Mixed hyperlipidemia documented in this encounter [facility] [place] [facility]* Diagnosis Encounter for screening mammogram for breast cancer documented [facility] this encounter [facility] [place] [facility]* Diagnosis Chronic right hip pain- Primary Pain in joint, pelvic region and thigh Prediabetes Other abnormal glucose Mixed hyperlipidemia Gastroesophageal reflux disease without esophagitis Esophageal reflux Chest pain, unspecified type documented [facility] this encounter [facility] [place] [facility]* Diagnosis Pain in left toe(s)- Primary Callus Corns and callosities Bell of toe Corns and callosities Seasonal allergies Allergic rhinitis, cause unspecified documented [facility] encounter [facility] [place] [facility]* Diagnosis Encounter to establish care- Primary Other reasons for seeking consultation Eustachian tube dysfunction Dysfunction of Eustachian tube Dysuria Asthma Unspecified asthma Mixed hyperlipidemia Cohn esophagus Cohn's esophagus Edema Barretts esophagus Cohn's esophagus GERD (gastroesophageal reflux disease) Esophageal reflux Overactive bladder Hypertonicity of bladder Rosacea Sinusitis Unspecified sinusitis (chronic) Hypertension Unspecified essential hypertension Speech problem- Primary Other speech disturbance Learning difficulty Unspecified delay in development Disability, developmental Unspecified delay in development Hypertension Unspecified essential hypertension Mixed hyperlipidemia- Primary Essential hypertension Unspecified essential hypertension Gastroesophageal reflux disease without esophagitis Esophageal reflux Encounter for screening mammogram for breast cancer documented [facility] this encounter [facility] [place] [facility]* Diagnosis Encounter to establish care- Primary Other reasons for seeking consultation Eustachian tube dysfunction Dysfunction of Eustachian tube Dysuria Asthma Unspecified asthma Mixed hyperlipidemia Cohn esophagus Cohn's esophagus Edema Barretts esophagus Cohn's esophagus GERD (gastroesophageal reflux disease) Esophageal reflux Overactive bladder Hypertonicity of bladder Rosacea Sinusitis Unspecified sinusitis (chronic) Hypertension Unspecified essential hypertension Speech problem- Primary Other speech disturbance Learning difficulty Unspecified delay in development Disability, developmental Unspecified delay in development Hypertension Unspecified essential hypertension Mixed hyperlipidemia- Primary Essential hypertension Unspecified essential hypertension Gastroesophageal reflux disease without esophagitis Esophageal reflux Left sided sciatica Sciatica documented in this encounter [facility] [place] [facility]* Diagnosis Encounter to establish care- Primary Other reasons for seeking consultation Eustachian tube dysfunction Dysfunction of Eustachian tube Dysuria Asthma Unspecified asthma Mixed hyperlipidemia Cohn esophagus Cohn's esophagus Edema Barretts esophagus Cohn's esophagus GERD (gastroesophageal reflux disease) Esophageal reflux Overactive bladder Hypertonicity of bladder Rosacea Sinusitis Unspecified sinusitis (chronic) Hypertension Unspecified essential hypertension Speech problem- Primary Other speech disturbance Learning difficulty Unspecified delay in development Disability, developmental Unspecified delay in development Hypertension Unspecified essential hypertension Mixed hyperlipidemia- Primary Essential hypertension Unspecified essential hypertension Gastroesophageal reflux disease without esophagitis Esophageal reflux Prediabetes- Primary Other abnormal glucose documented in this encounter [facility] note* Diagnosis Encounter to establish care- Primary Other reasons for seeking consultation Eustachian tube dysfunction Dysfunction of Eustachian tube Dysuria Asthma Unspecified asthma Mixed hyperlipidemia Cohn esophagus Cohn's esophagus Edema Barretts esophagus Cohn's esophagus GERD (gastroesophageal reflux disease) Esophageal reflux Overactive bladder Hypertonicity of bladder Rosacea Sinusitis Unspecified sinusitis (chronic) Hypertension Unspecified essential hypertension Speech problem- Primary Other speech disturbance Learning difficulty Unspecified delay in development Disability, developmental Unspecified delay in development Hypertension Unspecified essential hypertension Mixed hyperlipidemia- Primary Essential hypertension Unspecified essential hypertension Gastroesophageal reflux disease without esophagitis Esophageal reflux Prediabetes Other abnormal glucose Mixed hyperlipidemia documented in this encounter [facility] note* Diagnosis Encounter to establish care- Primary Other reasons for seeking consultation Eustachian tube dysfunction Dysfunction of Eustachian tube Dysuria Asthma Unspecified asthma Mixed hyperlipidemia Cohn esophagus Cohn's esophagus Edema Barretts esophagus Cohn's esophagus GERD (gastroesophageal reflux disease) Esophageal reflux Overactive bladder Hypertonicity of bladder Rosacea Sinusitis Unspecified sinusitis (chronic) Hypertension Unspecified essential hypertension Speech problem- Primary Other speech disturbance Learning difficulty Unspecified delay in development Disability, developmental Unspecified delay in development Hypertension Unspecified essential hypertension Mixed hyperlipidemia- Primary Essential hypertension Unspecified essential hypertension Gastroesophageal reflux disease without esophagitis Esophageal reflux Medicare annual wellness visit, subsequent- Primary Routine general medical examination at a health care facility Screening for depression Encounter for screening examination for other mental health and behavioral disorders Encounter for screening mammogram for malignant neoplasm of breast Other screening mammogram Prediabetes Other abnormal glucose Mixed hyperlipidemia Iron deficiency anemia, unspecified iron deficiency anemia type Nearsightedness, bilateral Essential (primary) hypertension Unspecified essential hypertension Dyslipidemia Other and unspecified hyperlipidemia documented in this encounter [facility] note* Diagnosis Onset Date Resolution Status Admit Date Bell of foot acute June 29 10:29am Foot callus acute May 14th, 202 5 10:29am Localized osteoarthritis of left knee acute June 29, 2024 1 0:29am Low back pain acute June 29, 2 025 10:29am Overgrown toenails acute June 292024 10:29am Primary localized osteoarthr itis of left hip acute June 29, 2024 1 0:29am [facility] Work Phone: Evaluation note* Diagnosis Encounter to establish care- Primary Other reasons for seeking consultation Eustachian tube dysfunction Dysfunction of Eustachian tube Dysuria Asthma (HCC) Unspecified asthma Mixed hyperlipidemia Cohn esophagus Cohn's esophagus Edema Barretts esophagus Cohn's esophagus GERD (gastroesophageal reflux disease) Esophageal reflux Overactive bladder Hypertonicity of bladder Rosacea Sinusitis Unspecified sinusitis (chronic) Hypertension Unspecified essential hypertension Speech problem- Primary Other speech disturbance Learning difficulty Unspecified delay in development Disability, developmental Unspecified delay in development Hypertension Unspecified essential hypertension Mixed hyperlipidemia- Primary Essential hypertension Unspecified essential hypertension Gastroesophageal reflux disease without esophagitis Esophageal reflux Elevated glucose- Primary Other abnormal glucose Medial tibial stress syndrome, unspecified laterality, initial encounter Dependent edema Edema Pain of left foot Pain in limb Bell of foot Corns and callosities [facility] Additional Instructions Follow-up with your primary care physician outpatient setting. Return with worsening symptoms or concerns. Ensure you are using something for pain such as Tylenol at home. Your x-rays here today of your feet on both sides did not show any broken bones.[facility] Work Phone: Hospital Discharge instructionsAmbulatory Orders* Physical Therapy Referral Location: None Selected * Pain Management Location: None Selected * Podiatry Location: None Selected [facility] Work Phone: Reason for referral (narrative)* Diagnostic Procedure Only (Routine) - Authorized Specialty Diagnoses / Procedures Referred By Contac t Referred To Contact [facility] Diagnoses Diarrhea, unspecified type Right upper quadrant abdominal tenderness with rebound tenderness Procedures US ABD RT UPPER QUADRANT US ABDOMINAL REAL TIME W/IMAGE LIMITED Caron Robles APRN.COMMUNICATIONS EDITOR [address] [place] [address] [facility] Referral ID Status Reason Start Date Expiration Date Visits Requested Visits Authorized [id number] Authorized Auto-Generat ed Referral 07/11/2021 08/10/2022 1 1 [facility] for referral (narrative)* Diagnostic Procedure Only (Routine) - Closed Specialty Diagnoses / Procedures Referred By Lavonne pineda Referred To Contact [facility] IMAG[facility] Diagnoses Diarrhea, unspecified type Right upper quadrant abdominal tenderness with rebound tenderness Procedures US ABD RT UPPER QUADRANT US ABDOMINAL REAL TIME W/IMAGE LIMITED Caron Robles APRN.CNP [address] [place] [address] [facility] Referral ID Status Reason Start Date Expiration Date V isits Requested Visits Authorized [id number] Closed Auto-Generate d Referral 07/11/2021 08/10/2022 1 1 [facility] for referral (narrative)* Diagnostic Procedure Only (Routine) - Pending Review Specialty Diagnoses / Procedures Referred By Lavonne t Referred To Contact [facility] Diagnoses Encounter for screening mammogram for breast cancer Procedures KAYODE SCREENING W ДМИТРИЙ SCREENING DIGITAL BREAST TOMOSYNTHESIS BI SCREENING MAMMOGRAPHY BI 2-VIEW BREAST INC Hi Hernandez MD [address] [place] [address] [facility] [address] [place] [address] Referral ID Status Reason Start Date Expiration Date Visits Requested Visits Authorized [id number] Pending Review Auto-Generat ed Referral 12/25/2021 01/24/2023 1 1 [facility] for referral (narrative)* Diagnostic Procedure Only (Routine) - Pending Review Specialty Diagnoses / Procedures Referred By Lavonne t Referred To Contact [facility] Diagnoses Encounter for screening mammogram for breast cancer Procedures KAYODE SCREENING W ДМИТРИЙ SCREENING DIGITAL BREAST TOMOSYNTHESIS BI SCREENING MAMMOGRAPHY BI 2-VIEW BREAST INC Hi Hernandez MD [address] [place] [address] [facility] [address] [place] [address] Referral ID Status Reason Start Date Expiration Date Visits Requested Visits Authorized [id number] Pending Review Auto-Generat ed Referral 12/26/2023 1 1 [facility] for referral (narrative)* Outpatient Procedure (Routine) - Pending Review Specialty Diagnoses / Procedures Referred By Contac t Referred To [facility] Diagnoses Chest pain, unspecified type Procedures ECG COMPLETE ECG ROUTINE ECG W/LEAST 12 LDS W/I&R Marlene Arteaga PA-C [address] [place] [address] [facility] [address] [place] [address] Referral ID Status Reason Start Date Expiration Date Visits Requested Visits Authorized [id number] Pending Review Auto-Generat ed Referral 04/01/2023 03/31/2024 1 1 [facility] for referral (narrative)* Diagnostic Procedure Only (Routine) - New Request Specialty Diagnoses / Procedures Referred By Vickyac t Referred To Contact [facility] IM[facility]ING Diagnoses Encounter for screening mammogram for breast cancer Procedures KAYODE SCREENING W ДМИТРИЙ SCREENING DIGITAL BREAST TOMOSYNTHESIS BI SCREENING MAMMOGRAPHY BI 2-VIEW BREAST INC Hi Hernandez MD [address] [place] [address] [facility] [address] [place] [address] Referral ID Status Reason Start Date Expiration Date Visits Requested Visits Authorized [id number] New Request Auto-Generat ed Referral 11/04/2023 12/03/2024 1 1 [facility] for referral (narrative)* Diagnostic Procedure Only (Routine) - Closed Specialty Diagnoses / Procedures Referred By Vickyac t Referred To Contact XR IMAGING Diagnoses Left sided sciatica Chronic left hip pain Procedures XR HIP GENERAL 3V PELV/AP/LAT LEFT RADEX HIP UNILATERAL WITH PELVIS 2-3 VIEWS Caron Robles APRN.COMMUNICATIONS EDITOR [address] [place] [address] [place] [address] Referral ID Status Reason Start Date Expiration Date V isits Requested Visits Authorized [id number] Closed Auto-Generate d Referral 02/19/2022 03/21/2023 1 1 [facility]No reason for referral information availableWMartins Ferry [facility] Work Phone: Reason for visit Narrative* Diagnostic Procedure Only (Routine) - Closed Specialty Diagnoses / Procedures Referred By Contac t Referred To Contact XR IMAGING Diagnoses Left sided sciatica Chronic left hip pain Procedures XR HIP GENERAL 3V PELV/AP/LAT LEFT RADEX HIP UNILATERAL WITH PELVIS 2-3 VIEWS Caron Robles APRN.COMMUNICATIONS EDITOR [address] [facility] [place] [address] [place] [address] Referral ID Status Reason Start Date Expiration Date V isits Requested Visits Authorized [id number] Closed Auto-Generate d Referral 02/19/2022 03/21/2023 1 1 [facility] Advance Directives Documents on File Type Date Recorded Patient Lamp Shade Joiner Expl anation Advance Directive(s) 12/13/2018 11:53 AM Advance Directive(s) 10/15/2015 1:52 PM Documents on File Type Date Recorded Patient Lamp Shade Joiner Expl anation Advance Directive(s) 12/13/2018 11:53 AM Advance Directive(s) 10/15/2015 1:52 PM Advance Directive Response Recorded Date/ Time Advance Directives No March 05, 2016 9:56pm Living Will No August 22, 2021 7 :55pm Power of Camp Housekeeper No August 22, 2021 7:55pm Advance Directive Response Recorded Date/ Time Advance Directives No March 05, 2016 8:56pm Living Will No December 26 9:28am Power of Camp Housekeeper No December 26, 2021 9:28am Advance Directive Response Recorded Date/ Time Advance Directives No March 05, 2016 9:56pm Living Will No July 16, 2022 6 :54pm Power of Camp Housekeeper No July 16, 2022 6:54pm Advance Directive Response Recorded Date/ Time Advance Directives No March 05, 2016 9:56pm Living Will No August 01, 2022 4:54pm Power of Camp Housekeeper No August 01 4:54pm Advance Directive Response Recorded Date/ Time Advance Directives No March 05, 2016 9:56pm Living Will No September 04, 2022 1:55pm Power of Camp Housekeeper No September 04 3 1:55pm Advance Directive Response Recorded Date/ Time Advance Directives No March 05, 2016 8:56pm Living Will No February 19 4 6:02pm Power of Camp Housekeeper No February 19 024 6:02pm Advance Directive Response Recorded Date/ Time Living Will No April 26, 2024 1:46pm Power of Camp Housekeeper No April 26 1:46pm Advance Directives No March 05, 2016 9:56pm Advance Directive Response Recorded Date/ Time Living Will No April 26, 2024 1:46pm Do you have a Healthcare Power of Camp Housekeeper? No April 26, 2024 1:46pm Do you have a Healthcare Power of Camp Housekeeper? No June 20, 2024 2:35pm Advance Directives No March 05, 2016 9:56pm Advance Directive Response Recorded Date/ Time Do you have a Healthcare Power of Camp Housekeeper? No August 03, 2024 7:48am Living Will No April 26, 2024 1:46pm Do you have a Healthcare Power of Camp Housekeeper? No April 26, 2024 1:46pm Do you have a Healthcare Power of Camp Housekeeper? No June 20, 2024 2:35pm Advance Directives No March 05, 2016 9:56pm Reason for Referral Specialty Diagnoses / Procedures Referred By Lavonne pineda Referred To Contact Gastroenterology Diagnoses Diarrhea, unspecified type RUQ pain Nausea Procedures CONSULT TO GASTROENTEROLOGY OFFICE/OUTPATIENT [facility] MDM 60-74 MINUTES Older, KERON Reardon.COMMUNICATIONS EDITOR [address] [place] [address] Referral ID Status Reason Start Date Expiration Date Visits Requested Visits Authorized [id number] Pending Review PCP Requested Referral 07/22/2021 07/22/2022 1 1 Specialty Diagnoses / Procedures Referred By Lavonne pineda Referred To Contact Podiatry Diagnoses Callus Pain in left toe(s) Bell of toe Procedures CONSULT TO PODIATRY OFFICE/OUTPATIENT [facility]3] 60 MINUTES Older, KERON Reardon.COMMUNICATIONS EDITOR [address] [place] [address] Referral ID Status Reason Start Date Expiration Date Visits Requested Visits Authorized [id number] Authorized PCP Requested Referral 07/01/2023 06/30/2024 1 1 Chief Complaint and Reason for Visit Chief Complaint CP Chief Complaint Amb Documentation Reason for Visit Encounter for screen ing for malignant neoplasm of colon Chief Complaint FINGER PAIN Chief Complaint FINGER PAIN left shoulder pain Chief Complaint FINGER PAIN left shoulder pain BITE Chief Complaint fall, hip injury Chief Complaint Admit Date LOWER EXT, WOUNDS April 26, 2024 12: 13pm Chief Complaint Admit Date LOWER EXT, WOUNDS April 26, 2024 12: 13pm R HIP PAIN June 20, 2024 2:24pm LEFT HIP/KNEE June 29, 2024 10:29 am Reason for Visit Admit Date Bell of foot June 29, 2024 10:29 am Foot callus June 29, 2024 10:29 am Localized osteoarthritis of left knee Ma y 2024 10:29am Low back pain June 29, 2024 10:29 am Overgrown toenails June 29, 2024 10:29 am Primary localized osteoarthritis of left hip June 29, 2024 10:29am Chief Complaint Admit Date LOWER EXT, WOUNDS April 26, 2024 12: 13pm R HIP PAIN June 20, 2024 2:24pm LEFT HIP/KNEE June 29, 2024 10:29 am chest pain August 03, 2024 7:47 am Reason for Visit Admit Date Bell of foot June 29, 2024 10:29 am Foot callus June 29, 2024 10:29 am Localized osteoarthritis of left knee Ma y 2024 10:29am Low back pain June 29, 2024 10:29 am Osteoporosis June 29, 2024 10:29 am Overgrown toenails June 29, 2024 10:29 am Primary localized osteoarthritis of left hip June 29, 2024 10:29am Family History Relationship Condition Age at Onset Recorded Date/T ever mother Malignant neoplasm Unknown father Cardiac disease Unknown Hypertension Unknown High blood cholesterol Unknown Kidney disorder Unknown Malignant neoplasm Unknown Cerebrovascular accident (CVA) Unknown Relationship Condition Age at Onset Recorded Date/T ever mother Malignant neoplasm Unknown father Cardiac disease Unknown Hypertension Unknown High blood cholesterol Unknown Kidney disorder Unknown Cerebrovascular accident (CVA) Unknown Malignant neoplasm of colon Unknown Summary Purpose Additional Source Comments Source Comments (unrecognize d section and content) In the event this informatio n is protected by the Federal Confidentiality of Alcohol and Drug Abuse Patient Records regulations: The Federal rules restrict any use of the information to criminally investigate or prosecute any alcohol or drug abuse patient.[facility]In the event this information is protected by the Federal Confidentiality of Alcohol and Drug Abuse Patient Records regulations: The Federal rules restrict any use of the information to criminally investigate or prosecute any alcohol or drug abuse patient.[facility] HospitalIn the event this information is protected by the Federal Confidentiality of Alcohol and Drug Abuse Patient Records regulations: The Federal rules restrict any use of the information to criminally investigate or prosecute any alcohol or drug abuse patient.[facility] HospitalIn the event this information is protected by the Federal Confidentiality of Alcohol and Drug Abuse Patient Records regulations: The Federal rules restrict any use of the information to criminally investigate or prosecute any alcohol or drug abuse patient.[facility] HospitalIn the event this information is protected by the Federal Confidentiality of Alcohol and Drug Abuse Patient Records regulations: The Federal rules restrict any use of the information to criminally investigate or prosecute any alcohol or drug abuse patient.[facility] HospitalIn the event this information is protected by the Federal Confidentiality of Alcohol and Drug Abuse Patient Records regulations: The Federal rules restrict any use of the information to criminally investigate or prosecute any alcohol or drug abuse patient.[facility] HospitalIn the event this information is protected by the Federal Confidentiality of Alcohol and Drug Abuse Patient Records regulations: The Federal rules restrict any use of the information to criminally investigate or prosecute any alcohol or drug abuse patient.[facility] HospitalIn the event this information is protected by the Federal Confidentiality of Alcohol and Drug Abuse Patient Records regulations: The Federal rules restrict any use of the information to criminally investigate or prosecute any alcohol or drug abuse patient.[facility] HospitalIn the event this information is protected by the Federal Confidentiality of Alcohol and Drug Abuse Patient Records regulations: The Federal rules restrict any use of the information to criminally investigate or prosecute any alcohol or drug abuse patient.[facility] HospitalIn the event this information is protected by the Federal Confidentiality of Alcohol and Drug Abuse Patient Records regulations: The Federal rules restrict any use of the information to criminally investigate or prosecute any alcohol or drug abuse patient.[facility] HospitalIn the event this information is protected by the Federal Confidentiality of Alcohol and Drug Abuse Patient Records regulations: The Federal rules restrict any use of the information to criminally investigate or prosecute any alcohol or drug abuse patient.[facility] HospitalIn the event this information is protected by the Federal Confidentiality of Alcohol and Drug Abuse Patient Records regulations: The Federal rules restrict any use of the information to criminally investigate or prosecute any alcohol or drug abuse patient.[facility] HospitalIn the event this information is protected by the Federal Confidentiality of Alcohol and Drug Abuse Patient Records regulations: The Federal rules restrict any use of the information to criminally investigate or prosecute any alcohol or drug abuse patient.[facility] HospitalIn the event this information is protected by the Federal Confidentiality of Alcohol and Drug Abuse Patient Records regulations: The Federal rules restrict any use of the information to criminally investigate or prosecute any alcohol or drug abuse patient.[facility] HospitalIn the event this information is protected by the Federal Confidentiality of Alcohol and Drug Abuse Patient Records regulations: The Federal rules restrict any use of the information to criminally investigate or prosecute any alcohol or drug abuse patient.[facility] HospitalIn the event this information is protected by the Federal Confidentiality of Alcohol and Drug Abuse Patient Records regulations: The Federal rules restrict any use of the information to criminally investigate or prosecute any alcohol or drug abuse patient.[facility] HospitalIn the event this information is protected by the Federal Confidentiality of Alcohol and Drug Abuse Patient Records regulations: The Federal rules restrict any use of the information to criminally investigate or prosecute any alcohol or drug abuse patient.[facility] HospitalIn the event this information is protected by the Federal Confidentiality of Alcohol and Drug Abuse Patient Records regulations: The Federal rules restrict any use of the information to criminally investigate or prosecute any alcohol or drug abuse patient.[facility] HospitalIn the event this information is protected by the Federal Confidentiality of Alcohol and Drug Abuse Patient Records regulations: The Federal rules restrict any use of the information to criminally investigate or prosecute any alcohol or drug abuse patient.[facility] HospitalIn the event this information is protected by the Federal Confidentiality of Alcohol and Drug Abuse Patient Records regulations: The Federal rules restrict any use of the information to criminally investigate or prosecute any alcohol or drug abuse patient.[facility] HospitalIn the event this information is protected by the Federal Confidentiality of Alcohol and Drug Abuse Patient Records regulations: The Federal rules restrict any use of the information to criminally investigate or prosecute any alcohol or drug abuse patient.[facility] HospitalIn the event this information is protected by the Federal Confidentiality of Alcohol and Drug Abuse Patient Records regulations: The Federal rules restrict any use of the information to criminally investigate or prosecute any alcohol or drug abuse patient.[facility] HospitalIn the event this information is protected by the Federal Confidentiality of Alcohol and Drug Abuse Patient Records regulations: The Federal rules restrict any use of the information to criminally investigate or prosecute any alcohol or drug abuse patient.[facility] HospitalIn the event this information is protected by the Federal Confidentiality of Alcohol and Drug Abuse Patient Records regulations: The Federal rules restrict any use of the information to criminally investigate or prosecute any alcohol or drug abuse patient.[facility] HospitalIn the event this information is protected by the Federal Confidentiality of Alcohol and Drug Abuse Patient Records regulations: The Federal rules restrict any use of the information to criminally investigate or prosecute any alcohol or drug abuse patient.[facility] HospitalIn the event this information is protected by the Federal Confidentiality of Alcohol and Drug Abuse Patient Records regulations: The Federal rules restrict any use of the information to criminally investigate or prosecute any alcohol or drug abuse patient.[facility] HospitalIn the event this information is protected by the Federal Confidentiality of Alcohol and Drug Abuse Patient Records regulations: The Federal rules restrict any use of the information to criminally investigate or prosecute any alcohol or drug abuse patient.[facility] HospitalIn the event this information is protected by the Federal Confidentiality of Alcohol and Drug Abuse Patient Records regulations: The Federal rules restrict any use of the information to criminally investigate or prosecute any alcohol or drug abuse patient.[facility] HospitalIn the event this information is protected by the Federal Confidentiality of Alcohol and Drug Abuse Patient Records regulations: The Federal rules restrict any use of the information to criminally investigate or prosecute any alcohol or drug abuse patient.[facility] HospitalIn the event this information is protected by the Federal Confidentiality of Alcohol and Drug Abuse Patient Records regulations: The Federal rules restrict any use of the information to criminally investigate or prosecute any alcohol or drug abuse patient.[facility] HospitalIn the event this information is protected by the Federal Confidentiality of Alcohol and Drug Abuse Patient Records regulations: The Federal rules restrict any use of the information to criminally investigate or prosecute any alcohol or drug abuse patient.[facility] HospitalIn the event this information is protected by the Federal Confidentiality of Alcohol and Drug Abuse Patient Records regulations: The Federal rules restrict any use of the information to criminally investigate or prosecute any alcohol or drug abuse patient.[facility] HospitalIn the event this information is protected by the Federal Confidentiality of Alcohol and Drug Abuse Patient Records regulations: The Federal rules restrict any use of the information to criminally investigate or prosecute any alcohol or drug abuse patient.[facility] HospitalIn the event this information is protected by the Federal Confidentiality of Alcohol and Drug Abuse Patient Records regulations: The Federal rules restrict any use of the information to criminally investigate or prosecute any alcohol or drug abuse patient.[facility] HospitalIn the event this information is protected by the Federal Confidentiality of Alcohol and Drug Abuse Patient Records regulations: The Federal rules restrict any use of the information to criminally investigate or prosecute any alcohol or drug abuse patient.[facility] HospitalIn the event this information is protected by the Federal Confidentiality of Alcohol and Drug Abuse Patient Records regulations: The Federal rules restrict any use of the information to criminally investigate or prosecute any alcohol or drug abuse patient.[facility] HospitalIn the event this information is protected by the Federal Confidentiality of Alcohol and Drug Abuse Patient Records regulations: The Federal rules restrict any use of the information to criminally investigate or prosecute any alcohol or drug abuse patient.[facility] HospitalIn the event this information is protected by the Federal Confidentiality of Alcohol and Drug Abuse Patient Records regulations: The Federal rules restrict any use of the information to criminally investigate or prosecute any alcohol or drug abuse patient.[facility] HospitalIn the event this information is protected by the Federal Confidentiality of Alcohol and Drug Abuse Patient Records regulations: The Federal rules restrict any use of the information to criminally investigate or prosecute any alcohol or drug abuse patient.[facility] HospitalIn the event this information is protected by the Federal Confidentiality of Alcohol and Drug Abuse Patient Records regulations: The Federal rules restrict any use of the information to criminally investigate or prosecute any alcohol or drug abuse patient.[facility] HospitalIn the event this information is protected by the Federal Confidentiality of Alcohol and Drug Abuse Patient Records regulations: The Federal rules restrict any use of the information to criminally investigate or prosecute any alcohol or drug abuse patient.[facility] HospitalIn the event this information is protected by the Federal Confidentiality of Alcohol and Drug Abuse Patient Records regulations: The Federal rules restrict any use of the information to criminally investigate or prosecute any alcohol or drug abuse patient.[facility] HospitalIn the event this information is protected by the Federal Confidentiality of Alcohol and Drug Abuse Patient Records regulations: The Federal rules restrict any use of the information to criminally investigate or prosecute any alcohol or drug abuse patient.[facility] HospitalIn the event this information is protected by the Federal Confidentiality of Alcohol and Drug Abuse Patient Records regulations: The Federal rules restrict any use of the information to criminally investigate or prosecute any alcohol or drug abuse patient.[facility] HospitalIn the event this information is protected by the Federal Confidentiality of Alcohol and Drug Abuse Patient Records regulations: The Federal rules restrict any use of the information to criminally investigate or prosecute any alcohol or drug abuse patient.[facility] HospitalIn the event this information is protected by the Federal Confidentiality of Alcohol and Drug Abuse Patient Records regulations: The Federal rules restrict any use of the information to criminally investigate or prosecute any alcohol or drug abuse patient.[facility] HospitalIn the event this information is protected by the Federal Confidentiality of Alcohol and Drug Abuse Patient Records regulations: The Federal rules restrict any use of the information to criminally investigate or prosecute any alcohol or drug abuse patient.[facility] HospitalIn the event this information is protected by the Federal Confidentiality of Alcohol and Drug Abuse Patient Records regulations: The Federal rules restrict any use of the information to criminally investigate or prosecute any alcohol or drug abuse patient.[facility] Reason for Visit (unrecogniz ed section and content) Reason Onset Date Comments Refill Request 05/09/2021 Reason Comments Diarrhea Reason Comments F/U 3 months stiffness left hip Diarrhea Reason Comments Results Reason Comments Radiology US Specialty Diagnoses / Procedures Referred By Contac t Referred To Contact US IMAGING Diagnoses Diarrhea, unspecified type Right upper quadrant abdominal tenderness with rebound tenderness Procedures US ABD RT UPPER QUADRANT US ABDOMINAL REAL TIME W/IMAGE LIMITED Caron Robles APRN.COMMUNICATIONS EDITOR [address] [place] [address] [facility] Referral ID Status Reason Start Date Expiration Date V isits Requested Visits Authorized [id number] Closed Auto-Generate d Referral 07/11/2021 08/10/2022 1 1 Reason Comments Results Reason Onset Date Comments Population Health Navigation Outreach 08/13/2021 [employer] Medicare Reason Comments Electronic Communication Reason Comments Patient Question Results Reason Comments wasp sting Reason Comments 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 Reason Onset Date Comments Refill Request 11/22/2021 Reason Comments requesting new glucose meter, other is d iscontinued Reason Onset Date Comments Refill Request 12/24/2021 Reason Onset Date Comments Refill Request 01/08/2022 Reason Onset Date Comments Population Health Navigation Outreach 02/28/2022 [employer] care gaps Reason Comments FYI-No Action Needed Reason Onset Date Comments Refill Request 05/09/2022 Reason Comments Rash Around eyes, face, a nd shoulders x 2 weeks Reason Onset Date Comments Refill Request 06/06/2022 Reason Onset Date Comments Population Health Navigation Outreach 07/15/2022 [employer] care gaps Reason Comments Medicare Wellness Exam Annual Medicare Reason Comments Patient Question Reason Comments Recheck 6 week follow up Reason Comments Question regarding Blood Pressure Reason Onset Date Comments Population Health Navigation Outreach 03/25/2023 [employer] Care Gaps Reason Comments Follow Up Routine 3 month Chest Pain Reason Comments Recheck 3 month follow up Reason Onset Date Comments ACM RADHA RN 11/04/2023 ED utilizatio n review per request of payer Reason Onset Date Comments Patient Question 01/22/2024 Food concern Reason Onset Date Comments Refill Request 01/22/2024 Reason Onset Date Comments Population Health Navigation Outreach 03/28/2024 [employer] [facility] Reason Comments Medicare Wellness Exam Reason Comments requesting new glucose meter Reason Comments Information Request Reason Comments pt concerned with blood sugar readings Reason Comments Recheck Follow up, elevated blood sugars Care Teams (unrecognized sec tion and content) Raisin Separator Operator Relationship Specialty Start Date End Date Hi Hammer MD [address] [place], [place] [address] PCP - General Internal Medicine 04/04/14 Raisin Separator Operator Relationship Specialty Start Date End Date Hi Hammer MD [address] [place] [address] PCP - General Internal Medicine 04/04/14 Raisin Separator Operator Relationship Specialty Start Date End Date Hi Hammer MD [address] [place] [address] PCP - General Internal Medicine 04/04/14 Raisin Separator Operator Relationship Specialty Start Date End Date Hi Hammer MD [address] [place] [place] [address] PCP - General Internal Medicine 04/04/14 Raisin Separator Operator Relationship Specialty Start Date End Date Hi Hammer MD [address] [facility] [address] PCP - General Internal Medicine 04/04/14 Raisin Separator Operator Relationship Specialty Start Date End Date Hi Hammer MD [address] [facility] [address] PCP - General Internal Medicine 04/04/14 Raisin Separator Operator Relationship Specialty Start Date End Date Hi Hammer MD [address] [facility] [address] PCP - General Internal Medicine 04/04/14 Raisin Separator Operator Relationship Specialty Start Date End Date Hi Hammer MD [address] [facility] [address] PCP - General Internal Medicine 04/04/14 Raisin Separator Operator Relationship Specialty Start Date End Date Hi Hammer MD [address] [facility] [address] PCP - General Internal Medicine 04/04/14 Raisin Separator Operator Relationship Specialty Start Date End Date Hi Hammer MD [address] [facility] [address] PCP - General Internal Medicine 04/04/14 Raisin Separator Operator Relationship Specialty Start Date End Date Hi Hammer MD [address] [facility] [address] PCP - General Internal Medicine 04/04/14 Raisin Separator Operator Relationship Specialty Start Date End Date Hi Hammer MD [address] [facility] [address] PCP - General Internal Medicine 04/04/14 Raisin Separator Operator Relationship Specialty Start Date End Date Hi Hammer MD [address] [facility] [address] PCP - General Internal Medicine 04/04/14 Raisin Separator Operator Relationship Specialty Start Date End Date Hi Hammer MD [address] [facility] [address] PCP - General Internal Medicine 04/04/14 Team Status: Active Member Role Status Dates Dr. Hi Hammer MD Family Provider Active Dr. Hi Hammer MD Primary Care Provider Active Team Status: Inactive Member Role Status Dates Dr. Hi Hammer MD Primary Care Provider Active Dr. Antelmo Chakraborty MD Emergency Provider Active Raisin Separator Operator Relationship Specialty Start Date End Date Hi Hammer MD [address] [facility] [address] PCP - General Internal Medicine 04/04/14 Team Status: Inactive Member Role Status Dates Dr. Hi Hammer MD Primary Care Provider Active Dr. Antelmo Chakraborty MD Attending Provider, Emergency Pr ovider Active Team Status: Inactive Member Role Status Dates Dr. Hi Hammer MD Primary Care Provider Active Dr. Ulices Menon MD Emergency Provider Active Team Status: Active Member Role Status Dates Dr. Hi Hammer MD Family Provider Active CARON ROBLES NP-C Primary Care Provider Active Team Status: Inactive Member Role Status Dates Dr. Hi Hammer MD Primary Care Provider Active Dr. Ulices Menon MD Attending Provider, Emergency Provider Active Team Status: Inactive Member Role Status Dates Dr. Ran Bauer MD Emergency Provider Active CARON ROBLES NP-C Primary Care Provider Active Raisin Separator Operator Relationship Specialty Start Date End Date Hi Hammer MD [address] [facility] [place] [address] PCP - General Internal Medicine 04/04/14 Raisin Separator Operator Relationship Specialty Start Date End Date Hi Hammer MD [address] [facility] [address] PCP - General Internal Medicine 04/04/14 Raisin Separator Operator Relationship Specialty Start Date End Date Hi Hammer MD [address] [facility] [address] PCP - General Internal Medicine 04/04/14 Raisin Separator Operator Relationship Specialty Start Date End Date Hi Hammer MD [address] [facility] [address] PCP - General Internal Medicine 04/04/14 Team Status: Inactive Member Role Status Dates CARON ROBLES , GAS TORCH SOLDERER-C Primary Care Provider Active Dr. Anshu Tobar , DO Emergency Provider Active Raisin Separator Operator Relationship Specialty Start Date End Date Hi Hammer MD [address] [facility] [address] PCP - General Internal Medicine 04/04/14 Raisin Separator Operator Relationship Specialty Start Date End Date Hi Hammer MD [address] [facility] [address] PCP - General Internal Medicine 04/04/14 Raisin Separator Operator Relationship Specialty Start Date End Date Hi Hammer MD [address] [facility] [address] PCP - General Internal Medicine 04/04/14 Raisin Separator Operator Relationship Specialty Start Date End Date Hi Hammer MD [address] [facility] [address] PCP - General Internal Medicine 04/04/14 Raisin Separator Operator Relationship Specialty Start Date End Date Hi Hammer MD [address] [facility] [address] PCP - General Internal Medicine 04/04/14 Raisin Separator Operator Relationship Specialty Start Date End Date Hi Hammer MD [address] [place] [address] PCP - General Internal Medicine 04/04/14 Raisin Separator Operator Relationship Specialty Start Date End Date Hi Hammer MD [address] [place] [address] PCP - General Internal Medicine 04/04/14 Raisin Separator Operator Relationship Specialty Start Date End Date Hi Hammer MD [address] [place] [address] PCP - General Internal Medicine 04/04/14 Marlene Arteaag PA-C [address] [place] [id number] [employer] Officer Family Medicine 01/24/24 Caron Robles APRN.COMMUNICATIONS EDITOR [address] [place] [address] [employer] Officer Internal Medicine 01/24/24 Giorgio Prince PA-C [address] [place] [address] [employer] Officer Family Medicine 01/24/24 Raisin Separator Operator Relationship Specialty Start Date End Date Hi Hammer MD [address] [place] [address] PCP - General Internal Medicine 04/04/14 Marlene Arteaga PA-C [address] [place] [address] [phone] [employer] Officer Family Medicine 01/24/24 Caron Robles APRN.COMMUNICATIONS EDITOR [address] [place] [address] [employer] Officer Internal Medicine 01/24/24 Giorgio Prince PA-C [address] [place] [address] [employer] Officer Family [facility] 01/24/24 Raisin Separator Operator Relationship Specialty Start Date End Date Hi Hammer MD [address] [place] [address] PCP - General Internal Medicine 04/04/14 Marlene Arteaga PA-C [address] [place] [address] [employer] Officer Family Medicine 01/24/24 Caron Robles APRN.COMMUNICATIONS EDITOR [address] [place] [address] [employer] Officer Internal Medicine 01/24/24 Giorgio Prince PA-C [address] [place] [address] [employer] Officer Family [facility] 01/24/24 Raisin Separator Operator Relationship Specialty Start Date End Date Hi Hammer MD [address] [place] [address] PCP - General Internal Medicine 04/04/14 Marlene Arteaga PA-C [address] [place] [address] [employer] Officer Family Medicine 01/24/24 Caron Robles APRN.COMMUNICATIONS EDITOR [address] [place] [address] [employer] Officer Internal Medicine 01/24/24 Giorgio Prince PA-C [address] [place] [address] [employer] Officer Family Medicine 01/24/24 Raisin Separator Operator Relationship Specialty Start Date End Date Hi Hammer MD [address] [place] [address] PCP - General Internal Medicine 04/04/14 Caron Robles APRN.COMMUNICATIONS EDITOR [address] [place] [address] [employer] Officer Internal Medicine 01/24/24 Raisin Separator Operator Relationship Specialty Start Date End Date Hi Hammer MD [address] [place] [address] PCP - General Internal Medicine 04/04/14 Caron Robles APRN.COMMUNICATIONS EDITOR [address] [place] [address] [employer] Officer Internal Medicine 01/24/24 Raisin Separator Operator Relationship Specialty Start Date End Date Hi Hammer MD [address] [place] [address] PCP - General Internal Medicine 04/04/14 Marlene Arteaga PA-C [address] [place] [address] [employer] Officer Family Medicine 01/24/24 05/08/24 Caron Robles APRN.COMMUNICATIONS EDITOR [address] [place] [address] [employer] Officer Internal Medicine 01/24/24 Giorgio Prince PA-C [address] [place] [address] [employer] Officer Family Medicine 01/24/24 05/08/24 Team Status: Active Member Role Status Dates CARON ROBLES , GAS TORCH SOLDERER-C Primary Care Provider Active Team Status: Inactive Member Role Status Dates CARON ROBLES , GAS TORCH SOLDERER-C Primary Care Provider Active St art: April 26, 2024 End: April 26, 2024 Dr. Ren William DO Emergency Provider Active Start: April 26, 2024 End: April 26, 2024 Team Status: Inactive Member Role Status Dates CARON ROBLES , GAS TORCH SOLDERER-C Primary Care Provider Active St art: April 26, 2024 End: April 26, 2024 Dr. Ren William DO Attending Provider Active Start: April 26, 2024 End: April 26, 2024 Dr. Ren William DO Emergency Provider Active Start: April 26, 2024 End: April 26, 2024 Team Status: Inactive Member Role Status Dates CARON ROBLES , GAS TORCH SOLDERER-C Primary Care Provider Active St art: June 20, 2024 End: June 20, 2024 Dr. Garrett Escalante MD Attending Provider Active S tart: June 20, 2024 End: June 20, 2024 Dr. Garrett Escalante MD Emergency Provider Active S tart: June 20, 2024 End: June 20, 2024 Team Status: Inactive Member Role Status Dates CARON ROBLES , GAS TORCH SOLDERER-C Primary Care Provider Active St art: June 29, 2024 End: June 29, 2024 CARON ROBLES , GAS TORCH SOLDERER-C Referring Provider Active Start : June 29, 2024 End: June 29, 2024 Demi aMrtinez NP-Bailey Attending Provider Active Start: June 29, 2024 End: June 29, 2024 Raisin Separator Operator Relationship Specialty Start Date End Date Hi Hammer MD [address] [place], [place] [address] PCP - General Internal Medicine 04/04/14 Caron Robles APRN.CNP [address] [place], [place] [id number] [employer] Officer Internal Medicine 01/24/24 Raisin Separator Operator Relationship Specialty Start Date End Date Hi Hammer MD [address] [place], [place] [address] PCP - General Internal Medicine 04/04/14 Caron Robles APRN.COMMUNICATIONS EDITOR [address] [place], [place] [phone] [facility] Internal Medicine 01/24/24 Team Status: Inactive Member Role Status Dates CARON ROBLES , GAS TORCH SOLDERER-C Primary Care Provider Active St art: August 03, 2024 End: August 03, 2024 Dr. Wilder Ring , DO Emergency Provider Active S tart: August 03, 2024 End: August 03, 2024 Raisin Separator Operator Relationship Specialty Start Date End Date Hi Hammer MD [address] [place], [place] [address] PCP - General Internal Medicine 04/04/14 Caron Robles APRN.COMMUNICATIONS EDITOR [address] [place], [place] [id number] [facility] Internal Medicine 01/24/24 Raisin Separator Operator Relationship Specialty Start Date End Date Hi Hammer MD [address] [place], [place] [address] PCP - General Internal Medicine 04/04/14 Caron Robles APRN.COMMUNICATIONS EDITOR [address] [place], [place] [id number] [facility] Internal Medicine 01/24/24 Goals (unrecognized section and content) Goals may be documented in a n alternate sectionGoals may be documented in an alternate sectionGoals may be documented in an alternate sectionGoals may be documented in an alternate sectionGoals may be documented in an alternate sectionGoals may be documented in an alternate sectionGoals may be documented in an alternate sectionGoals may be documented in an alternate section INFORMATION SOURCE (unrecogn ized section and content) DATE CREATED AUTHOR 06/30/2024 [facility] DATE CREATED AUTHOR ALFA TORRE 08/09/2024 [facility] FOR RECORDS PERTAINING TO PATIENTS WHO ARE OR HAVE BEEN ENROLLED IN A CHEMICAL DEPENDENCY/SUBSTANCEABUSE PROGRAM, SOME INFORMATION MAY BE OMITTED. This clinical summary was aggregated from multiple sources. Caution should be exercised in using it in the provision of clinical care. This summary normalizes information from multiple sources, and as a consequence, information in this document may materially change the coding, format and clinical context of patient data. In addition, data may be omitted in some cases. CLINICAL DECISIONS SHOULD BE BASED ON THE PRIMARY CLINICAL RECORDS. [employer] provides no warranty or guarantee of the accuracy or completeness of information in this document.
[2024-08-26 21:00] VITALS: BP 130/78; PULSE 78; RESP 16; TEMP 36.8; O2SAT 98
== END 2024-08-26 21:00 | disposition home or self-care (01) ==
PROVIDERS: Emergency Provider Emergency Medicine; PCP Nurse Practitioner; Visit Provider Emergency Medicine
DX: M79.604 Pain in right leg (principal); E78.00 Pure hypercholesterolemia, unspecified; K21.9 Gastro-esophageal reflux disease without esophagitis; J45.909 Unspecified asthma, uncomplicated
CPT/HCPCS: 73590; 99284

== ENCOUNTER 2024-10-13 08:01 | Emergency (ER) | payer MEDICARE, MEDICAID, SELFPAY ==
[2024-10-13 08:03] VITALS: BP 139/100; PULSE 73; RESP 16; TEMP 36.8; O2SAT 100; BMI 31.6
--- NOTE | 2024-10-13 08:28 | ED.VIS.LOWEX ---
HPI History of Present Illness Chief Complaint: Lower Extremity Injury Narrative Narrative: Patient is a 69-year-old female presenting to the emergency department for left lower extremity pain. Patient states it has been there for about a week. States the pain worsens with ambulation. She reports that the pain is in the shel[place] region below the knee. She denies any pain to the calf or the back of the knee. Denies any known injury to the leg. She has been ambulating with a walker. She denies history of DVT or PE. Denies any leg swelling. She has not taken anything for the pain. Denies any numbness or weakness in her leg. [facility] Medical History Wears glasses Wears dentures Post-menopausal Low iron Fatty liver Restless legs Scoliosis History of IBS Non-smoker Leg cramps History of edema History of stress test Pre-diabetes GERD (gastroesophageal reflux disease) High cholesterol Gallstones Chronic bronchitis Asthma Arthritis Seasonal allergies Home Medications ?Medication ?Instructions ?Recorded ?Last Taken ?Type simvastatin 20 mg tablet 20 mg PO QHS 12/23/12 03/04/16 History sodium chloride 0.65 % nasal spray 1 spray intranasal Q1-4H PRN 10/21/17 Unknown History aerosol (Saline Nasal) Allergies albuterol sulfate 90 mcg/actuation 2 puff IH PRN PRN Sob &/Or Wheezing 08/26/19 12/30/21 History aerosol inhaler ferrous sulfate 325 mg (65 mg 650 mg PO DAILY 10/22/21 Unknown History iron) tablet pantoprazole 40 mg tablet,delayed 40 mg PO DAILY 12/26/21 12/30/21 History release loratadine 10 mg tablet 10 mg PO DAILY 08/03/24 Unknown History Allergy/AdvReac Type Severity Reaction Status Date / Time cefdinir (From Omnicef) Allergy Severe Unknown Verified 08/26/24 19:49 Penicillins Allergy Severe STOP Verified 08/26/24 19:49 BREATHING codeine Allergy Other Verified 08/26/24 19:49 hydrocodone bitartrate (From Allergy Other Verified 08/26/24 19:49 Vicodin) latex Allergy Rash Verified 08/26/24 19:49 aspirin AdvReac Other Verified 08/26/24 19:49 tramadol (From Ultram) AdvReac Rash Verified 08/26/24 19:49 Family History Mother Cancer Father Heart disease Hypertension High cholesterol Kidney disease CVA (cerebral vascular accident) Colon cancer Surgical History History of colonoscopy H/O hernia repair Hx of cholecystectomy Social History household members: none Smoking Status: Never smoker second hand exposure: No alcohol intake: never substance use type: does not use ROS ROS ED ROS Narrative See HPI EXAM Physical Exam Narrative Exam Narrative: Vital signs: Reviewed General: Alert and oriented. No acute distress HEENT: Head is normocephalic and atraumatic, sinuses nontender, pupils equal round and reactive. Nares are patent. Oropharynx and throat exams normal. Neck: Supple without lymphadenopathy nontender Cardiovascular: Regular rate and rhythm, no murmurs. No rubs or gallops. Normal S1 and S2 Respiratory: Clear to auscultation bilaterally. No wheezes, rales, rhonchi Abdominal: Soft and nontender. Normal bowel sounds. No guarding or rebound. Nonsurgical abdomen Extremities: Pain on palpation to the proximal to mid shaft tibia. There is no swelling noted to the foot, ankle or knee. There is no erythema. No warmth. Able to flex and extend at the knee with normal range of motion. Compartments are soft. No laxity on valgus or varus testing. Negative anterior and posterior drawer test. No tenderness to palpation of the lateral or medial malleoli. No tenderness to palpation of the foot. DP and PT pulses intact bilaterally. Sensation intact in bilateral lower extremities. Skin: No rash or redness. Neurological: Cranial nerves II through XII are grossly intact. Normal strength and sensation. Normal cerebellar function The rest of the physical exam is unremarkable Const Vital Signs: 10/13/24 08:03 10/13/24 10:25 Temperature 98.3 F 98.1 F Temperature Source Oral Pulse Rate 73 71 Respiratory Rate 16 14 Blood Pressure 139/100 H 132/99 H Blood Pressure Mean 113 110 Pulse Ox 100 99 Oxygen Delivery Method Room Air MDM MDM MDM Narrative Medical decision making narrative: Patient is a 69-year-old female presenting to the emergency department for left leg pain. Patient was seen and examined. Vitals are stable. Patient resting in bed comfortably no acute distress. Patient has no swelling in her leg, no tenderness to palpation of the posterior calf. No signs of DVT. There is no erythema or warmth concerning for cellulitis. Patient is able to flex and extend her knee and has a normal range of motion of her ankle. No evidence of septic joint in the knee or the ankle. Given the isolated tenderness to palpation of the tibia and history of osteoporosis we will obtain an x-ray to rule out a fracture. Offered something for analgesia but patient declines at this time. X-ray shows no acute abnormality. Patient is able to ambulate with a walker. She is updated on the negative x-ray findings. Likely ligamentous, MSK pain. Instructed to follow-up with PCP as soon as possible and return to the ED with any new or worsening symptoms. Patient discharged from the Emergency Department. I do not feel that the patient's evaluation reveals any acute reason for admission at this time. I instructed them to either follow-up with their primary care physician or promptly return to the Emergency Department for reevaluation should symptoms worsen or new symptoms develop. I explained what symptoms would indicate the need to return to the emergency department. Shared decision making was used. The patient voiced understanding of the treatment plan and is agreeable with it. Clinical impression Left leg pain History & Record Review Discussion w/independent historian: Patient Radiography X-Ray: Read by ED Physician and No Fracture Diagnostic Testing: Clinical Impression(s) from Imaging Studies Tibia/Fibula X-Ray 10/13/24 08:34 IMPRESSION: No acute abnormality is seen. Reading Location: [id number] Discharge Plan Triage Chief Complaint: Lower Extremity Injury ED Provider: Lisa Sung Dx/Rx/DC Orders Clinical Impression: Leg pain, left Instructions: ED Muscle Strain, Extremity, ED RICE Prescriptions: No Action sodium chloride [Saline Nasal] 0.65 % aerosol,spray 1 spray INTRANASAL Q1-4H PRN (Reason: Allergies) ferrous sulfate 325 mg (65 mg iron) tablet 650 mg PO DAILY simvastatin 20 MG tablet 20 mg PO QHS albuterol sulfate 1 PUFF inhaler 2 puff IH PRN PRN (Reason: Sob &/Or Wheezing) pantoprazole 40 mg tablet,delayed release (DR/EC) 40 mg PO DAILY loratadine 10 mg tablet 10 mg PO DAILY Primary Care Provider: DIANE COELHO Referrals: DIANE COELHO NP-C [Primary Care Provider] - 2 Days Activity Restrictions/Additional Instructions: You can take Tylenol or Motrin at home for pain control. If an [place] wrap helps you can keep this on. Follow-up with your primary care doctor as soon as possible. Your evaluation in the Emergency Department did not reveal any acute reason for admission. However, I want to emphasize that you may be early in the course of a disease process or illness even if it is not present. For this reason you should follow-up within 24 hours for reevaluation with either your primary care physician or if necessary back here in the Emergency Department. You should return to the Emergency Department immediately if your symptoms worsen or new symptoms develop. Print Language: Kinyarwanda Disposition Disposition: Home, Self Care Discharge Date/Time: 10/13/24 10:26
--- NOTE | 2024-10-13 08:34 | RAD_ITS ---
EXAM: Left tibia and fibula. CLINICAL HISTORY: Chronic pain. No known injury. COMPARISON: Prior study dated August 26, 2024. TECHNIQUE: Two views were obtained. FINDINGS: No abnormality is seen. RAD/Tibia & Fibula 2 Views IMPRESSION: No acute abnormality is seen. Reading Location: [id number]
[2024-10-13 10:25] VITALS: BP 132/99; PULSE 71; RESP 14; TEMP 36.7; O2SAT 99
== END 2024-10-13 10:26 | disposition home or self-care (01) ==
PROVIDERS: Emergency Provider Student in an Organized Health Care Education/Training Program; PCP Nurse Practitioner; Visit Provider Student in an Organized Health Care Education/Training Program
DX: M79.605 Pain in left leg (principal)
CPT/HCPCS: 73590; 99284